=== PATIENT | male | born 1950 | race Two or more races ===

== ENCOUNTER 2017-12-19 17:31 | Observation (INO) | payer OTHER ==
--- NOTE | 2017-12-19 17:50 | EDPHY ---
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 s/p spinal decompression of the T9 metastasis previously. Onset of bilateral lower extremity weakness over the last week. The weakness is gradually increasing and he is having difficulty standing and walking, despite using a walker. He had a CT 1 week ago and a MRI yesterday which revealed a recurrent T9 metastasis. No bowel or bladder incontinence. Today he was advised by Dr. Abbasi, his neurosurgeon, and Dr. Roque, oncologist, to present to the ED. Yesterday, Mya prescribed the patient 4mg P6 Decadron. Dr. Abbasi is planning on transferring the patient to [facility] tomorrow. Denies chest pain, shortness of breath, urinary or bowel complaints, fever or other pertinent symptoms. REVIEW OF SYSTEMS: Aside from elements discussed in the HPI, a comprehensive 10-point review of systems was reviewed and is negative. Past Medical/Surgical History: Renal cell carcinoma with thoracic spinal mets Social History: at bedside, lives in [place], works for [employer] Smoking Status: Never smoked Physical Exam: General Appearance: Alert, pleasant Eyes: Pupils equal and round, no conjunctival pallor or injection ENT, Mouth: Mucous membranes moist Neck: Normal inspection Respiratory: Lungs are clear to auscultation Cardiovascular: Regular rate and rhythm Gastrointestinal: Abdomen is soft and non-tender Neurological: A&O, Patellar Reflex: 1+ on left and 2+ on right. Lower Extremity Strength: 4+/5 on the right and 5-/5 the left Skin: Warm and dry, no rash Extremities: Nontender, no pedal edema Psychiatric: Mood and affect normal Constitutional: Initial Vital Signs Temperature (C) 36.8 C 12/19/17 17:44 Heart Rate 101 H 12/19/17 17:44 Respiratory Rate 16 12/19/17 17:44 Blood Pressure 148/87 H 12/19/17 17:44 O2 Sat (%) 95 12/19/17 17:44 O2 Delivery Mode Room Air Allergies/Adverse Reactions: naproxen Allergy (Verified 12/19/17 17:46) Other-Enter Comments tree nut [Nuts] Allergy (Verified 12/19/17 17:46) Home Medications: Medication Instructions Recorded Melatonin [Melatonin 3 MG (*)] 12 mg PO HS PRN 07/27/16 Sennosides/Docusate Sodium 1 - 2 each PO HS PRN 07/27/16 [Senna-Docusate Sodium Tablet] Acetaminophen [Tylenol 325mg (*)] 650 mg PO Q4 PRN #0 tab 07/31/16 Baclofen [Baclofen 10 mg (*)] 10 mg PO TID #90 tab 07/31/16 Cephalexin [Keflex (*)] 500 mg PO QID 12/19/17 Ascorbic Acid [Vitamin C 500 mg 500 mg PO DAILY 12/20/17 (*)] Cholecalciferol Vit D3 [Vitamin D3 2,000 units PO DAILY 12/20/17 (*)] Dexamethasone [Decadron 4 MG (*)] 4 mg PO Q6 12/20/17 Medical Decision Making ED Course/Re-evaluation: The patient is a 67 y/o male with a history of 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 He was advised to come into the ED by his neurosurgeon, Dr. Lozada, and his oncologist, Dr. Roque. On exam he has decreased strength in his right leg and a decreased patellar reflex in his left leg. Labs ordered. 1732: Consulted with Dr. Lozada, neurosurgeon, regarding this patient. 1801: Consulted with Dr. Gutiérrez, oncologist, regarding this patient. Suggests IV Decadron now followed by Decadron 4 mg every 6 hr. 20mg IV Decadron administered. 1806: Consulted with hospitalist service, Dr. Bennett accepts admission of this patient. Differential Diagnosis: Differential diagnosis includes though is not limited to hypoglycemia, cauda equina syndrome, electrolyte abnormality, brain met, vascular compromise. - Data Points Medications Given: Acetaminophen (Tylenol) 650 mg PO Q4 PRN PRN Reason: Pain, Mild/Fever, Can Take PO Stop: 06/18/18 11:06 Last Admin: 12/20/17 14:05 Dose: 650 mg Ascorbic Acid (Vitamin C) 500 mg PO DAILY [facility] Stop: 06/19/18 08:59 Last Admin: 12/20/17 11:52 Dose: 500 mg Baclofen (Baclofen) 10 mg PO TID [facility] Stop: 06/17/18 21:59 Last Admin: 12/20/17 14:05 Dose: 10 mg Cephalexin HCl (Keflex) 500 mg PO QID [facility] PRN Reason: Protocol Stop: 01/19/18 11:59 Last Admin: 12/20/17 11:51 Dose: 500 mg Cholecalciferol (Vitamin D) 2,000 units PO DAILY [facility] Stop: 06/19/18 08:59 Last Admin: 12/20/17 11:52 Dose: 2,000 units Dexamethasone (Decadron Injection) 4 mg IVP Q6 [facility] Stop: 06/18/18 00:00 Last Admin: 12/20/17 11:54 Dose: Not Given Dexamethasone (Decadron) 4 mg PO Q6 [facility] Stop: 06/18/18 11:59 Last Admin: 12/20/17 11:51 Dose: 4 mg Enoxaparin Sodium (Lovenox) 40 mg SC DAILY [facility] Stop: 06/18/18 08:59 Last Admin: 12/20/17 09:05 Dose: Not Given Senna/Docusate Sodium (Senokot-S) 2 tab PO BID [facility] Stop: 06/17/18 20:59 Last Admin: 12/20/17 09:03 Dose: Not Given Discontinued Medications Acetaminophen (Tylenol) 650 mg PO Q4HRS PRN PRN Reason: Pain, Mild/Fever, Can Take PO Stop: 06/17/18 18:08 Last Admin: 12/20/17 09:10 Dose: 650 mg Cephalexin HCl (Keflex) 500 mg PO BID [facility] PRN Reason: Protocol Stop: 01/18/18 23:14 Last Admin: 12/20/17 09:02 Dose: 500 mg Dexamethasone (Decadron Injection) 20 mg IVP EDNOW ONE Stop: 12/19/17 18:03 Last Admin: 12/19/17 18:50 Dose: 20 mg Docusate Sodium (Colace) 200 mg PO BID [facility] Stop: 06/17/18 20:59 Last Admin: 12/20/17 09:03 Dose: Not Given Melatonin (Melatonin) 3 mg PO HS PRN PRN Reason: Sleep/Insomnia Stop: 06/17/18 18:09 Last Admin: 12/19/17 21:38 Dose: 3 mg Sodium Chloride (Salt Tablet) 1,000 mg PO BIDMEAL [facility] Stop: 06/18/18 07:59 Last Admin: 12/20/17 09:02 Dose: Not Given Tamsulosin HCl (Flomax) 0.4 mg PO DAILY [facility] Stop: 06/18/18 08:59 Last Admin: 12/20/17 09:04 Dose: Not Given Departure - Departure Disposition: [facility] Inpatient Acute Clinical Impression: Weakness of right lower extremity, Bone metastasis Renal cell carcinoma Qualifiers: Laterality: unspecified laterality Qualified Code(s): C64.9 - Malignant neoplasm of unspecified kidney, except renal pelvis Condition: Fair Report Scribed for: Mary Sandhu Report Scribed by: Evelia Carty Date of Report: 12/19/17 Time of Report: 17:48 Physician Review and Approval Statement: 12/19/17 17:48 Portions of this note were transcribed by a medical record consultant. I personally performed a history, physical exam, medical decision making, and confirmed accuracy of information the transcribed note.
[2017-12-19] MEDS ORDERED: DEXAMETHASONE 10 MG/ML VIAL IVP ONE (18:02)
[2017-12-19] MEDS ORDERED: ONDANSETRON 4 MG/2 ML VIAL IVP PRN (18:09)
[2017-12-19] MEDS ORDERED: ONDANSETRON DISINTEGRATING 4 MG TAB PO PRN (18:09)
[2017-12-19] MEDS ORDERED: MELATONIN 3 MG TAB PO PRN (18:10)
[2017-12-19] MEDS ORDERED: DIAZEPAM 5 MG TAB PO PRN (18:10)
[2017-12-19] MEDS ORDERED: traMADol 50 MG TAB PO PRN (18:10)
[2017-12-19] MEDS ORDERED: ZOLPIDEM TARTRATE 5 MG TAB PO PRN (18:10)
[2017-12-19] MEDS ORDERED: traZODone 50 MG TAB PO PRN (18:10)
[2017-12-19] MEDS ORDERED: POLYETHYLENE GLYCOL 3350 17 GM PKT PO PRN (18:10)
[2017-12-19] MEDS ORDERED: MAGNESIUM HYDROXIDE 30 ML UDCUP PO PRN (18:10)
[2017-12-19 18:58] LABS: PLATELET COUNT 206 10^3/uL (150-400)
--- NOTE | 2017-12-19 19:48 | GHP ---
[f rep st] HISTORY AND PHYSICAL DATE OF ADMISSION: 12/19/2017 CHIEF COMPLAINT: Leg weakness and numbness. HISTORY OF PRESENT ILLNESS: A 67-year-old male with a history of renal cell carcinoma with metastases to his spine status post previous thoracic decompression in 2016. The patient reports uncomplicated postsurgical recovery initially, with nearly no mobility in either lower extremity. Patient had rehab to being able to walk around his home without a walker. 1 week ago, patient started noting increasing lower extremity weakness and immobility. The patient was seen by Neurosurgery in the outpatient setting, had repeat MRI imaging performed which confirms recurrence of his renal cell metastases to his spine. The patient denies any chest pain, denies shortness of breath. Denies vision changes. Reports occasional headache he associates with dehydration. Denies dysphagia. Denies diarrhea or constipation. Reports mild urinary retention, which has been stable. The patient was seen by urologist and said he has enlarged but normal prostate. PAST MEDICAL HISTORY: 1. Renal cell carcinoma status post radical nephrectomy on the left in April 2016. 2. Thoracic decompression and fusion of T9 in December of 2015. FAMILY HISTORY: Negative for heart disease. SOCIAL HISTORY: Lives with his . Negative for tobacco, alcohol or illicit drugs. REVIEW OF SYSTEMS: A 10-point review of systems is negative with the exception of that reported in the HPI. ADVANCED DIRECTIVES: The patient wishes to be full cor, full tube. His would be his medical decision maker. PHYSICAL EXAMINATION: VITAL SIGNS: Blood pressure is 148/87, heart rate 101, respiratory rate 16, 95% on room air. 36 A. GENERAL: This is a healthy- appearing, middle-aged male lying flat in bed. HEENT: Notable for moist mucous membranes. Eye exam is negative for any icterus. CARDIAC: Patient is regular rate and rhythm. PULMONARY: Clear to auscultation bilaterally. GASTROINTESTINAL: Positive bowel sounds. ABDOMEN: Soft and nontender. MUSCULOSKELETAL: Negative for any lower extremity edema. SKIN: Negative for any rashes. NEUROLOGIC: Patient has diminished proprioception of bilateral lower extremities. Mildly diminished strength. Positive Babinski bilaterally. PSYCHIATRIC: Patient is pleasant and cooperative on interview and examination. DIAGNOSTIC DATA: EKG from prior hospitalization that I personally reviewed and interpreted shows sinus rhythm, normal axis, normal intervals. CT of the chest, abdomen, and pelvis from 12/13/2017 was reviewed. Shows osteolytic lesions involving the right scapula and more pronounced paraspinal soft tissue associated with T7 through T11. ASSESSMENT AND PLAN: This is a 67-year-old male with renal cell carcinoma, metastatic to the spine, with new spinal recurrence. 1. Thoracic spinal metastases. The patient had MRI imaging performed in the outpatient setting that confirms recurrence. The patient has been seen by Neurosurgery. We will treat with high-dose intravenous dexamethasone this evening, then start scheduled 4 mg q.6 hours. Neurosurgery is in communication with Neurosurgery at [facility] with the expectation of transfer in the next 24 hours for surgical intervention at the [facility]. 2. Tachycardia appears sinus. May be related to dehydration. However, the patient reports normal intake. Will follow this evening. The patient is hungry and thirsty. Suspect he can eat and drink normally overnight, not necessitating intravenous fluids. 3. BPH. Will continue patient's tamsulosin. 4. Prophylaxis with enoxaparin. DIET: Regular. DISPOSITION: Expect in less than 2 midnights if the anticipated transfer to [facility] occurs in the next 24 hours. Discussed the case with Dr. Lozada from Neurosurgery. They will arrange transport and transfer tomorrow. /[id number]/MODL MTDD
[2017-12-19 20:38] VITALS: RESP 16
[2017-12-19] MEDS: SENNOSIDES/DOCUSATE SODIUM TAB PO SCH (21:39)
[2017-12-19] MEDS: BACLOFEN 10 MG TAB PO SCH (21:39)
[2017-12-19] MEDS: DOCUSATE SODIUM 100 MG CAP PO SCH (21:39)
[2017-12-19] MEDS: ACETAMINOPHEN 325 MG TAB PO PRN (21:50)
--- NOTE | 2017-12-19 22:23 | GCON ---
[f rep st] CONSULTATION DATE OF CONSULTATION: 12/19/2017 CONSULTING SERVICE: Emergency Medicine REASON FOR CONSULT: Renal cell carcinoma to the thoracic spine with progression. HISTORY OF PRESENT ILLNESS: The patient is a 67-year-old male with a history of renal cell carcinoma with thoracic spinal METS to approximately T9, who has been operated on before by my partner, Dr. Isma Abbasi. His oncologist is Dr. Roque. He did have a decompressive surgery in the past for bi lateral leg weakness but that eventually improved. For the past week, he has had subjective weakness in his legs, making it difficult to walk. He can barely use a walker at this point. He had a CT a week ago and an MRI yesterday. Dr. Roque started him on 4 q.6 of Decadron yesterday and updated m y partner, Dr. Abbasi, on progression of the patient's tumor. Dr. Abbasi called me and discussed the case with me. Apparently, the recurrence is highly complex and will require an embolization and mul tiple surgical approaches for definitive treatment. He spoke to Dr. Khoury of the [facility]. Dr. Khoury is willing to accept the patient in transfer. In the meantime, th e patient presented to the ED for IV Decadron and coordination of care. The patient corroborates all of this to me on my bedside examination. I saw him in the emergency room. PAST MEDICAL/SURGICAL HISTORY: Per HPI. SOCIAL HISTORY: at bedside. Lives in [place]. Works for [employer]. Never smoked. Denies tobacco , alcohol or illicit drug abuse. CODE STATUS: Full. ALLERGIES: Naproxen and tree nuts. HOME MEDICATIONS: Tramadol, trazodone, Colace, melatonin, Ambien, baclofen, Valium, MiraLAX, Flomax. FAMILY HISTORY: Negative for cancers. REVIEW OF SYSTEMS: Ten points reviewed and negative other than stated in HPI. VITAL SIGNS: Afebrile at 36.8, blood pressure 148/87, heart rate 101, saturating 95% on room air wit h a respiratory rate of 16. LABORATORY: White blood cell count 7.29, platelet count 206, hemoglobin 12, left shift with 85.8% ne utrophils. Sodium 135, potassium 4.5, BUN 47, creatinine 2.0, glucose 184, calcium 9.5. NEUROLOGIC EXAMINATION: The patient is awake, alert and oriented x3. Appears stated age. No acute distress. Normal fluent speech. He has normal cranial nerves. His upper extremity exam in terms of motor and sensory is normal. He has no pronator drift. His lower extremity exam is 4+/5 throughout . He does have abnormal deep tendon reflexes. He does have bilateral upgoing toes, consistent with positive Babinski reflex. He does have very poor proprioception which is basically nonexistent. Gai t is deferred. IMAGING: The patient's outpatient CT and MRI have been reviewed by my partner, Dr. Abbasi, which karine ws significant renal cell carcinoma progression with cord compression. This is not available for my review today. I did discuss it with Dr. Abbasi. IMPRESSION AND PLAN: A 67-year-old male with a history of renal cell carcinoma with metastases to th e thoracic spine, status post decompressive surgery in the past with Dr. Abbasi with improved lower e xtremity weakness thereafter. The patient had a week of subjective and objective lower extremity fin dings. Imaging indicates extensive recurrence with cord compression that necessitates a transfer to a [facility] setting for an embolization and then multiple surgical approaches for definitive treatme nt. I have discussed the case my partner, Dr. Abbasi, who has discussed the case with our colleague, Dr. Roque of Oncology. The patient will be admitted for IV Decadron and coordination of care. W e will try to transfer him down to Dr. Khoury of [facility] tomorrow for definitive surgica l management. Dr. Khoury is a neurosurgeon and is aware of the case as well. Thank you for this consult. /[id number]/MODL
[2017-12-19] MEDS: CEPHALEXIN 500 MG CAP PO SCH (23:10)
[2017-12-20] MEDS ORDERED: *PHM DO NOT USE-DEXAMETHASONE 0.2 MG/ML IV PED/NEWBORN SYR IV SCH
[2017-12-20] MEDS: DEXAMETHASONE 4 MG/ML VIAL IVP SCH ×3 (00:10→11:54)
[2017-12-20 04:46] LABS: PLATELET COUNT 191 10^3/uL (150-400)
[2017-12-20] MEDS ORDERED: SODIUM CHLORIDE 1,000 MG TAB PO SCH (08:00)
[2017-12-20 08:17] VITALS: O2SAT 94
[2017-12-20] MEDS ORDERED: TAMSULOSIN HCL 0.4 MG CAP PO SCH (09:00)
[2017-12-20] MEDS ORDERED: ENOXAPARIN 40 MG/0.4 ML SYR SC SCH (09:00)
[2017-12-20] MEDS: BACLOFEN 10 MG TAB PO SCH ×2 (09:02→14:05)
[2017-12-20] MEDS: CEPHALEXIN 500 MG CAP PO SCH (09:02)
[2017-12-20] MEDS: DOCUSATE SODIUM 100 MG CAP PO SCH (09:03)
[2017-12-20] MEDS: SENNOSIDES/DOCUSATE SODIUM TAB PO SCH (09:03)
[2017-12-20] MEDS: ACETAMINOPHEN 325 MG TAB PO PRN (09:10)
--- NOTE | 2017-12-20 10:08 | NEUSURGPN ---
Assessment/Plan: Emerson is a 67y/o male with recurrent metastic renal cell carcinoma to approximately T9. Dr. Abbasi has spoke with Dr. Khoury about transfer to [facility] today. Transfer center and case management on board to assist in the transfer. Continue Decadron per oncology Please notify NS with any change in neuro/motor exam. Subjective: Decreased sensation Right>left from the waist down. Urinary urgency and retention, denies any incontinence. right>left anterior quad/hip weakness when up right. Objective: NAD A&Ox3. Decreased sensation to light touch in BLE. diffusely 5-/5 in RLE, 5/ 5 in LLE. - Physician Discussed Patient with .: [facility] Physical Exam - Vitals, I&O, Labs I and O 12/19/17 12/20/17 12/21/17 05:59 05:59 05:59 Intake Total 250 Output Total 800 Balance -550 Weight 71.214 kg Intake: Oral (ml) 250 Output: Urine (ml) 800 Urinal 500 Vital Signs Temp Pulse Resp BP Pulse Ox 36.6 C 72 16 134/74 H 94 12/20/17 08:00 12/20/17 08:00 12/20/17 08:00 12/20/17 08:00 12/20/17 08:00 Laboratory Results 12/20/17 04:29 12/20/17 04:29 ICD10 Worksheet Patient Problems: Problems Problem Status Onset Carcinoma of spine Acute Weakness of right lower extremity Acute Bone metastasis Acute Compression fracture Acute Dehydration Acute Renal cell carcinoma Acute Weakness Acute
[2017-12-20] MEDS ORDERED: ACETAMINOPHEN 325 MG TAB PO PRN (11:07)
[2017-12-20] MEDS ORDERED: MELATONIN 3 MG TAB PO PRN (11:25)
[2017-12-20 11:32] VITALS: BP 142/75; PULSE 99; TEMP 97.9
[2017-12-20] MEDS ORDERED: ASCORBIC ACID 500 MG TAB ONE (11:49)
[2017-12-20] MEDS ORDERED: CHOLECALCIFEROL VIT D3 2,000 UNITS TAB/CAP ONE (11:49)
[2017-12-20] MEDS: ASCORBIC ACID 500 MG TAB PO SCH (11:52)
[2017-12-20] MEDS ORDERED: DEXAMETHASONE 4 MG TAB PO SCH (12:00)
[2017-12-20] MEDS ORDERED: CEPHALEXIN 500 MG CAP PO SCH (12:00)
--- NOTE | 2017-12-20 14:09 | ASMTCMCOM ---
CM Note CM Note Notes: Chart reviewed. Patient is to transfer to [facility]. Emtala done. Call to [facility] this am to speak to there transfer specialist. No bed currently available. I recalled at 13:30. Still no bed confirmation. Patient is upset. Assured him I will let him know as soon as bed available. Date Signed: 12/20/2017 02:08 PM Electronically Signed By:Salena Delarosa RN
--- NOTE | 2017-12-20 14:17 | ASMTCMCOM ---
CM Note CM Note Notes: received call from [facility] with bed assignment about 1:49 pm. Call to [facility]. nurse aware, scrap picker in 30 minutes. Patient informed of pending pickup. RN to call with report. CM available should other needs arise. Date Signed: 12/20/2017 02:16 PM Electronically Signed By:Salena Delarosa RN
--- NOTE | 2017-12-20 15:46 | GDS ---
[f rep st] DISCHARGE SUMMARY DISCHARGE DIAGNOSIS: Metastatic renal cell carcinoma. CONSULTATIONS: Neurosurgery. PHYSICAL EXAM: GENERAL: The patient is alert. VITAL SIGNS: Afebrile at 36.6, pulse 99, respiratory rate 16. Blood pressure is 142/75. He is satur ating 94% on room air. I have seen and evaluated the patient on the day of discharge. HOSPITAL COURSE: The patient is a 67-year-old male who presented to the emergency room with complain ts of weakness. He was evaluated and received a consultation from Neurosurgery. It is felt that the patient requires transfer to [facility] under Dr. Khoury for further surgical intervention regarding his metastatic process to his spine. The disposition and transfer have been arranged. Th e patient will be transported to [facility] for further management and therapy regarding his chronic disease. FOLLOWUP: Followup will be with Dr. Khoury of Neurosurgery at the [facility], as well as the patient's primary oncologist, Dr. Roque. DISCHARGE MEDICATIONS: Please refer to EMR form. I have not adjusted the patient's previously presc ribed home medications to the best of my knowledge. /[id number]/MODL
[2017-12-21] MEDS ORDERED: CHOLECALCIFEROL VIT D3 2,000 UNITS TAB/CAP PO SCH (09:00)
== END 2017-12-20 14:54 | disposition short-term general hospital (02) ==
LOC: F3E 20:14
PROVIDERS: ADMIT Hospitalist; ATTEND Internal Medicine
DX: C79.51 Secondary malignant neoplasm of bone (principal); G95.29 Other cord compression; R53.1 Weakness; G99.2 Myelopathy in diseases classified elsewhere; R00.0 Tachycardia, unspecified; N40.0 Benign prostatic hyperplasia without lower urinary tract symptoms; Z85.528 Personal history of other malignant neoplasm of kidney; Z90.5 Acquired absence of kidney
CPT/HCPCS: G0378 ×2; J1100; J1650

== ENCOUNTER 2018-01-03 11:48 | Inpatient (IN) | payer OTHER ==
[2018-01-03] MEDS ORDERED: NYSTATIN SUSP 500000 UNIT/5 ML UDCUP PO PRN (13:26)
[2018-01-03] MEDS ORDERED: oxyCODONE IR 5 MG TAB PO PRN (13:26)
[2018-01-03] MEDS ORDERED: SENNOSIDES 1 TAB PO PRN (13:26)
[2018-01-03] MEDS ORDERED: MAGNESIUM HYDROXIDE 30 ML UDCUP PO PRN (13:58)
[2018-01-03] MEDS ORDERED: BISACODYL 10 MG SUPP PR PRN (13:58)
[2018-01-03] MEDS: ACETAMINOPHEN 500 MG TAB PO SCH ×2 (14:15→20:47)
--- NOTE | 2018-01-03 14:42 | PDOREHIP ---
Admission [facility] - Admission - 3 Day Assessment Period Admission Date/Day 1: 01/03/18 Day 2: 01/04/18 Day 3: 01/05/18 - Skin Conditions Unhealed Pressure Ulcer (1 or more/Stage 1 or >)-Admission: 0. No
[2018-01-03] MEDS: BACLOFEN 10 MG TAB PO SCH ×2 (15:32→20:47)
--- NOTE | 2018-01-03 16:36 | GHP ---
[f rep st] HISTORY AND PHYSICAL POSTADMISSION PHYSICIAN EVALUATION AND REHABILITATION TREATMENT PLAN DATE OF ADMISSION: 01/03/2018 DATE OF EVALUATION: 01/03/2018 TIME OF EVALUATION: 2:30 p.m. REFERRING FACILITY: [facility]. CONSULTING PHYSICIANS: Dr. Khoury. REHABILITATION DIAGNOSIS: Lower extremity weakness secondary to recent thoracic spine surgery. 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 DATE OF SURGERY: 12/25/2017. DATE OF ONSET: 12/20/2017. HISTORY OF PRESENT ILLNESS: A 67-year-old male with history of renal cell carcinoma, status post right nephrectomy and prior history of spinal metastasis resulting in previous spinal cord compression 2 years ago. He presented to [facility] after initial presentation to [facility] where he presented with worsening lower extremity weakness. Upon presentation to [facility], he presented with recurrence of spinal metastasis in the setting of worsening lower extremity weakness, more pronounced on the left, along with difficulty walking. He was seen in the Neurosciences Unit for evaluation. It was noted that 2 weeks prior to admission , he was having worsening lower extremity weakness and difficulty walking. He was diagnosed with new T8-T10 recurrent mets and found spinal mets on surveillance CT scan. Two years prior, he underwent T9 corpectomy at [facility]. Also had 2 surgeries at [facility] including spinal arteriography T7-L2 with coil embolization of the left T8-9-10 intercostals. Second surgery was in area of previous fusion from T7-T11 with revision of bilateral laminectomy at T8-11, removal of left T10 pedicle screw, left T9 costotransversectomy, revision transpedicle T9 corpectomy, thoracic tumor debulking/resection, bilateral T12 pedicle screw insertion, T11-12 fusion with allograft and revision anterior column fusion with allograft T10-8. He was able to participate in therapies including physical and occupational therapy , and was deemed ready to transfer to postacute rehabilitation. Currently he reports pain in the interscapular and parathoracic region rated as a 5/10 which he attributes to sitting in the uncomfortable chair. He reports right greater than left lower extremity weakness, particularly of the right and left ankle dorsiflexors, more pronounced on the right. He does notice that he drags his feet a little bit when walking. He denies bowel or bladder incontinence. He does report having been constipated for the past few days and reports good relief with prior use of Milk of Magnesia. Also complains of nocturia. He has been in to see a urologist at [facility] for BPH versus dysfunctional bladder contraction. He was placed on some type of medication but cannot recall which name. STUDIES AND LABS: MRI of pelvis 12/23/2017 showed ovoid lesion along the posterior right 2nd rib, likely represents metastatic RCC. MR thoracic spine, interval revision of lower thoracic fusion construct with decompressive laminectomies as above. T9 mass narrows the spinal canal which had been decompressed since the previous study. Enhancing lesions in the right 1st rib and T5 vertebral body. MR scapula, right, multilobulated enhancing destructive mass centered at the scapular spine/neck of the glenoid which probably invades the supraspinatus musculature, likely represents metastatic RCC. Ovoid lesion along the posterior right 2nd rib. MR pelvis, T1-2 hyperintense lesions along the left iliac wing, right iliac wing , right anterior acetabulum, and superior sacrum, likely represents metastatic RCC lesions. X-ray entire C-T-L-spine status post posterior fusion T7-T11. Labs: Sodium 138, potassium 42, glucose 109, BUN 33, creatinine 1.18. GFR greater than 60. Calcium 8.6. CBC: WBC 12.9, hemoglobin 9.4, hematocrit 27.9, RBC 2.97. PRECAUTIONS: Fall risk. Spinal precautions: No repetitive bending, stooping, pulling, pushing, or twisting. No lifting greater than 5 pounds. ACTIVE COMORBIDITIES: Question BPH. Status post right nephrectomy. TIER 1: None. TIER 2: None. TIER 3: None. PAST MEDICAL HISTORY: BPH. History of renal cell carcinoma. PAST SURGICAL HISTORY: As per HPI, multiple thoracic spine surgeries, status post right nephrectomy. PREHOSPITAL MEDICATIONS: Patient was taking something for nocturia and/or to improve urinary outflow, cannot recall name. ADMISSION MEDICATIONS: Acetaminophen 1000 mg q.8. Baclofen 10 mg t.i.d. Dulcolax 10 mg p.r. Magnesium hydroxide 30 mL p.o. daily. Nystatin 500,000 units p.o. q.i.d. p.r.n. thrush. Oxycodone IR 5-10 mg p.o. q.6 and adjusted to pain level. Polyethylene glycol 17 g p.o. daily p.r.n. constipation. Senna 2 tablets p.o. h.s. p.r.n. ALLERGIES: NKDA. PSYCHOSOCIAL HISTORY: Patient is . Lives with who only speaks Maldivian. Lives in multilevel home with stairs to enter home, 1 to 2 steps with a ramp, stairs to second floor, bathroom level on second floor. Patient is a college graduate and currently works for [employer]. He reports that he is getting ready to retire. Hobbies include hiking. FAMILY HISTORY: Noncontributory. REVIEW OF SYSTEMS: HEENT: Denies dizziness. Reports intermittent tinnitus left ear. NEUROLOGIC: Denies headaches, impaired vision or diplopia. Reports lower extremity weakness, as per HPI. GASTROINTESTINAL: Reports mild dysphagia secondary to recent surgery. Denies GERD like symptoms. Reports constipation. GENITOURINARY: Reports nocturia. Previously placed on medication to improve this, cannot recall name. Denies bladder incontinence. SKIN: Denies rash, lesions or other skin breakdown. PSYCHIATRIC: Denies anxiety or depression. CARDIOVASCULAR: Denies angina like symptoms. RESPIRATORY: Denies shortness of breath. MUSCULOSKELETAL: Reports right shoulder pain which he attributes to rotator cuff tendinitis. PHYSICAL EXAMINATION: GENERAL: Lean, pleasant male NAD, flat affect. VITAL SIGNS: Blood pressure 149/88, heart rate 94, respiratory rate 16 and unlabored. HEENT: Pupils equal, round and reactive to light and accommodation. EOMI. Oral mucosa slightly dry. LYMPH: No cervical or axillary lymphadenopathy. LUNGS: Clear to auscultation. ABDOMEN: Slightly tense. No rebound, guarding or tenderness. Slightly distended. GENITOURINARY: No catheter present. No suprapubic tenderness. No flank pain. SKIN: Warm all 4 extremities with multiple ecchymoses of both forearms. Large thoracic spine incision, juan in place, no erythema. Increased tone of the thoracic paraspinals at the surgical site most likely due to hematoma formation. SOFT TISSUE EXAM: No paracervical or paralumbar guarding. Mild parathoracic tenderness. Difficult to assess for parathoracic muscle spasms due to most likely hematoma formation in thoracic paraspinals. NEUROLOGIC: Grossly normal upper extremity motor exam deltoid, biceps, triceps, brachial radialis, wrist and finger extensors. Some pain inhibition testing is noted when testing right supraspinatus in isolation. No pain noted with resisted internal and external right shoulder rotation. Lower extremity motor exam reveals weakness 3-/5 right and left hip flexors, 4/5 hamstrings, 3-/5 quadriceps, 3+4-/5 right tibialis anterior, 4/5 left tibialis anterior. No upper or lower extremity sensory deficits. CURRENT LEVEL OF FUNCTION: Per the preadmission screen: He is tolerating a regular diet with thin liquids with setup. Grooming: He is standby assist- standing. Bathing: Minimal assistance. Dressing upper body: Minimal assist. Patient states that the TLSO has been discharged. Lower extremity dressing: SPA with sock aid with head piece assembler. Toileting: Standby assist, bladder continent, bowel continent. Bed mobility: Independent. Transfer to toilet: Contact guard assist. Equipment: FWW. Endurance: Endurance is noted to be improving. Gait : At time of transfer, patient was ambulating 40 feet with FWW, contact guard assist. Communication and cognitive: WNL. Safety precautions: Falls, constipation, low endurance, spine precautions, right greater than left lower extremity weakness. IMPRESSION: This is a 67-year-old male with history of renal cell carcinoma with prior history of spinal metastasis and previous spinal cord compression 2 years ago who underwent extensive thoracic spine surgery as described in the history of present illness who now presents with impaired mobility and gait secondary to lower extremity weakness along with trunk weakness. He is noted to have metastasis in the right scapula and right 1st and 2nd ribs, as well as metastasis to the pelvis. He will benefit from continued inpatient physical and occupational therapy to optimize mobility including transfers and gait, as well as activities of daily living so that he can be discharged home to his with a modified independent level. For safe discharge, it is expected that patient will be at least modified independent, if not fully independent, with ambulation and transfers. He will need to be discharged with assistive devices including sock aids and an FWW, although he may be able to be discharged with a quad cane and this is based on his current walking distance and lower extremity strength. He will have Physical Therapy and Occupational Therapy, as well as evaluation by Speech Therapy to assess cognitive status 60 minutes per day, 5-7 days per week. Expected duration of stay, 7-10 days. PLAN: 1. 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 He has right greater than left lower extremity weakness. Physical Therapy consult to optimize lower extremity mobility, gait evaluation , provide assistive devices as necessary. Patient will need strengthening of pelvic girdle muscles, quadriceps, hamstrings, ankle dorsiflexors and plantar flexors. Physical Therapy will work in conjunction with Occupational Therapy to address core/trunk strength. 2. Bilateral foot drop. Physical therapy to assess necessity for possible right and left ankle foot orthoses as deemed necessary. 3. Right scapular metastasis. Patient currently complains of pain in the right subacromial region which he states is due to rotator cuff tendinitis. Judicious and gentle right upper extremity strengthening and range of motion based on metastasis to scapula. Patient may benefit from low dose nonsteroidal antiinflammatories to help manage shoulder pain. 4. Postsurgical anemia. Will monitor hemoglobin and hematocrit. Patient denies shortness of breath. Pulse was noted to be not tachycardic and regular. 5. Constipation. Will implement a rehab bowel program. 6. Possible benign prostatic hypertrophy. I will ask Linen Sorter to contact [facility] to ascertain which medication he was on. Once we know this, we can restart this. 7. Prophylaxis. Patient is moderate risk for deep venous thrombosis based on his age and history of metastatic cancer. He was not transferred with any anticoagulant medications. Will begin SCDs. /[id number]/MODL MTDD
[2018-01-03] MEDS: DOCUSATE SODIUM 100 MG CAP PO SCH (20:47)
[2018-01-03] MEDS: MELATONIN 3 MG TAB PO SCH (21:26)
[2018-01-04] MEDS: ACETAMINOPHEN 500 MG TAB PO SCH ×3 (05:06→20:56)
[2018-01-04 08:20] LABS: PLATELET COUNT 236 10^3/uL (150-400)
[2018-01-04] MEDS: DOCUSATE SODIUM 100 MG CAP PO SCH ×2 (08:20→20:56)
[2018-01-04] MEDS: BACLOFEN 10 MG TAB PO SCH ×3 (08:20→20:56)
[2018-01-04] MEDS: POLYETHYLENE GLYCOL 3350 17 GM PKT PO PRN (08:24)
--- NOTE | 2018-01-04 10:15 | SOAPPROG ---
SOAP Progress Note Assessment/Plan: Assessment/Plan: Mr. Cruz is a 67 y/o male admitted to Acute rehab on 01/03/18 after undergoing thoracic spine surgery secondary to mets from RCC. This was completed by Dr. Khoury at the [facility]. 1. 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 R>L LE weakness. Pt will benefit from intervention with PT and OT given his change in baseline function. They will provide strategies and intervention to optimize recovery and increase safety and [place] 2. Bilateral Foot Drop - PT will assess for possible bilateral foot orthosis as well as least restrictive Gait equipment 3. Right scapular mets - Has some ongoing pain in the region. Will work with therapy to minimize any musculoskeletal component. Has Pain meds PRN 4. Acute blood loss anemia - Intermittently monitor. Pt mildly fatigued but otherwise stable. VS have also been stable. May need to consider Iron replacement qod to support anemia - 5. Constipation - likely a combination of decreased mobility and recent surgical intervention. Implement bowel program. If no BM x3 days will add medications 6. N. 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 Had trialled Toviaz 8mg prior which he thought worked too well. Start current dosing and monitor - Have asked RN's to collect PVR's x2 to determine if has retention vs hyper- reflexic bladder 7. Sore throat - Pt reports that his continues to improve but has been there since the surgery - doesn't feel any change in his voice. - Start Cepacol lozenge - no evidence of infection - If persists - may need to consider evaluation with ENT 8. Prophylaxis - At least moderate risk given active metastatic cancer, per review of the chart was receiving SQ Heparin on 01/02/18 prior to transfer although not on transfer list - Will restart and evaluate mobility with therapy. If able to mobilize well then will consider removal. 01/04/18 10:15 Subjective: Feeling pretty good today - frustrated as finally had worked up to being around his home without a walker after his last surgery/mets. Reported that still feeling some soreness through his throat but overall this has improved - was hoping to get some lozenge or other support for this. We discussed his management of his bladder- reporting increase awakening to use the restroom at night although this is something he had seen a urologist semi-recently about - Did have Cystoscopy which patient reported no abnormality- did say he had a hyper-reflexic bladder. Objective: Vital Signs Temp Pulse Resp BP Pulse Ox 37.0 C 93 16 128/86 H 94 01/03/18 20:00 01/03/18 20:00 01/03/18 20:00 01/03/18 20:00 01/03/18 20:00 Laboratory Results 01/04/18 07:05 01/04/18 07:05 01/03/18 01/04/18 01/05/18 05:59 05:59 05:59 Intake Total 500 Output Total 1850 Balance -1350 Physical Exam - Physical Exam General Appearance: alert, no apparent distress EENT: PERRL/EOMI Respiratory: lungs clear Cardiac/Chest: regular rate, rhythm Abdomen: normal bowel sounds, non-tender Skin: normal color Neuro/Psych: alert, normal mood/affect, oriented x 3 ICD10 Worksheet Patient Problems: Problems Problem Status Onset Bone metastasis Acute Compression fracture Acute Dehydration Acute Renal cell carcinoma Acute Weakness Acute Weakness of right lower extremity Acute
[2018-01-04] MEDS: MELATONIN 3 MG TAB PO SCH (20:55)
[2018-01-04] MEDS: FESOTERODINE FUMARATE 4 MG TAB.ER PO SCH (20:56)
[2018-01-04] MEDS: HEPARIN 5,000 UNIT/0.5 ML SYR SC SCH (20:57)
[2018-01-04] MEDS: CEPACOL LOZENGE PO PRN (21:11)
[2018-01-05] MEDS: ACETAMINOPHEN 500 MG TAB PO SCH ×3 (05:25→20:45)
[2018-01-05] MEDS: HEPARIN 5,000 UNIT/0.5 ML SYR SC SCH ×3 (05:26→20:46)
[2018-01-05] MEDS: CEPACOL LOZENGE PO PRN (05:34)
[2018-01-05] MEDS: POLYETHYLENE GLYCOL 3350 17 GM PKT PO PRN (08:02)
[2018-01-05] MEDS: DOCUSATE SODIUM 100 MG CAP PO SCH ×2 (08:03→20:46)
[2018-01-05] MEDS: BACLOFEN 10 MG TAB PO SCH ×3 (08:03→20:46)
--- NOTE | 2018-01-05 10:33 | SOAPPROG ---
SOAP Progress Note Assessment/Plan: Assessment/Plan: Mr. Cruz is a 67 y/o male admitted to Acute rehab on 01/03/18 after undergoing thoracic spine surgery secondary to mets from RCC. This was completed by Dr. Khoury at the [facility]. 1. 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 R>L LE weakness. Pt will benefit from intervention with PT and OT given his change in baseline function. They will provide strategies and intervention to optimize recovery and increase safety and [place] 2. Bilateral Foot Drop - PT will assess for possible bilateral foot orthosis as well as least restrictive Gait equipment 3. Right scapular mets - Has some ongoing pain in the region. Will work with therapy to minimize any musculoskeletal component. Has Pain meds PRN 4. Acute blood loss anemia - Intermittently monitor. Pt mildly fatigued but otherwise stable. VS have also been stable. May need to consider Iron replacement qod to support anemia - 5. Constipation - likely a combination of decreased mobility and recent surgical intervention. Implement bowel program and add meds as indicated 6. N. 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 Had trialled Toviaz 8mg prior which he thought worked too well. Start current dosing and monitor - Have asked RN's to collect PVR's x2 to determine if has retention vs hyper- reflexic bladder 7. Sore throat - Pt reports that his continues to improve but has been there since the surgery - doesn't feel any change in his voice. - Start Cepacol lozenge - no evidence of infection - If persists - may need to consider evaluation with ENT 8. Prophylaxis - At least moderate risk given active metastatic cancer, per review of the chart was receiving SQ Heparin on 01/02/18 prior to transfer although not on transfer list - Will restart and evaluate mobility with therapy. If able to mobilize well then will consider removal. Today's Plan: Pt reports great improvement with the cepacol -no new concerns/ swallow dysfunction. He was happy with current dosing of toviaz- still did have to get up last night but decreased. Will trial for a couple more nights and consider transition to 8mg for improved effect. Did have BM last night. Pt without symptoms of anemia - will repeat labs tomorrow to continue to trend. 01/05/18 10:35 Subjective: Feeling pretty good today - reports that did have some benefit from the toviaz dosing last night. He was asking about taking Vitamin D since he was taking this prior. He is feeling pretty upbeat since he is in a much better position this time as compared to last time he had this injury. Objective: Vital Signs Temp Pulse Resp BP Pulse Ox 36.9 C 74 16 112/74 93 01/05/18 07:20 01/05/18 07:20 01/05/18 07:20 01/05/18 07:20 01/05/18 07:20 Laboratory Results 01/04/18 07:05 01/04/18 07:05 01/04/18 01/05/18 01/06/18 05:59 05:59 05:59 Intake Total 500 1963 160 Output Total 1850 3150 300 Balance -1350 -1187 -140 Physical Exam - Physical Exam General Appearance: alert, no apparent distress Respiratory: lungs clear, normal breath sounds Cardiac/Chest: regular rate, rhythm Abdomen: non-tender, soft Skin: normal color Extremities: normal range of motion Neuro/Psych: alert, normal mood/affect, oriented x 3 ICD10 Worksheet Patient Problems: Problems Problem Status Onset Bone metastasis Acute Compression fracture Acute Dehydration Acute Renal cell carcinoma Acute Weakness Acute Weakness of right lower extremity Acute
[2018-01-05] MEDS: FESOTERODINE FUMARATE 4 MG TAB.ER PO SCH (19:46)
[2018-01-05] MEDS: MELATONIN 3 MG TAB PO SCH (20:46)
[2018-01-06] MEDS: ACETAMINOPHEN 500 MG TAB PO SCH ×3 (06:34→20:32)
[2018-01-06] MEDS: HEPARIN 5,000 UNIT/0.5 ML SYR SC SCH ×4 (06:34→20:34)
[2018-01-06] MEDS: BACLOFEN 10 MG TAB PO SCH ×3 (08:17→20:31)
[2018-01-06] MEDS: DOCUSATE SODIUM 100 MG CAP PO SCH ×2 (08:17→20:32)
[2018-01-06] MEDS: CHOLECALCIFEROL VIT D3 2,000 UNITS TAB/CAP PO SCH (08:17)
[2018-01-06 09:31] LABS: PLATELET COUNT 235 10^3/uL (150-400)
--- NOTE | 2018-01-06 11:24 | SOAPPROG ---
SOAP Progress Note Assessment/Plan: Assessment: Mr. Cruz is a 67 y/o male admitted to Acute rehab on 01/03/18 after undergoing thoracic spine surgery secondary to mets from RCC. This was completed by Dr. Khoury at the [facility]. 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 R>L LE weakness. * Initial FIM of 88 on 01/06/2018. Standby assist for bed mobility, moderate assist to get legs back into bed. Ambulated 100 ft with a front wheeled walker standby assist to contact guard assist. Doing activities of daily living with contact guard to standby assist. He has some ataxia and loss of balance. * Continue PT and OT towards discharge home at the independent to modified independent level. * Bilateral Foot Drop - PT will assess for possible bilateral foot orthosis as well as least restrictive Gait equipment * Right scapular mets - Has some ongoing pain in the region. Metastatic lesions involve the supraspinatus. Will work with therapy to minimize any musculoskeletal component. Has pain meds PRN * Acute blood loss anemia - Intermittently monitor. Pt mildly fatigued but otherwise stable. VS have also been stable. * Reticulocyte count appropriate. * Iron deficient on labs 01/06/2018. Will supplement X 4 weeks. * Constipation - responding to bowel program. * N. Bladder? 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 Has moderate BPH as well as bladder hypercontractility. * Improved 2 nights ago with fesoterodine but not better last night, per his report on 01/06/2018. Increase fesoterodine to 8 mg at bedtime per his request. * Monitor for signs or symptoms of urinary retention. Continue bladder scanning. * Baclofen may contribute. Will decrease dose to 5 mg. * Sore throat - Pt reports that his continues to improve but has been there since the surgery - doesn't feel any change in his voice. - Start Cepacol lozenge - no evidence of infection - If persists - may need to consider evaluation with ENT * Prophylaxis - At least moderate risk given active metastatic cancer, per review of the chart was receiving SQ Heparin on 01/02/18 prior to transfer although not on transfer list - Will restart and evaluate mobility with therapy. If able to mobilize well then will consider removal. Attended staffing, 15 min. Discussed with case management, dietitian, PT, OT. Plans to return home with . Has followup pending with [facility]. Tentative discharge date of 01/16/2018 set. 01/06/18 14:42 Subjective: Complains of frequent urination at night especially. He thinks he has more urine volume overnight than during the day. He says it was improved on fesoterodine 4 mg 2 nights ago but last night was about the same as previous. He reports that he limits his fluid intake with dinner and after. He has not noticed swelling of the leg. He has no cough or dyspnea. Overall pain is adequately controlled. He prefers to avoid opiates due to the constipation side effect. Objective: Vital Signs Temp Pulse Resp BP Pulse Ox 36.8 C 80 14 128/90 H 95 01/06/18 07:52 01/06/18 07:52 01/06/18 07:52 01/06/18 07:52 01/06/18 07:52 Laboratory Results 01/06/18 07:00 01/04/18 07:05 01/05/18 01/06/18 01/07/18 05:59 05:59 05:59 Intake Total 1963 1505 530 Output Total 3150 2800 200 Balance -1187 -1295 330 - Time Spent With Patient Time Spent With Patient: Greater than 35 min staff time today, including more than 50% of time in coordination of care during staffing meeting, and counseling patient. Physical Exam - Physical Exam General Appearance: WD/WN, alert, no apparent distress Respiratory: normal breath sounds, No crackles, No rhonchi, No wheezing Cardiac/Chest: regular rate, rhythm, No edema, No diastolic murmur, No systolic murmur Skin: normal color, warm/dry Neuro/Psych: alert, normal mood/affect, oriented x 3 ICD10 Worksheet Patient Problems: Problems Problem Status Onset Bone metastasis Acute Compression fracture Acute Dehydration Acute Renal cell carcinoma Acute Weakness Acute Weakness of right lower extremity Acute
[2018-01-06] MEDS: MELATONIN 3 MG TAB PO SCH (20:31)
[2018-01-06] MEDS: FESOTERODINE FUMARATE 4 MG TAB.ER PO SCH (20:32)
[2018-01-07] MEDS: ACETAMINOPHEN 500 MG TAB PO SCH ×3 (06:10→21:24)
[2018-01-07] MEDS: HEPARIN 5,000 UNIT/0.5 ML SYR SC SCH (06:21)
[2018-01-07] MEDS: CHOLECALCIFEROL VIT D3 2,000 UNITS TAB/CAP PO SCH (08:07)
[2018-01-07] MEDS: BACLOFEN 10 MG TAB PO SCH ×3 (08:07→21:24)
[2018-01-07] MEDS: DOCUSATE SODIUM 100 MG CAP PO SCH ×2 (08:07→21:25)
[2018-01-07] MEDS: FERROUS SULFATE 325 MG TAB PO SCH (08:07)
[2018-01-07] MEDS: POLYETHYLENE GLYCOL 3350 17 GM PKT PO PRN (08:11)
--- NOTE | 2018-01-07 12:10 | SOAPPROG ---
SOAP Progress Note Assessment/Plan: Assessment: Mr. Cruz is a 67 y/o male admitted to Acute rehab on 01/03/18 after undergoing thoracic spine surgery secondary to mets from RCC. This was completed by Dr. Khoury at the [facility]. 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 R>L LE weakness. * Initial FIM of 88 on 01/06/2018. Standby assist for bed mobility, moderate assist to get legs back into bed. Ambulated 100 ft with a front wheeled walker standby assist to contact guard assist. Doing activities of daily living with contact guard to standby assist. He has some ataxia and loss of balance. * Continue PT and OT towards discharge home at the independent to modified independent level. * Bilateral Foot Drop - PT will assess for possible bilateral foot orthosis as well as least restrictive Gait equipment * Right scapular mets - Has some ongoing pain in the region. Metastatic lesions involve the supraspinatus. Will work with therapy to minimize any musculoskeletal component. Pain control is adequate with scheduled acetaminophen. Not using PRN oxycodone. * Acute blood loss anemia - Intermittently monitor. Pt mildly fatigued but otherwise stable. VS have also been stable. * Reticulocyte count appropriate. * Iron deficient on labs 01/06/2018. Will supplement X 4 weeks. * Constipation - responding to bowel program. * N. Bladder? 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 Has moderate BPH as well as bladder hypercontractility. * Improved 2 nights ago with fesoterodine but not better last night, per his report on 01/06/2018. Increase fesoterodine to 8 mg at bedtime per his request. * Monitor for signs or symptoms of urinary retention. Continue bladder scanning.d * Baclofen may contribute. Decreased dose to 5 mg on 01/06/2018. * Sore throat - Pt reports that his continues to improve but has been there since the surgery - doesn't feel any change in his voice. - Start Cepacol lozenge - no evidence of infection - If persists - may need to consider evaluation with ENT * Prophylaxis -mobility is much improved. Discontinued subcutaneous heparin on 01/17/2018. Plans to return home with . Has followup pending with [facility]. Tentative discharge date of 01/16/2018 set. This patient needs a front wheeled walker. He has a mobility limitation that significantly impairs 1 or more mobility related ADLs in the home, he can use a walker safely, and he has a functional mobility deficit that cannot be resolved with a cane. 01/07/18 13:15 Subjective: Reports reduced frequency of urination last night with higher dose of fesoterodine. Has not noticed any increased tone in the lower extremities with reduced dose of baclofen. Otherwise no complaints. Objective: Vital Signs Temp Pulse Resp BP Pulse Ox 36.8 C 72 14 129/74 H 93 01/07/18 06:57 01/07/18 06:57 01/07/18 06:57 01/07/18 06:57 01/07/18 06:57 Laboratory Results 01/06/18 07:00 01/04/18 07:05 01/06/18 01/07/18 01/08/18 05:59 05:59 05:59 Intake Total 1505 1740 450 Output Total 2800 2120 450 Balance -1295 -380 0 Physical Exam - Physical Exam General Appearance: WD/WN, alert, no apparent distress Respiratory: No respiratory distress, No accessory muscle use Skin: normal color, warm/dry Neuro/Psych: alert, normal mood/affect, oriented x 3 ICD10 Worksheet Patient Problems: Problems Problem Status Onset Bone metastasis Acute Compression fracture Acute Dehydration Acute Renal cell carcinoma Acute Weakness Acute Weakness of right lower extremity Acute
[2018-01-07] MEDS: CEPACOL LOZENGE PO PRN (20:24)
[2018-01-07] MEDS: MELATONIN 3 MG TAB PO SCH (21:24)
[2018-01-07] MEDS: FESOTERODINE FUMARATE 4 MG TAB.ER PO SCH (21:25)
[2018-01-08] MEDS: ACETAMINOPHEN 500 MG TAB PO SCH ×3 (06:11→20:53)
[2018-01-08] MEDS: DOCUSATE SODIUM 100 MG CAP PO SCH ×2 (08:16→20:53)
[2018-01-08] MEDS: FERROUS SULFATE 325 MG TAB PO SCH (08:16)
[2018-01-08] MEDS: CHOLECALCIFEROL VIT D3 2,000 UNITS TAB/CAP PO SCH (08:16)
[2018-01-08] MEDS: BACLOFEN 10 MG TAB PO SCH ×3 (08:16→20:53)
--- NOTE | 2018-01-08 13:17 | SOAPPROG ---
SOAP Progress Note Assessment/Plan: Assessment: Mr. Cruz is a 67 y/o male admitted to Acute rehab on 01/03/18 after undergoing thoracic spine surgery secondary to mets from RCC. This was completed by Dr. Khoury at the [facility]. 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 R>L LE weakness. * Initial FIM of 88 on 01/06/2018. Standby assist for bed mobility, moderate assist to get legs back into bed. Ambulated 100 ft with a front wheeled walker standby assist to contact guard assist. Doing activities of daily living with contact guard to standby assist. He has some ataxia and loss of balance. * Continue PT and OT towards discharge home at the independent to modified independent level. * Bilateral Foot Drop - PT will assess for possible bilateral foot orthosis as well as least restrictive Gait equipment * Right scapular mets - Has some ongoing pain in the region. Metastatic lesions involve the supraspinatus. Will work with therapy to minimize any musculoskeletal component. Pain control is adequate with scheduled acetaminophen. Not using PRN oxycodone. * Acute blood loss anemia - Intermittently monitor. Pt mildly fatigued but otherwise stable. VS have also been stable. * Reticulocyte count appropriate. * Iron deficient on labs 01/06/2018. Will supplement X 4 weeks. * Constipation - responding to bowel program. * N. Bladder? 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 Has moderate BPH as well as bladder hypercontractility. * Fesoterodine titrated from 4 mg to 8 mg; may be developing urinary retention with postvoid residual today 01/08/2018 of 140 cc. * Reduced fesoterodine to 4 mg. Consider initiation of tamsulosin or other alpha anjel. * Baclofen may contribute. Decreased dose to 5 mg on 01/06/2018. * Sore throat - Pt reports that his continues to improve but has been there since the surgery - doesn't feel any change in his voice. - Start Cepacol lozenge - no evidence of infection - If persists - may need to consider evaluation with ENT * Prophylaxis -mobility is much improved. Discontinued subcutaneous heparin on 01/17/2018. Plans to return home with . Has followup pending with [facility]. Tentative discharge date of 01/16/2018 set. This patient needs a front wheeled walker. He has a mobility limitation that significantly impairs 1 or more mobility related ADLs in the home, he can use a walker safely, and he has a functional mobility deficit that cannot be resolved with a cane. 01/08/18 13:14 Subjective: Still with nocturia. He does not feel that it is improved with fesoterodine titrated from 4 mg to 8 mg. Otherwise without complaints. Objective: Vital Signs Temp Pulse Resp BP Pulse Ox 38.6 C H 87 12 114/73 94 01/08/18 06:17 01/08/18 06:17 01/08/18 06:17 01/08/18 06:17 01/08/18 06:17 Laboratory Results 01/06/18 07:00 01/04/18 07:05 01/07/18 01/08/18 01/09/18 05:59 05:59 05:59 Intake Total 1740 1250 555 Output Total 2120 2875 1050 Balance -782 -3219 -376 Physical Exam - Physical Exam General Appearance: WD/WN, alert, no apparent distress Respiratory: No respiratory distress, No accessory muscle use Cardiac/Chest: No edema Skin: normal color, warm/dry Neuro/Psych: alert, normal mood/affect, oriented x 3, abnormal gait (Slightly wide-based and slow, with front wheeled walker.) ICD10 Worksheet Patient Problems: Problems Problem Status Onset Bone metastasis Acute Compression fracture Acute Dehydration Acute Renal cell carcinoma Acute Weakness Acute Weakness of right lower extremity Acute
[2018-01-08] MEDS: FESOTERODINE FUMARATE 4 MG TAB.ER PO SCH (20:54)
[2018-01-08] MEDS: MELATONIN 3 MG TAB PO SCH (20:54)
[2018-01-09] MEDS: ACETAMINOPHEN 500 MG TAB PO SCH ×3 (05:30→21:06)
[2018-01-09] MEDS: DOCUSATE SODIUM 100 MG CAP PO SCH ×2 (08:08→21:06)
[2018-01-09] MEDS: FERROUS SULFATE 325 MG TAB PO SCH (08:08)
[2018-01-09] MEDS: CHOLECALCIFEROL VIT D3 2,000 UNITS TAB/CAP PO SCH (08:08)
[2018-01-09] MEDS: BACLOFEN 10 MG TAB PO SCH ×3 (08:08→21:06)
--- NOTE | 2018-01-09 14:03 | SOAPPROG ---
SOAP Progress Note Assessment/Plan: Assessment: Mr. Cruz is a 67 y/o male admitted to Acute rehab on 01/03/18 after undergoing thoracic spine surgery secondary to mets from RCC. This was completed by Dr. Khoury at the [facility]. 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 R>L LE weakness. * Initial FIM of 88 on 01/06/2018. Standby assist for bed mobility, moderate assist to get legs back into bed. Ambulated 100 ft with a front wheeled walker standby assist to contact guard assist. Doing activities of daily living with contact guard to standby assist. He has some ataxia and loss of balance. * Increased tone RLE. Discussed baclofen with patient. PT reports increased extensor tone in the right lower extremity. Will continue baclofen at 5 mg three times daily. Consider resuming 10 mg three times daily if extensor tone is really interfering with function. * Continue PT and OT towards discharge home at the independent to modified independent level. * Bilateral Foot Drop - PT will assess for possible bilateral foot orthosis as well as least restrictive Gait equipment * Right scapular mets - Has some ongoing pain in the region. Metastatic lesions involve the supraspinatus. Will work with therapy to minimize any musculoskeletal component. Pain control is adequate with scheduled acetaminophen. Not using PRN oxycodone. * Acute blood loss anemia - Intermittently monitor. Pt mildly fatigued but otherwise stable. VS have also been stable. * Reticulocyte count appropriate. * Iron deficient on labs 01/06/2018. Will supplement X 4 weeks. * Constipation - responding to bowel program. * N. Bladder? 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 Has moderate BPH as well as bladder hypercontractility. * Fesoterodine titrated from 4 mg to 8 mg; may be developing urinary retention with postvoid residual today 01/08/2018 of 140 cc. * Reduced fesoterodine to 4 mg. Trial of tamsulosin today 01/09/2018. * Baclofen may contribute. Decreased dose to 5 mg on 01/06/2018. * He may still have fluid overload from his hospitalization causing edema in the lower extremities during the day and increased urination at night. I see no other explanation for intermittent edema. * Sore throat - Pt reports that his continues to improve but has been there since the surgery - doesn't feel any change in his voice. - Start Cepacol lozenge - no evidence of infection - If persists - may need to consider evaluation with ENT * Prophylaxis -mobility is much improved. Discontinued subcutaneous heparin on 01/17/2018. Plans to return home with . Has followup pending with [facility]. Tentative discharge date of 01/16/2018 set. This patient needs a front wheeled walker. He has a mobility limitation that significantly impairs 1 or more mobility related ADLs in the home, he can use a walker safely, and he has a functional mobility deficit that cannot be resolved with a cane. 01/09/18 14:03 Subjective: Urination is about the same. He reports frequent urination for the 1st part of the night and then he slept well for the 2nd part of the night he notices a little bit of swelling of right lower extremity greater than the left when he is upright for a while. It goes away when he lays down raises his legs. He reports that therapy was concerned about increased tone in his legs. Objective: Vital Signs Temp Pulse Resp BP Pulse Ox 36.7 C 85 15 118/75 97 01/09/18 07:23 01/09/18 07:23 01/09/18 07:23 01/09/18 07:23 01/09/18 07:23 Laboratory Results 01/06/18 07:00 01/04/18 07:05 01/08/18 01/09/18 01/10/18 05:59 05:59 05:59 Intake Total 1250 1291 600 Output Total 4222 3625 900 Balance -5437 -0205 -739 Physical Exam - Physical Exam General Appearance: WD/WN, alert, no apparent distress Respiratory: No respiratory distress, No accessory muscle use Cardiac/Chest: No edema Skin: normal color, warm/dry Neuro/Psych: alert, normal mood/affect, oriented x 3, abnormal gait (Slow, wide- based, lifts right hip to advance right leg with reduced knee flexion.) ICD10 Worksheet Patient Problems: Problems Problem Status Onset Bone metastasis Acute Compression fracture Acute Dehydration Acute Renal cell carcinoma Acute Weakness Acute Weakness of right lower extremity Acute
[2018-01-09] MEDS: TAMSULOSIN HCL 0.4 MG CAP PO SCH (17:26)
[2018-01-09] MEDS: FESOTERODINE FUMARATE 4 MG TAB.ER PO SCH (21:06)
[2018-01-09] MEDS: MELATONIN 3 MG TAB PO SCH (21:06)
[2018-01-10] MEDS: ACETAMINOPHEN 500 MG TAB PO SCH ×3 (06:21→21:05)
[2018-01-10] MEDS: CHOLECALCIFEROL VIT D3 2,000 UNITS TAB/CAP PO SCH (08:52)
[2018-01-10] MEDS: FERROUS SULFATE 325 MG TAB PO SCH (08:52)
[2018-01-10] MEDS: BACLOFEN 10 MG TAB PO SCH ×3 (08:53→21:06)
--- NOTE | 2018-01-10 09:49 | SOAPPROG ---
SOAP Progress Note Assessment/Plan: Assessment: Mr. Cruz is a 67 y/o male admitted to Acute rehab on 01/03/18 after undergoing thoracic spine surgery secondary to mets from RCC. This was completed by Dr. Khoury at the [facility]. 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 R>L LE weakness. * Initial FIM of 88 on 01/06/2018. Standby assist for bed mobility, moderate assist to get legs back into bed. Ambulated 100 ft with a front wheeled walker standby assist to contact guard assist. Doing activities of daily living with contact guard to standby assist. He has some ataxia and loss of balance. * Advanced to independent in his room 7:00 a.m. to 7:00 p.m. starting 01/10/2018 * Increased tone RLE. Affects gait. Will resume baclofen at 10 mg three times daily on 01/10/2018. * Continue PT and OT towards discharge home at the independent to modified independent level. * Bilateral Foot Drop * Improved, no need for AFOs. * Right scapular mets - Has some ongoing pain in the region. Metastatic lesions involve the supraspinatus. * Pain control is adequate with scheduled acetaminophen. Not using PRN oxycodone. * Acute blood loss anemia - Intermittently monitor. Pt mildly fatigued but otherwise stable. VS have also been stable. * Reticulocyte count appropriate. * Iron deficient on labs 01/06/2018. Will supplement X 4 weeks. * Constipation - responding to bowel program. * N. Bladder? 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 Has moderate BPH as well as bladder hypercontractility. * Fesoterodine titrated from 4 mg to 8 mg; may be developing urinary retention with postvoid residual today 01/08/2018 of 140 cc. * Reduced fesoterodine to 4 mg. Trial of tamsulosin starting 01/09/2018. He is not sure it has helped. * He may still have fluid overload from his hospitalization causing edema in the lower extremities during the day and increased urination at night. I see no other explanation for intermittent edema. * Prophylaxis -mobility is much improved. Discontinued subcutaneous heparin on 01/04/2018. Plans to return home with . Oncology and radiation oncology follow-ups planned at [facility]; case pawel assisting in arrangements. Tentative discharge date of 01/16/2018 set. This patient needs a front wheeled walker. He has a mobility limitation that significantly impairs 1 or more mobility related ADLs in the home, he can use a walker safely, and he has a functional mobility deficit that cannot be resolved with a cane. 01/10/18 11:56 Subjective: Unsure whether Flomax had any effect last night he says he thinks he urinated more frequently with smaller volumes. He notes some stiffness to the right leg which changes his gait. He thinks overall he is getting enough sleep though interrupted for urination. Objective: Vital Signs Temp Pulse Resp BP Pulse Ox 36.7 C 115 H 20 113/79 95 01/10/18 08:00 01/10/18 08:00 01/10/18 08:00 01/10/18 08:00 01/10/18 08:00 Laboratory Results 01/06/18 07:00 01/04/18 07:05 01/09/18 01/10/18 01/11/18 05:59 05:59 05:59 Intake Total 1291 1000 Output Total 2975 1550 Balance -1684 -550 Physical Exam - Physical Exam General Appearance: WD/WN, alert, no apparent distress Respiratory: No respiratory distress, No accessory muscle use Skin: normal color, warm/dry Neuro/Psych: alert, normal mood/affect, oriented x 3, abnormal gait (Short steps , slightly wide base, circumduction with the right leg, with front wheeled walker, accompanied by occupational therapist.) ICD10 Worksheet Patient Problems: Problems Problem Status Onset Bone metastasis Acute Compression fracture Acute Dehydration Acute Renal cell carcinoma Acute Weakness Acute Weakness of right lower extremity Acute
[2018-01-10] MEDS: TAMSULOSIN HCL 0.4 MG CAP PO SCH (17:38)
[2018-01-10] MEDS: DOCUSATE SODIUM 100 MG CAP PO SCH ×2 (19:10→21:05)
[2018-01-10] MEDS: FESOTERODINE FUMARATE 4 MG TAB.ER PO SCH (21:05)
[2018-01-10] MEDS: MELATONIN 3 MG TAB PO SCH (21:05)
[2018-01-11] MEDS: ACETAMINOPHEN 500 MG TAB PO SCH ×3 (06:42→21:35)
[2018-01-11] MEDS: BACLOFEN 10 MG TAB PO SCH ×3 (08:08→21:35)
[2018-01-11] MEDS: CHOLECALCIFEROL VIT D3 2,000 UNITS TAB/CAP PO SCH (08:08)
[2018-01-11] MEDS: FERROUS SULFATE 325 MG TAB PO SCH (08:08)
[2018-01-11] MEDS: DOCUSATE SODIUM 100 MG CAP PO SCH ×2 (08:08→21:35)
--- NOTE | 2018-01-11 13:17 | SOAPPROG ---
SOAP Progress Note Assessment/Plan: Assessment: Mr. Cruz is a 67 y/o male admitted to Acute rehab on 01/03/18 after undergoing thoracic spine surgery secondary to mets from RCC. This was completed by Dr. Khoury at the [facility]. 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 R>L LE weakness. * Initial FIM of 88 on 01/06/2018. Standby assist for bed mobility, moderate assist to get legs back into bed. Ambulated 100 ft with a front wheeled walker standby assist to contact guard assist. Doing activities of daily living with contact guard to standby assist. He has some ataxia and loss of balance. * Advanced to independent in his room 7:00 a.m. to 7:00 p.m. starting 01/10/2018 * Increased tone RLE. Affects gait. Will resume baclofen at 10 mg three times daily on 01/10/2018. * Continue PT and OT towards discharge home at the independent to modified independent level. * Bilateral Foot Drop * Improved, no need for AFOs. * Right scapular mets - Has some ongoing pain in the region. Metastatic lesions involve the supraspinatus. * Pain control is adequate with scheduled acetaminophen. Not using PRN oxycodone. * Acute blood loss anemia - Intermittently monitor. Pt mildly fatigued but otherwise stable. VS have also been stable. * Reticulocyte count appropriate. * Iron deficient on labs 01/06/2018. Will supplement X 4 weeks. * Constipation - responding to bowel program. * N. Bladder? 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 Has moderate BPH as well as bladder hypercontractility. * Fesoterodine titrated from 4 mg to 8 mg; may be developing urinary retention with postvoid residual today 01/08/2018 of 140 cc. * Reduced fesoterodine to 4 mg. Trial of tamsulosin starting 01/09/2018. He is not sure it has helped. * He may still have fluid overload from his hospitalization causing edema in the lower extremities during the day and increased urination at night. I see no other explanation for intermittent edema. * Prophylaxis -mobility is much improved. Discontinued subcutaneous heparin on 01/04/2018. Plan: 01/11/18 13:17 Subjective: No new complaints Objective: Vital Signs Temp Pulse Resp BP Pulse Ox 36.8 C 107 H 15 122/85 H 94 01/11/18 08:00 01/11/18 08:00 01/11/18 08:00 01/11/18 08:00 01/11/18 08:00 Laboratory Results 01/06/18 07:00 01/04/18 07:05 01/10/18 01/11/18 01/12/18 05:59 05:59 05:59 Intake Total 1000 748 Output Total 1550 1500 Balance -550 -1500 748 Physical Exam - Physical Exam General Appearance: WD/WN, alert, no apparent distress Respiratory: No respiratory distress Cardiac/Chest: regular rate, rhythm, No edema Skin: normal color, warm/dry Neuro/Psych: alert, normal mood/affect, oriented x 3 ICD10 Worksheet Patient Problems: Problems Problem Status Onset Bone metastasis Acute Compression fracture Acute Dehydration Acute Renal cell carcinoma Acute Weakness Acute Weakness of right lower extremity Acute
[2018-01-11] MEDS: TAMSULOSIN HCL 0.4 MG CAP PO SCH (17:35)
[2018-01-11] MEDS: FESOTERODINE FUMARATE 4 MG TAB.ER PO SCH (21:35)
[2018-01-11] MEDS: MELATONIN 3 MG TAB PO SCH (21:35)
[2018-01-12] MEDS: ACETAMINOPHEN 500 MG TAB PO SCH ×3 (06:40→21:31)
[2018-01-12] MEDS: DOCUSATE SODIUM 100 MG CAP PO SCH ×2 (08:52→21:31)
[2018-01-12] MEDS: FERROUS SULFATE 325 MG TAB PO SCH (08:52)
[2018-01-12] MEDS: CHOLECALCIFEROL VIT D3 2,000 UNITS TAB/CAP PO SCH (08:52)
[2018-01-12] MEDS: BACLOFEN 10 MG TAB PO SCH ×3 (08:52→21:31)
[2018-01-12] MEDS: TAMSULOSIN HCL 0.4 MG CAP PO SCH (16:45)
[2018-01-12] MEDS: FESOTERODINE FUMARATE 4 MG TAB.ER PO SCH (19:34)
[2018-01-12 20:34] VITALS: RESP 16
--- NOTE | 2018-01-12 21:21 | SOAPPROG ---
SOAP Progress Note Assessment/Plan: Assessment: Mr. Cruz is a 67 y/o male admitted to Acute rehab on 01/03/18 after undergoing thoracic spine surgery secondary to mets from RCC. This was completed by Dr. Khoury at the [facility]. 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 R>L LE weakness. * Initial FIM of 88 on 01/06/2018. Standby assist for bed mobility, moderate assist to get legs back into bed. Ambulated 100 ft with a front wheeled walker standby assist to contact guard assist. Doing activities of daily living with contact guard to standby assist. He has some ataxia and loss of balance. * Advanced to independent in his room 7:00 a.m. to 7:00 p.m. starting 01/10/2018 * Increased tone RLE. Affects gait. Will resume baclofen at 10 mg three times daily on 01/10/2018. * Continue PT and OT towards discharge home at the independent to modified independent level. * Bilateral Foot Drop * Improved, no need for AFOs. * Right scapular mets - Has some ongoing pain in the region. Metastatic lesions involve the supraspinatus. * Pain control is adequate with scheduled acetaminophen. Not using PRN oxycodone. * Acute blood loss anemia - Intermittently monitor. Pt mildly fatigued but otherwise stable. VS have also been stable. * Reticulocyte count appropriate. * Iron deficient on labs 01/06/2018. Will supplement X 4 weeks. * Constipation - responding to bowel program. * N. Bladder? 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 Has moderate BPH as well as bladder hypercontractility. * Fesoterodine titrated from 4 mg to 8 mg; may be developing urinary retention with postvoid residual today 01/08/2018 of 140 cc. * Reduced fesoterodine to 4 mg. Trial of tamsulosin starting 01/09/2018. He is not sure it has helped. * He may still have fluid overload from his hospitalization causing edema in the lower extremities during the day and increased urination at night. I see no other explanation for intermittent edema. * Edema is better, has refused Flomax since it is not working. Will DC * Prophylaxis -mobility is much improved. Discontinued subcutaneous heparin on 01/04/2018. Plan: 01/11/18 13:17 01/12/18 21:20 Subjective: No new complaints. Says edema right leg is getting better. is refusing Flomax as he does not think it is helping him Objective: Vital Signs Temp Pulse Resp BP Pulse Ox 37.0 C 98 16 123/77 H 95 01/12/18 20:00 01/12/18 20:00 01/12/18 20:00 01/12/18 20:00 01/12/18 20:00 Laboratory Results 01/06/18 07:00 01/04/18 07:05 01/11/18 01/12/18 01/13/18 05:59 05:59 05:59 Intake Total 1995 1374 Output Total 1500 1300 Balance -8187 157 4413 Physical Exam - Physical Exam General Appearance: WD/WN, alert, no apparent distress Respiratory: No respiratory distress Neuro/Psych: alert, normal mood/affect, oriented x 3 ICD10 Worksheet Patient Problems: Problems Problem Status Onset Bone metastasis Acute Compression fracture Acute Dehydration Acute Renal cell carcinoma Acute Weakness Acute Weakness of right lower extremity Acute
[2018-01-12] MEDS: MELATONIN 3 MG TAB PO SCH (21:30)
[2018-01-13] MEDS: ACETAMINOPHEN 500 MG TAB PO SCH ×3 (05:28→21:31)
[2018-01-13] MEDS: CHOLECALCIFEROL VIT D3 2,000 UNITS TAB/CAP PO SCH (08:34)
[2018-01-13] MEDS: DOCUSATE SODIUM 100 MG CAP PO SCH ×2 (08:34→21:30)
[2018-01-13] MEDS: BACLOFEN 10 MG TAB PO SCH ×2 (08:34→14:51)
[2018-01-13] MEDS: FERROUS SULFATE 325 MG TAB PO SCH (08:34)
--- NOTE | 2018-01-13 11:43 | SOAPPROG ---
SOAP Progress Note Assessment/Plan: Assessment: Mr. Cruz is a 67 y/o male admitted to Acute rehab on 01/03/18 after undergoing thoracic spine surgery secondary to mets from RCC. This was completed by Dr. Khoury at the [facility]. 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 R>L LE weakness. * Initial FIM of 88 on 01/06/2018, improved to 110 as of 01/13/2018. Progressed to independent in his room on 01/13/2018. Independent or modified independent for activities of daily living, independent with mobility, transfers and ambulates with a front wheeled walker. * Increased tone RLE. Affects gait. Improved with baclofen resumed at 10 mg three times daily on 01/10/2018. * Continue PT and OT towards discharge home at the independent to modified independent level. * Bilateral Foot Drop * Improved, no need for AFOs. * Right scapular mets - Has some ongoing pain in the region. Metastatic lesions involve the supraspinatus. * Pain control is adequate with scheduled acetaminophen. Not using PRN oxycodone. * Acute blood loss anemia - Intermittently monitor. Pt mildly fatigued but otherwise stable. VS have also been stable. * Reticulocyte count appropriate. * Iron deficient on labs 01/06/2018. Will supplement X 4 weeks. * Constipation - responding to bowel program. * N. Bladder? 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 Has moderate BPH as well as bladder hypercontractility. * Fesoterodine titrated from 4 mg to 8 mg; may be developing urinary retention with postvoid residual today 01/08/2018 of 140 cc. * Reduced fesoterodine to 4 mg. Trial of tamsulosin starting 01/09/2018 did not help; will DC. * Prophylaxis -mobility is much improved. Discontinued subcutaneous heparin on 01/04/2018. Attended staffing, 15 min. Discussed with case management, nursing, dietitian, PT, OT. Plans to return home with . Oncology and radiation oncology follow -ups planned at [facility]; case management assistant assisting in arrangements. Discharge 01/14/2018. This patient needs a front wheeled walker. He has a mobility limitation that significantly impairs 1 or more mobility related ADLs in the home, he can use a walker safely, and he has a functional mobility deficit that cannot be resolved with a cane. 01/13/18 11:43 Subjective: Complains of a slight cough and some throat discomfort. No dyspnea, fevers, chills. No sore throat or pain with swallowing. Objective: Vital Signs Temp Pulse Resp BP Pulse Ox 36.7 C 89 16 127/88 H 94 01/13/18 06:21 01/13/18 06:21 01/13/18 06:21 01/13/18 06:21 01/13/18 06:21 Laboratory Results 01/06/18 07:00 01/04/18 07:05 01/12/18 01/13/18 01/14/18 05:59 05:59 05:59 Intake Total 1995 4614 Output Total 1300 1175 Balance 696 699 - Time Spent With Patient Time Spent With Patient: Greater than 35 min floor time today, including more than 50% of time in coordination of care during staffing meeting, and counseling patient. Physical Exam - Physical Exam General Appearance: WD/WN, alert, no apparent distress EENT: pharynx normal Respiratory: normal breath sounds, No crackles, No rhonchi, No wheezing Cardiac/Chest: regular rate, rhythm, No edema, No diastolic murmur, No systolic murmur Skin: normal color, warm/dry Neuro/Psych: alert, normal mood/affect, oriented x 3, abnormal gait (Slightly wide-based. Bilateral footdrop adequately compensated for mostly normal step through pattern. Slow gait with front wheel walker.) ICD10 Worksheet Patient Problems: Problems Problem Status Onset Bone metastasis Acute Compression fracture Acute Dehydration Acute Renal cell carcinoma Acute Weakness Acute Weakness of right lower extremity Acute
--- NOTE | 2018-01-13 11:50 | PDOREHIP ---
Admission IRF-[facility] - Admission - 3 Day Assessment Period Admission Date/Day 1: 01/03/18 Day 2: 01/04/18 Day 3: 01/05/18 Discharge IRF-[facility] - Discharge - 3 Day Assessment Period 2 Days Prior to Anticipated Discharge Date: 01/12/18 1 Day Prior to Anticipated Discharge Date: 01/13/18 Anticipated Discharge Date: 01/14/18 - Discharge Skin Conditions Unhealed Pressure Ulcer (1 or more/Stage 1 or >)-Discharge: 0. No
[2018-01-13] MEDS: FESOTERODINE FUMARATE 4 MG TAB.ER PO SCH (21:30)
[2018-01-13] MEDS: MELATONIN 3 MG TAB PO SCH (21:30)
[2018-01-14] MEDS: ACETAMINOPHEN 500 MG TAB PO SCH ×2 (06:09→13:25)
[2018-01-14 06:35] VITALS: BP 131/81; PULSE 95; TEMP 98.8; O2SAT 94
[2018-01-14] MEDS: BACLOFEN 10 MG TAB PO SCH ×2 (07:30→11:54)
[2018-01-14] MEDS: CHOLECALCIFEROL VIT D3 2,000 UNITS TAB/CAP PO SCH (08:16)
[2018-01-14] MEDS: DOCUSATE SODIUM 100 MG CAP PO SCH (08:16)
[2018-01-14] MEDS: FERROUS SULFATE 325 MG TAB PO SCH (08:16)
--- NOTE | 2018-01-14 20:30 | GDS ---
[f rep st] DISCHARGE SUMMARY ADMITTING DIAGNOSIS: Debility, status post spinal surgery for metastatic renal cell carcinoma. DISCHARGE DIAGNOSIS: Debility, status post spinal surgery for metastatic renal cell carcinoma. CONSULTATIONS: None. PROCEDURES: None. COMPLICATIONS: None. HISTORY AND HOSPITAL COURSE: This patient came to [facility] inpatient rehabilitation from [facility] in [place], [place], where he had surgery to revise prior spinal fusions due to recurrent T8-T10 metastases of renal cell carcinoma. He was also found to have metastatic lesions in the right scapula with invasion into the muscle, and along the left iliac wing, right iliac wing, right anterior acetabulum and superior sacrum. He needed the surgery because of lower extremity weakness, more so on the left than the right , and difficulty walking. He did well in therapies. His initial functional independence measure was 88 on 01/06/2018, which is consistent with assisted living level of function. He required standby assist for bed mobility overall, but needed moderate assist to get his legs back into bed. He had ambulated 100 feet with a front-wheeled walker, with standby assist to contact guard assist, and he had contact guard assist to standby assist for activities of daily living. He was noted to have some ataxia and loss of balance. He had steady improvement and advanced to independent in his room from 7:00 a.m. to 7:00 p.m., starting 01/10/2018. He had been on baclofen for increased tone in the right lower extremity, which affected his gait. Baclofen was decreased due to possible effects on urinary retention, and his tone increased, so the baclofen was subsequently resumed at 10 mg three times daily. Functional independence measure improved to 110 as of 01/13/2018, which is consistent with independent living. He progressed to independent in his room 24 hours a day and on the unit. He had urinary issues with frequent urination, at night especially. There was a question of neurogenic bladder, but ultimately he was not consistent with neurogenic bladder. He had been under the care of [facility], and his records from there were reviewed. He has a history of moderate BPH, as well as bladder hypercontractility. He was resumed on fesoterodine, which had been prescribed previously by Urology at 4 mg. He continued to have urinary frequency at night. This was increased to 8 mg, but it was noted that he was beginning to have urinary retention, with a postvoid residual of 140 mL, so the dose was reduced back to 4 mg. He was not sure if he was having any benefit. He was tried on tamsulosin as well, at 0.4 mg for several days. This did not help either, and it was discontinued. Regarding pain control, the pain in his right shoulder improved and pain was controlled with scheduled acetaminophen. Oxycodone was prescribed as a p.r.n. medication, but it was not used. PHYSICAL EXAM: VITAL SIGNS: Upon discharge, blood pressure is 131/81, heart rate is 95, respiratory rate is 16, oxygen saturation is 94% on room air, temperature is 37.1 degrees centigrade. GENERAL: This is a chronically ill- appearing individual; however, overall well nourished, well developed, cooperative and in no acute distress. HEART: There is regular rate and rhythm , with no murmurs, rubs, or gallops. LUNGS: Clear to auscultation bilaterally. EXTREMITIES: There is no cyanosis, clubbing, or edema. NEUROLOGIC: He is alert and oriented x3. There is no focal weakness. Gait with the walker is mildly wide-based and somewhat slow paced. He has a step through pattern. LABORATORIES AND STUDIES: During his stay, he had anemia with a slight worsening. On 01/04/2018, hemoglobin was 9 and hematocrit was 26. Two days later, on 01/06/2018, hemoglobin was 8.8 and hematocrit was 26.1. He had appropriate reticulocytosis, with percent reticulocytes of 3.13. His chemistries revealed iron deficiency, with a TIBC of 254, and an iron saturation of 17%. He had a slightly high BUN at 29. Creatinine was 1.34, GFR of 55. Otherwise, renal function and electrolytes were within normal limits. CONDITION ON DISCHARGE: Good. ACTIVITY: Ad lalita, but no bending or twisting, and no lifting greater than 10 pounds until cleared by Surgery. DIET: Regular. DATE OF NEXT APPOINTMENT: He will see his primary care provider, Dr. Grey Zelaya , on 01/20/2018 at 1:00 p.m. He will follow up with Oncology and Radiation Oncology at the [facility] in [place]. DISCHARGE MEDICATIONS: 1. Docusate sodium 100 mg p.o. twice daily. 2. Acetaminophen 1000 mg p.o. q.8 hours. 3. Melatonin 9 mg p.o. at bedtime. 4. Fesoterodine 4 mg p.o. daily at 8:00 p.m. 5. Ferrous sulfate 325 mg p.o. daily through 02/03/2018. 6. Cholecalciferol 2000 units p.o. daily. 7. Cepacol lozenges 1 each p.r.n. 8. Baclofen 10 mg p.o. three times daily. ISSUES TO BE ADDRESSED AT FOLLOWUP: 1. Functional status. He will continue physical therapy at home. He was encouraged to be as active as he can be in order to maintain a high functional status, and this is a patient of further oncological treatment. He can follow up with his primary care provider. 2. Anemia. Continue iron supplement for 1 month total, and follow up again with primary care. 3. Urinary frequency with BPH, as well as bladder hypercontractility. He will continue the fesoterodine to determine whether it is really doing anything for him. He can follow up with primary care as well as [facility]. /[id number]/MODL MTDD
== END 2018-01-14 14:24 | disposition home health service (06) | DRG 543 ==
LOC: BREH 11:48
PROVIDERS: ADMIT Physical Medicine & Rehabilitation; ATTEND Internal Medicine
PROC: F08Z4ZZ Home Management Treatment (ICD-10-PCS; principal; 2018-01-03)
PROC: F07M3ZZ Motor Function Treatment of Musculoskeletal System - Whole Body (ICD-10-PCS; principal; 2018-01-03)
DX: C79.51 Secondary malignant neoplasm of bone (principal); G99.2 Myelopathy in diseases classified elsewhere; M21.372 Foot drop, left foot; M21.371 Foot drop, right foot; K59.00 Constipation, unspecified; Z85.528 Personal history of other malignant neoplasm of kidney; Z98.1 Arthrodesis status; Z90.5 Acquired absence of kidney; N40.1 Benign prostatic hyperplasia with lower urinary tract symptoms; R35.0 Frequency of micturition
CPT/HCPCS: 97110-GO; 97110-GP; 97112-GO; 97112-GP; 97116-GP; 97140-GO; 97162-GP; 97166-GO; 97530-GO; 97530-GP; 97535-GO; J1644

== ENCOUNTER → 2018-05-16 | Outpatient (CLI) | payer OTHER | LOC: FIMAGING 10:30 | PROVIDERS: ATTEND Internal Medicine Hematology & Oncology | DX: C79.51 Secondary malignant neoplasm of bone (principal); C64.2 Malignant neoplasm of left kidney, except renal pelvis | CPT/HCPCS: 78306; A9503 ==

== ENCOUNTER 2018-08-01 12:33 | Emergency (ER) | payer OTHER ==
--- NOTE | 2018-08-01 13:13 | EDPHY ---
General Time Seen by Provider: 08/01/18 12:51 Narrative: CHIEF COMPLAINT: back pain HISTORY OF PRESENT ILLNESS: Patient presents by private vehicle with spouse with complaints of back pain. Back pain is located lumbar spine and thoracic spine. He states that he has had an extensive history of back pain spending several years. Originally started with metastases to the thoracic spine which resulted in pathologic fractures, surgical fixation in 2016 with revision in 2018. He has had ongoing thoracic back pain since recent bone scan and May. He is here today because he had a sudden increase in lower, lumbar back pain when moving in bed this morning. Significant pain, 09/10. Does not radiate. No numbness, tingling or weakness. Denies Urinary incontinence. Worse with palpation and movement, so severe that he cannot ambulate. No other associated complaints or modifying factors for REVIEW OF SYSTEMS: 10 systems were reviewed and negative with the exception of the elements mentioned in the history of present illness. PCP: Dr. Zelaya SPECIALISTS: Dr. Ferrari PAST MEDICAL HISTORY: pathologic fracture, renal carcinoma, BPH PAST SURGICAL HISTORY: Thoracic spine surgery x2. Left nephrectomy 3 years ago SOCIAL HISTORY: Never smoker. Lives independently with his spouse FAMILY HISTORY: Noncontributory EXAMINATION General Appearance: Frail, Alert, no distress Head: normocephalic, atraumatic Eyes: Pupils equal and round, no conjunctival pallor or injection ENT, Mouth: Mucous membranes moist Neck: Normal inspection, supple, non-tender Respiratory: Lungs are clear to auscultation Cardiovascular: Regular rate and rhythm Gastrointestinal: Abdomen is soft and nontender Back: There is a thoracic wound with exposure of the underlying hardware with no surrounding erythema, purulence, warmth or signs of infection. There is tenderness of the lower thoracic and lumbar spine without any crepitus or deformity. Neurological: A&O, nonfocal, normal gait Skin: Warm and dry, no rash. Wound as above. Extremities: Nontender, no pedal edema. Symmetric range of motion lower extremities. Psychiatric: Mood and affect normal DIFFERENTIAL DIAGNOSES: Including but not limited to pathologic fracture, sprain, strain, diskitis, epidural abscess, infected hardware MDM: 12:50 p.m. Back pain in a very complicated patient with previous pathologic fractures and hardware in place. I have ordered CT scans without contrast of the thoracic or lumbar spine given his history. He is neuro intact with no anesthesia, weakness , foot drop or incontinence of bowel or bladder. He has normal vital signs with no SIRS criteria. He does have an open wound on his back that I will discuss with wound care and surgeon. Obtain blood cultures given that he is on active IV chemotherapy. He is well-appearing and nontoxic. We will administer pain medication. 1:10 p.m. Case discussed with neurosurgeon Dr. Che. He informs me that he performed the original surgery 2015, but the current hardware is not his. This hardware was revised in December of [address] [facility] [address] Khoury. He reports that he believes that Dr. Khoury is aware of the exposed hardware. 2:13 p.m. Laboratory studies do reveal mild leukocytosis. Chemistries unremarkable. Urinalysis is unremarkable. CT scans of the back or pending. He has required a 2nd dose of IV medication for pain control, and he is unable to ambulate due to pain. He will likely need admission to hospital for at least pain control. 3:13 p.m. Notified by radiologist. CT scans of the thoracic and lumbar spine discussed. There are extensive changes as documented. All discussed with hospitalist and the patient surgeon to determine if he needs to be transferred to [facility]. 3:40 p.m. Case discussed with Dr. Toney. He recommends consultation with the patient's surgeon. 3:50 p.m. Case discussed with Dr. Khoury at [facility]. We discussed the patient' s presentation, laboratory studies, imaging. He said that he would be happy to accept the patient to his service at [facility] at this time. I did discuss this on the transfer line and they will return our call shortly with the bed assignment. He requests a wound culture and vancomycin I V. These have been ordered. 4:45 p.m. Still awaiting phone call from [facility] for room assignment. 5:05 p.m. RN is now providing reports to the accepting nurse at [facility]. I re -evaluated the patient he remains awake alert no acute distress with vital signs are stable. His lactic acid is negative. His pain is improving with IV medication. Proceed with transfer for definitive care. SUPERVISION: Patient was independently examined, but I discussed the case with my secondary supervising physician Dr. Valverde - Diagnostics Imaging Results: Imaging Impressions Lumbar Spine CT 08/01/18 13:12 Impression: 1. Interval instability of a T7-T11 posterior spinal fusion with angulation of the T9 corpectomy device and significant air around T8 and T9. Finding may represent interval osseous liquefactive necrosis or infection. 2. New superior compression deformity of T11. 3. Interval lucency of the right T11 transpedicular screw which may also represent early hardware failure. 4. Redemonstration of a paraspinal mass between T8 and T10. Other blastic lesions are visualized in the right T2 rib, right scapula, sacrum, left iliac bone, and T5 vertebral body. Difficult to assess if there is any spinal canal stenosis but the neural foramen at T8 and T9 are probably involved. 5. Small right pleural effusion. Trace free fluid in the pelvis. Findings and recommendations discussed with [facility] at 1520 hour, 08/01. Thoracic Spine CT 08/01/18 13:12 Impression: 1. Interval instability of a T7-T11 posterior spinal fusion with angulation of the T9 corpectomy device and significant air around T8 and T9. Finding may represent interval osseous liquefactive necrosis or infection. 2. New superior compression deformity of T11. 3. Interval lucency of the right T11 transpedicular screw which may also represent early hardware failure. 4. Redemonstration of a paraspinal mass between T8 and T10. Other blastic lesions are visualized in the right T2 rib, right scapula, sacrum, left iliac bone, and T5 vertebral body. Difficult to assess if there is any spinal canal stenosis but the neural foramen at T8 and T9 are probably involved. 5. Small right pleural effusion. Trace free fluid in the pelvis. Findings and recommendations discussed with [facility] at 1520 hour, 08/01. - History Smoking Status: Never smoked - Objective Vital Signs: Initial Vital Signs Temperature (C) 98.1 F 08/01/18 12:42 Heart Rate 92 08/01/18 12:42 Respiratory Rate 17 08/01/18 12:42 Blood Pressure 158/96 H 08/01/18 12:42 O2 Sat (%) 95 08/01/18 12:42 O2 Delivery Mode Nasal Cannula O2 (L/minute) 1 Allergies/Adverse Reactions: naproxen Allergy (Unknown, Verified 08/01/18 14:33) Other-Enter Comments tree nut Allergy (Unknown, Unverified 01/13/18 13:52) Home Medications: Medication Instructions Recorded Acetaminophen [Tylenol ES 500 mg 1,000 mg PO Q8 01/03/18 (*)] Docusate Sodium [Colace 100 MG (*)] 100 mg PO BID 01/03/18 Baclofen [Baclofen 10 mg (*)] 10 mg PO TID #90 tab 01/13/18 Benzocaine/Menthol 15/4 [Cepacol 1 ea PO PRN PRN lozenge 01/13/18 Lozenge] Cholecalciferol Vit D3 [Vitamin D3 2,000 units PO DAILY each 01/13/18 2000 units tab (OTC)] Ferrous Sulfate [Ferrous Sulf 325 325 mg PO DAILY tab 01/13/18 MG (*)] Fesoterodine Fumarate [Toviaz (*)] 4 mg PO DAILY AT 8PM #30 tab.er 01/13/18 Melatonin [Melatonin 3 MG (*)] 9 mg PO HS tab 01/13/18 Laboratory Results: Laboratory Results 08/01/18 14:30 08/01/18 13:30 08/01/18 08/01/18 08/01/18 15:55 14:30 14:30 WBC RBC Hgb POC Hgb Hct 31.8 % L % (40.0-51.0) POC Hct MCV MCH MCHC RDW Plt Count MPV Neut % (Auto) Lymph % (Auto) Apache % (Auto) Eos % (Auto) Baso % (Auto) Nucleat RBC Rel Count Absolute Neuts (auto) Absolute Lymphs (auto) Absolute Monos (auto) Absolute Eos (auto) Absolute Basos (auto) Absolute Nucleated RBC Immature Gran % Immature Gran # ESR 77 MM/HR H MM/HR (0-20) PT INR APTT VBG Lactic Acid 1.0 mmol/L mmol/L (0.7-2.1) POC Sodium Sodium POC Potassium Potassium POC Chloride Chloride Carbon Dioxide Anion Gap POC BUN BUN Creatinine POC Creatinine Estimated GFR Glucose POC Glucose Calcium Total Bilirubin C-Reactive Protein 48.3 mg/L H mg/L (<10.0) Urine Color Urine Appearance Urine pH Ur Specific Yoder Urine Protein Urine Ketones Urine Blood Urine Nitrate Urine Bilirubin Urine Urobilinogen Ur Leukocyte Esterase Urine RBC Urine WBC Ur Epithelial Cells Urine Mucus Urine Glucose 08/01/18 08/01/18 08/01/18 14:13 14:06 13:30 WBC RBC Hgb POC Hgb 10.5 gm/dL L gm/dL (13.7-17.5) Hct POC Hct 31 % L % (40-51) MCV MCH MCHC RDW Plt Count MPV Neut % (Auto) Lymph % (Auto) Apache % (Auto) Eos % (Auto) Baso % (Auto) Nucleat RBC Rel Count Absolute Neuts (auto) Absolute Lymphs (auto) Absolute Monos (auto) Absolute Eos (auto) Absolute Basos (auto) Absolute Nucleated RBC Immature Gran % Immature Gran # ESR PT 13.8 SEC SEC (12.0-15.0) INR 1.04 (0.83-1.16) APTT 33.7 SEC SEC (23.0-38.0) VBG Lactic Acid POC Sodium 136 mEq/L mEq/L (135-145) Sodium POC Potassium 3.5 mEq/L mEq/L (3.3-5.0) Potassium POC Chloride 102 mEq/L mEq/L (97-110) Chloride Carbon Dioxide Anion Gap POC BUN 26 mg/dL H mg/dL (7-23) BUN Creatinine POC Creatinine 1.1 mg/dL mg/dL (0.7-1.3) Estimated GFR Glucose POC Glucose 100 mg/dL mg/dL (70-100) Calcium Total Bilirubin C-Reactive Protein Urine Color YELLOW Urine Appearance CLEAR Urine pH 6.0 (5.0-7.5) Ur Specific Yoder 1.014 (1.002-1.030) Urine Protein NEGATIVE (NEGATIVE) Urine Ketones NEGATIVE (NEGATIVE) Urine Blood NEGATIVE (NEGATIVE) Urine Nitrate NEGATIVE (NEGATIVE) Urine Bilirubin NEGATIVE (NEGATIVE) Urine Urobilinogen NEGATIVE EU EU (0.2-1.0) Ur Leukocyte Esterase NEGATIVE (NEGATIVE) Urine RBC NONE SEEN /hpf /hpf (0-3) Urine WBC 0-1 /hpf /hpf (0-3) Ur Epithelial Cells NONE SEEN /lpf /lpf (NONE-1+) Urine Mucus TRACE /lpf /lpf (NONE-1+) Urine Glucose NEGATIVE (NEGATIVE) 08/01/18 08/01/18 13:30 13:30 WBC 11.57 10^3/uL H 10^3/uL (3.80-9.50) RBC 3.16 10^6/uL L 10^6/uL (4.40-6.38) Hgb 10.3 g/dL L g/dL (13.7-17.5) POC Hgb Hct 31.2 % L % (40.0-51.0) POC Hct MCV 98.7 fL fL (81.5-99.8) MCH 32.6 pg pg (27.9-34.1) MCHC 33.0 g/dL g/dL (32.4-36.7) RDW 15.2 % % (11.5-15.2) Plt Count 401 10^3/uL H 10^3/uL (150-400) MPV 8.6 fL L fL (8.7-11.7) Neut % (Auto) 84.0 % H % (39.3-74.2) Lymph % (Auto) 9.2 % L % (15.0-45.0) Apache % (Auto) 6.0 % % (4.5-13.0) Eos % (Auto) 0.1 % L % (0.6-7.6) Baso % (Auto) 0.3 % % (0.3-1.7) Nucleat RBC Rel Count 0.0 % % (0.0-0.2) Absolute Neuts (auto) 9.73 10^3/uL H 10^3/uL (1.70-6.50) Absolute Lymphs (auto) 1.06 10^3/uL 10^3/uL (1.00-3.00) Absolute Monos (auto) 0.69 10^3/uL 10^3/uL (0.30-0.80) Absolute Eos (auto) 0.01 10^3/uL L 10^3/uL (0.03-0.40) Absolute Basos (auto) 0.03 10^3/uL 10^3/uL (0.02-0.10) Absolute Nucleated RBC 0.00 10^3/uL 10^3/uL (0-0.01) Immature Gran % 0.4 % % (0.0-1.1) Immature Gran # 0.05 10^3/uL 10^3/uL (0.00-0.10) ESR PT INR APTT VBG Lactic Acid POC Sodium Sodium 134 mEq/L L mEq/L (135-145) POC Potassium Potassium 4.3 mEq/L mEq/L (3.3-5.0) POC Chloride Chloride 101 mEq/L mEq/L (97-110) Carbon Dioxide 20 mEq/l L mEq/l (22-31) Anion Gap 13 mEq/L mEq/L (8-16) POC BUN BUN 28 mg/dL H mg/dL (7-23) Creatinine 1.0 mg/dL mg/dL (0.7-1.3) POC Creatinine Estimated GFR > 60 Glucose 101 mg/dL H mg/dL (70-100) POC Glucose Calcium 8.7 mg/dL mg/dL (8.5-10.4) Total Bilirubin 0.5 mg/dL mg/dL (0.1-1.4) C-Reactive Protein Urine Color Urine Appearance Urine pH Ur Specific Yoder Urine Protein Urine Ketones Urine Blood Urine Nitrate Urine Bilirubin Urine Urobilinogen Ur Leukocyte Esterase Urine RBC Urine WBC Ur Epithelial Cells Urine Mucus Urine Glucose Medications Given: Discontinued Medications Hydromorphone HCl (Dilaudid) 0.5 mg IVP EDNOW ONE Stop: 08/01/18 14:19 Last Admin: 08/01/18 14:46 Dose: 0.5 mg Hydromorphone HCl (Dilaudid) 1 mg IVP EDNOW ONE Stop: 08/01/18 15:21 Last Admin: 08/01/18 15:47 Dose: 1 mg Sodium Chloride (Ns) 1,000 mls @ 0 mls/hr IV EDNOW ONE; Wide Open PRN Reason: Protocol Stop: 08/01/18 15:38 Last Admin: 08/01/18 15:47 Dose: 1,000 mls Vancomycin/Sodium Chloride (Vancomycin 1 Gm (Premix)) 250 mls @ 250 mls/hr IV EDNOW ONE PRN Reason: Protocol Stop: 08/01/18 16:53 Last Admin: 08/01/18 16:02 Dose: 250 mls Morphine Sulfate (Morphine) 4 mg IVP EDNOW ONE Stop: 08/01/18 13:40 Last Admin: 08/01/18 13:42 Dose: 4 mg Point of Care Test Results: Chemistry 08/01/18 14:13 POC Sodium 136 mEq/L mEq/L (135-145) POC Potassium 3.5 mEq/L mEq/L (3.3-5.0) POC Chloride 102 mEq/L mEq/L (97-110) POC BUN 26 mg/dL H mg/dL (7-23) POC Creatinine 1.1 mg/dL mg/dL (0.7-1.3) POC Glucose 100 mg/dL mg/dL (70-100) ISTAT H&H 08/01/18 14:13 POC Hgb 10.5 gm/dL L gm/dL (13.7-17.5) POC Hct 31 % L % (40-51) Departure - Departure Disposition: [facility] Clinical Impression: Intractable back pain Surgical complication Qualifiers: Surgical complication system/body Area: musculoskeletal system Surgical complication type: unspecified Timing of complication: postoperative complication Procedure type: musculoskeletal Qualified Code(s): M96.89 - Other intraoperative and postprocedural complications and disorders of the musculoskeletal system Pathologic compression fracture of thoracic vertebra Qualifiers: Encounter type: initial encounter Qualified Code(s): M48.54XA - Collapsed vertebra, not elsewhere classified, thoracic region, initial encounter for fracture Condition: Good Referrals: Grey Zelaya MD [Primary Care Provider] - As per Instructions
[2018-08-01 13:40] LABS: PLATELET COUNT 401 10^3/uL (150-400)
[2018-08-01] MEDS ORDERED: HYDROmorphONE/DILAUDID 2 MG/ML INJ IVP ONE ×2 (14:18→18:25)
[2018-08-01 14:32] LABS: INR 1.04 (0.83-1.16); PROTIME(PATIENT) 13.8 SEC (12.0-15.0)
[2018-08-01] MEDS ORDERED: HYDROmorphONE/DILAUDID 1 MG/ML INJ IVP ONE (15:20)
[2018-08-01] MEDS ORDERED: NS 1,000 ML IV ONE (15:37)
[2018-08-01] MEDS ORDERED: VANCOMYCIN HCL/NORMAL SALINE 250 ML IV ONE (15:54)
[2018-08-01 18:40] VITALS: BP 158/82
== END 2018-08-01 18:51 | disposition short-term general hospital (02) ==
LOC: EDUNIT#
DX: M96.89 Other intraoperative and postprocedural complications and disorders of the musculoskeletal system (principal); M48.54XA Collapsed vertebra, not elsewhere classified, thoracic region, initial encounter for fracture
CPT/HCPCS: 72128; 72131; 96365; 96375; 96376; 99285; J1170; J2270; J3370; 82435-PO; 82565-PO; 82947-PO; 84132-PO; 84295-PO; 84520-PO; 85014-PO

== ENCOUNTER 2018-08-22 13:48 | Inpatient (IN) | payer OTHER ==
[2018-08-22] MEDS ORDERED: ALTEPLASE 2 MG VIAL IVP PRN (14:34)
[2018-08-22] MEDS ORDERED: BISACODYL 10 MG SUPP PR PRN (15:26)
[2018-08-22] MEDS ORDERED: ONDANSETRON DISINTEGRATING 4 MG TAB PO PRN (15:26)
[2018-08-22] MEDS ORDERED: POLYETHYLENE GLYCOL 3350 17 GM PKT PO PRN (15:26)
[2018-08-22] MEDS ORDERED: ALTEPLASE 2 MG VIAL IV PRN (15:26)
[2018-08-22] MEDS ORDERED: LIDOCAINE 2% VISCOUS 15 ML UDCUP PO PRN (15:26)
[2018-08-22] MEDS ORDERED: NYSTATIN SUSP 500000 UNIT/5 ML UDCUP PO PRN (15:26)
[2018-08-22] MEDS ORDERED: hydrALAZINE 25 MG TAB PO PRN (15:26)
[2018-08-22] MEDS ORDERED: LACTULOSE 20 GM/30 ML UDCUP PO PRN (15:26)
[2018-08-22] MEDS ORDERED: SENNOSIDES/DOCUSATE SODIUM TAB PO PRN (15:26)
[2018-08-22] MEDS ORDERED: MAGNESIUM HYDROXIDE 30 ML UDCUP PO PRN (15:26)
[2018-08-22] MEDS ORDERED: traMADol 50 MG TAB PO PRN (15:26)
[2018-08-22] MEDS ORDERED: oxyCODONE IR 5 MG TAB PO PRN (15:26)
[2018-08-22] MEDS: ACETAMINOPHEN 500 MG TAB PO SCH ×2 (16:16→22:51)
[2018-08-22] MEDS: BACLOFEN 10 MG TAB PO SCH ×2 (16:16→21:00)
[2018-08-22] MEDS ORDERED: VANCOMYCIN HCL/NORMAL SALINE 250 ML IV SCH (17:00)
--- NOTE | 2018-08-22 17:19 | GHP ---
POST ADMISSION PHYSICIAN EVALUATION AND REHABILITATION TREATMENT PLAN DATE OF ADMISSION: 08/22/2018 DATE OF EVALUATION: 08/22/2018 TIME OF EVALUATION: 1510 REFERRING FACILITY: [facility] REFERRING PHYSICIAN: Dr. Khoury IMPAIRMENT GROUP: [id number] DATE OF ONSET: 08/01/2018 CONSULTING PHYSICIANS: He was seen by the internal medicine hospitalist service and by Plastic Surgery. REHABILITATION DIAGNOSIS: Debility, status post thoracic spine surgery. 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 DATE OF SURGERY: 08/07/2018 HISTORY OF PRESENT ILLNESS: This patient has renal cell carcinoma with spinal metastases. He had a previous T7-T11 spinal fusion for cord compression due to malignant neoplasm. He came back to the hospital on 07/21/2018, with decline in function and nonhealing wound with infection of spinal hardware. Wound healing issues were due to irradiation. He underwent a T9 corpectomy and a T7- T12 fusion. There was tumor debulking done. The major surgery was on 2017. He subsequently had left latissimus pedicle flap coverage to the wound on 08/14/2018. Cultures of surgical samples grew corynebacterium and he is being treated with IV vancomycin for a total of 6 weeks. He is to continue IV antibiotics for 6-8 weeks from August 07 when he had his major surgery. Hospital complications included urinary retention. This was partly due to inability to retract his foreskin. He was seen by Urology, who accomplished foreskin retraction. He was still unable to urinate. A Juarez catheter was placed and he was begun on tamsulosin with a plan to have a voiding trial after 1 week. Tamsulosin was started on 08/20/2018, so a voiding trial would be on . He had insomnia and has had titration of melatonin. He had pain, which has been managed with oxycodone, tramadol and acetaminophen. He is chronically on baclofen for spasticity, likely related to his spinal cord issues. STUDIES AND LABORATORIES IN THE HOSPITAL: There were multiple imaging studies pre and post surgery. Hardware placement and anatomic position were verified radiologically. There was a urinalysis done on 08/20/2018, which was completely normal. Urine culture showed no growth. Erythrocyte sedimentation rate on 08/20 was 124. C-reactive protein was 45.7. Vancomycin trough on was slightly high at 21.3. Basic metabolic profile was consistent with mild dehydration with a BUN of 30 and a creatinine of 0.98. It was, otherwise within normal limits. CBC showed anemia with a hemoglobin of 9.4 and a hematocrit of 29.3. Platelet count was normal. There was no leukocytosis. PRECAUTIONS: He is a fall risk. He has orthopedic spinal precautions. ACTIVE COMORBIDITIES: He has no active tier 1, tier 2 or tier 3 comorbidities. PAST MEDICAL HISTORY: 1. Renal cell carcinoma. 2. Benign prostatic hypertrophy. PAST SURGICAL HISTORY: 1. Right nephrectomy. 2. Multiple thoracic spine surgeries. PRE-HOSPITAL MEDICATIONS: I do not have a list. ADMISSION MEDICATIONS: 1. Acetaminophen 1000 mg p.o. q.8 hours scheduled. 2. Alteplase 2 mg IV push p.r.n. PICC line occlusion. 3. Ascorbic acid 500 mg p.o. daily. 4. Bacitracin 1 application twice daily to suture lines around pedicle flap. 5. Baclofen 15 mg p.o. t.i.d. 6. Bisacodyl [address] daily p.r.n. 7. Cholecalciferol 2000 units p.o. daily. 8. Escitalopram 10 mg p.o. daily. 9. Heparin 5000 units subcutaneous q.8 hours. 10. Hydralazine 25 mg p.o. t.i.d. p.r.n. systolic blood pressure over 160. 11. Labetalol 200 mg p.o. p.r.n. 12. Lactulose 20 g p.o. b.i.d. p.r.n. constipation. 13. Lidocaine 15 mL q.4 hours p.r.n. mucosal pain. 14. Magnesium hydroxide 30 mL p.o. daily p.r.n. 15. Melatonin 10.5 mg p.o. at bedtime. 16. Tolterodine 2 mg p.o. b.i.d. 17. Vancomycin 1 g IV q.12 hours. 18. Nystatin oral swish and spit p.r.n. 19. Ondansetron 8 mg p.o. t.i.d. p.r.n. nausea. 20. Oxycodone 5-10 mg p.o. q.6 hours p.r.n. 21. Polyethylene glycol 17 g p.o. daily p.r.n. 22. Senna/docusate 2 tabs p.o. at bedtime p.r.n. 23. Tamsulosin 0.5 mg p.o. daily. 24. Tramadol 50 mg p.o. q.4 hours p.r.n. I have changed the frequency of the oxycodone dosing to q.4 hours. I have discontinued the p.r.n. labetalol. ALLERGIES: Listed to naproxen and to tree nuts. PSYCHOSOCIAL HISTORY: He is . He lives with his . She only speaks [place]. They have a multilevel home with stairs to enter and stairs to the 2nd floor. The bathroom level is on the 2nd floor. He has worked for [employer]. FAMILY HISTORY: Noncontributory. REVIEW OF SYSTEMS: He reports back pain. He says he has had an uncomfortable ride from [facility] to [employer]. He has had leg weakness, but reports that he has been doing some walking for the past 3 days. He has loss of sensation in the left lower extremity and he has pins and needles paresthesias bilaterally in the lower extremities. He has been sleeping well. He denies fevers or chills. He denies cough or dyspnea. He denies nausea, vomiting, constipation, or diarrhea. He says when he needs to move his bowels, which is less than every day, it can come on suddenly. Otherwise, a 10-point review of systems is negative. PHYSICAL EXAMINATION: VITAL SIGNS: Blood pressure is 137/85, heart rate is 104 , respiratory rate is 18, oxygen saturation is 90% on room air, temperature is 37.9 degrees centigrade. His weight is 67.6 kg for a body mass index of 22. GENERAL: This is a well-nourished, well-developed man lying on his left side in bed, cooperative and in no acute distress, wearing a hospital gown. HEENT: Extraocular movements are intact. Pupils are equal, round and reactive to light. Mucous membranes are moist. Dentition is in good condition. NECK: Supple. HEART: There is a regular rate and rhythm. No murmurs, rubs, or gallops. LUNGS: Clear to auscultation bilaterally. ABDOMEN: Soft, nontender , nondistended with normoactive bowel sounds and no hepatosplenomegaly. EXTREMITIES: There is no cyanosis, clubbing, or edema. Radial pulses are 2+ bilaterally. Dorsalis pedis pulses are 1+ bilaterally. NEUROLOGIC: He is alert and oriented x3. Cranial nerves 2-12 are grossly intact. Upper extremity strength is normal. Lower extremity strength is reduced, perhaps 4/ 5. Sensation is absent to light touch on the dorsum of the right foot and reduced to light touch on the left foot, otherwise, is within normal limits. SKIN: Incision over his spine and around the pedicle flap is closed with sutures. Incisions are clean, dry and intact with no erythema and no purulence. CURRENT LEVEL OF FUNCTION PER THE PREADMISSION SCREEN: He was on a regular diet. He needed maximal assist to don his TLSO brace. Otherwise, he needed assistance for dressing and other adaptive equipment. For toileting, he was using a bed cordon. Bed mobility required minimal assist with the head of the bed elevated and using the rail. Transfers required moderate assist of 2 people using a front-wheeled walker. Balance was impaired in standing. Activity tolerance was reduced. He was able to walk 20 feet with a front-wheeled walker and maximal assist of 1 person plus another person following with a wheelchair. Communication was considered normal. Cognition was considered normal. Outside of therapy, he was using a Mattie Stedy for transfers. Balance was limited by decreased sensation and proprioception and functional mobility was limited by decreased coordination. There are no significant changes on today's exam from the pre-admission screen. IMPRESSION: This is a 67-year-old man with a history of renal cell carcinoma, status post nephrectomy with spinal metastatic disease. He has had prior surgery with a corpectomy and spinal fusion. He had radiation to the spine. He subsequently had poor wound healing and developed infected spinal hardware. He returned for surgery, and on 08/07/2018, he had a T9 corpectomy and T7-T12 fusion. The wound was ultimately closed with a left latissimus pedicle flap on 08/14/2018. He had a relatively uncomplicated hospital course, though he needed to remain off his left side for a prolonged period of time to allow the pedicle flap to begin to heal. He was diagnosed with a corynebacterium infection of spinal hardware, which was removed and replaced, and his on 6-8 weeks of IV vancomycin. He had urinary retention, possibly complicated by inability to retract his foreskin; however, he was subsequently unable to void after help from Urology. He is on tamsulosin for 7 days, after which Juarez catheter removal and voiding trial can be done. He has bilateral lower extremity weakness and sensory impairments, decreased proprioception, decreased mobilization, general deconditioning, decreased activity tolerance, balance impairments and strength deficits, and is below his functional baseline. He will benefit from physical and occupational therapy to optimize his mobility and activities of daily living. For a safe discharge, it is expected that he will progress to modified independent level of function at the wheelchair level for a safe discharge home with his . He will be able to transfer with modified independence and he will progress to functional walking trials. He may use a front-wheeled walker. He may need AFOs. He will have modified independence with self-care using a wheelchair and front wheeled walker. He will need to be able to maintain continence and regularity with bowel and bladder function. He will have therapy with Physical Therapy and Occupational Therapy for 90 minutes per day for each discipline on 5-7 days of the week. His expected duration of stay is 14 days. It is expected that after discharge he will continue to benefit from home health services, including nursing, occupational therapy, and physical therapy. PLAN: 1. Deficits to mobility and activities of daily living, status post revision surgery 08/07/2018 for renal cell carcinoma, spinal metastases, and spinal hardware infection following wound dehiscence as a consequence of radiation therapy. PT and OT to optimize mobility and activities of daily living toward the modified independence level. He may function primarily from the wheelchair with limited in-home ambulation. 2. Spinal hardware infection, status post hardware removal and replacement. He is on vancomycin for a 6-8 week period with the time course beginning on 05/2018. He will have CBC, CMP, ESR, CRP, and a vancomycin trough every Saturday. Will check BMP and vancomycin trough today on the day of admission, as his most recent trough in the hospital discharge information was slightly elevated at 21.5 with a goal vancomycin trough being 15-20. Hospital discharge paperwork indicates that vancomycin management will initially be done by the infectious disease service at the [facility] and subsequently picked up by the [facility]. I will see if the [facility] would be available to pick pack worker management sooner than that. 3. Urinary retention. He has been started on tamsulosin. He has a history of BPH. He will have a voiding trial on 08/26/2018. 4. Pain management. Continue acetaminophen, which is scheduled; baclofen, which may help his pain condition; and oxycodone p.r.n., as well as tramadol p.r.n. I have changed the frequency of dosing of oxycodone from q.6 hours to q.4 hours. 5. Wound care for back incision, as well as pedicle flap done on 08/14/2018. He is to have bacitracin b.i.d. He has scheduled followup with the plastic service surgery service at [facility] for September 01, 2018. He will may still be at inpatient rehabilitation. We will discuss further with the plastic surgery service regarding suture removal while he is at inpatient rehabilitation rather than needing to travel to [place]. The physician school health assistant there is Mattie Hammer and the phone number is [phone]. 6. Constipation. Continue medications ordered on hospital discharge with lactulose, magnesium hydroxide, polyethylene glycol and senna/docusate. Bowel status will be monitored and medications can be adjusted as needed. 7. Elevated blood pressures. He is not on any scheduled antihypertensives. He was on both hydralazine and labetalol as p.r.n. I have discontinued the labetalol. Blood pressure will be monitored, and if he has consistently elevated blood pressures, an antihypertensive medication can be started. 8. Depression versus adjustment disorder with depressed mood versus anxiety. Continue escitalopram. 9. Insomnia. May be related to depression. Melatonin at 10.5 mg at bedtime is a high dose. It is likely that melatonin has been losing its efficacy due to receptor down regulation with prolonged use. Consider initiation of an alternative hypnotic with trazodone likely being the first choice at low dose. 10. Prophylaxis. He has been discharged on heparin 5000 units subcutaneous t.i.d. This will be continued until his mobility considerably improves. If he does not want the t.i.d. injections, consider changing to daily enoxaparin. 11. Followup. Will consult Infectious Disease to initiate management of vancomycin now that he is at [facility] inpatient rehabilitation rather than waiting until August 28. He has followup with the [facility] scheduled for September 18 with Ever Bonds, physician school health assistant, and he is to see orthopedic spine surgeon, Dr. Clemente Khoury, on November 03, 2018. /[id number]/MODL MTDD
[2018-08-22] MEDS: VANCOMYCIN 1 GM in NS 250 ML IV SCH (18:26)
[2018-08-22] MEDS: BACITRACIN ZINC 14.2 GM OINTTUBE TP SCH (20:57)
[2018-08-22] MEDS: MELATONIN 3 MG TAB PO SCH ×2 (20:58→21:15)
[2018-08-22] MEDS ORDERED: NORMAL SALINE IV SCH (21:00)
[2018-08-22] MEDS ORDERED: TOLTERODINE TARTRATE 1 MG TAB PO SCH (21:00)
[2018-08-22] MEDS ORDERED: VANCOMYCIN HCL IV SCH (21:00)
[2018-08-22] MEDS: HEPARIN 5,000 UNIT/0.5 ML INJ SC SCH (21:02)
[2018-08-23] MEDS: VANCOMYCIN 1 GM in NS 250 ML IV SCH ×2 (06:00→18:18)
[2018-08-23] MEDS: HEPARIN 5,000 UNIT/0.5 ML INJ SC SCH ×3 (06:07→21:04)
[2018-08-23] MEDS: ACETAMINOPHEN 500 MG TAB PO SCH ×3 (08:45→22:54)
[2018-08-23] MEDS: ASCORBIC ACID 500 MG TAB PO SCH (08:46)
[2018-08-23] MEDS: BACLOFEN 10 MG TAB PO SCH ×3 (08:47→21:04)
[2018-08-23] MEDS: CHOLECALCIFEROL VIT D3 2,000 UNITS TAB/CAP PO SCH (08:48)
[2018-08-23] MEDS: TAMSULOSIN HCL 0.4 MG CAP PO SCH (08:49)
[2018-08-23] MEDS ORDERED: ESCITALOPRAM OXALATE 10 MG TAB PO SCH (09:00)
[2018-08-23] MEDS: BACITRACIN ZINC 14.2 GM OINTTUBE TP SCH ×2 (10:14→21:14)
--- NOTE | 2018-08-23 13:26 | HOSPPROG ---
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 S/p hardware removal 08/07, plan for 6-8 weeks of IV Vanco from that date -assessed surg site w/ RN, there is mild blanching erythema around inferior/mid portion of incision site but this is also the fulcrum of pressure for his spine , and it may be more indicative of pressure than infxn -get air mattress to offload, gauge effect -vanco trough 14.6, cont current Vanco dosing -appreciate ID consultation -plan for CBC/ESR/CRP/BMP on 08/25, will get 08/24 if area evolving # Urinary retention. S/p foreskin retraction by Urology, cont agosto catheter # Constipation. Resolved, cont bowel regimen # Depression and insomnia. Chronic, cont home Rx, patient reports he has been off lexapro for some time, stopped # Elevated BPs. No hx HTN, may be 2/2 pain, monitor # Metastatic RCC. Thoracic mets, likely contributing to his lower body sx, will require outpt onc and nsgy f/u Diet. Regular PPx. Adjusted to lovenox 40 Code. Full Dispo. ADD uncertain, remains very dependent in ADLs. Subjective: minimal pain in back, wants to shower, has had BM Objective: Vital Signs Temp Pulse Resp BP Pulse Ox 36.8 C 91 15 152/87 H 92 08/23/18 06:30 08/23/18 06:30 08/23/18 06:30 08/23/18 06:30 08/23/18 06:30 08/22/18 08/23/18 08/24/18 05:59 05:59 05:59 Intake Total 650 320 Output Total 2390 Balance -1740 320 - Physical Exam Constitutional: no apparent distress, appears nourished, not in pain, uncomfortable Cardiovascular: regular rate and rhythym, no murmur, rub, or gallop, No edema Respiratory: reduced air movement (bilat bases), No expiratory wheeze, No inspiratory crackles, No bronchial breath sounds, No respiratory distress Gastrointestinal: normoactive bowel sounds, soft, non-tender abdomen, no palpable masses, No distension Skin: other (mild blanchable erythema at mid/lower portion of incision site, flap area appears well healing, sutures in place, no induration, no tenderness/ drainage) Neurologic: AAOx3, sensation intact bilaterally, weakness (motor 3/5 bilat LE, 5 /5 bilat UE) Psychiatric: not anxious, not encephalopathic, flat affect, No agitated ICD10 Worksheet Patient Problems: Problems Problem Status Onset Compression fracture Acute Renal cell carcinoma Acute Bone metastasis Acute Weakness Acute Dehydration Acute Weakness of right lower extremity Acute
[2018-08-23] MEDS: MELATONIN 3 MG TAB PO SCH ×2 (21:06)
[2018-08-24] MEDS: VANCOMYCIN 1 GM in NS 250 ML IV SCH ×2 (05:58→18:19)
[2018-08-24] MEDS: ACETAMINOPHEN 500 MG TAB PO SCH ×3 (08:12→22:44)
[2018-08-24] MEDS: ENOXAPARIN 40 MG/0.4 ML SYR SC SCH (08:13)
[2018-08-24] MEDS: BACLOFEN 10 MG TAB PO SCH ×3 (08:13→21:21)
[2018-08-24] MEDS: TAMSULOSIN HCL 0.4 MG CAP PO SCH (08:13)
[2018-08-24] MEDS: ASCORBIC ACID 500 MG TAB PO SCH (08:13)
[2018-08-24] MEDS: CHOLECALCIFEROL VIT D3 2,000 UNITS TAB/CAP PO SCH (08:13)
[2018-08-24] MEDS: BACITRACIN ZINC 14.2 GM OINTTUBE TP SCH ×2 (08:14→21:23)
--- NOTE | 2018-08-24 14:09 | HOSPPROG ---
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 S/p hardware removal 08/07, plan for 6-8 weeks of IV Vanco from that date -assessed surg site w/ RN, ongoing mild blanching erythema around inferior/mid portion of incision site but this is also the fulcrum of pressure for his spine , and it may be more indicative of pressure than infxn -patient declined air mattress last night, has been introduced today, gauge effect -RN applying bacitracin topically, currently open to air, rec confirming w/ wound care on 08/25 whether additional interventions required -SHEYLA remains in place, once clear fluid in bulb likely warrants removal, will need to be confirmed w/ NSGY -vanco trough 14.6, cont current Vanco dosing -appreciate ID consultation -plan for CBC/ESR/CRP/BMP on 08/25 # Urinary retention. S/p foreskin retraction by Urology, cont agosto catheter # Constipation. Resolved, cont bowel regimen # Depression and insomnia. Chronic, cont home Rx, patient reports he has been off lexapro for some time, stopped # Elevated BPs. No hx HTN, may be 2/2 pain, monitor # Metastatic RCC. Thoracic mets, likely contributing to his lower body sx, will require outpt onc and nsgy f/u Diet. Regular PPx. Adjusted to lovenox 40 Code. Full Dispo. ADD uncertain, remains very dependent in ADLs. Subjective: patient declines significant pain in back, had BM Objective: Vital Signs Temp Pulse Resp BP Pulse Ox 36.7 C 92 14 139/89 H 92 08/24/18 07:16 08/24/18 07:16 08/24/18 07:16 08/24/18 07:16 08/24/18 07:16 08/23/18 08/24/18 08/25/18 05:59 05:59 05:59 Intake Total 650 1745 Output Total 2672 4055 25 Balance -1770 -1500 -25 - Physical Exam Constitutional: no apparent distress, appears nourished, not in pain, No uncomfortable Cardiovascular: regular rate and rhythym, no murmur, rub, or gallop, No edema Respiratory: no respiratory distress, no rales or rhonchi, clear to auscultation Gastrointestinal: normoactive bowel sounds, soft, non-tender abdomen, No guarding, No distension Skin: other (mild blanchability inferior portion of incision site w/o induration , not particularly erythematous, appears more of a pressure area, sutures intact , no drainage) Neurologic: AAOx3, weakness (motor 4/5 bilat LE) Psychiatric: not anxious, not encephalopathic, thought process linear, flat affect, agitated ICD10 Worksheet Patient Problems: Problems Problem Status Onset Bone metastasis Acute Compression fracture Acute Dehydration Acute Renal cell carcinoma Acute Weakness Acute Weakness of right lower extremity Acute
[2018-08-24] MEDS: MELATONIN 3 MG TAB PO SCH ×2 (21:21→21:22)
[2018-08-25] MEDS: VANCOMYCIN 1 GM in NS 250 ML IV SCH ×2 (06:05→17:58)
[2018-08-25] MEDS: CHOLECALCIFEROL VIT D3 2,000 UNITS TAB/CAP PO SCH (07:52)
[2018-08-25] MEDS: ACETAMINOPHEN 500 MG TAB PO SCH ×3 (07:52→23:44)
[2018-08-25] MEDS: ENOXAPARIN 40 MG/0.4 ML SYR SC SCH (07:52)
[2018-08-25] MEDS: BACLOFEN 10 MG TAB PO SCH ×3 (07:53→22:09)
[2018-08-25] MEDS: ASCORBIC ACID 500 MG TAB PO SCH (07:53)
[2018-08-25] MEDS: TAMSULOSIN HCL 0.4 MG CAP PO SCH (07:54)
[2018-08-25] MEDS: BACITRACIN ZINC 14.2 GM OINTTUBE TP SCH ×2 (07:54→21:52)
[2018-08-25 09:07] LABS: PLATELET COUNT 350 10^3/uL (150-400)
--- NOTE | 2018-08-25 09:29 | PDOREHIP ---
Admission [facility] - Admission - 3 Day Assessment Period Admission Date/Day 1: 08/22/18 Day 2: 08/23/18 Day 3: 08/24/18 - Active Diagnoses Comorbidities and Co-existing Conditions at Admission: 89025. None of the Above - Skin Conditions Unhealed Pressure Ulcer (1 or more/Stage 1 or >)-Admission: 0. No
--- NOTE | 2018-08-25 09:29 | SOAPPROG ---
SOAP Progress Note Assessment/Plan: Assessment: Deficits to mobility and activities of daily living, status post revision surgery 08/07/2018 for renal cell carcinoma, spinal metastases, and spinal hardware infection following wound dehiscence as a consequence of radiation therapy. * Initial functional independence measure 68. Ambulates better when he has more tone, which is managed with baclofen. Ambulated 70 ft contact guard assist with front wheeled walker. Requires minimal assistance for bed mobility. Transfers with minimal assistance using a stand pivot technique. 120 ft of wheelchair mobility. Upper body dressing is done with setup except for the TLSO which requires minimal to moderate assist. Lower body dressing needs setup to standby assist with complication of threading the catheter through his pants. Grooming and hygiene is done seated with supervision. * Continue PT and OT to optimize mobility and activities of daily living toward the modified independence level. He may function primarily from the wheelchair with limited in-home ambulation. Spinal hardware infection, status post hardware removal and replacement. He is on vancomycin for a 6-8 week period with the time course beginning on 2017. * CBC, CMP, ESR, CRP, and a vancomycin trough every Saturday. Goal vancomycin trough is 15-20. * Creatinine and vancomycin tough Q . * Management per [facility]. Appreciate assistance of Dr. Kirby. Urinary retention. He has been started on tamsulosin. He has a history of BPH. He will have a voiding trial on 08/26/2018. Pain management. Adequate with acetaminophen. * Not using oxycodone p.r.n. or tramadol p.r.n. Pedicle flap done on 08/14/2018. He is to have bacitracin b.i.d. * D/W medical examiner for Dr. Oreilly, 08/25/2018. Follow-up with Plastics at [facility] shortly after discharge. The physician orthotics prosthetics assistant there is Mattie Hammer and the phone number is [phone]. * May remove drain with lesser output when less than 30cc in 48 hours. Leave other drain in place. * Sutures will be removed at Plastics follow-up. Anemia, improving. Hemoglobin and hematocrit at the end of his hospitalization were 9.4 and 29.3; and they were 9.6 and 29.1 on labs 08/25/2018. Constipation. Responding to bowel protocol. Elevated blood pressures. Mostly at target for primary prevention. Continue p.r.n. Hydralazine, but he is not seem to eat antihypertensives. Depression versus adjustment disorder with depressed mood versus anxiety. * He reports poor response to escitalopram on the past and it has been discontinued. * Monitor for symptoms. Insomnia. May be related to depression. Melatonin at 10.5 mg at bedtime is a high dose. It is likely that melatonin has been losing its efficacy due to receptor down regulation with prolonged use. * Trial of trazodone at , 08/25/2018. Prophylaxis. He has been discharged on heparin 5000 units subcutaneous t.i.d. This will be continued until his mobility considerably improves. If he does not want the t.i.d. injections, consider changing to daily enoxaparin. DISPOSITION: Attended staffing, 15 min. Discussed with case management, dietitian, nursing, PT, OT. Plans to return home with his . He has ramps and a stair lift installed at home. Tentative discharge date set for 09/02/2018. FOLLOW-UP. [facility] managing of vancomycin now that he is at [facility]. He has followup with the [facility] scheduled for September 18 with Ever Bonds, physician orthotics prosthetics assistant, and he is to see orthopedic spine surgeon, Dr. Clemente Khoury , on November 03, 2018. 08/25/18 13:49 Subjective: No complaints. Reports that Lexapro was not helpful to him; was ordered hospital discharge but has since been discontinued. Not in pain; using acetaminophen. Bowels moving. Attains sleep but often awakens during the night and has difficulty returning to sleep. Objective: Vital Signs Temp Pulse Resp BP Pulse Ox 36.8 C 97 16 130/83 H 94 08/24/18 20:00 08/24/18 20:00 08/24/18 20:00 08/24/18 20:00 08/24/18 20:00 Laboratory Results 08/25/18 06:13 08/24/18 08/25/18 08/26/18 05:59 05:59 05:59 Intake Total 0135 400 Output Total 0206 1615 35 Balance -1500 -1215 -35 - Time Spent With Patient Time Spent With Patient: Greater than 35 min floor time today, including more than 50% of time in coordination of care during staffing meeting and in discussion with the Plastic surgery Clinic, and counseling patient. Physical Exam - Physical Exam General Appearance: WD/WN, alert, no apparent distress Respiratory: No respiratory distress, No accessory muscle use Skin: normal color, warm/dry Neuro/Psych: alert, normal mood/affect, oriented x 3 ICD10 Worksheet Patient Problems: Problems Problem Status Onset Bone metastasis Acute Compression fracture Acute Dehydration Acute Renal cell carcinoma Acute Weakness Acute Weakness of right lower extremity Acute
--- NOTE | 2018-08-25 10:01 | PCMIDPN ---
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 Plan 8 weeks of vancomycin followed by oral suppressive therapy. Corynebacterium striatum resistant to most typical drugs used for suppressive therapy in the setting of retained hardware other than linezolid. Tedizolid consideration and has been approved prior to his transfer to inpatient rehab. Plan monitoring of CBC and CMP weekly with vancomycin trough and creatinine twice weekly. Side effects of vancomycin including potential for allergic reactions, nephrotoxicity, and ototoxicity discussed with patient. Will plan to see patient weekly at inpatient rehab and then follow-up in my office post discharge. Time spent, greater than 35 min, which greater than half was spent in education/ counseling/coordination care related to postoperative back infection including review of recent course and culture data from [facility]. 08/25/18 09:57 Subjective: Patient known to me from prior outpatient visit. See Mónica note dated 2017 for full details. 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 Recently admitted to [facility] for debridement and subsequent flap closure. Cultures have grown Corynebacterium striatum. Patient is receiving 6-8 week course of vancomycin with plans for oral suppression with Tedizolid thereafter given other typical oral suppressive options do not show drug susceptibility; long-term toxicity associated with oxazolidinones often problematic. Objective: Vital Signs Temp Pulse Resp BP Pulse Ox 36.8 C 97 16 130/83 H 94 08/24/18 20:00 08/24/18 20:00 08/24/18 20:00 08/24/18 20:00 08/24/18 20:00 Laboratory Results 08/25/18 06:13 08/25/18 06:13 08/24/18 08/25/18 08/26/18 05:59 05:59 05:59 Intake Total 1745 400 Output Total 3245 1615 35 Balance -1500 -1215 -35 ESR 60 MM/HR (0-20) H 08/25/18 06:13 C-Reactive Protein 54.1 mg/L (<10.0) H 08/25/18 06:13 Vancomycin 1 g IV q.12 hours Laboratory Tests 08/22/18 16:40 Vancomycin Trough 14.6 - Physical Exam General Appearance: alert, no apparent distress EENT: No scleral icterus, No thrush, No conjunctival petechiae Respiratory: lungs clear, No respiratory distress Cardiac/Chest: regular rate, rhythm, No systolic murmur Extremities: No inflammation Abdomen: non-tender, No distended Back: other (Surgical incision intact without erythema or drainage, nontender) Skin: No rash - Line/s LUE PICC Lines: No drainage, No erythema ICD10 Worksheet Patient Problems: Problems Problem Status Onset Compression fracture Acute Renal cell carcinoma Acute Bone metastasis Acute Weakness Acute Dehydration Acute Weakness of right lower extremity Acute
[2018-08-25] MEDS: traZODone 50 MG TAB PO SCH (21:52)
[2018-08-25] MEDS: MELATONIN 3 MG TAB PO SCH ×2 (22:18→22:19)
[2018-08-26] MEDS: VANCOMYCIN 1 GM in NS 250 ML IV SCH (05:55)
[2018-08-26] MEDS: ACETAMINOPHEN 500 MG TAB PO SCH ×3 (08:31→22:45)
[2018-08-26] MEDS: BACLOFEN 10 MG TAB PO SCH ×3 (08:32→21:01)
[2018-08-26] MEDS: ASCORBIC ACID 500 MG TAB PO SCH (08:33)
[2018-08-26] MEDS: BACITRACIN ZINC 14.2 GM OINTTUBE TP SCH ×2 (08:33→21:06)
[2018-08-26] MEDS: CHOLECALCIFEROL VIT D3 2,000 UNITS TAB/CAP PO SCH (08:33)
[2018-08-26] MEDS: TAMSULOSIN HCL 0.4 MG CAP PO SCH (08:33)
[2018-08-26] MEDS: ENOXAPARIN 40 MG/0.4 ML SYR SC SCH (08:34)
--- NOTE | 2018-08-26 10:34 | SOAPPROG ---
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 Deficits in mobility, self-care. Today's update: Patient states that therapy is so far going well, he has concerns about discharge in a week. He understands that inpatient rehabilitation is a step in his overall rehab plan and that as a group we all make decisions based on the medical necessity. Continue Juarez for BPH/ neurogenic bladder, states that he is having regular bowel movements just fine. Appreciate help from Infectious Disease, ordered creatinine for . Vancomycin trough today is 19.5. Neurologically improving A total of 35 min was spent on the floor in the care of the patient, the majority of which was spent in the counseling and coordination of care regarding rationale behind rehabilitation length of stay, goals for rehabilitation, and discharge planning. Additional issues reviewed without change today include pain management, anemia , blood pressure management, depression, insomnia, prophylaxis. 08/26/18 10:31 Subjective: Chief complaint: Rehabilitation progress No acute events overnight. Patient denies any new shortness of breath or chest pain, no new numbness, tingling, or weakness. He states that he is frustrated with his overall function, concerned about the discharge plan in 1 week. I counseled him at length on the overall rehab plan, goals of rehabilitation, and how this fits into his overall functional recovery. He states that he was in rehabilitation much longer during previous admissions. Additionally, he says that he has not spoken with Dr. Kirby today, but saw him yesterday. Juarez is working fine for him and he states he has had regular bowel movements. Objective: Vital Signs Temp Pulse Resp BP Pulse Ox 37.2 C 102 H 16 129/82 H 92 08/26/18 05:57 08/26/18 05:57 08/26/18 05:57 08/26/18 05:57 08/26/18 05:57 Laboratory Results 08/25/18 06:13 08/25/18 06:13 08/25/18 08/26/18 08/27/18 05:59 05:59 05:59 Intake Total 400 1975 480 Output Total 1612 4185 Balance -1215 -6340 480 Physical Exam - Physical Exam General Appearance: WD/WN, alert, no apparent distress EENT: No scleral icterus (R), No scleral icterus (L) Respiratory: No respiratory distress, No accessory muscle use Cardiac/Chest: normal peripheral pulses, regular rate, rhythm, No edema Skin: normal color, warm/dry, No cyanosis, No diaphoresis Extremities: No pedal edema, No swelling Neuro/Psych: alert, normal mood/affect, other (Decreased light touch bilaterally comma better on the left than the right, but both are abnormal. Strength improving. Weaker on the right than the left.) ICD10 Worksheet Patient Problems: Problems Problem Status Onset Bone metastasis Acute Compression fracture Acute Dehydration Acute Renal cell carcinoma Acute Weakness Acute Weakness of right lower extremity Acute
[2018-08-26] MEDS: VANCOMYCIN 750 MG in D5W 150 ML IV SCH (17:46)
[2018-08-26] MEDS: traZODone 50 MG TAB PO SCH (21:01)
[2018-08-26] MEDS: MELATONIN 3 MG TAB PO SCH ×2 (21:06)
[2018-08-27] MEDS: VANCOMYCIN 750 MG in D5W 150 ML IV SCH ×2 (05:47→17:52)
[2018-08-27] MEDS: ACETAMINOPHEN 500 MG TAB PO SCH ×3 (08:21→22:46)
[2018-08-27] MEDS: TAMSULOSIN HCL 0.4 MG CAP PO SCH (08:22)
[2018-08-27] MEDS: CHOLECALCIFEROL VIT D3 2,000 UNITS TAB/CAP PO SCH (08:22)
[2018-08-27] MEDS: ASCORBIC ACID 500 MG TAB PO SCH (08:22)
[2018-08-27] MEDS: BACLOFEN 10 MG TAB PO SCH ×3 (08:22→20:57)
[2018-08-27] MEDS: ENOXAPARIN 40 MG/0.4 ML SYR SC SCH (10:39)
[2018-08-27] MEDS: BACITRACIN ZINC 14.2 GM OINTTUBE TP SCH ×2 (10:39→20:56)
--- NOTE | 2018-08-27 12:34 | SOAPPROG ---
SOAP Progress Note Assessment/Plan: Assessment: Deficits to mobility and activities of daily living, status post revision surgery 08/07/2018 for renal cell carcinoma, spinal metastases, and spinal hardware infection following wound dehiscence as a consequence of radiation therapy. * Initial functional independence measure 68 on 08/28/2018. Ambulates better when he has more tone, which is managed with baclofen. Ambulated 70 ft contact guard assist with front wheeled walker. Requires minimal assistance for bed mobility. Transfers with minimal assistance using a stand pivot technique. 120 ft of wheelchair mobility. Upper body dressing is done with setup except for the TLSO which requires minimal to moderate assist. Lower body dressing needs setup to standby assist with complication of threading the catheter through his pants. Grooming and hygiene is done seated with supervision. * Per patient's request, increasing baclofen on 08/27/2018 from 15 mg three times daily to 20 mg three times daily with 1st dose given before arising from bed in the morning. Monitor for decline in ambulation. * Continue PT and OT to optimize mobility and activities of daily living toward the modified independence level. He may function primarily from the wheelchair with limited in-home ambulation. Spinal hardware infection, status post hardware removal and replacement. He is on vancomycin for a 6-8 week period with the time course beginning on 2017. * CBC, CMP, ESR, CRP, and a vancomycin trough every Saturday. Goal vancomycin trough is 15-20. * Creatinine and vancomycin tough Q . * Management per [facility]. Appreciate assistance of Dr. Kirby. Urinary retention. He has been started on tamsulosin. He has a history of BPH. * Failed 08/26/2018. Reinsert Juarez. * Increase tamsulosin to 0.8 mg QD starting 08/28/2018. * Voiding trial after 5 days. Pain management. Adequate with acetaminophen. * Not using oxycodone p.r.n. or tramadol p.r.n. Pedicle flap done on 08/14/2018. He is to have bacitracin b.i.d. * D/W medical device assembler for Dr. Oreilly, 08/25/2018. Follow-up with Plastics at [facility] shortly after discharge. The physician assistant guest services manager there is Mattie Hammer and the phone number is [phone]. * May remove drain with lesser output when less than 30cc in 48 hours. Leave other drain in place. * Sutures will be removed at Plastics follow-up. Anemia, improving. Hemoglobin and hematocrit at the end of his hospitalization were 9.4 and 29.3; and they were 9.6 and 29.1 on labs 08/25/2018. Constipation. Responding to bowel protocol. Elevated blood pressures. Mostly at target for primary prevention. Continue p.r.n. Hydralazine, but he is not seem to eat antihypertensives. Depression versus adjustment disorder with depressed mood versus anxiety. * He reports poor response to escitalopram in the past and it has been discontinued. * Monitor for symptoms. Insomnia. May be related to depression. Melatonin at 10.5 mg at bedtime is a high dose. It is likely that melatonin has been losing its efficacy due to receptor down regulation with prolonged use. * Trial of trazodone at , 08/25/2018. Prophylaxis. He has been discharged on heparin 5000 units subcutaneous t.i.d. This will be continued until his mobility considerably improves. If he does not want the t.i.d. injections, consider changing to daily enoxaparin. DISPOSITION: Plans to return home with his . He has ramps and a stair lift installed at home. Tentative discharge date set for 09/02/2018. FOLLOW-UP. [facility] Infect[facility] Disease managing of vancomycin now that he is at [facility]. He has followup with the [facility] scheduled for September 18 with Ever Bonds, physician assistant guest services manager, and he is to see orthopedic spine surgeon, Dr. Clemente Khoury , on November 03, 2018. 08/27/18 12:25 Subjective: Has had urinary retention and needed straight catheterization several times. This interfered with sleep; otherwise he is sleeping well. He has occasional pain depending on position but he is not using any pain medications. Reports leg stiffness in the morning when he is 1st arising would like his baclofen dose increased. He says he was taking 20 mg 3 times a day prior to his surgery and he is currently on 15 mg 3 times a day. He wonders if it can be given before he gets out of bed. Objective: Vital Signs Temp Pulse Resp BP Pulse Ox 36.9 C 100 16 129/79 H 91 L 08/27/18 05:44 08/27/18 05:44 08/27/18 05:44 08/27/18 05:44 08/27/18 05:44 Laboratory Results 08/25/18 06:13 08/25/18 06:13 08/26/18 08/27/18 08/28/18 05:59 05:59 05:59 Intake Total 6125 1620 420 Output Total 5252 2745 900 [facility] [place] -2012 -1125 -707 Physical Exam - Physical Exam General Appearance: WD/WN, alert, no apparent distress Respiratory: No respiratory distress, No accessory muscle use Skin: normal color, warm/dry Neuro/Psych: alert, normal mood/affect, oriented x 3 ICD10 Worksheet Patient Problems: Problems Problem Status Onset Bone metastasis Acute Compression fracture Acute Dehydration Acute Renal cell carcinoma Acute Weakness Acute Weakness of right lower extremity Acute
[2018-08-27] MEDS: MELATONIN 3 MG TAB PO SCH ×4 (20:56→22:56)
[2018-08-27] MEDS: traZODone 50 MG TAB PO SCH (20:57)
[2018-08-28] MEDS: VANCOMYCIN 750 MG in D5W 150 ML IV SCH ×2 (06:13→18:38)
[2018-08-28] MEDS: ASCORBIC ACID 500 MG TAB PO SCH (08:18)
[2018-08-28] MEDS: ACETAMINOPHEN 500 MG TAB PO SCH ×3 (08:18→21:25)
[2018-08-28] MEDS: TAMSULOSIN HCL 0.4 MG CAP PO SCH (08:18)
[2018-08-28] MEDS: BACLOFEN 10 MG TAB PO SCH ×3 (08:18→20:33)
[2018-08-28] MEDS: ENOXAPARIN 40 MG/0.4 ML SYR SC SCH (08:19)
[2018-08-28] MEDS: CHOLECALCIFEROL VIT D3 2,000 UNITS TAB/CAP PO SCH (08:25)
[2018-08-28] MEDS: BACITRACIN ZINC 14.2 GM OINTTUBE TP SCH ×2 (08:26→20:33)
--- NOTE | 2018-08-28 08:35 | SOAPPROG ---
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 Deficits in mobility, self-care. Some cognitive issues noted by therapy team. Today's update: Patient slept well, endorsed some dry mouth on new dose of trazodone 50 mg p.o. At bedtime but he does not want make any changes. Counseled on importance of therapy participation. He is also down about having the Juarez replaced, goal for another voiding trial in about 5 days on increased dose of tamsulosin, no change to this plan. Vancomycin trough and creatinine are still pending for the day. A total of 15 min was spent on the floor in the care of the patient, the majority of which was spent in the counseling and coordination of care regarding discharge planning with the team. Additional issues reviewed without change today include pain management, anemia , blood pressure management, depression, prophylaxis. 08/26/18 10:31 08/28/18 08:31 Subjective: Chief complaint: Dry mouth No acute events overnight. Patient denies any new shortness of breath or chest pain, no new numbness, tingling, or weakness. He endorses some dry mouth but better sleep, just started trazodone 50 mg p.o. At bedtime. Otherwise, he is also little bit down about having the Ujarez catheter reinserted but is aware and concurs with the plan for another trial in another 5 days or so. He does not desire to make any changes to his sleep medications, continuing melatonin and trazodone. Creatinine and vancomycin trough for still pending. Objective: Vital Signs Temp Pulse Resp BP Pulse Ox 36.6 C 101 H 16 121/75 H 95 08/27/18 19:42 08/27/18 19:42 08/27/18 19:42 08/27/18 19:42 08/27/18 19:42 Laboratory Results 08/25/18 06:13 08/27/18 08/28/18 08/29/18 05:59 05:59 05:59 Intake Total 1620 1820 Output Total 2745 2200 25 Balance -1125 -380 -25 Physical Exam - Physical Exam General Appearance: WD/WN, alert, no apparent distress EENT: No scleral icterus (R), No scleral icterus (L) Respiratory: other (In brace) Cardiac/Chest: normal peripheral pulses, regular rate, rhythm, No edema Skin: normal color, warm/dry, No cyanosis, No diaphoresis Extremities: No pedal edema, No swelling Neuro/Psych: alert, other (Decreased right leg strength compared to left), No normal mood/affect (Flat affect) ICD10 Worksheet Patient Problems: Problems Problem Status Onset Bone metastasis Acute Compression fracture Acute Dehydration Acute Renal cell carcinoma Acute Weakness Acute Weakness of right lower extremity Acute
[2018-08-28] MEDS: traZODone 50 MG TAB PO SCH (20:33)
[2018-08-28] MEDS: MELATONIN 3 MG TAB PO SCH ×2 (21:25)
[2018-08-29] MEDS: VANCOMYCIN 750 MG in D5W 150 ML IV SCH ×2 (06:12→18:16)
[2018-08-29] MEDS: CHOLECALCIFEROL VIT D3 2,000 UNITS TAB/CAP PO SCH (08:16)
[2018-08-29] MEDS: ACETAMINOPHEN 500 MG TAB PO SCH ×3 (08:16→21:37)
[2018-08-29] MEDS: ENOXAPARIN 40 MG/0.4 ML SYR SC SCH (08:16)
[2018-08-29] MEDS: TAMSULOSIN HCL 0.4 MG CAP PO SCH (08:16)
[2018-08-29] MEDS: BACLOFEN 10 MG TAB PO SCH ×3 (08:16→20:36)
[2018-08-29] MEDS: ASCORBIC ACID 500 MG TAB PO SCH (08:16)
[2018-08-29] MEDS: BACITRACIN ZINC 14.2 GM OINTTUBE TP SCH ×2 (10:40→20:14)
--- NOTE | 2018-08-29 11:54 | SOAPPROG ---
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 * Initial functional independence measure 68 on 08/28/2018. Ambulates better when he has more tone, which is managed with baclofen. Ambulated 70 ft contact guard assist with front wheeled walker. Requires minimal assistance for bed mobility. Transfers with minimal assistance using a stand pivot technique. 120 ft of wheelchair mobility. Upper body dressing is done with setup except for the TLSO which requires minimal to moderate assist. Lower body dressing needs setup to standby assist with complication of threading the catheter through his pants. Grooming and hygiene is done seated with supervision. * Per patient's request, increasing baclofen on 08/27/2018 from 15 mg three times daily to 20 mg three times daily with 1st dose given before arising from bed in the morning. Monitor for decline in ambulation. * Continue PT and OT to optimize mobility and activities of daily living toward the modified independence level. He may function primarily from the wheelchair with limited in-home ambulation. Spinal hardware infection, status post hardware removal and replacement. He is on vancomycin for a 6-8 week period with the time course beginning on 2017. * CBC, CMP, ESR, CRP, and a vancomycin trough every Saturday. Goal vancomycin trough is 15-20. * Creatinine and vancomycin tough Q . * Management per [facility]. Appreciate assistance of Dr. Kirby. Urinary retention. He has been started on tamsulosin. He has a history of BPH. * Failed 08/26/2018. Reinsert Juarez. * Increase tamsulosin to 0.8 mg QD starting 08/28/2018. * Voiding trial after 5 days, 09/02/2018. Pain management. Adequate with acetaminophen. * Not using oxycodone p.r.n. or tramadol p.r.n. Pedicle flap done on 08/14/2018. He is to have bacitracin b.i.d. * D/W medical legal investigator for Dr. Oreilly, 08/25/2018. Follow-up with Plastics at [facility] shortly after discharge. The physician veterinary assistant there is Mattie Hammer and the phone number is [phone]. * May remove drain with lesser output when less than 30cc in 48 hours. Removed today, 08/29/2018. Leave other drain in place. * Sutures will be removed at Plastics follow-up. Anemia, improving. Hemoglobin and hematocrit at the end of his hospitalization were 9.4 and 29.3; and they were 9.6 and 29.1 on labs 08/25/2018. Constipation. Resolved, not using laxatives. * Episode of diarrhea and incontinence 08/28/2018. Continue to monitor. Elevated blood pressures, resolved. Depression versus adjustment disorder with depressed mood versus anxiety. * He reports poor response to escitalopram in the past and it has been discontinued. * Monitor for symptoms. Insomnia. May be related to depression. Melatonin at 10.5 mg at bedtime is a high dose. It is likely that melatonin has been losing its efficacy due to receptor down regulation with prolonged use. * Responding to trazodone at [facility], started 08/25/2018. Prophylaxis. He has been discharged on heparin 5000 units subcutaneous t.i.d. This will be continued until his mobility considerably improves. As of 2017, has ambulated 150 ft with therapies, but not get ambulating to meals. DISPOSITION: Plans to return home with his . He has ramps and a stair lift installed at home. Tentative discharge date set for 09/02/2018. FOLLOW-UP. [facility] Infect[facility] Disease managing of vancomycin now that he is at [facility]. He will see plastic surgery at [facility] on 09/01/2018. He has followup with the [facility] scheduled for September 18 with Ever Bonds, physician veterinary assistant, and he is to see orthopedic spine surgeon, Dr. Clemente Khoury , on November 03, 2018. 08/29/18 11:54 Subjective: Reports that last night a dose of Tylenol got stuck while swallowing. He was eventually able to swallow it but he has had throat irritation since then and requests a throat lozenge. Overall he is not in pain. His mobility is improving. He said he walked 150 ft with physical therapy today, but he is not yet ambulating to meals. Poor sleep the night before last but slept well last night. Objective: Vital Signs Temp Pulse Resp BP Pulse Ox 36.7 C 97 16 132/80 H 93 08/29/18 08:00 08/29/18 08:00 08/29/18 08:00 08/29/18 08:00 08/28/18 20:00 Laboratory Results 08/25/18 06:13 08/28/18 05:30 08/28/18 08/29/18 08/30/18 05:59 05:59 05:59 Intake Total 1820 1000 Output Total 2200 2850 25 Balance -380 -2850 975 Physical Exam - Physical Exam General Appearance: WD/WN, alert, no apparent distress Respiratory: normal breath sounds, No crackles, No rhonchi, No wheezing Cardiac/Chest: regular rate, rhythm, No edema, No diastolic murmur, No systolic murmur Skin: normal color, warm/dry Neuro/Psych: alert, normal mood/affect, oriented x 3 ICD10 Worksheet Patient Problems: Problems Problem Status Onset Bone metastasis Acute Compression fracture Acute Dehydration Acute Renal cell carcinoma Acute Weakness Acute Weakness of right lower extremity Acute
[2018-08-29] MEDS: CEPACOL LOZENGE PO PRN ×3 (15:30→20:38)
[2018-08-29] MEDS: MELATONIN 3 MG TAB PO SCH ×2 (20:14→20:15)
[2018-08-29] MEDS: traZODone 50 MG TAB PO SCH (20:36)
[2018-08-30] MEDS: VANCOMYCIN 750 MG in D5W 150 ML IV SCH ×2 (06:10→18:05)
[2018-08-30] MEDS: ACETAMINOPHEN 500 MG TAB PO SCH ×3 (07:36→20:36)
[2018-08-30] MEDS: CEPACOL LOZENGE PO PRN ×3 (07:36→20:41)
[2018-08-30] MEDS: ENOXAPARIN 40 MG/0.4 ML SYR SC SCH (08:18)
[2018-08-30] MEDS: ASCORBIC ACID 500 MG TAB PO SCH (08:19)
[2018-08-30] MEDS: BACLOFEN 10 MG TAB PO SCH ×3 (08:19→20:36)
[2018-08-30] MEDS: CHOLECALCIFEROL VIT D3 2,000 UNITS TAB/CAP PO SCH (08:19)
[2018-08-30] MEDS: TAMSULOSIN HCL 0.4 MG CAP PO SCH (08:19)
[2018-08-30] MEDS: BACITRACIN ZINC 14.2 GM OINTTUBE TP SCH ×2 (08:19→19:47)
--- NOTE | 2018-08-30 09:12 | SOAPPROG ---
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 * Initial functional independence measure 68 on 08/28/2018. Ambulates better when he has more tone, which is managed with baclofen. Patient reports he ambulated greater than 150 ft yesterday. Will confirm with physical therapy and if this continues today then will DC enoxaparin in the morning. Requires minimal assistance for bed mobility. Transfers with minimal assistance using a stand pivot technique. 120 ft of wheelchair mobility. Upper body dressing is done with setup except for the TLSO which requires minimal to moderate assist. Lower body dressing needs setup to standby assist with complication of threading the catheter through his pants. Grooming and hygiene is done seated with supervision. * Per patient's request, increasing baclofen on 08/27/2018 from 15 mg three times daily to 20 mg three times daily with 1st dose given before arising from bed in the morning. Monitor for decline in ambulation. * Continue PT and OT to optimize mobility and activities of daily living toward the modified independence level. He may function primarily from the wheelchair with limited in-home ambulation. Spinal hardware infection, status post hardware removal and replacement. He is on vancomycin for a 6-8 week period with the time course beginning on 2017. * CBC, CMP, ESR, CRP, and a vancomycin trough every Saturday. Goal vancomycin trough is 15-20. * Creatinine and vancomycin tough Q . * Management per [facility]. Appreciate assistance of Dr. Kirby. Urinary retention. He has been started on tamsulosin. He has a history of BPH. * Failed 08/26/2018. Reinsert Juarez. * Increase tamsulosin to 0.8 mg QD starting 08/28/2018. * Voiding trial after 5 days, 09/02/2018. Pain management. Adequate with acetaminophen. * Not using oxycodone p.r.n. or tramadol p.r.n. HE IS TAKING TYLENOL FOR PAIN Pedicle flap done on 08/14/2018. He is to have bacitracin b.i.d. * D/W medical historian for Dr. Oreilly, 08/25/2018. Follow-up with Plastics at [facility] shortly after discharge. The physician assistant professor nurse education there is Mattie Hammer and the phone number is [phone]. * May remove drain with lesser output when less than 30cc in 48 hours. Removed today, 08/29/2018. Leave other drain in place. * Sutures will be removed at Plastics follow-up. HAS FOLLOW-UP WITH PLASTIC SURGERY AT [facility] ON SATURDAY. Anemia, improving. Hemoglobin and hematocrit at the end of his hospitalization were 9.4 and 29.3; and they were 9.6 and 29.1 on labs 08/25/2018. Constipation. Resolved, not using laxatives. * Episode of diarrhea and incontinence 08/28/2018. Continue to monitor. Elevated blood pressures, resolved. BLOOD PRESSURE THIS MORNING 136/83 Depression versus adjustment disorder with depressed mood versus anxiety. * He reports poor response to escitalopram in the past and it has been discontinued. * Monitor for symptoms. Insomnia. May be related to depression. Melatonin at 10.5 mg at bedtime is a high dose. It is likely that melatonin has been losing its efficacy due to receptor down regulation with prolonged use. * Responding to trazodone at , started 08/25/2018. Prophylaxis. He has been discharged on heparin 5000 units subcutaneous t.i.d. This will be continued until his mobility considerably improves. As of 2017, has ambulated 150 ft with therapies, but not get ambulating to meals. PATIENT REPORTS HE IS AMBULATING GREATER THAN 150 FT, WILL CONFIRM WITH HIS PHYSICAL THERAPIST, WILL ASK PHYSICAL THERAPY IF THEY CAN WALK WITH HIM TO MEALS THIS IS A PRE REQUISITE FOR HIM DISCONTINUING THE ENOXAPARIN. DISPOSITION: Plans to return home with his . He has ramps and a stair lift installed at home. Tentative discharge date set for 09/02/2018. FOLLOW-UP. [facility] Infectious Disease managing of vancomycin now that he is at [facility]. He will see plastic surgery at [facility] on 09/01/2018. He has followup with the [facility] scheduled for September 18 with Ever Bonds, physician assistant professor nurse education, and he is to see orthopedic spine surgeon, Dr. Clemente Khoury , on November 03, 2018. 08/29/18 11:54 Subjective: Reports that last night a dose of Tylenol got stuck while swallowing. He was eventually able to swallow it but he has had throat irritation since then and requests a throat lozenge. Overall he is not in pain. His mobility is improving. He said he walked 150 ft with physical therapy today, but he is not yet ambulating to meals. Poor sleep the night before last but slept well last night. Objective: Plan: 08/30/18 09:08 Subjective: He denies low back pain. He reports good pain control. He reports that he ambulated greater than 150 ft yesterday and therapy and 1 stenosis he can come off of the enoxaparin. Objective: Vital Signs Temp Pulse Resp BP Pulse Ox 37.1 C 89 16 136/83 H 93 08/30/18 07:33 08/30/18 07:33 08/30/18 07:33 08/30/18 07:33 08/30/18 07:33 Laboratory Results 08/25/18 06:13 08/28/18 05:30 08/29/18 08/30/18 08/31/18 05:59 05:59 05:59 Intake Total 1000 Output Total 2850 1764 Balance -2850 -2299 Physical Exam - Physical Exam General Appearance: WD/WN, alert, no apparent distress Respiratory: lungs clear Cardiac/Chest: No edema Abdomen: non-tender, soft Back: Other (TLSO in place appears to be fitting well.) Extremities: No swelling, No Reema's sign ICD10 Worksheet Patient Problems: Problems Problem Status Onset Bone metastasis Acute Compression fracture Acute Dehydration Acute Renal cell carcinoma Acute Weakness Acute Weakness of right lower extremity Acute
[2018-08-30] MEDS: MELATONIN 3 MG TAB PO SCH ×2 (19:47)
[2018-08-30] MEDS: traZODone 50 MG TAB PO SCH (20:36)
[2018-08-31] MEDS: VANCOMYCIN 750 MG in D5W 150 ML IV SCH ×2 (06:00→17:54)
[2018-08-31] MEDS: BACLOFEN 10 MG TAB PO SCH ×3 (08:36→20:35)
[2018-08-31] MEDS: ASCORBIC ACID 500 MG TAB PO SCH (08:36)
[2018-08-31] MEDS: CEPACOL LOZENGE PO PRN ×2 (08:36→20:37)
[2018-08-31] MEDS: CHOLECALCIFEROL VIT D3 2,000 UNITS TAB/CAP PO SCH (08:36)
[2018-08-31] MEDS: TAMSULOSIN HCL 0.4 MG CAP PO SCH (08:37)
[2018-08-31] MEDS: ACETAMINOPHEN 500 MG TAB PO SCH ×3 (08:37→20:35)
[2018-08-31] MEDS: BACITRACIN ZINC 14.2 GM OINTTUBE TP SCH ×2 (08:37→20:30)
--- NOTE | 2018-08-31 09:25 | SOAPPROG ---
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 * Initial functional independence measure 68 on 08/28/2018. Ambulates better when he has more tone, which is managed with baclofen. PATIENT NOW REPORTING THAT HE IS AMBULATING 300 FT PER DAY BUT IS STILL NOT WALKING DOWN TO MEALS. Requires minimal assistance for bed mobility. Transfers with minimal assistance using a stand pivot technique. 120 ft of wheelchair mobility. Upper body dressing is done with setup except for the TLSO which requires minimal to moderate assist. Lower body dressing needs setup to standby assist with complication of threading the catheter through his pants. Grooming and hygiene is done seated with supervision. * Per patient's request, increasing baclofen on 08/27/2018 from 15 mg three times daily to 20 mg three times daily with 1st dose given before arising from bed in the morning. Monitor for decline in ambulation. * Continue PT and OT to optimize mobility and activities of daily living toward the modified independence level. He may function primarily from the wheelchair with limited in-home ambulation. Spinal hardware infection, status post hardware removal and replacement. He is on vancomycin for a 6-8 week period with the time course beginning on 2017. * CBC, CMP, ESR, CRP, and a vancomycin trough every Saturday. Goal vancomycin trough is 15-20. VANC TROUGH TOMORROW * Creatinine and vancomycin tough Q . * Management per [facility]. Appreciate assistance of Dr. Kirby. Urinary retention. He has been started on tamsulosin. He has a history of BPH. * Failed 08/26/2018. Reinsert Juarez. * Increase tamsulosin to 0.8 mg QD starting 08/28/2018. * Voiding trial after 5 days, 09/02/2018. Pain management. Adequate with acetaminophen. * Not using oxycodone p.r.n. or tramadol p.r.n. HE IS TAKING TYLENOL FOR PAIN Pedicle flap done on 08/14/2018. He is to have bacitracin b.i.d. * D/W manager medical writing for Dr. Oreilly, 08/25/2018. Follow-up with Plastics at [facility] shortly after discharge. The physician assistant media planner there is Mattie Hammer and the phone number is [phone]. * May remove drain with lesser output when less than 30cc in 48 hours. Removed today, 08/29/2018. Leave other drain in place. * Sutures will be removed at Plastics follow-up. HAS FOLLOW-UP WITH PLASTIC SURGERY AT [facility] ON SATURDAY. Anemia, improving. Hemoglobin and hematocrit at the end of his hospitalization were 9.4 and 29.3; and they were 9.6 and 29.1 on labs 08/25/2018. Constipation. Resolved, not using laxatives. * Episode of diarrhea and incontinence 08/28/2018. Continue to monitor. Elevated blood pressures, resolved. BLOOD PRESSURE THIS MORNING 136/83 Depression versus adjustment disorder with depressed mood versus anxiety. * He reports poor response to escitalopram in the past and it has been discontinued. * Monitor for symptoms. Insomnia. May be related to depression. Melatonin at 10.5 mg at bedtime is a high dose. It is likely that melatonin has been losing its efficacy due to receptor down regulation with prolonged use. * Responding to trazodone at , started 08/25/2018. Prophylaxis. He has been discharged on heparin 5000 units subcutaneous t.i.d. This will be continued until his mobility considerably improves. PATIENT REPORTS HE IS AMBULATING 300 FT DURING THE DAY BUT IS STILL NOT WALKING TO MEALS. HE STATES HE DOES NOT LIKE TO GO TO THE DAY ROOM TO EAT MEALS BECAUSE OF A.M. COMFORTABLE TO CHAIRS. HAVE DISCUSSED WITH NURSING TO SEE IF THEY OR SOMEONE FROM THERAPY STAFF CAN WALK BEHIND HIM WITH HIS WHEELCHAIR DOWN TO MEALS AND THAT HE CAN SIT IN HIS OWN WHEELCHAIR WHEN EATING MEALS IN THE DAY ROOM. IF HE IS COMPLIANT WITH THIS THEN WILL DISCONTINUE THE ENOXAPARIN. DISPOSITION: Plans to return home with his . He has ramps and a stair lift installed at home. Tentative discharge date set for 09/02/2018. FOLLOW-UP. [facility] Infect[facility] Disease managing of vancomycin now that [facility] is [facility]. He will see plastic surgery at [facility] on 09/01/2018. He has followup with the [facility] scheduled for September 18 with Ever Bonds, physician assistant media planner, and he is to see orthopedic spine surgeon, Dr. Clemente Khoury , on November 03, 2018. 08/29/18 11:54 Subjective: Reports that last night a dose of Tylenol got stuck while swallowing. He was eventually able to swallow it but he has had throat irritation since then and requests a throat lozenge. Overall he is not in pain. His mobility is improving. He said he walked 150 ft with physical therapy today, but he is not yet ambulating to meals. Poor sleep the night before last but slept well last night. Objective: Plan: 08/30/18 09:08 08/31/18 09:21 Subjective: The patient has no complaints other than he wants the Lovenox injections discontinued because he states his walking 300 ft per day. He reports his pain is well controlled. Objective: Vital Signs Temp Pulse Resp BP Pulse Ox 36.5 C 95 16 132/87 H 93 08/31/18 06:43 08/31/18 06:43 08/31/18 06:43 08/31/18 06:43 08/31/18 06:43 Laboratory Results 08/25/18 06:13 08/28/18 05:30 08/30/18 08/31/18 09/01/18 05:59 05:59 05:59 Intake Total 1000 2990 Output Total 3295 3090 20 Balance -2295 -100 -20 Physical Exam - Physical Exam General Appearance: WD/WN, alert, no apparent distress Respiratory: lungs clear, normal breath sounds Abdomen: normal bowel sounds, non-tender, soft Extremities: No swelling, No Reema's sign ICD10 Worksheet Patient Problems: Problems Problem Status Onset Bone metastasis Acute Compression fracture Acute Dehydration Acute Renal cell carcinoma Acute Weakness Acute Weakness of right lower extremity Acute
[2018-08-31] MEDS: ENOXAPARIN 40 MG/0.4 ML SYR SC SCH (10:41)
[2018-08-31] MEDS: MELATONIN 3 MG TAB PO SCH ×2 (20:30→20:31)
[2018-08-31] MEDS: traZODone 50 MG TAB PO SCH (20:35)
[2018-09-01 07:59] LABS: PLATELET COUNT 385 10^3/uL (150-400)
[2018-09-01] MEDS: VANCOMYCIN 750 MG in D5W 150 ML IV SCH ×2 (08:40→17:39)
[2018-09-01] MEDS: CHOLECALCIFEROL VIT D3 2,000 UNITS TAB/CAP PO SCH (08:48)
[2018-09-01] MEDS: ENOXAPARIN 40 MG/0.4 ML SYR SC SCH (08:48)
[2018-09-01] MEDS: ASCORBIC ACID 500 MG TAB PO SCH (08:48)
[2018-09-01] MEDS: TAMSULOSIN HCL 0.4 MG CAP PO SCH (08:48)
[2018-09-01] MEDS: BACLOFEN 10 MG TAB PO SCH ×3 (08:48→20:30)
[2018-09-01] MEDS: ACETAMINOPHEN 500 MG TAB PO SCH ×3 (08:48→20:30)
[2018-09-01] MEDS: CEPACOL LOZENGE PO PRN ×2 (09:05→19:43)
[2018-09-01] MEDS: BACITRACIN ZINC 14.2 GM OINTTUBE TP SCH ×2 (09:06→21:18)
--- NOTE | 2018-09-01 11:23 | SOAPPROG ---
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 * Initial functional independence measure 68 on 08/28/2018. Ambulates better when he has more tone, which is managed with baclofen Requires minimal assistance for bed mobility. Transfers with minimal assistance using a stand pivot technique. 120 ft of wheelchair mobility. Upper body dressing is done with setup except for the TLSO which requires minimal to moderate assist. Lower body dressing needs setup to standby assist with complication of threading the catheter through his pants. Grooming and hygiene is done seated with supervision. * Per patient's request, increasing baclofen on 08/27/2018 from 15 mg three times daily to 20 mg three times daily with 1st dose given before arising from bed in the morning. Monitor for decline in ambulation. * Continue PT and OT to optimize mobility and activities of daily living toward the modified independence level. He may function primarily from the wheelchair with limited in-home ambulation. Pelvic girdle strength remains decreased, patient ambulates with step to gait with walker and standby assist x1. Still has difficulty performing sit to stand transfers. Spinal hardware infection, status post hardware removal and replacement. He is on vancomycin for a 6-8 week period with the time course beginning on 2017. * CBC, CMP, ESR, CRP, and a vancomycin trough every Saturday. Goal vancomycin trough is 15-20. VANC TROUGH LEVEL THIS MORNING WAS 15 AND PHARMACY RECOMMENDS NO CHANGES IN DOSAGE. * Creatinine and vancomycin tough Q . * Management per [facility]. Appreciate assistance of Dr. Kirby. Urinary retention. He has been started on tamsulosin. He has a history of BPH. * Failed 08/26/2018. Reinsert Juarez. * Increase tamsulosin to 0.8 mg QD starting 08/28/2018. * REPEAT VOIDING TRIAL ON 09/02 Pain management. NURSING IS REQUESTING TO CHANGE TYLENOL DOSAGE TO 6:00 A.M.- [id number] * Not using oxycodone p.r.n. or tramadol p.r.n. HE IS TAKING TYLENOL FOR PAIN Pedicle flap done on 08/14/2018. He is to have bacitracin b.i.d. * D/W medical claims specialist for Dr. Oreilly, 08/25/2018. Follow-up with Plastics at [facility] shortly after discharge. The physician clinical medical assistant there is Mattie Hammer and the phone number is [phone]. * May remove drain with lesser output when less than 30cc in 48 hours. Removed today, 08/29/2018. Leave other drain in place. * Sutures will be removed at Plastics follow-up. HAS FOLLOW-UP WITH PLASTIC SURGERY AT [facility] ON SATURDAY. Anemia, improving. Hemoglobin and hematocrit at the end of his hospitalization were 9.4 and 29.3; and they were 9.6 and 29.1 on labs 08/25/2018. Constipation. Resolved, not using laxatives. * Episode of diarrhea and incontinence 08/28/2018. Continue to monitor. Elevated blood pressures, resolved. BLOOD PRESSURE THIS MORNING 136/83 Depression versus adjustment disorder with depressed mood versus anxiety. * He reports poor response to escitalopram in the past and it has been discontinued. * Monitor for symptoms. Insomnia. May be related to depression. Melatonin at 10.5 mg at bedtime is a high dose. It is likely that melatonin has been losing its efficacy due to receptor down regulation with prolonged use. * Responding to trazodone at HS, started 08/25/2018. Prophylaxis. He has been discharged on heparin 5000 units subcutaneous t.i.d. This will be continued until his mobility considerably improves. DURING TEAM MEETING TODAY, IT IS THE CONSENSUS THAT HE IS NOT AMBULATING ENOUGH THROUGHOUT THE DAY TO WARRANT SAFE DISCONTINUATION OF THE LOVENOX. AGAIN, THIS WAS EXPLAINED TO HIM IN DETAIL. AGAIN IT WAS RECOMMENDED THAT HE EITHER WALK TO THE THE DAY ROOM TO HAVE MEALS WITH SOMEBODY FOLLOWING BEHIND HIM IN THE WHEELCHAIR AND THEN HE CAN SIT IN THE WHEELCHAIR HE INDICATES THAT THE CHAIRS IN THAT ROOM ARE UNCOMFORTABLE, OR HE COULD HAVE NURSING AND/OR FOR THERAPY STAFF WALK WITH HIM BETWEEN MEALS. EXPLAINED THE PATIENT IN DETAIL THAT IF HE DOES NOT COMPLY WITH THIS THEN HE IS AT RISK FOR DEVELOPING DVT AND PULMONARY EMBOLUS IF HE REFUSES THE ENOXAPARIN WOUND CARE-HE HAS A FOLLOW-UP APPOINTMENT WITH PLASTICS REGARDING SURGICAL WOUND. APPARENTLY THE REMAINING DRAIN WILL COME OUT TODAY. LAB WORK: CBC 6.74, HEMOGLOBIN 9.3, HEMATOCRIT 28.8 SODIUM 140, POTASSIUM 142, BUN 29, CREATININE 1.0 DISPOSITION: Plans to return home with his . He has ramps and a stair lift installed at home. Tentative discharge date set for 09/02/2018. FOLLOW-UP. [facility] Infect[facility] Disease managing of vancomycin now that he is at [facility]. He will see plastic surgery at [facility] on 09/01/2018. He has followup with the [facility] scheduled for September 18 with Ever Bonds, physician clinical medical assistant, and he is to see orthopedic spine surgeon, Dr. Clemente Khoury , on November 03, 2018. 08/29/18 11:54 Subjective: Reports that last night a dose of Tylenol got stuck while swallowing. He was eventually able to swallow it but he has had throat irritation since then and requests a throat lozenge. Overall he is not in pain. His mobility is improving. He said he walked 150 ft with physical therapy today, but he is not yet ambulating to meals. Poor sleep the night before last but slept well last night. Objective: Plan: 08/30/18 09:08 08/31/18 09:21 09/01/18 11:17 09/01/18 11:25 Subjective: Patient has been refusing the last 2 doses of Lovenox. He verbalizes no other complaints today Objective: Vital Signs Temp Pulse Resp BP Pulse Ox 36.6 C 92 16 147/85 H 91 L 09/01/18 06:22 09/01/18 06:22 09/01/18 06:22 09/01/18 06:22 09/01/18 06:22 Laboratory Results 09/01/18 06:05 09/01/18 06:05 08/31/18 09/01/18 09/02/18 05:59 05:59 05:59 Intake Total 2990 1000 Output Total 3090 3060 Balance -100 -2060 Physical Exam - Physical Exam General Appearance: WD/WN, alert, no apparent distress Respiratory: lungs clear, normal breath sounds Abdomen: non-tender Back: Other (TLSO in place) Skin: warm/dry Neuro/Psych: motor weakness (Bilateral lower extremities hip girdle muscles, quadriceps, hamstrings) ICD10 Worksheet Patient Problems: Problems Problem Status Onset Bone metastasis Acute Compression fracture Acute Dehydration Acute Renal cell carcinoma Acute Weakness Acute Weakness of right lower extremity Acute
[2018-09-01] MEDS ORDERED: oxyCODONE IR 5 MG TAB PO PRN (16:38)
[2018-09-01] MEDS: MELATONIN 3 MG TAB PO SCH ×2 (20:09→20:10)
[2018-09-01] MEDS: traZODone 50 MG TAB PO SCH (20:30)
[2018-09-02] MEDS: VANCOMYCIN 750 MG in D5W 150 ML IV SCH (06:04)
[2018-09-02] MEDS: ACETAMINOPHEN 500 MG TAB PO SCH ×2 (06:11→14:24)
[2018-09-02] MEDS: BACLOFEN 10 MG TAB PO SCH ×2 (06:16→14:38)
[2018-09-02] MEDS: BACITRACIN ZINC 14.2 GM OINTTUBE TP SCH ×2 (07:38→07:59)
[2018-09-02] MEDS: TAMSULOSIN HCL 0.4 MG CAP PO SCH (07:58)
[2018-09-02] MEDS: ENOXAPARIN 40 MG/0.4 ML SYR SC SCH (07:58)
[2018-09-02] MEDS: CHOLECALCIFEROL VIT D3 2,000 UNITS TAB/CAP PO SCH (07:58)
[2018-09-02] MEDS: ASCORBIC ACID 500 MG TAB PO SCH (07:58)
--- NOTE | 2018-09-02 12:22 | PDOREHIP ---
Admission [facility] - Admission - 3 Day Assessment Period Admission Date/Day 1: 08/22/18 Day 2: 08/23/18 Day 3: 08/24/18 - Active Diagnoses Comorbidities and Co-existing Conditions at Admission: 47604. None of the Above - Skin Conditions # Stage 1 Pressure Ulcers-Admission: 0 # Stage 2 Pressure Ulcers-Admission: 0 # Stage 3 Pressure Ulcers-Admission: 0 # Stage 4 Pressure Ulcers-Admission: 0 # Unstageable Pressure Ulcers (Non-remove Dress)-Admission: 0 # Unstageable Pressure Ulcers (Slough/Eschar)-Admission: 0 # Unstageable Pressure Ulcers (Deep Tissue Injury)-Admission: 0 Discharge [facility] - Discharge - 3 Day Assessment Period 2 Days Prior to Anticipated Discharge Date: 08/31/18 1 Day Prior to Anticipated Discharge Date: 09/01/18 Anticipated Discharge Date: 09/02/18
[2018-09-02 16:33] VITALS: BP 111/76
--- NOTE | 2018-09-03 18:13 | GDS ---
ADMISSION DIAGNOSIS: Debility, status post spinal surgery. DISCHARGE DIAGNOSIS: Debility, status post spinal surgery. OTHER DISCHARGE DIAGNOSES: 1. Spinal hardware infection, status post hardware removal and replacement, treated with vancomycin. 2. Urinary retention. 3. Status post pedicle flap to spinal wound. COMPLICATIONS: There were none. PROCEDURES: There were none. CONSULTATIONS: There was a consultation with Infectious Disease, Dr. Kirby. HISTORY/HOSPITAL COURSE: This patient came from [facility]. He has a history of renal cell carcinoma with spinal metastases. There was a previous T4 -T11 spinal fusion for cord compression due to malignant neoplasm. He subsequently had radiation therapy and skin degeneration and wound dehiscence. He went back to the hospital where he had a T9 corpectomy and T7-T12 fusion done , and removal of infected hardware. Surgical specimens grew Corynebacterium. He had a left latissimus pedicle flap coverage of the wound on 08/14/2018, and he is to be treated with IV vancomycin for a total of 6 to 8 weeks from the date of surgery on August 07, 2018. He made progress in rehabilitation. His initial functional independence measure was 68 on 08/28/2018, which is consistent with penitentiary level of care. Functional independence measure improved to 86, which is consistent with assisted living level of care; however, he was not independent in most activities of daily living or mobility. He had continued weakness in hip and legs. He had difficulty managing his Juarez catheter and had a need for ongoing assistance regarding IV vancomycin. Given these considerations, he opted to not continue in inpatient rehabilitation with goal of return to home in the short term, but rather chose discharge to detention facility. A room was found for him at [facility] in [place] and he transferred there on 09/02/2018. Regarding urinary retention, he came from the hospital with a Juarez in place, on tamsulosin at 0.4 mg daily. A voiding trial was done on 08/26/2018, but he was unable to void, so the Juarez was reinserted and tamsulosin was increased to 0.8 mg daily with intention of repeating a voiding trial after 5 days. Regarding the pedicle flap, he had discontinuation of the lower of the 2 drains as output was less than 30 cc in 48 hours. He had followup with the Plastic Surgery service on 09/01/2018. CONDITION UPON DISCHARGE: Good. ACTIVITY: Ad lalita, but he needs assistance with most mobility related activities of daily living. DIET: Regular. DISCHARGE MEDICATIONS: 1. Acetaminophen 1000 mg p.o. q.8 hours. 2. Ascorbic acid 500 mg p.o. daily. 3. Bacitracin to pedicle flap sutures b.i.d. 4. Baclofen 20 mg p.o. t.i.d. 5. Cholecalciferol 2000 units p.o. daily. 6. Enoxaparin 40 mg subcutaneous daily. 7. Melatonin 10.5 mg p.o. q.h.s. p.r.n. 8. Tamsulosin 0.8 mg p.o. daily. 9. Trazodone 50 mg p.o. q.h.s. 10. Vancomycin 750 mg IV q.12 hours. ISSUES TO BE ADDRESSED AT FOLLOWUP: 1. Functional status. He is to continue PT and OT at [facility] with the eventual goal of discharge to home. He will follow up with his new attending physician at [facility]. 2. Spinal hardware infection, status post hardware removal and replacement. Continue IV vancomycin for 6-8 weeks from August 07 and follow up with infectious disease physician, Dr. Stanley Kirby, on 09/08/2018. 3. Urinary retention. Advise repeat voiding trial on tamsulosin 0.8 mg at the [facility]. If he fails this, then he should have evaluation by a urologist. 4. Need for prophylactic anticoagulation. Should continue until he is ambulating 150 feet or more 3 times a day. 5. Surgical followup for both pedicle skin flap and post spinal surgery. He will follow up with the physicians at [facility]. Copy requested to: [facility] Orthopedic spine and plastic surgery [place] /[id number]/MODL MTDD
== END 2018-09-02 16:28 | DRG 949 ==
LOC: BREH 13:48
PROVIDERS: ADMIT Internal Medicine; ATTEND Internal Medicine
PROC: F08Z2FZ Grooming/Personal Hygiene Treatment using Assistive, Adaptive, Supportive or Protective Equipment (ICD-10-PCS; principal; 2018-08-22)
PROC: F07Z8FZ Transfer Training Treatment using Assistive, Adaptive, Supportive or Protective Equipment (ICD-10-PCS; principal; 2018-08-22)
PROC: F07Z5FZ Bed Mobility Treatment using Assistive, Adaptive, Supportive or Protective Equipment (ICD-10-PCS; principal; 2018-08-22)
PROC: F08Z1FZ Dressing Techniques Treatment using Assistive, Adaptive, Supportive or Protective Equipment (ICD-10-PCS; principal; 2018-08-22)
DX: Z48.3 Aftercare following surgery for neoplasm (principal); C79.51 Secondary malignant neoplasm of bone; G99.2 Myelopathy in diseases classified elsewhere; T81.40XD Infection following a procedure, unspecified, subsequent encounter; T84.63XD Infection and inflammatory reaction due to internal fixation device of spine, subsequent encounter; R33.9 Retention of urine, unspecified; R03.0 Elevated blood-pressure reading, without diagnosis of hypertension; F32.9 Major depressive disorder, single episode, unspecified; F51.02 Adjustment insomnia; Z85.528 Personal history of other malignant neoplasm of kidney; Z90.5 Acquired absence of kidney; Z79.2 Long term (current) use of antibiotics; K59.00 Constipation, unspecified; Z98.1 Arthrodesis status; Z92.3 Personal history of irradiation
CPT/HCPCS: 97110-GO; 97110-GP; 97112-GO; 97112-GP; 97116-GP; 97140-GO; 97161-GP; 97166-GO; 97530-GO; 97530-GP; 97535-GO; 97542-GP; J1644; J1650; J3370

== ENCOUNTER 2018-10-12 09:21 | Emergency (ER) | payer OTHER ==
--- NOTE | 2018-10-12 09:26 | EDPHY ---
H & P Time Seen by Provider: 10/12/18 09:23 - Personal History Tetanus Vaccine Date: 2014 - Medical/Surgical History Hx Asthma: No Hx Chronic Respiratory Disease: No Hx Diabetes: No Hx Cardiac Disease: No Hx Renal Disease: No Hx Cirrhosis: No Hx Alcoholism: No Hx HIV/AIDS: No Hx Splenectomy or Spleen Trauma: No Other PMH: PATHOLOGICAL FRACTURE THORACIC SPINE, RENAL CA, Past spinal surgery , spinal surgery 12/2017, BPH, tooth infection 12/2017 was on ABx - Social History Smoking Status: Never smoked Constitutional: Initial Vital Signs Temperature (C) 37.7 C 10/12/18 09:26 Heart Rate 105 H 10/12/18 09:26 Respiratory Rate 18 10/12/18 09:26 Blood Pressure 168/87 H 10/12/18 09:26 O2 Sat (%) 88 L 10/12/18 09:26 O2 Delivery Mode Nasal Cannula O2 (L/minute) 2 Allergies/Adverse Reactions: naproxen Allergy (Unknown, Verified 08/01/18 14:33) Other-Enter Comments tree nut Allergy (Unknown, Verified 10/12/18 11:19) Home Medications: Medication Instructions Recorded Acetaminophen [Tylenol ES 500 mg 1,000 mg PO Q8H 01/03/18 (*)] Cholecalciferol Vit D3 [Vitamin D3 2,000 units PO DAILY each 01/13/18 2000 units tab (OTC)] Alteplase [Cathflo Activase 2 mg 2 mg IV DAILY PRN 08/22/18 (*)] Bacitracin Zinc [Bacitracin 1 marlon TP BID 08/22/18 Ointment Tube] Bisacodyl [Dulcolax] 10 mg RC DAILY PRN 08/22/18 Escitalopram Oxalate [Lexapro 10 10 mg PO DAILY 08/22/18 MG] Heparin [Heparin SC 5000 unit/0.5 5,000 unit SC Q8 08/22/18 ml (*)] Melatonin [Melatonin 3 MG (*)] 1.5 mg PO HS 08/22/18 Melatonin [Melatonin 3 MG (*)] 9 mg PO HS 08/22/18 Polyethylene Glycol 3350 [Miralax 17 gm PO DAILY PRN 08/22/18 17 gm (*)] Sennosides/Docusate Sodium 2 tab PO HS PRN 08/22/18 [Senna-S Tablet] Tolterodine Tartrate [Detrol] 2 mg PO BID 08/22/18 Vancomycin HCl/Normal Saline 1 gm IV Q12 08/22/18 [Vancomycin 1 gm (Premix)] Acetaminophen [Tylenol ES 500 mg 1,000 mg PO Q8HRS #30 tab 09/02/18 (*)] Alteplase [Cathflo Activase 2 mg 2 mg IVP PRN PRN #10 vial 09/02/18 (*)] Ascorbic Acid [Vitamin C 500 mg 500 mg PO DAILY #30 tab 09/02/18 (*)] Baclofen [Baclofen 10 mg (*)] 20 mg PO TID #180 tab 09/02/18 Cholecalciferol Vit D3 [Vitamin D3 2,000 units PO DAILY #30 each 09/02/18 2000 units tab (OTC)] Melatonin [Melatonin 3 MG (*)] 9 mg PO HS #90 tab 09/02/18 Polyethylene Glycol 3350 [Miralax 17 gm PO DAILY PRN #10 pkt 09/02/18 17 gm (*)] Sennosides/Docusate Sodium 2 tab PO HS PRN #30 tab 09/02/18 [Senokot-S] Vancomycin [Vancomycin (*)] 750 mg IV Q12H #46 vial 09/02/18 traZODone [traZODONE 50MG (*)] 50 mg PO HS #30 tab 09/02/18 Tamsulosin HCl [Flomax 0.4 MG (*)] 0.8 mg PO DAILY #0 09/03/18 Cephalexin [Keflex (RX)] 500 mg PO TID #20 cap 10/12/18 Medical Decision Making - Diagnostics Imaging Results: Imaging Impressions Chest X-Ray 10/12/18 09:23 Impression: 1. Bibasilar opacities are probably atelectasis rather than pneumonia. 2. Bilateral pleural effusions, larger on the right. 3. Postoperative changes of spinal surgery are noted. 4. See above report for additional findings. Imaging: I viewed and interpreted images myself ED Course/Re-evaluation: CHIEF COMPLAINT: Sepsis alert HISTORY OF PRESENT ILLNESS: The patient is a 69 y/o male with a history metastatic renal cell carcinoma and at T4-11 spinal fusion arriving via EMS as a sepsis alert. 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 He had a T4-11 debridement and spinal fusion; a wound vac was placed. His surgeries have been performed at . 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 He was then sent to [facility] after completing inpatient rehab. Yesterday [facility] stopped the Vancomycin and started him on another antibiotic. However , he subsequently developed a fever. Today he does feel febrile and "sick". No headache, chest pain, shortness of breath, abdominal pain, urinary or bowel complaints. REVIEW OF SYSTEMS: A comprehensive 10 system review of systems is otherwise negative aside from the elements mentioned in the history of present illness and medical decision making. PHYSICAL EXAM: HR, BP, O2 Sat, RR. Temp noted General Appearance: Alert, appropriate, appears sick, diaphoretic. Head: Atraumatic without scalp tenderness or obvious injury Eyes: Pupils equal, round, reactive to light and accommodation, EOMI, no trauma , no injection. Ears: Clear bilaterally, no perforation, normal landmarks Nose: Atraumatic, no rhinorrhea, clear. Throat: There is no erythema or exudates, no lesions, normal tonsils, mucus membranes moist. Neck: Supple, 2+ carotid upstroke, nontender, no lymphadenopathy. Respiratory: No retractions, no distress, no wheezes, and no accessory muscle use. Lungs are clear to auscultation bilaterally. Cardiovascular: Regular rate and rhythm, no murmurs, rubs, or gallops. Bilateral carotid, radial, dorsalis pedis, and posterior tibial pulses intact. Good capillary refill all extremities. Gastrointestinal: Abdomen is soft, nontender, non-distended, no masses, no rebound, no guarding, no peritoneal signs. Musculoskeletal: Normal active ROM of all extremities, atraumatic. Back: Well healed muscle flap in T-spine with lateral holes and pus gong down to the infected hardware. Neurological: Alert, appropriate, and interactive. The patient has normal DTRs and non-focal cranial nerves, motor, sensory, and cerebellar exam. Skin: No rashes, good turgor, no nodules on palpation. Past medical history: Renal cell carcinoma with metastases to the spine, BPH Past surgical history: Multiple spinal surgeries including T4-11 fusion Family history: Denies Social history: Resides at [facility], retired, , followed by Dr. Roque (onc) and Dr. Kirby (ID) DIAGNOSTICS/PROCEDURES/CRITICAL CARE TIME: Chest x-ray: No acute findings DIFFERENTIAL DIAGNOSIS: The differential diagnosis for the patient's fever included but was not limited to chronic osteomyelitis, pneumonia, urinary tract infection, viral syndrome, meningitis, and sepsis. MEDICAL DECISION MAKING: The patient is a 69 y/o male with a history metastatic renal cell carcinoma requiring a T4-11 debridement and spinal fusion arriving via EMS as a sepsis alert. 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 This was stopped yesterday and he started a new antibiotic. On exam he appears sick. He does have a well-healed muscle flap in T -spine with lateral holes and pus gong down to the infected hardware. Labs per sepsis protocol and chest x-ray ordered. 1015: I reviewed patient's chest x-ray; there are no acute findings. 1022: Patient's labs are so far unremarkable and he is not septic. 1035: Patient's labs reveal a UTI but are otherwise unremarkable; he has a low- grade fever. 1043: Reassessed patient and discussed unremarkable labs. 1 gm PO Tylenol administered prior to discharge. I have discussed plan for discharge and return instructions; patient is comfortable with this plan. 1108: I spoke with the nurse at [facility]. There are some difficulty with providing comfort care with the patient. Riri, the nurse, called [facility] and was told to transfer the patient to this facility. We will wait to discharge this patient until he is given antibiotics. 1gm Vancomycin and 1gm IV Rocephin administered for patient's chronic osteomyelitis and UTI. 1130: I spoke with Radha from Case Management regarding this patient. I will prescribe this patient a 1 week course of Keflex. 1211: I consulted with Dr. Duval, infectious disease, regarding this patient. This patient will be sent back to [facility] on Keflex and Sivextro. We will stop the Vancomycin early; the 1gm IV Rocephin will be administered prior to discharge. - Data Points Laboratory Results: Laboratory Results 10/12/18 10:00 10/12/18 10:00 10/12/18 10/12/18 10/12/18 10:42 10:00 10:00 WBC RBC Hgb Hct MCV MCH MCHC RDW Plt Count MPV Neut % (Auto) Lymph % (Auto) [place] % (Auto) Eos % (Auto) Baso % (Auto) Nucleat RBC Rel Count Absolute Neuts (auto) Absolute Lymphs (auto) Absolute Monos (auto) Absolute Eos (auto) Absolute Basos (auto) Absolute Nucleated RBC Immature Gran % Immature Gran # PT INR APTT VBG Lactic Acid Sodium 136 mEq/L mEq/L (135-145) Potassium 4.3 mEq/L mEq/L (3.3-5.0) Chloride 102 mEq/L mEq/L (97-110) Carbon Dioxide 24 mEq/l mEq/l (22-31) Anion Gap 10 mEq/L mEq/L (6-14) BUN 29 mg/dL H mg/dL (7-23) Creatinine 1.0 mg/dL mg/dL (0.7-1.3) Estimated GFR > 60 Glucose 101 mg/dL H mg/dL (70-100) Calcium 8.5 mg/dL mg/dL (8.5-10.4) Total Bilirubin 0.4 mg/dL mg/dL (0.1-1.4) Urine Color YELLOW Urine Appearance HAZY Urine pH 6.0 (5.0-7.5) Ur Specific Schriever 1.017 (1.002-1.030) Urine Protein 1+ H (NEGATIVE) Urine Ketones NEGATIVE (NEGATIVE) Urine Blood NEGATIVE (NEGATIVE) Urine Nitrate NEGATIVE (NEGATIVE) Urine Bilirubin NEGATIVE (NEGATIVE) Urine Urobilinogen 2.0 EU H EU (0.2-1.0) Ur Leukocyte Esterase TRACE H (NEGATIVE) Urine RBC 1-3 /hpf /hpf (0-3) Urine WBC 10-15 /hpf H /hpf (0-3) Ur Epithelial Cells NONE SEEN /lpf /lpf (NONE-1+) Urine Mucus TRACE /lpf /lpf (NONE-1+) Urine Glucose NEGATIVE (NEGATIVE) Nasal Influenza A PCR Cancelled Nasal Influenza B PCR Cancelled 10/12/18 10/12/18 10/12/18 10:00 10:00 10:00 WBC 9.51 10^3/uL H 10^3/uL (3.80-9.50) RBC 3.11 10^6/uL L 10^6/uL (4.40-6.38) Hgb 9.3 g/dL L g/dL (13.7-17.5) Hct 28.3 % L % (40.0-51.0) MCV 91.0 fL fL (81.5-99.8) MCH 29.9 pg pg (27.9-34.1) MCHC 32.9 g/dL g/dL (32.4-36.7) RDW 15.1 % % (11.5-15.2) Plt Count 409 10^3/uL H 10^3/uL (150-400) MPV 8.3 fL L fL (8.7-11.7) Neut % (Auto) 82.2 % H % (39.3-74.2) Lymph % (Auto) 8.2 % L % (15.0-45.0) [place] % (Auto) 8.9 % % (4.5-13.0) Eos % (Auto) 0.2 % L % (0.6-7.6) Baso % (Auto) 0.3 % % (0.3-1.7) Nucleat RBC Rel Count 0.0 % % (0.0-0.2) Absolute Neuts (auto) 7.81 10^3/uL H 10^3/uL (1.70-6.50) Absolute Lymphs (auto) 0.78 10^3/uL L 10^3/uL (1.00-3.00) Absolute Monos (auto) 0.85 10^3/uL H 10^3/uL (0.30-0.80) Absolute Eos (auto) 0.02 10^3/uL L 10^3/uL (0.03-0.40) Absolute Basos (auto) 0.03 10^3/uL 10^3/uL (0.02-0.10) Absolute Nucleated RBC 0.00 10^3/uL 10^3/uL (0-0.01) Immature Gran % 0.2 % % (0.0-1.1) Immature Gran # 0.02 10^3/uL 10^3/uL (0.00-0.10) PT 14.4 SEC SEC (12.0-15.0) INR 1.10 (0.83-1.16) APTT 32.5 SEC SEC (23.0-38.0) VBG Lactic Acid 1.6 mmol/L mmol/L (0.7-2.1) Sodium Potassium Chloride Carbon Dioxide Anion Gap BUN Creatinine Estimated GFR Glucose Calcium Total Bilirubin Urine Color Urine Appearance Urine pH Ur Specific Schriever Urine Protein Urine Ketones Urine Blood Urine Nitrate Urine Bilirubin Urine Urobilinogen Ur Leukocyte Esterase Urine RBC Urine WBC Ur Epithelial Cells Urine Mucus Urine Glucose Nasal Influenza A PCR Nasal Influenza B PCR Microbiology Results: MICROBIOLOGY 10/12/18 10:00 Nasal, Sinus - Swab Respiratory Panel (PCR) - Final Medications Given: Discontinued Medications Acetaminophen (Tylenol) 1,000 mg PO EDNOW ONE Stop: 10/12/18 10:58 Last Admin: 10/12/18 11:04 Dose: 1,000 mg Vancomycin/Sodium Chloride (Vancomycin 1 Gm (Premix)) 250 mls @ 250 mls/hr IV EDNOW ONE PRN Reason: Protocol Stop: 10/12/18 12:11 Last Admin: 10/12/18 11:17 Dose: 250 mls Departure - Departure Disposition: Home, Routine, Self-Care Clinical Impression: Chronic osteomyelitis Fever Qualifiers: Fever type: due to other condition Qualified Code(s): R50.81 - Fever presenting with conditions classified elsewhere UTI (urinary tract infection) Qualifiers: Urinary tract infection type: site unspecified Hematuria presence: without hematuria Qualified Code(s): N39.0 - Urinary tract infection, site not specified Condition: Good Instructions: Urinary Tract Infection in Men (ED), Osteomyelitis (ED) Additional Instructions: 1. Follow up with your primary care physician within 72 hours for reevaluation. 2. Return to the emergency department immediately for high fever, severe headache or neck pain, difficulty breathing, abdominal pain, rash or other worsening of condition. 3. Take Keflex 500mg 3 times a day for 7 days. 4. Continue taking Sivextro. 5. Follow up at [facility] this week. Referrals: Chan Roque MD [Medical Doctor] - As per Instructions [facility] (ED,. [Edm Groups for Call Sched] - As per Instructions Stanley Kirby MD [Medical Doctor] - As per Instructions Prescriptions: Cephalexin [Keflex (RX)] 500 mg PO TID #20 cap Report Scribed for: Darian Valverde Report Scribed by: Evelia Carty Date of Report: 10/12/18 Time of Report: 09:25
[2018-10-12 10:12] LABS: PLATELET COUNT 409 10^3/uL (150-400)
[2018-10-12 10:21] LABS: INR 1.1 (0.83-1.16); PROTIME(PATIENT) 14.4 SEC (12.0-15.0)
[2018-10-12] MEDS ORDERED: ACETAMINOPHEN 500 MG TAB ONE (10:56)
[2018-10-12] MEDS ORDERED: ACETAMINOPHEN 500 MG TAB PO ONE (10:57)
[2018-10-12] MEDS ORDERED: VANCOMYCIN HCL/NORMAL SALINE 250 ML IV ONE (11:12)
[2018-10-12] MEDS ORDERED: VANCOMYCIN 1 GM/NS 250 ML BAG IV ONE (11:12)
[2018-10-12 13:05] VITALS: BP 147/80
--- NOTE | 2018-10-12 13:52 | ASMTCMCOM ---
CM Note CM Note Notes: Pt presented to the ED via EMS from [facility] ([phone]) for possible sepsis due to fever, tachycardia and having a known infection. Pt has a history of metastatic renal cell carcinoma which has spread to his spinal column; pt is followed by Dr Roque at [facility]. Pt had a T4-11 spinal fusion with his neurosurgeon Dr Clemente Khoury at [facility] (pt also might be followed by Dr Chan Oreilly at [facility]) and subsequently developed an infection due to the hardware. Pt has required a muscle flap surgery and his spinal fusion wound has been requiring a wound vac. Pt has been followed by Dr Stanley angelo/Infectious Disease at [facility] and was on an 8-week course of IV Vancomycin. Pt's Vanco was d/c'd this past or Sat and he was started on a new PO antibiotic: Sivextro 200mg once a day. [facility] states that they were concerned about pt spiking a 103F fever within 24 hours of being switched from IV Vanco to the new PO antibiotic. Pt was also found to have a UTI so pt has been started on Keflex. This CM spoke w/Riri, weekend supervisor riveting at [facility], several times regarding their concerns about pt's care. Riri stated that they would accept patient back but would not be surprised if the overnight caregiver RN sends pt back to the ED tonight. Riri spoke w/Gissell, chainsaw mechanic at , and reports that Gissell and their community service manager have been involved with coordinating pt's care w/[facility] and they requested we transfer the patient to [facility] instead of d/c'ing pt back to [facility]. ED MD spoke w/on-call ID MD, Dr Duval and confirmed that patient is on the appropriate treatment for his spinal wound infection and agrees w/plan to start pt on Keflex for UTI; but otherwise pt does not seem to need hospital admission here or at [facility]. Therefore pt doesn't meet criteria for an acute hospital transfer. This was communicated to Riri and she understands and accepts pt back to their facility. Pt agreeable with the discharge plan and wants to return to . This CM arranged NEMT stretcher transport via [facility]; PCS completed, copy provided to EMS, original to be scanned into chart. CM available for further assistance if needed. Date Signed: 10/12/2018 01:51 PM Electronically Signed By:Radha Chao RN
--- NOTE | 2018-10-12 13:55 | ASDISCHSUM ---
Discharge Information Plan Status:SNF Medically Cleared to Leave: Discharge Date:10/12/2018 01:06 PM CM D/C Disposition:Longterm Facility ADT D/C Disposition:Home, Routine, Self-Care Projected Discharge Date:10/12/2018 01:06 PM Transportation at D/C:ALS/BLS Discharge Delay Reason: Follow-Up Date:10/12/2018 01:06 PM Discharge Slot: Final Diagnosis: Placement Information Patient Contact Information Contact Name:DIANE Relationship: Address:[address] City:[place] Alternate Phone: [facility]/Zip Code:[place] [address] Email: Financial Information Financial Class:Medicare Primary Plan Desc:MEDICARE OUTPATIENT Primary Plan Number:[id number] Secondary Plan Desc:[employer] Secondary Plan Number:[id number] Assessment Information [facility] CM Progress Note CM Note CM Note Notes: Pt presented to the ED via EMS from [facility] ([phone]) for possible sepsis due to fever, tachycardia and having a known infection. Pt has a history of metastatic renal cell carcinoma which has spread to his spinal column; pt is followed by Dr Roque at [facility]. Pt had a T4-11 spinal fusion with his neurosurgeon Dr Clemente Khoury at [facility] (pt also might be followed by Dr Chan Oreilly at [facility]) and subsequently developed an infection due to the hardware. Pt has required a muscle flap surgery and his spinal fusion wound has been requiring a wound vac. Pt has been followed by Dr Stanley angelo/Infectious Disease at [facility] and was on an 8-week course of IV Vancomycin. Pt's Vanco was d/c'd this past or Sat and he was started on a new PO antibiotic: Sivextro 200mg once a day. [facility] states that they were concerned about pt spiking a 103F fever within 24 hours of being switched from IV Vanco to the new PO antibiotic. Pt was also found to have a UTI so pt has been started on Keflex. This CM spoke w/Riri, weekend power plant operators supervisor at [facility], several times regarding their concerns about pt's care. Riri stated that they would accept patient back but would not be surprised if the hourly shift manager RN sends pt back to the ED tonight. Riri spoke w/Gissell, scada operator at , and reports that Gissell and their sr community manager have been involved with coordinating pt's care w/[facility] and they requested we transfer the patient to [facility] instead of d/c'ing pt back to [facility]. ED MD spoke w/on-call ID MD, Dr Duval and confirmed that patient is on the appropriate treatment for his spinal wound infection and agrees w/plan to start pt on Keflex for UTI; but otherwise pt does not seem to need hospital admission here or at [facility]. Therefore pt doesn't meet criteria for an acute hospital transfer. This was communicated to Riri and she understands and accepts pt back to their facility. Pt agreeable with the discharge plan and wants to return to . This CM arranged NEMT stretcher transport via [facility]; PCS completed, copy provided to EMS, original to be scanned into chart. CM available for further assistance if needed. Date Signed: 10/12/2018 01:51 PM Electronically Signed By:Radha Chao RN Intervention Information Intervention Type:Transportation Date of Service:10/12/2018 01:51 PM Patient Type:Emergency Room Staff Member:KIM Chao [place] Hours:0.5 Discipline:Occupational Therapy Instructor Severity: Comment:Set up w/[facility] twice; first call was pos tponed. PCS completed, copy provided to EMS, original to be scanned into chart . Intervention Type:Post Acute Communication Date of Service:10/12/2018 01:51 PM Patient Type:Emergency Room Staff Member:KIM Chao [place] Hours:0.75 Discipline:Occupational Therapy Instructor Severity: Comment:various communication w/[facility]
== END 2018-10-12 13:06 | disposition home or self-care (01) ==
LOC: EDUNIT#
DX: M86.68 Other chronic osteomyelitis, other site (principal); R50.81 Fever presenting with conditions classified elsewhere; N39.0 Urinary tract infection, site not specified
CPT/HCPCS: 71046; 96374; 96375; 99284; J0696; J3370

== ENCOUNTER 2018-10-29 15:04 | Inpatient (IN) | payer OTHER ==
--- NOTE | 2018-10-29 15:18 | EDPHY ---
H & P Time Seen by Provider: 10/29/18 15:16 HPI/ROS: CHIEF COMPLAINT: Fever and lethargy HISTORY OF PRESENT ILLNESS: Patient arrives from [facility] with a history of fever and lethargy worse over the past 2 days. 102 degrees at the facility, lethargic and that he is less responsive and cannot walk anymore. Patient has a history of renal cell cancer with spinal metastases, discharge summary dated 09/03/2018 personally reviewed. Recent spinal hardware infection treated with vancomycin. Patient says he just feels tired and weak. He denies any pain or vomiting or diarrhea or urinary symptoms. He does say he has had a little bit of a cough for an unknown duration of time. REVIEW OF SYSTEMS: Eye: no change in vision ENT: no sore throat Cardiac: no chest pain or syncope Pulmonary: Not short of breath Abdomen: no vomiting, diarrhea, abdominal pain Musculoskeletal: no back pain Skin: no rash Neuro: no headache Constitutional: HPI : no urinary symptoms A comprehensive 10 point review of systems is otherwise negative aside from elements mentioned in the history of present illness. PAST MEDICAL HISTORY: Includes renal cell cancer with spinal metastases, recent spinal hardware infection, hypertension, chronic pressure ulcer Social history: [facility] resident General Appearance: Patient alert, responds appropriately to questions accepts slowly. Eyes: No scleral icterus. ENT, Mouth: Normal mucous membranes. Respiratory: Decreased breath sounds bilaterally but no rhonchi or rales. Cardiovascular: Regular rate and rhythm. No murmur. Gastrointestinal: Abdomen is soft and non tender. Neurological: Alert, follows commands, can move all 4 extremities, is generally weak but nonfocal. Speech is slow but fluent. Skin: There is a wound VAC in the midthoracic area on the back. There is a single area of skin breakdown superior to that 1 x 2 cm. There is no surrounding redness or swelling. Musculoskeletal: No stiff neck, no meningeal signs. Psychiatric: Not agitated. Emergency Department course/MDM: Patient presents with fever and decreased mental status. He does not have focal neuro exam. He does not have confusion or a stiff neck to suggest meningitis. Chest x-ray, lactate, urinalysis, blood cultures. 1700: discussed with Mukund for ID. 1711: discussed with Dr. Kirby; recommends to hold Tidezolid, admit, restart Vancomycin 750mg IV q 12 hours. Smoking Status: Never smoked Constitutional: Initial Vital Signs O2 Sat (%) 98 10/29/18 15:13 O2 Delivery Mode Nasal Cannula O2 (L/minute) 2 Allergies/Adverse Reactions: naproxen Allergy (Unknown, Verified 10/29/18 15:14) Other-Enter Comments tree nut Allergy (Unknown, Verified 10/29/18 15:14) Home Medications: Medication Instructions Recorded Acetaminophen [Tylenol ES 500 mg 1,000 mg PO Q8H 01/03/18 (*)] Cholecalciferol Vit D3 [Vitamin D3 2,000 units PO DAILY each 01/13/18 2000 units tab (OTC)] Alteplase [Cathflo Activase 2 mg 2 mg IV DAILY PRN 08/22/18 (*)] Bacitracin Zinc [Bacitracin 1 marlon TP BID 08/22/18 Ointment Tube] Bisacodyl [Dulcolax] 10 mg RC DAILY PRN 08/22/18 Escitalopram Oxalate [Lexapro 10 10 mg PO DAILY 08/22/18 MG] Heparin [Heparin SC 5000 unit/0.5 5,000 unit SC Q8 08/22/18 ml (*)] Melatonin [Melatonin 3 MG (*)] 1.5 mg PO HS 08/22/18 Melatonin [Melatonin 3 MG (*)] 9 mg PO HS 08/22/18 Polyethylene Glycol 3350 [Miralax 17 gm PO DAILY PRN 08/22/18 17 gm (*)] Sennosides/Docusate Sodium 2 tab PO HS PRN 08/22/18 [Senna-S Tablet] Tolterodine Tartrate [Detrol] 2 mg PO BID 08/22/18 Vancomycin HCl/Normal Saline 1 gm IV Q12 08/22/18 [Vancomycin 1 gm (Premix)] Acetaminophen [Tylenol ES 500 mg 1,000 mg PO Q8HRS #30 tab 09/02/18 (*)] Alteplase [Cathflo Activase 2 mg 2 mg IVP PRN PRN #10 vial 09/02/18 (*)] Ascorbic Acid [Vitamin C 500 mg 500 mg PO DAILY #30 tab 09/02/18 (*)] Baclofen [Baclofen 10 mg (*)] 20 mg PO TID #180 tab 09/02/18 Cholecalciferol Vit D3 [Vitamin D3 2,000 units PO DAILY #30 each 09/02/18 2000 units tab (OTC)] Melatonin [Melatonin 3 MG (*)] 9 mg PO HS #90 tab 09/02/18 Polyethylene Glycol 3350 [Miralax 17 gm PO DAILY PRN #10 pkt 09/02/18 17 gm (*)] Sennosides/Docusate Sodium 2 tab PO HS PRN #30 tab 09/02/18 [Senokot-S] Vancomycin [Vancomycin (*)] 750 mg IV Q12H #46 vial 09/02/18 traZODone [traZODONE 50MG (*)] 50 mg PO HS #30 tab 09/02/18 Tamsulosin HCl [Flomax 0.4 MG (*)] 0.8 mg PO DAILY #0 09/03/18 Cephalexin [Keflex (RX)] 500 mg PO TID #20 cap 10/12/18 Medical Decision Making - Diagnostics Imaging Results: Imaging Impressions Chest X-Ray 10/29/18 15:14 Impression: 1. Stable chest, with no acute findings. 2. Grossly stable osseous metastases. Imaging: Discussed imaging studies w/ call center analyst Radiologist Differential Diagnosis: Differential considered including but not limited to UTI, pneumonia, endocarditis, surgical hardware infection, meningitis, encephalitis Consult/Admit Bed Type: [place] [id number] - Data Points Laboratory Results: Laboratory Results 10/29/18 15:45 10/29/18 15:45 10/29/18 10/29/18 10/29/18 15:45 15:45 15:45 WBC 9.43 10^3/uL 10^3/uL (3.80-9.50) RBC 3.53 10^6/uL L 10^6/uL (4.40-6.38) Hgb 10.5 g/dL L g/dL (13.7-17.5) Hct 32.4 % L % (40.0-51.0) MCV 91.8 fL fL (81.5-99.8) MCH 29.7 pg pg (27.9-34.1) MCHC 32.4 g/dL g/dL (32.4-36.7) RDW 17.3 % H % (11.5-15.2) Plt Count 241 10^3/uL 10^3/uL (150-400) MPV 8.9 fL fL (8.7-11.7) Neut % (Auto) 80.5 % H % (39.3-74.2) Lymph % (Auto) 8.9 % L % (15.0-45.0) [place] % (Auto) 9.9 % % (4.5-13.0) Eos % (Auto) 0.1 % L % (0.6-7.6) Baso % (Auto) 0.2 % L % (0.3-1.7) Nucleat RBC Rel Count 0.0 % % (0.0-0.2) Absolute Neuts (auto) 7.59 10^3/uL H 10^3/uL (1.70-6.50) Absolute Lymphs (auto) 0.84 10^3/uL L 10^3/uL (1.00-3.00) Absolute Monos (auto) 0.93 10^3/uL H 10^3/uL (0.30-0.80) Absolute Eos (auto) 0.01 10^3/uL L 10^3/uL (0.03-0.40) Absolute Basos (auto) 0.02 10^3/uL 10^3/uL (0.02-0.10) Absolute Nucleated RBC 0.00 10^3/uL 10^3/uL (0-0.01) Immature Gran % 0.4 % % (0.0-1.1) Immature Gran # 0.04 10^3/uL 10^3/uL (0.00-0.10) PT 13.9 SEC SEC (12.0-15.0) INR 1.05 (0.83-1.16) APTT 31.1 SEC SEC (23.0-38.0) VBG Lactic Acid Sodium 136 mEq/L mEq/L (135-145) Potassium 3.4 mEq/L mEq/L (3.3-5.0) Chloride 100 mEq/L mEq/L (97-110) Carbon Dioxide 23 mEq/l mEq/l (22-31) Anion Gap 13 mEq/L mEq/L (6-14) BUN 31 mg/dL H mg/dL (7-23) Creatinine 1.0 mg/dL mg/dL (0.7-1.3) Estimated GFR > 60 Glucose 111 mg/dL H mg/dL (70-100) Calcium 8.5 mg/dL mg/dL (8.5-10.4) Total Bilirubin 0.7 mg/dL mg/dL (0.1-1.4) Urine Color Urine Appearance Urine pH Ur Specific [place] Urine Protein Urine Ketones Urine Blood Urine Nitrate Urine Bilirubin Urine Urobilinogen Ur Leukocyte Esterase Urine RBC Urine WBC Ur Epithelial Cells Urine Mucus Urine Glucose 10/29/18 10/29/18 15:45 15:37 WBC RBC Hgb Hct MCV MCH MCHC RDW Plt Count MPV Neut % (Auto) Lymph % (Auto) [place] % (Auto) Eos % (Auto) Baso % (Auto) Nucleat RBC Rel Count Absolute Neuts (auto) Absolute Lymphs (auto) Absolute Monos (auto) Absolute Eos (auto) Absolute Basos (auto) Absolute Nucleated RBC Immature Gran % Immature Gran # PT INR APTT VBG Lactic Acid 1.5 mmol/L mmol/L (0.7-2.1) Sodium Potassium Chloride Carbon Dioxide Anion Gap BUN Creatinine Estimated GFR Glucose Calcium Total Bilirubin Urine Color YELLOW Urine Appearance CLEAR Urine pH 6.0 (5.0-7.5) Ur Specific [place] 1.024 (1.002-1.030) Urine Protein 1+ H (NEGATIVE) Urine Ketones TRACE H (NEGATIVE) Urine Blood NEGATIVE (NEGATIVE) Urine Nitrate NEGATIVE (NEGATIVE) Urine Bilirubin NEGATIVE (NEGATIVE) Urine Urobilinogen 2.0 EU H EU (0.2-1.0) Ur Leukocyte Esterase NEGATIVE (NEGATIVE) Urine RBC 1-3 /hpf /hpf (0-3) Urine WBC 1-3 /hpf /hpf (0-3) Ur Epithelial Cells NONE SEEN /lpf /lpf (NONE-1+) Urine Mucus TRACE /lpf /lpf (NONE-1+) Urine Glucose NEGATIVE (NEGATIVE) Medications Given: Vancomycin HCl 750 mg/ (Dextrose) 150 mls @ 150 mls/hr IV EDNOW ONE Stop: 10/29/18 18:59 Last Admin: 10/29/18 17:51 Dose: 150 mls Discontinued Medications Sodium Chloride (Ns) 2,400 mls @ 4,800 mls/hr 30 ml/kg infuse over 30 min ( 2400 ml) IV EDNOW ONE PRN Reason: Protocol Stop: 10/29/18 16:06 Last Admin: 10/29/18 15:49 Dose: 2,400 mls Departure - Departure Disposition: [facility] Acute Clinical Impression: Fever Qualifiers: Fever type: unspecified Qualified Code(s): R50.9 - Fever, unspecified Condition: Good
[2018-10-29] MEDS ORDERED: NS 2,400 ML IV ONE (15:37)
[2018-10-29 16:04] LABS: PLATELET COUNT 241 10^3/uL (150-400)
[2018-10-29 16:10] LABS: INR 1.05 (0.83-1.16); PROTIME(PATIENT) 13.9 SEC (12.0-15.0)
[2018-10-29] MEDS ORDERED: VANCOMYCIN 750 MG in NS 250 ML IV ONE (17:18)
[2018-10-29] MEDS ORDERED: VANCOMYCIN 750 MG in D5W 150 ML IV ONE (18:00)
[2018-10-29] MEDS ORDERED: ONDANSETRON 4 MG/2 ML VIAL IVP PRN (18:52)
[2018-10-29] MEDS ORDERED: ONDANSETRON DISINTEGRATING 4 MG TAB PO PRN (18:52)
[2018-10-29] MEDS ORDERED: PROMETHAZINE HCL 25 MG/ML INJ IVP PRN (18:52)
[2018-10-29] MEDS ORDERED: LORazepam 2 MG/ML INJ IVP PRN (18:52)
--- NOTE | 2018-10-29 19:57 | PDGENHP ---
History and Physical - Chief Complaint fever, confusion, inability to walk - History of Present Illness 68 yo M with hx of metastatic renal cell carcinoma with spinal metastasis and hx of associated cord compression requiring thoracic spine fusion complicated by impaired wound healing and hardware infection necessitating removal and replacement of the hardware which was followed by latissimus pedicle flap. He was discharged from IP rehap to [facility] and was sent over to ER today from [facility] with concerns of new fever, lethargy and inability to walk. At the time of my evaluation of the patient he is awake and alert but minimally able to answer questions and follow commands. It was noted on exam that he has two large wounds on his back that have exposed hardware in each, there was what appeared to be a wound vac dressing in place but no attached wound vac. History Information - Allergies/Home Medication List Allergies/Adverse Reactions: naproxen Allergy (Unknown, Verified 10/29/18 15:14) Other-Enter Comments tree nut Allergy (Unknown, Verified 10/29/18 15:14) Home Medications: Bisacodyl [Dulcolax] 10 mg RC DAILY PRN 08/22/18 [Last Taken Unknown] Melatonin [Melatonin 3 MG (*)] 9 mg PO HS 08/22/18 [Last Taken 10/28/18] Sennosides/Docusate Sodium [Senna-S Tablet] 2 tab PO HS PRN 08/22/18 [Last Taken Unknown] Tolterodine Tartrate [Detrol] 2 mg PO BID 08/22/18 [Last Taken 10/29/18] Ferrous Sulfate [Ferrous Sulf 325 MG (*)] 325 mg PO DAILY 10/29/18 [Last Taken 10/29/18] Lidocaine 2% Viscous 15 ml PO Q4 PRN 10/29/18 [Last Taken Unknown] Ondansetron Odt [Zofran Odt 4 mg (*)] 8 mg PO Q8 PRN 10/29/18 [Last Taken Unknown] Polyethylene Glycol 3350 [Miralax 17 gm (*)] 17 gm PO DAILY PRN 10/29/18 [Last Taken Unknown] Scopolamine Hydrobromide [Scopolamine Patch] 1 patch TD Q72H 10/29/18 [Last Taken 10/27/18] Tedizolid Phosphate [Sivextro] 200 mg PO DAILY 10/29/18 [Last Taken 10/29/18] guaiFENesin/DEXTROMETHORPHAN [Robitussin Dm Oral Liquid (*)] 10 ml PO Q4 PRN [Last Taken Unknown] hydrALAZINE [Apresoline 25 mg (RX)] 25 mg PO Q8 PRN 10/29/18 [Last Taken Unknown ] oxyCODONE HCL [Oxycodone HCl] 5 mg PO Q4 PRN 10/29/18 [Last Taken Unknown] oxyCODONE HCL [Oxycodone HCl] 10 mg PO Q4 PRN 10/29/18 [Last Taken Unknown] I have personally reviewed and updated: family history, medical history, social history, surgical history - Past Medical History cancer (metastatic renal cell carcinoma--mets to spine) Additional medical history: cord compression from mets. chronically infected spinal hardware. chronic pain with continuous opiate use and dependency. BPH - Surgical History Additional surgical history: spinal fusion x 2 t7-t12. tumor debulking. spinal hardware removal and replacement. right nephrectomy - Family History Positive for: non-pertinent - Social History Smoking Status: Never smoked Alcohol Use: None Drug Use: None Additional social history: , currently residing at [facility] Review of Systems Review of Systems: unobtainable 2/2 patients mental status Physical Exam Physical Exam: Temp Pulse Resp BP Pulse Ox 39.1 C H 93 18 163/82 H 98 10/29/18 18:32 10/29/18 18:32 10/29/18 18:32 10/29/18 18:32 10/29/18 18:32 O2 (L/minute) 1.5 Constitutional: chronically ill appearing, uncomfortable Eyes: PERRL, anicteric sclera Ears, Nose, Mouth, Throat: ears appear normal, dry mucous membranes Cardiovascular: regular rate and rhythym, no murmur, rub, or gallop Respiratory: no respiratory distress, no rales or rhonchi Gastrointestinal: normoactive bowel sounds, soft, non-tender abdomen Genitourinary: no bladder tenderness Skin: warm, other (2 open wounds on back, screws showing through the wounds) Musculoskeletal: generalized weakness Neurologic: weakness, CN II-XII Intact Psychiatric: encephalopathic Lab Data & Imaging Review 10/29/18 15:45 10/29/18 15:45 WBC 9.43 10^3/uL (3.80-9.50) 10/29/18 15:45 RBC 3.53 10^6/uL (4.40-6.38) L 10/29/18 15:45 Hgb 10.5 g/dL (13.7-17.5) L 10/29/18 15:45 Hct 32.4 % (40.0-51.0) L 10/29/18 15:45 MCV 91.8 fL (81.5-99.8) 10/29/18 15:45 MCH 29.7 pg (27.9-34.1) 10/29/18 15:45 MCHC 32.4 g/dL (32.4-36.7) 10/29/18 15:45 RDW 17.3 % (11.5-15.2) H 10/29/18 15:45 Plt Count 241 10^3/uL (150-400) 10/29/18 15:45 MPV 8.9 fL (8.7-11.7) 10/29/18 15:45 Neut % (Auto) 80.5 % (39.3-74.2) H 10/29/18 15:45 Lymph % (Auto) 8.9 % (15.0-45.0) L 10/29/18 15:45 [place] % (Auto) 9.9 % (4.5-13.0) 10/29/18 15:45 Eos % (Auto) 0.1 % (0.6-7.6) L 10/29/18 15:45 Baso % (Auto) 0.2 % (0.3-1.7) L 10/29/18 15:45 Nucleat RBC Rel Count 0.0 % (0.0-0.2) 10/29/18 15:45 Absolute Neuts (auto) 7.59 10^3/uL (1.70-6.50) H 10/29/18 15:45 Absolute Lymphs (auto) 0.84 10^3/uL (1.00-3.00) L 10/29/18 15:45 Absolute Monos (auto) 0.93 10^3/uL (0.30-0.80) H 10/29/18 15:45 Absolute Eos (auto) 0.01 10^3/uL (0.03-0.40) L 10/29/18 15:45 Absolute Basos (auto) 0.02 10^3/uL (0.02-0.10) 10/29/18 15:45 Absolute Nucleated RBC 0.00 10^3/uL (0-0.01) 10/29/18 15:45 Immature Gran % 0.4 % (0.0-1.1) 10/29/18 15:45 Immature Gran # 0.04 10^3/uL (0.00-0.10) 10/29/18 15:45 PT 13.9 SEC (12.0-15.0) 10/29/18 15:45 INR 1.05 (0.83-1.16) 10/29/18 15:45 APTT 31.1 SEC (23.0-38.0) 10/29/18 15:45 VBG Lactic Acid 1.5 mmol/L (0.7-2.1) 10/29/18 15:45 Sodium 136 mEq/L (135-145) 10/29/18 15:45 Potassium 3.4 mEq/L (3.3-5.0) 10/29/18 15:45 Chloride 100 mEq/L (97-110) 10/29/18 15:45 Carbon Dioxide 23 mEq/l (22-31) 10/29/18 15:45 Anion Gap 13 mEq/L (6-14) 10/29/18 15:45 BUN 31 mg/dL (7-23) H 10/29/18 15:45 Creatinine 1.0 mg/dL (0.7-1.3) 10/29/18 15:45 Estimated GFR > 60 10/29/18 15:45 Glucose 111 mg/dL (70-100) H 10/29/18 15:45 Calcium 8.5 mg/dL (8.5-10.4) 10/29/18 15:45 Total Bilirubin 0.7 mg/dL (0.1-1.4) 10/29/18 15:45 Urine Color YELLOW 10/29/18 15:37 Urine Appearance CLEAR 10/29/18 15:37 Urine pH 6.0 (5.0-7.5) 10/29/18 15:37 Ur Specific [place] 1.024 (1.002-1.030) 10/29/18 15:37 Urine Protein 1+ (NEGATIVE) H 10/29/18 15:37 Urine Ketones TRACE (NEGATIVE) H 10/29/18 15:37 Urine Blood NEGATIVE (NEGATIVE) 10/29/18 15:37 Urine Nitrate NEGATIVE (NEGATIVE) 10/29/18 15:37 Urine Bilirubin NEGATIVE (NEGATIVE) 10/29/18 15:37 Urine Urobilinogen 2.0 EU (0.2-1.0) H 10/29/18 15:37 Ur Leukocyte Esterase NEGATIVE (NEGATIVE) 10/29/18 15:37 Urine RBC 1-3 /hpf (0-3) 10/29/18 15:37 Urine WBC 1-3 /hpf (0-3) 10/29/18 15:37 Ur Epithelial Cells NONE SEEN /lpf (NONE-1+) 10/29/18 15:37 Urine Mucus TRACE /lpf (NONE-1+) 10/29/18 15:37 Urine Glucose NEGATIVE (NEGATIVE) 10/29/18 15:37 Visualized and Interpreted Chest x-ray results: Yes Chest X-Ray results: no infiltrate Assessment & Plan Assessment: Fever (Acute) 68 yo M with hx of metastatic RCC with chronically infected spinal hardware presenting with AMS, fever, inability to walk, exposed spinal hardware # fever: in the setting of exposed hardware and worsening mental status so concerning for worsening infection but in discussion with ID also possibly related to chemotherapy patient is on that is associated with fever. No other sepsis criteria currently. # metabolic encephalopathy: apparently at baseline patient able to communicate and walk but currently only able to answer questions with yes or no and having issues following commands, presumably related to infectious process, monitoring # chronically infected spinal hardware: with exposed spinal hardware currently, Neurosurgery consulted as well as ID. In discussion with ID the hardware has been exposed for some time, previously growing corynebacterium. Did appear that there had recently been a wound vac in place and patient did previously have a flap. ID working to discuss with plastics, NSG to evaluate, for now will keep covered and continue vancomycin as recommended by ID # weakness/inability to walk: sounds as if weakness has been present for quite some time but per NH reports has increased significantly and patient no longer able to walk which he apparently had been doing, patient is able to move his legs on exam but bilaterally weak and difficulty following commands, nsg to see , pt/ot to evaluate # metastatic RCC: has had surgery, radiation in the past. Unclear what if any treatment he is on currently but per ID may be currently on chemo, will ask oncology to evaluate # IP status, will need > 48 hours stay for eval/mgmt of above Patient new to my care. Old records reviewed and summarized as above. Care plan reviewed with ED doctor, TERRY, ID.
[2018-10-29] MEDS: NS 1,000 ML IV SCH (21:08)
[2018-10-29] MEDS: ACETAMINOPHEN 325 MG TAB PO PRN (21:08)
[2018-10-30] MEDS: VANCOMYCIN 750 MG in D5W 150 ML IV SCH ×2 (05:39→18:50)
[2018-10-30] MEDS: HYDROmorphONE/DILAUDID 1 MG/ML INJ IVP PRN ×2 (05:50→11:45)
[2018-10-30 06:20] LABS: PLATELET COUNT 185 10^3/uL (150-400)
[2018-10-30] MEDS: ACETAMINOPHEN 325 MG TAB PO PRN ×3 (07:37→20:34)
[2018-10-30] MEDS: oxyCODONE IR 5 MG TAB PO PRN ×2 (07:38→16:35)
[2018-10-30] MEDS: NS 1,000 ML IV SCH (07:38)
--- NOTE | 2018-10-30 08:37 | ASMTLACE ---
JINA Acuity / Level of Answers: Yes Care: Did the patient have an inpatient admission? Comorbidities - select Answers: Any tumor (including all that apply lymphoma or leukemia) Opioid dependence / Chronic pain Other Notes: HTN # of Emergency department Answers: 3-4 visits in the last 6 months Social determinants Answers: Mental health diagnosis (anxiety, depression, pers onality disorders, etc.) Score: 16 Date Signed: 10/30/2018 08:36 AM Electronically Signed By:Elif Pérez
--- NOTE | 2018-10-30 09:42 | PCMIDPN ---
Assessment/Plan: Assessment/Plan: * Postoperative back infection: Previous cultures at the to [facility] showed growth of Corynebacterium striatum which was resistant to typical oral suppressive agents. He has been on Tedizolid daily for suppressive therapy after completing 8 weeks of vancomycin on 10/09/2018. Now with increased weakness and temperature to 39.1 overnight. Exam reveals 2 areas of exposed hardware and 30 area where erythema is present suggesting pressure from underlying hardware. No purulence is expressed. Will proceed with thoracic spine CT with IV contrast to assess for deeper seated process such as abscess. Complex circumstance given failure of prior flap and recurrent exposed hardware in the setting of metastatic renal cell carcinoma. Will treat empirically with vancomycin and meropenem pending further culture data. Neurosurgical consultation has been obtained. * Fever: See above discussion as this is primary concern. Other considerations would include entity such as influenza. Will obtain flu PCR to further evaluate. Bacteremia associated with postoperative back infection also of consideration. He has not had PICC line in place since he completed his vancomycin therapy. Continue empiric vancomycin and meropenem as outlined above. Drug fever or tumor fever also of consideration although seem less likely. Time spent, greater than 35 min, which greater than half was spent in education/ counseling/coordination of care related to postoperative back infection and fever as well as plan of care including ongoing antibiotic therapy and further evaluation with CT scan. 10/30/18 09:38 Subjective: Patient well known to me from outpatient care for postoperative back infection with exposed hardware in the setting of metastatic renal cell carcinoma. Patient had undergone debridement and flap at the [facility] with subsequent breakdown and repeated exposure of hardware. Cultures obtained at time of his operative debridement showed growth of Corynebacterium striatum. Isolate was fairly resistant to typical oral suppressive antibiotics. He completed 8 weeks of IV vancomycin and now has been on Tedizolid suppressive therapy subsequently. Patient has been having intermittent fevers over the last 2-3 weeks with blood cultures obtained on 10/12/2018 being negative. He also is receiving chemotherapy with Nivolumab which can also be associated with fever. He thinks last chemotherapy was provided 2 weeks ago. He does describe having cough. Occasional diarrhea present. Admitted yesterday with persistent fever, lethargy and inability to walk. During recent office visits patient has been able to stand with assistance by holding on to the exam table. Overnight, patient had temperature peaking at 39.1. Emergency department evaluation has included blood cultures and chest x-ray. He is now seen for ongoing infectious disease follow-up. Objective: Vital Signs Temp Pulse Resp BP Pulse Ox 37.6 C 87 22 H 161/76 H 96 10/30/18 07:48 10/30/18 08:04 10/30/18 08:04 10/30/18 07:12 10/30/18 08:04 Laboratory Results 10/30/18 05:52 10/30/18 05:52 10/29/18 10/30/18 10/31/18 05:59 05:59 05:59 Intake Total 2400 900 Output Total 350 Balance 2050 900 T-max 39.1 degrees Blood cultures x2 pending Chest x-ray without focal infiltrate - Physical Exam General Appearance: non-toxic, other (Slowed cognition, ill-appearing) EENT: No scleral icterus, No conjunctival petechiae Respiratory: lungs clear, No respiratory distress Cardiac/Chest: regular rate, rhythm, No systolic murmur Extremities: No inflammation Abdomen: non-tender, No distended Back: other (Thoracic spine shows 2 areas of exposed hardware; no expressible purulence; 3rd area where erythema present but no exposed underlying hardware; fibrinous slough present at margins of wounds were hardware is present) Neuro/Psych: other (Slow cognition but able to interact appropriately; globally weak but able to move lower extremities) ICD10 Worksheet Patient Problems: Problems Problem Status Onset Fever Acute Bone metastasis Acute Compression fracture Acute Dehydration Acute Renal cell carcinoma Acute Weakness Acute Weakness of right lower extremity Acute
[2018-10-30] MEDS ORDERED: IOPAMIDOL (ISOVUE-300) 100 ML BTL ONE (09:44)
--- NOTE | 2018-10-30 10:22 | GCON ---
DATE OF CONSULTATION: 10/30/2018 REASON FOR CONSULTATION: Hardware exposure with prior lumbar fusion for stabilization and debulking for metastatic renal cell carcinoma. HOSPITAL COURSE, HISTORY AND MAJOR MEDICAL FINDINGS: The patient is a 68-year- old gentleman who originally underwent surgery with Dr. 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 He had spinal cord compression at that time, requiring thoracic fusion. He had some impaired wound healing and a hardware infection, and then further underwent removal and replacement of his hardware. He has undergone his most recent surgeries and has been followed at the [facility] by Dr. Yosvany Khoury. He recently had a latissimus pedicle flap placed over that area and has been over in rehab at [facility]. He was having some fevers and lethargy, and his overall function in regard to walking had declined. He was brought to [facility] Emergency Room for further evaluation. The wound instructions were taken down. He has exposed hardware on his back, with the pedicle screws visible. The patient states he has some mild pain and notes that he is feeling weaker than he typically does. REVIEW OF SYSTEMS: Review of systems is negative. Other than what is stated in the HPI, he has continued right lower extremity weakness, fever, as well as a Juarez catheter in place. PAST MEDICAL HISTORY: Significant for metastatic renal cell carcinoma; spinal fusions x2, most recently with Yosvany Khoury at the [facility], from T7 to T12. He has undergone tumor debulking, with hardware replacement and removal, and he has also undergone a right nephrectomy. PAST FAMILY MEDICAL HISTORY: Significant for renal cell metastatic carcinoma. He has been followed by Infectious Disease. FAMILY HISTORY: Noncontributory. SOCIAL HISTORY: The patient has never smoked. He has never used alcohol or illicit drugs. He is currently residing at [facility]. ALLERGIES: Naproxen and tree nuts. MEDICATIONS: Pre-hospital medications include Dulcolax, melatonin, senna S, Detrol, ferrous sulfate, viscous lidocaine, Zofran, scopolamine, Sivextro for antibiotics. Robitussin, hydralazine, and oxycodone. PHYSICAL EXAM: VITALS: BP is 161/76. Heart rate is 87. Respiratory rate is 22. He is 96% on room air. GENERAL: Patient is in no acute distress. He is aware of where he is, but does not fully follow throughout the conversation and has some questionable confusion. NEUROLOGIC: His upper extremities, he is a 5/ 5 in his deltoids, triceps, biceps, wrist flexors, extensors, interossei, intrinsic stemhole borer. In his lower extremities, in his left lower extremity, he is diffusely a 5- in the left iliopsoas, hamstrings, quadriceps, plantar flexion, dorsiflexion, and EHL. In the patient's right lower extremity, his hip flexors , knee flexion are a 5-/5. His right EHL and right dorsiflexion are a 2/5. Plantar flexion is also a 2/5. DIAGNOSTIC REVIEW: Patient underwent laboratory testing, which demonstrates a white blood cell count of 8.3. His current temperature is 37.6. DISCUSSION AND DECISION-MAKING: The patient is a 68-year-old gentleman who has undergone multiple thoracic spine surgeries for fusion, removal of hardware with reinstrumentation. He has had a latissimus dorsi flap, and he has had debulking of his metastatic renal cell carcinoma, who now has an open wound with exposed hardware. He has been under the care of Infectious Disease as an outpatient, and Dr. Kirby has been consulted to see him while here. Given his continued fevers, will further image the spine to see if there is any distant abscess. This was discussed in detail with Dr. Dilip Abbasi, who will also be seeing the patient today. We will continue to follow. If there are any questions, please notify Neurosurgery. NEUROSURGERY ATTENDING NOTE I saw the patient the day of the consultation and discussed his plan for care with his son vis telephone, as well as his who was at the bedside. I also spoke with Dr Stanley Kirby from ID and Dr Coreen Allan from Wound Care about the plan. /[id number]/MODL MTDD
--- NOTE | 2018-10-30 10:52 | PDMN ---
Medical Necessity Medical necessity: Pt meets IP criteria as of 10/29/2018 per MD and LIO ISSA- ( Musculoskeletal Disease); est los > 2 mn for ongoing tx and management of infected spinal hardware with fever and metabolic encephalopathy in a pt with metastatic rectal cancer; requiring IV ABX, wound care, infectious disease consult, and therapies.
[2018-10-30] MEDS: MEROPENEM 1 GM in NS 100 ML IV SCH ×2 (14:48→22:12)
--- NOTE | 2018-10-30 15:10 | GCON ---
DATE OF CONSULTATION: 10/29/2018 CHIEF COMPLAINT/REASON FOR CONSULTATION: Hardware exposed on back. HISTORY OF PRESENT ILLNESS: This is a 68-year-old man who is previously known to me. I had referred him back down to the [facility] to get a flap due to hardware being exposed. This was accomplished by Dr. Khoury and then he was discharged to [facility]. [facility] brought him to [facility] to lethargy and overall decline. PAST MEDICAL HISTORY: Metastatic renal cell cancer, spinal fusions, flap. He has undergone tumor de bulking with hardware replacement and right nephrectomy. FAMILY HISTORY: Noncontributory. SOCIAL HISTORY: He has never smoked. ALLERGIES: Naproxen. MEDICATIONS: Reviewed. PHYSICAL EXAM: GENERAL: Lying on bed. Well-groomed, at bedside. HEENT: Normocephalic. No gr oss hearing deficits. Mucous membranes moist. Pupils equal and round. No scleral icterus. LUNGS: No increased work of breathing. BACK: He has pedicle screws visible and there are 2 other areas where the wound is starting to break down. The distal wound measures 3.2 x 2.3 x 0.7 cm and the proximal wound measures 1.2 x 1.2 x 0.3 cm. No surrounding erythema. PSYCH: He was able to engage in linear thought when discussing his wound. His mood is somewhat subdued. IMPRESSION/PLAN: This is a 68-year-old with metastatic renal cell cancer, who has had spinal surgeri es for tumor debulking and most recently had a flap. The flap is breaking down. I think part of the issue is certainly offloading this area as he preferentially wants to be on his back where the locat ion is of the screws. He would need to be nearly on his trochanter in order to completely offload. I recommend that a P500 mattress be available for him. He should try not to be on the wound as much as possible. I recommend an absorptive dressing such as Aquacel Ag and Care MAX to help control the discharge. I discussed the plan with his son. We also reviewed that I do not advise suturing the wo und as this would not provide any benefit nor would be technically feasible. I also discussed the ca se with the hospitalist, Dr. Awad. I will be on standby as I do not think there is specific wound care to actually heal this wound. I also recommend reaching out to Dr. Clemente Khoury to see if there are any other options or thoughts from his point of view. /[id number]/MODL
--- NOTE | 2018-10-30 15:49 | HOSPPROG ---
Hospitalist Progress Note Assessment/Plan: 68 yo M with hx of metastatic RCC with chronically infected spinal hardware presenting with AMS, fever, inability to walk, exposed spinal hardware # Fever: - Tmax 39.1 on admission - In the setting of exposed hardware (previously growing corynebacterium) and worsening mental status - WBC WNL, Slightly tachycardi, BP WNL - ID consulted this AM, who recommended adding Meropenum, CT Thoracic spine to evaluate for infection/abscess - Neurosurgery and General Surgery also following patient due to complicated surgical hx, wound care - F/u Blood cultures # Metabolic encephalopathy - Apparently at baseline patient able to communicate and walk - Mental status improved this afternoon, AAOx3, although slow to answer question - Will hold off on Brain imaging for now (son is concerned about Metastatic disease, CSF Infection) - Due to waxing and waning course of AMS, likely delirium in setting of infection, if continues despite treatment of infxn will pursue further w/u # Chronically infected spinal hardware: with exposed spinal hardware currently - Neurosurgery, General surgery consults as above - Wound care - Abx as above per ID # Weakness/inability to walk: sounds as if weakness has been present for quite some time but per NH reports has increased significantly and patient no longer able to walk which he apparently had been doing, patient is able to move his legs on exam but bilaterally weak and difficulty following commands, nsg following, pt/ot to evaluate # metastatic RCC: has had surgery, radiation in the past. Oncology consulted, f/ u their recommendations Dispo: Pending clinical course Subjective: Patient reports no pain this afternoon , feeling fatigued Objective: Vital Signs Temp Pulse Resp BP Pulse Ox 37.2 C 104 H 14 157/79 H 87 L 10/30/18 14:35 10/30/18 14:35 10/30/18 14:35 10/30/18 14:35 10/30/18 14:35 Laboratory Results 10/30/18 05:52 10/30/18 05:52 10/29/18 10/30/18 10/31/18 05:59 05:59 05:59 Intake Total 2400 900 Output Total 350 Balance 2050 900 PT 13.9 SEC (12.0-15.0) 10/29/18 15:45 INR 1.05 (0.83-1.16) 10/29/18 15:45 - Physical Exam Constitutional: chronically ill appearing Eyes: PERRL Ears, Nose, Mouth, Throat: dry mucous membranes Cardiovascular: regular rate and rhythym Respiratory: no respiratory distress Gastrointestinal: soft, non-tender abdomen Skin: warm Musculoskeletal: pain with ROM Neurologic: AAOx3 Psychiatric: not encephalopathic ICD10 Worksheet Patient Problems: Problems Problem Status Onset Fever Acute Bone metastasis Acute Compression fracture Acute Dehydration Acute Renal cell carcinoma Acute Weakness Acute Weakness of right lower extremity Acute
--- NOTE | 2018-10-30 16:33 | ASMTCMCOM ---
CM Note CM Note Notes: Pt lives with in [place] and was admitted from [facility] where he was residing in short term rehab after discharge from inpatient rehab. Pt has metastatic renal cell carcinoma with spinal mets and on admission had chronically infected and exposed spinal hardware after receiving surgical spinal fusion. Referral sent to [facility]. Therapy evals pending. Pt discharge needs TBD, but likely return to SNF. D/C Plan: TBD likely return to [facility] Date Signed: 10/30/2018 04:32 PM Electronically Signed By:Zohra Sanchez
--- NOTE | 2018-10-30 16:37 | WOCRNPDOC ---
KRISTY Advanced Assessment Note - Skin Integrity Problem, Advanced Assess Right Upper Distal Back Surgical Wound/Incision Dressing Type: Allevyn Life Dressing Description: Clean/Dry, Intact Closure Description: Not Approximated Exudate Amount: Moderate Exudate Color: Reddish/Yellow Exudate Characteristic(s): Serosanguinous Integumentary Issue Intervention: Dressing Changed Miranda Wound Tissue: Erythema, Non-blanching, Swollen, Painful/Tender Miranda Wound Swelling: Moderate Wound Bed Color: [place], Red Wound Bed Constitution: Red/[place] - Non Granular Tissue, Subcutaneous Fat Wound Edges: Irregular Site Measurement - Head-to-Toe Length X Width X Depth (cm): 3.2x2.3x0.7 Skin Integrity Problem Comment: Patient has difficulty moving side to side. Dr. Coreen Allan's two students as well as KUSUM Stevenson assisted in moving patient for assessment. Patient had flap that failed, and now metal hardware in back is exposed. Discussed patient plan of care with Tess ALVAREZ. Discussed patient plan of care Jeison ALVAREZ, who took over patient care with unit transfer. Wound bed cleaned with normal saline and patted dry with gauze. Patient states wound is painful. KIM Mchugh and KIM Bowens assisted with patient turn in order to place new dressing. Wound care will follow. Medial Proximal Upper Back Surgical Wound/Incision Dressing Type: Allevyn Life Dressing Description: Clean/Dry, Intact Exudate Amount: Moderate Exudate Color: Reddish/Yellow Exudate Characteristic(s): Serosanguinous Integumentary Issue Intervention: Dressing Changed Miranda Wound Tissue: Erythema, Non-blanching, Swollen, Painful/Tender Miranda Wound Swelling: Mild Wound Bed Color: [place], Red Wound Bed Constitution: Red/[place] - Non Granular Tissue Wound Edges: Irregular Site Measurement - Head-to-Toe Length X Width X Depth (cm): 1.2x1.2x0.3 Skin Integrity Problem Comment: Wound is from surgical flap site over metal spinal hardware, which has opened. Patient also has 2 pinpoint partial thickness openings over other metal hardware prominences. Wound care discussed with Rosmery MORROW. Wound care will follow.
--- NOTE | 2018-10-30 18:42 | GCON ---
NEW PATIENT CONSULT. REFERRING PHYSICIAN: Yohannes Awad DO PATIENT'S PRIMARY ONCOLOGIST: Dr. Chan Roque. REASON FOR CONSULTATION: Patient with known metastatic renal cell carcinoma, admitted with fever and open wound from previous neurosurgical repair. HISTORY OF PRESENT ILLNESS: Emerson is a very pleasant 68-year-old gentleman with metastatic renal cell carcinoma. He had been in his usual state of health until September 2015, when he suddenly developed severe pain in the middle of his back. He was initially treated with pain medications and physical therapy without much resolution. He was sent to [facility] for an MRI that revealed a fracture of T9. He underwent a biopsy. 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 Dr. Roque first saw him in December 2015 and he had developed difficulty walking over a few days. He was admitted to the hospital and underwent embolization of the tumor followed by resection. He developed worsened right- sided weakness after the embolization. There was some concern that he had a spinal cord infarct. His CT scan showed a 3.6 cm tumor in the lower pole of the left kidney and no other metastasis. Bone scan was normal except for surgical defect at T9. He had RT to this region in January 2016. He underwent a left-sided radical nephrectomy in April 2016. This revealed a 2.7 cm grade 2 tumor with LVI. His PET-CT in June of that year did not show any evidence of disease recurrence. In late December 2017, he presented with back pain and some worsening leg weakness. MRI showed recurrent tumor at T9 with cord compression. He was admitted and then transferred to [facility] for surgery. He had tumor debulking in December 2017. Pathology showed renal cell carcinoma. Additional imaging revealed other tumors in the right scapula, right ribs, and pelvis. He received SRS to T8-11 and right scapula at [facility]. He was on Votrient for 3 months. He was seen at [facility] for a surgical wound which was not healing. His bone scan was stable, but CT showed mild increase in the size of T5 and S1 lesions as well as a subtle new lesion in the right iliac wing. He was started on nivolumab early June 2018. In late July he was admitted to the [facility] for treatment of the wound at surgical site. This became somewhat complicated and he still had non-healing there. He had a wound VAC in place and was then sent to rehab. He has continued nivolumab, last received several weeks ago. It was resumed in September 2018. The patient was admitted to [facility] overnight from [facility] with fever, lethargy, and inability to walk. He was noted to have 2 large wounds on his back that have exposed hardware. There was a wound dressing back in place, but no attached wound VAC. He has been seen by Dr. Stanley Kirby. 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 He had been on tedizolid daily for suppressive therapy after completing 8 weeks of vancomycin. He is back on vancomycin and meropenem. Thoracic spine CT during this admission shows gas now seen around the metallic cage associated with corpectomy metastatic lesion at T9 with drainage catheter, left posterior paravertebral soft tissue with associated gas as well, and thickened anterior to the previous surgery extending from T8-11 with possible marginal enhancement that could represent an abscess versus postoperative collection. No associated gas in this collection to confirm abscess. Stable metastatic lesions as detailed above in the known affected skeleton, stable, to [id number] right pleural effusion. Blood cultures are pending. CBC today shows a white blood count of 8.3, hemoglobin 9.3, platelet count 185,000. Lactic acid 1.5. Urinalysis essentially normal. He is negative for flu. PAST MEDICAL HISTORY: Metastatic renal cell mets to the spine as above, cord compression from mets, chronically infected spinal hardware, chronic pain with continuous opioid use and dependence, and BPH. PAST SURGICAL HISTORY: Spinal fusion x2, T7 through T12 tumor debulking, spinal hardware removal and replacement as well as a latissimus dorsi flap, right nephrectomy. FAMILY HISTORY: Nonpertinent. SOCIAL HISTORY: Never smoked. No alcohol use. . Currently residing at [facility]. PHYSICAL EXAMINATION: VITAL SIGNS: Blood pressure 157/79, pulse is 104. His temperature is currently 101. He is saturating 87% on 2 L. GENERAL: Acutely ill gentleman with rigors, not alert and oriented, but answering questions. CARDIOVASCULAR: Tachycardic. LUNGS: Clear anteriorly. BACK: His back exam shows 2 open wounds along the thoracic spine with exposed hardware. LOWER EXTREMITIES: No edema. SKIN: No rash. NEUROLOGIC: He is cooperating with exam, but talking about things on the ceiling and is delirious. LABORATORIES AND IMAGING: Per above. ASSESSMENT AND PLAN: Emerson is a 68-year-old gentleman with metastatic renal cell carcinoma. Initially, a left-sided tumor with solitary T9 metastasis complicated by metastatic lesion at T9 and cord compression. The patient had tumor debulking and has had thoracic spinal fusion as well as postoperative XRT and complicated nonhealing wound, now admitted with fever and exposed thoracic hardware. 1. Fever and nonhealing back wound. Neurosurgery and General Surgery consults appreciated. Patient getting wound care. Antibiotics per Infectious Disease. It is a very difficult situation. Will likely need additional wound VAC. Need to make sure he is not turning septic or has positive blood cultures. I do not necessarily think nivolumab is contributing. If this were a fever related to immunotherapy, we would start prednisone or methylprednisolone, which would not be advised given the high concern of recurrent infection. The patient has no other immunotherapy side effects at this time. 2. Exposed hardware. Infectious disease workup; on vancomycin and Merrem. CT thoracic spine is concerning for wound infection, abscess. Will follow blood cultures. 3. Metabolic encephalopathy. The patient seems very delirious at this time, likely in the setting of infection. Will have to monitor. 4. Stage 4 renal cell carcinoma, has been on and off nivolumab due to complicated thoracic wound. Will need cordon imaging including MRI brain. Once he is stable. I do not think this is an urgent need at this time. Unclear if he has stable disease or is progressing. We will continue to follow along and make recommendations as indicated. More than 45 minutes was spent with patient, more than 50% of the time in counseling , coordinating care, reviewing images, labs, and discussing with the multidisciplinary team. /[id number]/MODL MTDD
[2018-10-31] MEDS: HYDROCODONE/APAP 5/325 TAB PO PRN (00:31)
[2018-10-31] MEDS: traZODone 50 MG TAB PO PRN (00:58)
[2018-10-31] MEDS: MELATONIN 3 MG TAB PO PRN (00:58)
[2018-10-31] MEDS ORDERED: hydrALAZINE 25 MG TAB PO PRN (04:08)
[2018-10-31] MEDS: VANCOMYCIN 750 MG in D5W 150 ML IV SCH (04:55)
[2018-10-31 05:10] LABS: PLATELET COUNT 208 10^3/uL (150-400)
--- NOTE | 2018-10-31 09:42 | NEUSURGPN ---
Assessment/Plan: 68 y/o male with metastatic renal cells carcinoma with poor wound healing, history of spinal fusion with revisions including lattismus flap now with an open wound and exposed hardware. Patient was seen by Dr. Abbasi and myself. CT reviewed and at this point would not recommended neurosurgical revision. Recommended continued local open care. Dr. Abbasi to discuss further with infectious disease and internal medicine. Will s/o at this time please. Please notify us with any worsening neurological symptoms, questions or concerns. Subjective: Denies any new pain, states his strenght feels stable as compared to yesterday Objective: Oriented to person and time. Slow to respond to questions +lt touch BLE 5-/5 throughout except right EHL/DF 2/3 low back wound dressed per wound care. Dressing c/d/i Neurosurgery Physical Exam - Vitals, I&O, Labs I and O 10/30/18 10/31/18 11/01/18 05:59 05:59 05:59 Intake Total 2400 1750 Output Total 350 1150 Balance 2050 600 Weight 80 kg 80 kg Intake: Oral (ml) 0 200 IV Infused (ml) 2400 1550 Meropenem 1 gm In Ns 100 100 ml @ 120 mls/hr IV Q8HRS ROE Rx#:[id number] Ns 1,000 ml @ 100 mls/hr 1300 IV CONT ROE Rx#: [id number] Vancomycin 750 mg In D5w 150 150 ml @ 150 mls/hr IV Q12H ROE Rx#:[id number] Output: Urine (ml) 350 1150 Catheter 350 1150 Other: Intake Quantity Yes Sufficient Output Comment Catheter condom cath Number of Voids 1 Catheter 1 Incontinence 3 Vital Signs Temp Pulse Resp BP Pulse Ox 38.0 C 123 H 20 175/100 H 91 L 10/31/18 07:21 10/31/18 07:21 10/31/18 07:21 10/31/18 07:21 10/31/18 07:21 Laboratory Results 10/31/18 04:34 10/31/18 04:34 ICD10 Worksheet Patient Problems: Problems Problem Status Onset Fever Acute Bone metastasis Acute Compression fracture Acute Dehydration Acute Renal cell carcinoma Acute Weakness Acute Weakness of right lower extremity Acute
[2018-10-31] MEDS: MEROPENEM 1 GM in NS 100 ML IV SCH ×3 (10:04→22:41)
[2018-10-31] MEDS ORDERED: IPRATROPIUM/ALBUTEROL 3 ML DEYVIAL ONE (11:20)
--- NOTE | 2018-10-31 11:36 | PCMIDPN ---
Assessment/Plan: Assessment: Exposed hardware thoracic spine. Currently on both meropenem and vancomycin for broad coverage. 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 This morning the patient had acute respiratory distress and tachypnea which upon evaluation is likely secondary to bronchospasm. This leads to concern for new allergy from either the vancomycin or Merrem. Suspect vancomycin given timing of this morning's dose prior to onset of tachypnea and tachycardia. Will discontinue empiric vancomycin and start daptomycin at 6 milligrams/kilogram IV Q 24 hr. Plan: 1. Discontinue IV vancomycin. 2. Start daptomycin 6 milligrams/kilogram IV Q 24 hr. 3. Follow his clinical course in regards to the ongoing bronchospasm and tachypnea. 4. Given the surgical opinions of no clear operative options to correct the exposed hardware situation we remain in a difficult situation trying to treat to prevent future infection issues in this patient. Subjective: Patient is laying on his hospital bed. He is quite tachypneic. Patient had a stat team called just minutes before I arrived. With nebulizer treatments he is slowly improving. O2 sats now in the upper 90s. Objective: Vancomycin # 2 Meropenem # 2 Vital Signs Temp Pulse Resp BP Pulse Ox 38.0 C 123 H 20 175/100 H 91 L 10/31/18 07:21 10/31/18 07:21 10/31/18 07:21 10/31/18 07:21 10/31/18 07:21 Laboratory Results 10/31/18 04:34 10/31/18 04:34 10/30/18 10/31/18 11/01/18 05:59 05:59 05:59 Intake Total 2400 1750 Output Total 350 1150 Balance 2050 600 - Physical Exam General Appearance: WD/WN, alert, apparent distress, other (Chronically ill- appearing) Respiratory: respiratory distress, wheezing, No normal breath sounds, No crackles Cardiac/Chest: regular rate, rhythm, tachycardia Extremities: non-tender, normal inspection Skin: normal color, warm/dry, No rash Neuro/Psych: alert, normal mood/affect, oriented x 3 ICD10 Worksheet Patient Problems: Problems Problem Status Onset Fever Acute Bone metastasis Acute Compression fracture Acute Dehydration Acute Renal cell carcinoma Acute Weakness Acute Weakness of right lower extremity Acute
[2018-10-31] MEDS ORDERED: IPRATROPIUM/ALBUTEROL 3 ML DEYVIAL IH ONE (12:30)
--- NOTE | 2018-10-31 12:36 | CPEKG ---
Test Reason : OPEN Blood Pressure : / mmHG Vent. Rate : 149 BPM Atrial Rate : 148 BPM P-R Int : 131 ms QRS Dur : 090 ms QT Int : 297 ms P-R-T Axes : 083 042 060 degrees QTc Int : 468 ms Sinus tachycardia Anterior infarct, old Minimal ST elevation, lateral leads -- New since March 15, 2016. Consider injury current. Significant artifact Confirmed by Stanley Muñoz ([id number]) on 10/31/2018 12:36:02 PM Referred By: Confirmed By:Stanley Muñoz
--- NOTE | 2018-10-31 12:37 | CPEKG ---
Test Reason : tachypnea/tachycardia Blood Pressure : / mmHG Vent. Rate : 133 BPM Atrial Rate : 133 BPM P-R Int : 134 ms QRS Dur : 093 ms QT Int : 317 ms P-R-T Axes : 083 014 068 degrees QTc Int : [address] elevation, consider anterior injury Old anterior myocardial infarction No significant change from October 31, 2018, 09:19 Confirmed by Stanley Muñoz ([id number]) on 10/31/2018 12:37:20 PM Referred By: Confirmed By:Stanley Muñoz
--- NOTE | 2018-10-31 14:08 | GCON ---
WAREHOUSE MANAGER CONSULTATION REASON FOR ADMISSION: Metastatic renal cell carcinoma, acute respiratory failure. HISTORY OF PRESENT ILLNESS: The patient is a 68-year-old male who was admitted on 10/29/2018, with c omplaints of severe back pain. He has had spinal metastasis, as well as a history of cord compressio n. This apparently required thoracic spine fusion. He has had poor wound healing. He was in acute rehab, was discharged to [facility]. He was subsequently referred to our emergency room for fever, l ethargy, and inability to walk. He has been seen by Infectious Disease, Neurosurgery, as well as Gen eral Surgery. He was receiving antibiotics, including, in particular, vancomycin. He began having t achycardia and worsening breathlessness, was transferred to the intensive care unit. In discussion w ith the patient, he states that with the exception of his back pain, he feels reasonably well. He do es have some mild breathlessness. He denies any cough or production of sputum. There is no chest pa in, pleuritic-type chest pain or angina equivalent. REVIEW OF SYSTEMS: Ten-point review of systems is performed, negative, except for what is listed in the HPI. PAST MEDICAL HISTORY: Again significant for metastatic renal cell carcinoma with mets to the spine, chronically infected spinal hardware, chronic pain, benign prostatic hypertrophy. FAMILY HISTORY: Noncontributory. SOCIAL HISTORY: No history of tobacco use. No history of alcohol use. He is . Again, he wa s residing at [facility]. MEDICATIONS: At home include Sivextro, scopolamine patch, MiraLAX, Zofran, viscous xylocaine, ferrou s sulfate, Detrol, senna, melatonin, Dulcolax, Robitussin DM, Apresoline, and oxycodone. PHYSICAL EXAM: VITAL SIGNS: Blood pressure is 175/100. This is down to 126/96. Pulse is 125. Res pirations are 30. This is down to 26, oxygen saturation 95% on 4 L. Temperature is 38. GENERAL: Song yip is a thin 68-year-old male who is in moderate pain. HEENT: Eyes are PERRL. EOMI. Throat shows no erythema or tonsillar hypertrophy. NECK: Supple. No cervical adenopathy. HEART: Regular rate an d rhythm, with a 2/6 systolic murmur at the left sternal border, without radiation. LUNGS: Diminish ed breath sounds, a few bibasilar crackles, but no wheeze. ABDOMEN: Soft, nontender. Bowel sounds are present. EXTREMITIES: No clubbing, cyanosis, or edema. BACK: Exam was deferred. LABORATORIES: White count is 9.8, hemoglobin 10, hematocrit 30. Platelet count is 208. Sodium 136, potassium 3.2, chloride 105. CO2 is 19. BUN 21, creatinine 0.8. Glucose is 154. Arterial blood ga s: pH 7.43, pCO2 24, PO2 of 90, bicarb 16, oxygen saturation 97%; this is on 4 L. IMPRESSION: 1. Metastatic renal cell carcinoma. 2. Severe back pain. 3. Exposed infected spinal hardware. 4. Chronic pain. 5. Acute respiratory failure secondary to above. However, patient is currently stable on 4 L. 6. Stable moderate right and small left pleural effusions. RECOMMENDATIONS: 1. Continue aggressive pain control. 2. Continue antibiotics as you are doing. 3. DVT and PE prophylaxis. 4. Stress ulcer prophylaxis. 5. Follow respiratory status closely. 6. Will have a discussion with the patient's family. /[id number]/MODL
--- NOTE | 2018-10-31 14:53 | HOSPPROG ---
Hospitalist Progress Note Assessment/Plan: 68 yo M with hx of metastatic RCC with chronically infected spinal hardware presenting with AMS, fever, inability to walk, exposed spinal hardware # Fever: - Tmax 39.1 on admission, continues to be febrile overnight, T Max 38.4 - In the setting of exposed hardware (previously growing corynebacterium) and worsening mental status - WBC WNL, tachycardic, BP WNL - ID consulted, added Meropenum yesterday, CT Thoracic spine to evaluate for infection/abscess which showed gas around metallic cage at T9 as well as thickening which could represent abscess vs. postop fluid collection - Neurosurgery and General Surgery also following patient due to complicated surgical hx, wound care - Discussed with Neurosurgery, Dr. Abbasi this morning, who recommends no surgical intervention at this time - F/u Blood cultures- NGTD # Metabolic encephalopathy - Apparently at baseline patient able to communicate and walk - Mental status continues to wax and wane - Will order Brain MRI when patient is more stable to further evaluate, hopefully tomorrow # Chronically infected spinal hardware: with exposed spinal hardware currently - Neurosurgery, General surgery consults as above - Wound care - Abx as above per ID # Weakness/inability to walk: sounds as if weakness has been present for quite some time but per [place] reports has increased significantly and patient no longer able to walk which he apparently had been doing, patient is able to move his legs on exam but bilaterally weak and difficulty following commands, nsg following, pt/ot to evaluate # metastatic RCC: has had surgery, radiation in the past. Oncology consulted, f/ u their recommendations #Goals of Care - Patient had episode of tachycardia with tachypnea this morning - Discussed with patient at time of transfer to ICU, who decided to change code status to DNR/DNI - Will consult palliative care to evaluate patient - Will continue discussion of goals of care given patient's complex medical history and current critical medical condition Dispo: Pending clinical course Subjective: Patient slow to answer questions this morning, appears more diaphoretic and tachypnic. STAT team called, patient given breathing treatment , oxymask with improvement in resp status. Objective: Vital Signs Temp Pulse Resp BP Pulse Ox 38.7 C H 124 H 26 H 129/86 H 100 10/31/18 12:00 10/31/18 14:00 10/31/18 14:00 10/31/18 14:00 10/31/18 14:00 Laboratory Results 10/31/18 04:34 10/31/18 04:34 10/30/18 10/31/18 11/01/18 05:59 05:59 05:59 Intake Total 2400 1750 Output Total 350 1150 200 Balance 2050 600 -200 PT 13.9 SEC (12.0-15.0) 10/29/18 15:45 INR 1.05 (0.83-1.16) 10/29/18 15:45 - Physical Exam Constitutional: chronically ill appearing, uncomfortable Eyes: PERRL Ears, Nose, Mouth, Throat: moist mucous membranes Cardiovascular: tachycardia Respiratory: reduced air movement Gastrointestinal: soft, non-tender abdomen Skin: warm, other (Exposed hardware ) Musculoskeletal: generalized weakness Neurologic: No AAOx3 ICD10 Worksheet Patient Problems: Problems Problem Status Onset Fever Acute Bone metastasis Acute Compression fracture Acute Dehydration Acute Renal cell carcinoma Acute Weakness Acute Weakness of right lower extremity Acute
--- NOTE | 2018-10-31 15:22 | SOAPPROG ---
SOAP Progress Note Assessment/Plan: Assessment/Plan: 68 yo gentleman w stage IV RCC and hx of T9 cord compression s/p debulking/ thoracic fusion/XRT admitted w fever/AMS and exposed hardware in thoracic spine 1. Fevers/AMS - concern for recurrent hardware infection CT concerning for gas/possible abscess appreciate ID and neurosurgery on broad spectrum antibiotics very small chance IO therapy related - son want to attempt steroids as last ditch effort son understands risk of steroids and infection will dose methylpred at 1mg/kg today 2. Encephalopathy - due to acute illness/fevers needs MRI brain when more stable ?will discuss possibility of meningitis w ID 3. Resp distress ID feels bronchospam related to Vanc In ICU on oxygen Pt is DNR switched to dapto/meropenem 4. Stage IV RCC - extensive sheela mets most recently on Nivolumab but multiple treatment interruptions due to non healing thoracic wound will need re-staging scans if/when stable 10/31/18 15:19 10/31/18 15:22 10/31/18 15:29 10/31/18 15:32 Subjective: Transferred ti ICU in resp distress Objective: Vital Signs Temp Pulse Resp BP Pulse Ox 38.7 C H 124 H 26 H 129/86 H 100 10/31/18 12:00 10/31/18 14:00 10/31/18 14:00 10/31/18 14:00 10/31/18 14:00 Laboratory Results 10/31/18 04:34 10/31/18 04:34 10/30/18 10/31/18 11/01/18 05:59 05:59 05:59 Intake Total 2400 1750 Output Total 350 1150 200 Balance 2050 600 -200 PT 13.9 SEC (12.0-15.0) 10/29/18 15:45 INR 1.05 (0.83-1.16) 10/29/18 15:45 Gen - mild rigors CV - tachy Resp - bilateral wheezing/mild stridor abd - soft, NT Ext - no sig edema Neuro - only answering some questions appropriately ICD10 Worksheet Patient Problems: Problems Problem Status Onset Fever Acute Bone metastasis Acute Compression fracture Acute Dehydration Acute Renal cell carcinoma Acute Weakness Acute Weakness of right lower extremity Acute
[2018-10-31] MEDS: methylPREDNISolone SOD SUCC 40 MG/ML VIAL IVP SCH (17:11)
[2018-10-31] MEDS: LORazepam 2 MG/ML INJ IVP PRN (17:11)
[2018-10-31] MEDS: NS 1,000 ML IV SCH (17:15)
[2018-11-01 05:15] LABS: PLATELET COUNT 233 10^3/uL (150-400)
[2018-11-01] MEDS: MEROPENEM 1 GM in NS 100 ML IV SCH ×2 (07:04→14:48)
[2018-11-01] MEDS: methylPREDNISolone SOD SUCC 40 MG/ML VIAL IVP SCH (08:58)
[2018-11-01] MEDS: DAPTOmycin 450 MG in NS 100 ML IV SCH (08:58)
--- NOTE | 2018-11-01 09:16 | SOAPPROG ---
SOAP Progress Note Assessment/Plan: Assessment: SOAP Progress Note Assessment/Plan: Assessment/Plan: 68 yo gentleman w stage IV RCC and hx of T9 cord compression s/p debulking/ thoracic fusion/XRT admitted w fever/AMS and exposed hardware in thoracic spine 1. Fevers/AMS - concern for recurrent hardware infection with exposed hardware. Not felt to be surgical candidate. Impaired wound healing not an expected side effect from immunotherapy, steroids started empirically yesterday after discussion with son on dapto/meropenem 2. Encephalopathy - due to acute illness/fevers ? MRI brain when more stable 3. Resp distress-worse today with increased tachypnea, increased O2 requirement. chest xray yesterday ok. Will discuss with critical care-? repeat CXR, ?PE. Likely not an anticoag candidate with exposed hardware in the event this is PE. 4. Stage IV RCC - extensive sheela mets most recently on Nivolumab but multiple treatment interruptions due to non healing thoracic wound will need re-staging scans if/when stable Patient is appropriately DNR. 11/01/18 09:19 11/01/18 09:22 Subjective: feels short of breath, per nursing, patient with minimal requests Objective: Vital Signs Temp Pulse Resp BP Pulse Ox 36.4 C 120 H 24 H 138/71 H 98 11/01/18 07:33 11/01/18 07:33 11/01/18 07:33 11/01/18 07:33 11/01/18 07:33 Laboratory Results 11/01/18 04:50 11/01/18 04:50 10/31/18 11/01/18 11/02/18 05:59 05:59 05:59 Intake Total 1750 1968 Output Total 1150 550 Balance 600 1418 PT 13.9 SEC (12.0-15.0) 10/29/18 15:45 INR 1.05 (0.83-1.16) 10/29/18 15:45 Physical Exam - Physical Exam General Appearance: other (lying quietly in bed with obvious tachypnea) Respiratory: lungs clear, other (anteriorly) Cardiac/Chest: other (tachy) Abdomen: non-tender, soft ICD10 Worksheet Patient Problems: Problems Problem Status Onset Fever Acute Bone metastasis Acute Compression fracture Acute Dehydration Acute Renal cell carcinoma Acute Weakness Acute Weakness of right lower extremity Acute
--- NOTE | 2018-11-01 09:37 | PDINTPN ---
Jewel Bearing Polisher Progress Note Assessment/Plan: Assessment/plan: * Metastatic renal cell carcinoma with spinal Mets * Exposed infected hardware -continue antibiotics per Infectious Disease * Acute respiratory failure with tachypnea-etiology which is unclear. Query if this is pain versus something else -follow-up for now * Severe back Pain-intermittently controlled * Mental status-awake and alert. * Pleural effusions stable moderate right and small left pleural effusion Subjective: Patient states pain is reasonably well controlled. Tachypneic this morning. Not very hungry this morning. Objective: Vital Signs Temp Pulse Resp BP Pulse Ox 36.4 C 120 H 24 H 138/71 H 98 11/01/18 07:33 11/01/18 07:33 11/01/18 07:33 11/01/18 07:33 11/01/18 07:33 Laboratory Results 11/01/18 04:50 11/01/18 04:50 10/31/18 11/01/18 11/02/18 05:59 05:59 05:59 Intake Total 1750 1968 Output Total 1150 550 Balance 600 1418 PT 13.9 SEC (12.0-15.0) 10/29/18 15:45 INR 1.05 (0.83-1.16) 10/29/18 15:45 - Time Spent With Patient Time Spent With Patient: 35 min of time spent with patient, over 1/2 involved with coordination of care or counseling Case discussed with Oncology and nursing. Physical Exam - Physical Exam General Appearance: alert, mild distress EENT: PERRL/EOMI Neck: non-tender Respiratory: crackles (Few basilar), other (Tachypnea), No wheezing Cardiac/Chest: normal peripheral pulses, regular rate, rhythm Peripheral Pulses: 2+: carotid (R), carotid (L), femoral (R), femoral (L), dorsalis-pedis (R), dorsalis-pedis (L) Abdomen: normal bowel sounds, non-tender, soft Male Genitalia: deferred Rectal: deferred Skin: normal color, warm/dry Extremities: non-tender, normal inspection, normal capillary refill Neuro/Psych: alert ICD10 Worksheet Patient Problems: Problems Problem Status Onset Fever Acute Bone metastasis Acute Compression fracture Acute Dehydration Acute Renal cell carcinoma Acute Weakness Acute Weakness of right lower extremity Acute
--- NOTE | 2018-11-01 13:25 | HOSPPROG ---
Hospitalist Progress Note Assessment/Plan: 68 yo M with hx of metastatic RCC with chronically infected spinal hardware presenting with AMS, fever, inability to walk, exposed spinal hardware # Fever: - Tmax 39.1 on admission, continues to be febrile overnight, T Max 38.2 - In the setting of exposed hardware (previously growing corynebacterium) and worsening mental status - WBC WNL, tachycardic, BP WNL - ID consulted, added Meropenum on 10/30, CT Thoracic spine to evaluate for infection/abscess which showed gas around metallic cage at T9 as well as thickening which could represent abscess vs. postop fluid collection - After episode of possible bronchospasm, ID changed Vancomycin to Daptomycin on 10/31 - Neurosurgery and General Surgery also following patient due to complicated surgical hx, wound care - Discussed with Neurosurgery, Dr. Abbasi, who reports patient is not surgical candidate and recommends no surgical intervention at this time - F/u Blood cultures- NGTD - Steroids started empirically on 10/31 by oncology due to hx of immunotherapy, they discussed risks of worsening infection with son who agrees #Respiratory Distress - Had episode of tachypnea with wheezing yesterday, believed to be bronchospasm , possible rxn to Vancomycin, was switched to Daptomycin, IV Benadryl ordered PRN - CXR shows stable b/l pleural effusion - Continue breathing tx PRN - Continue to wean 02 as tolerated # Metabolic encephalopathy - Apparently at baseline patient able to communicate and walk - Mental status continues to wax and wane - Will order Brain MRI when patient is more stable to further evaluate, hopefully tomorrow # Chronically infected spinal hardware: with exposed spinal hardware currently - Neurosurgery, General surgery consults as above - Wound care - Abx as above per ID # Weakness/inability to walk: sounds as if weakness has been present for quite some time but per [facility] reports has increased significantly and patient no longer able to walk which he apparently had been doing, patient is able to move his legs on exam but bilaterally weak and difficulty following commands, nsg following, pt/ot to evaluate # metastatic RCC: has had surgery, radiation in the past, most recently on Nivolumab but multiple treatment interruptions due to non healing thoracic wound. Oncology consulted, they recommend re-staging scans if/when stable #Goals of Care - Patient had episode of tachycardia with tachypnea this morning - Discussed with patient at time of transfer to ICU, who decided to change code status to DNR/DNI - Will consult palliative care to evaluate patient - Will continue discussion of goals of care given patient's complex medical history and current critical medical condition Dispo: Pending clinical course Subjective: Patient awake but disoriented this morning Objective: Vital Signs Temp Pulse Resp BP Pulse Ox 36.5 C 112 H 31 H 134/88 H 100 11/01/18 11:37 11/01/18 11:37 11/01/18 11:37 11/01/18 11:37 11/01/18 11:37 Laboratory Results 11/01/18 04:50 11/01/18 04:50 10/31/18 11/01/18 11/02/18 05:59 05:59 05:59 Intake Total 1750 1968 Output Total 1150 550 Balance 600 1418 PT 13.9 SEC (12.0-15.0) 10/29/18 15:45 INR 1.05 (0.83-1.16) 10/29/18 15:45 - Physical Exam Constitutional: chronically ill appearing Eyes: PERRL Ears, Nose, Mouth, Throat: moist mucous membranes Cardiovascular: tachycardia, No edema Respiratory: expiratory wheeze Gastrointestinal: soft, non-tender abdomen Skin: warm Neurologic: No AAOx3 Psychiatric: encephalopathic ICD10 Worksheet Patient Problems: Problems Problem Status Onset Fever Acute Bone metastasis Acute Compression fracture Acute Dehydration Acute Renal cell carcinoma Acute Weakness Acute Weakness of right lower extremity Acute
[2018-11-01] MEDS: NS 1,000 ML IV SCH (14:48)
[2018-11-01] MEDS: ACETAMINOPHEN 325 MG TAB PO PRN (21:14)
[2018-11-02] MEDS: MEROPENEM 1 GM in NS 100 ML IV SCH ×3 (00:46→14:50)
[2018-11-02 05:54] LABS: PLATELET COUNT 235 10^3/uL (150-400)
[2018-11-02] MEDS: NS 1,000 ML IV SCH (08:28)
[2018-11-02] MEDS: methylPREDNISolone SOD SUCC 40 MG/ML VIAL IVP SCH (08:29)
--- NOTE | 2018-11-02 09:22 | PDINTPN ---
Combat Control Manager Progress Note Assessment/Plan: Assessment/plan: * Metastatic renal cell carcinoma with spinal Mets * Exposed infected hardware -continue antibiotics per Infectious Disease * Acute respiratory failure with tachypnea-etiology which is unclear. Query if this is pain versus something else -follow-up for now * Severe back Pain-intermittently controlled * VTE prophylaxis * Stress ulcer prophylaxis * Mental status-awake and alert. * Pleural effusions stable moderate right and small left pleural effusion * Disposition-would recommend hospice Subjective: Sitting up in chair. Pain reasonably well tolerated. Objective: Vital Signs Temp Pulse Resp BP Pulse Ox 36.4 C 116 H 38 H 135/88 H 96 11/02/18 08:00 11/02/18 08:00 11/02/18 08:00 11/02/18 08:00 11/02/18 08:00 Laboratory Results 11/02/18 03:37 11/02/18 03:37 11/01/18 11/02/18 11/03/18 05:59 05:59 05:59 Intake Total 1968 1640 Output Total 550 Balance 1418 1640 PT 13.9 SEC (12.0-15.0) 10/29/18 15:45 INR 1.05 (0.83-1.16) 10/29/18 15:45 - Time Spent With Patient Time Spent With Patient: 35 min of time spent with patient, over 1/2 involved with coordination of care or counseling. Case discussed with hospitalist Physical Exam - Physical Exam General Appearance: alert, mild distress EENT: PERRL/EOMI Neck: non-tender Respiratory: chest non-tender, rhonchi (Scattered), No wheezing Cardiac/Chest: normal peripheral pulses, regular rate, rhythm Peripheral Pulses: 2+: carotid (R), carotid (L), femoral (R), femoral (L), dorsalis-pedis (R), dorsalis-pedis (L) Abdomen: normal bowel sounds, non-tender, soft Male Genitalia: deferred Rectal: deferred Skin: normal color, warm/dry Extremities: normal range of motion, non-tender, normal inspection, normal capillary refill Neuro/Psych: alert ICD10 Worksheet Patient Problems: Problems Problem Status Onset Fever Acute Bone metastasis Acute Compression fracture Acute Dehydration Acute Renal cell carcinoma Acute Weakness Acute Weakness of right lower extremity Acute
[2018-11-02] MEDS: DAPTOmycin 450 MG in NS 100 ML IV SCH (10:00)
--- NOTE | 2018-11-02 11:56 | SOAPPROG ---
SOAP Progress Note Assessment/Plan: Assessment: SOAP Progress Note Assessment/Plan: Assessment/Plan: 68 yo gentleman w stage IV RCC and hx of T9 cord compression s/p debulking/ thoracic fusion/XRT admitted w fever/AMS and exposed hardware in thoracic spine 1. Fevers/AMS - Recurrent hardware infection with exposed hardware. Not felt to be surgical candidate. Impaired wound healing not an expected side effect from immunotherapy, steroids started empirically after discussion with son on dapto/meropenem 2. Encephalopathy - due to acute illness/fevers ? MRI brain when more stable 3. Resp distress-denies feeling 'dyspneic', but increased RR and high O2 requirements. chest xray yesterday ok. 4. Stage IV RCC - extensive sheela mets most recently on Nivolumab but multiple treatment interruptions due to non healing thoracic wound Patient is appropriately DNR. Endpoint unclear, as the non healing surgical site precludes any additional therapy. Attempted to discuss with patient, but he did not want to discuss. Will need to continue to address palliative issues, may be easier to address with family. Subjective: no complaints, did not really want to talk Objective: Vital Signs Temp Pulse Resp BP Pulse Ox 36.4 C 116 H 38 H 135/88 H 96 11/02/18 08:00 11/02/18 08:00 11/02/18 08:00 11/02/18 08:00 11/02/18 08:00 Laboratory Results 11/02/18 03:37 11/02/18 03:37 11/01/18 11/02/18 11/03/18 05:59 05:59 05:59 Intake Total 1968 1640 120 Output Total 550 Balance 1418 1640 120 PT 13.9 SEC (12.0-15.0) 10/29/18 15:45 INR 1.05 (0.83-1.16) 10/29/18 15:45 Physical Exam - Physical Exam General Appearance: mild distress, other (appears dyspneic, but denies feeling SOB) Respiratory: lungs clear (anteriorly) Cardiac/Chest: other (tachy) Abdomen: soft ICD10 Worksheet Patient Problems: Problems Problem Status Onset Fever Acute Bone metastasis Acute Compression fracture Acute Dehydration Acute Renal cell carcinoma Acute Weakness Acute Weakness of right lower extremity Acute
--- NOTE | 2018-11-02 13:42 | HOSPPROG ---
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 postop fluid collection - After episode of possible bronchospasm, ID changed Vancomycin to Daptomycin on 10/31 - Neurosurgery and General Surgery also following patient due to complicated surgical hx, wound care - Discussed with Neurosurgery, Dr. Abbasi, who reports patient is not surgical candidate and recommends no surgical intervention at this time - F/u Blood cultures- NGTD - Steroids started empirically on 10/31 by oncology due to hx of immunotherapy, they discussed risks of worsening infection with son who agrees #Respiratory Distress - Had episode of tachypnea with wheezing yesterday, believed to be bronchospasm , possible rxn to Vancomycin, was switched to Daptomycin, IV Benadryl ordered PRN - CXR shows stable b/l pleural effusion - Continue breathing tx PRN - Continue to wean 02 as tolerated # Metabolic encephalopathy - Apparently at baseline patient able to communicate and walk - Mental status continues to wax and wane - Will order Brain MRI when patient is more stable to further evaluate, hopefully tomorrow # Chronically infected spinal hardware: with exposed spinal hardware currently - Neurosurgery, General surgery consults as above - Wound care - Abx as above per ID # Weakness/inability to walk: sounds as if weakness has been present for quite some time but per [place] reports has increased significantly and patient no longer able to walk which he apparently had been doing, patient is able to move his legs on exam but bilaterally weak and difficulty following commands, nsg following, pt/ot to evaluate # metastatic RCC: has had surgery, radiation in the past, most recently on Nivolumab but multiple treatment interruptions due to non healing thoracic wound. Oncology consulted, they recommend re-staging scans if/when stable #Goals of Care - Patient had episode of tachycardia with tachypnea this morning - Discussed with patient at time of transfer to ICU, who decided to change code status to DNR/DNI - Will consult palliative care to evaluate patient - Will continue discussion of goals of care given patient's complex medical history and current critical medical condition Dispo: Pending clinical course Subjective: Patient reports some drowsiness this morning Objective: Vital Signs Temp Pulse Resp BP Pulse Ox 36.6 C 123 H 36 H 144/101 H 93 11/02/18 12:00 11/02/18 12:00 11/02/18 12:00 11/02/18 12:00 11/02/18 12:00 Laboratory Results 11/02/18 03:37 11/02/18 03:37 11/01/18 11/02/18 11/03/18 05:59 05:59 05:59 Intake Total 1968 1640 370 Output Total 550 Balance 1418 1640 370 PT 13.9 SEC (12.0-15.0) 10/29/18 15:45 INR 1.05 (0.83-1.16) 10/29/18 15:45 - Physical Exam Constitutional: chronically ill appearing Eyes: PERRL Ears, Nose, Mouth, Throat: moist mucous membranes Cardiovascular: tachycardia Respiratory: expiratory wheeze Gastrointestinal: soft, non-tender abdomen Skin: warm Musculoskeletal: generalized weakness Neurologic: No AAOx3 ICD10 Worksheet Patient Problems: Problems Problem Status Onset Fever Acute Bone metastasis Acute Compression fracture Acute Dehydration Acute Renal cell carcinoma Acute Weakness Acute Weakness of right lower extremity Acute
[2018-11-02] MEDS: ACETAMINOPHEN 325 MG TAB PO PRN ×2 (14:50→21:43)
[2018-11-03] MEDS: MEROPENEM 1 GM in NS 100 ML IV SCH ×4 (00:45→23:28)
[2018-11-03 05:47] LABS: PLATELET COUNT 204 10^3/uL (150-400)
[2018-11-03] MEDS: methylPREDNISolone SOD SUCC 40 MG/ML VIAL IVP SCH (08:53)
[2018-11-03] MEDS: DAPTOmycin 450 MG in NS 100 ML IV SCH (10:11)
[2018-11-03] MEDS: ENOXAPARIN 40 MG/0.4 ML SYR SC SCH (10:29)
--- NOTE | 2018-11-03 12:02 | PCMIDPN ---
Assessment/Plan: Assessment/Plan: * Postoperative back infection: Continues with exposed hardware with surgical options not felt to be feasible at this point in time. Unclear if deeper seated process as gas could be present on CT scan associated with chronic open wound. Will continue daptomycin and meropenem in interim. Check CPK on daptomycin therapy. Agree that palliative assessment appropriate in the setting of ongoing hardware exposure and metastatic cancer. * Fever: Blood cultures remain negative. See above discussion. Other consideration is related to prior immunotherapy for metastatic renal cell cancer or from tumor fever as well. Temperature has normalized which appears to be concordant with initiation of corticosteroids. * Altered mental status: Patient more interactive with me today. Broad differential diagnosis including infectious and non infectious etiologies. Agree with plans for MRI if stabilizes. Doubt meropenem contributing as this was present at time of presentation. 11/03/18 11:59 11/03/18 12:04 11/03/18 12:05 Subjective: Patient with persistent confusion which is waxing and waning. Vancomycin change to daptomycin over the weekend for concerns about bronchospasm associated with vancomycin use. Objective: Vital Signs Temp Pulse Resp BP Pulse Ox 36.5 C 125 H 27 H 142/95 H 99 11/03/18 11:48 11/03/18 11:48 11/03/18 11:48 11/03/18 11:48 11/03/18 11:48 Laboratory Results 11/03/18 05:30 11/03/18 05:30 11/02/18 11/03/18 11/04/18 05:59 05:59 05:59 Intake Total 1640 3060 Output Total 1 Balance 1640 3060 -1 Daptomycin # 3 Meropenem # 5 Blood cultures 10/29/2018 no growth - Physical Exam General Appearance: other (Intermittently confused but able to answer some questions and follow commands) EENT: dry mucous membranes, No scleral icterus, No conjunctival petechiae Respiratory: respiratory distress (Increased respiratory effort present) Cardiac/Chest: tachycardia Abdomen: non-tender, No distended Back: other (No change in areas of exposed hardware without surrounding erythema ; 3rd area with palpable hardware but skin remains intact) Skin: No rash - Time Spent With Patient Time Spent with Patient: greater than 35 minutes Time Spent with Patient: Greater than 35 minutes spent on this patients care, greater than 50% of time spent counseling, educating, and coordinating care regarding the above mentioned plan. ICD10 Worksheet Patient Problems: Problems Problem Status Onset Fever Acute Bone metastasis Acute Compression fracture Acute Dehydration Acute Renal cell carcinoma Acute Weakness Acute Weakness of right lower extremity Acute
[2018-11-03] MEDS ORDERED: IPRATROPIUM/ALBUTEROL 3 ML DEYVIAL IH PRN (12:41)
--- NOTE | 2018-11-03 12:41 | HOSPPROG ---
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 postop fluid collection - After episode of possible bronchospasm, ID changed Vancomycin to Daptomycin on 10/31 - Neurosurgery and General Surgery also following patient due to complicated surgical hx, wound care - Discussed with Neurosurgery, Dr. Abbasi, who reports patient is not surgical candidate and recommends no surgical intervention at this time - F/u Blood cultures- NGTD - Steroids started empirically on 10/31 by oncology due to hx of immunotherapy, they discussed risks of worsening infection with son who agrees #Respiratory Distress - Had episode of tachypnea with wheezing yesterday, believed to be bronchospasm , possible rxn to Vancomycin, was switched to Daptomycin, IV Benadryl ordered PRN - CXR shows stable b/l pleural effusion - Continue breathing tx PRN - Continue to wean 02 as tolerated # Metabolic encephalopathy - Apparently at baseline patient able to communicate and walk - Mental status continues to wax and wane - Will order Brain MRI when patient is more stable to further evaluate, hopefully tomorrow # Chronically infected spinal hardware: with exposed spinal hardware currently - Neurosurgery, General surgery consults as above - Wound care - Abx as above per ID # Weakness/inability to walk: sounds as if weakness has been present for quite some time but per [place] reports has increased significantly and patient no longer able to walk which he apparently had been doing, patient is able to move his legs on exam but bilaterally weak and difficulty following commands, nsg following, pt/ot to evaluate # metastatic RCC: has had surgery, radiation in the past, most recently on Nivolumab but multiple treatment interruptions due to non healing thoracic wound. Oncology consulted, they recommend re-staging scans if/when stable #Goals of Care - Patient had episode of tachycardia with tachypnea this morning - Discussed with patient at time of transfer to ICU, who decided to change code status to DNR/DNI - Will consult palliative care to evaluate patient - Will continue discussion of goals of care given patient's complex medical history and current critical medical condition Dispo: Pending clinical course Subjective: Patient complaining of dizziness this morning Objective: Vital Signs Temp Pulse Resp BP Pulse Ox 36.5 C 125 H 27 H 142/95 H 99 11/03/18 11:48 11/03/18 11:48 11/03/18 11:48 11/03/18 11:48 11/03/18 11:48 Laboratory Results 11/03/18 05:30 11/03/18 05:30 11/02/18 11/03/18 11/04/18 05:59 05:59 05:59 Intake Total 1640 3060 Output Total 1 Balance 1640 3060 -1 PT 13.9 SEC (12.0-15.0) 10/29/18 15:45 INR 1.05 (0.83-1.16) 10/29/18 15:45 - Physical Exam Constitutional: chronically ill appearing, uncomfortable Eyes: PERRL Ears, Nose, Mouth, Throat: moist mucous membranes Cardiovascular: tachycardia Respiratory: reduced air movement Gastrointestinal: soft, non-tender abdomen Skin: warm Musculoskeletal: pain with ROM Neurologic: No AAOx3 ICD10 Worksheet Patient Problems: Problems Problem Status Onset Fever Acute Bone metastasis Acute Compression fracture Acute Dehydration Acute Renal cell carcinoma Acute Weakness Acute Weakness of right lower extremity Acute
[2018-11-03 14:26] LABS: CREATINE KINASE 297 IU/L (0-224)
--- NOTE | 2018-11-03 16:56 | ASMTCMCOM ---
CM Note CM Note Notes: visiting patient. She is unsure when the son might be coming to [place]. Palliative mtg w/patient, , Fausto and EVA. Patient and wanted to learn more about dx and px. Dr. Awad asked to meet with couple. Date Signed: 11/03/2018 04:55 PM Electronically Signed By:Nadia Kumari LCSW
[2018-11-03] MEDS: NS 1,000 ML IV SCH (21:12)
[2018-11-04 05:55] LABS: PLATELET COUNT 186 10^3/uL (150-400)
[2018-11-04] MEDS: NS 1,000 ML IV SCH (05:58)
[2018-11-04] MEDS: MEROPENEM 1 GM in NS 100 ML IV SCH ×2 (05:58→15:08)
[2018-11-04] MEDS: methylPREDNISolone SOD SUCC 40 MG/ML VIAL IVP SCH (08:19)
[2018-11-04] MEDS: DAPTOmycin 450 MG in NS 100 ML IV SCH (08:19)
[2018-11-04] MEDS: ENOXAPARIN 40 MG/0.4 ML SYR SC SCH (08:19)
--- NOTE | 2018-11-04 13:23 | PDINTPN ---
Transfer Professor Progress Note Assessment/Plan: ASSESSMENT 68-year-old male with recurrent metastatic renal cell carcinoma a chronically infected spinal hardware eroding through back admitted with encephalopathy in fevers. # infected spinal hardware # respiratory distress # metabolic encephalopathy next # anorexia # insomnia # protein calorie malnutrition # recurrent metastatic renal cell carcinoma-history of surgery, XRT and immunotherapy. PLAN # initiate mirtazapine 15 mg p.o. At bedtime for insomnia, anorexia and protein calorie malnutrition # dietary supplements # continue antibiotics # continue PT OT next # appreciate palliative care input regarding goals of care, hospice, # DNR/I Subjective: Difficulty sleeping overnight. Still with poor appetite. Denies new chest pain headaches, leg swelling, nausea vomiting. Objective: Vital Signs Temp Pulse Resp BP Pulse Ox 36.9 C 111 H 43 H 152/90 H 100 11/04/18 12:00 11/04/18 12:00 11/04/18 12:00 11/04/18 12:00 11/04/18 12:00 Laboratory Results 11/04/18 05:32 11/04/18 05:32 11/03/18 11/04/18 11/05/18 05:59 05:59 05:59 Intake Total 3060 1983 Output Total 351 Balance 3060 1632 PT 13.9 SEC (12.0-15.0) 10/29/18 15:45 INR 1.05 (0.83-1.16) 10/29/18 15:45 Physical Exam - Physical Exam General Appearance: no apparent distress, thin EENT: PERRL/EOMI Neck: non-tender Extremities: other (Exposed spinal hardware, no purulent material. ) Neuro/Psych: other (Depressed affect,) ICD10 Worksheet Patient Problems: Problems Problem Status Onset Fever Acute Bone metastasis Acute Compression fracture Acute Dehydration Acute Renal cell carcinoma Acute Weakness Acute Weakness of right lower extremity Acute
--- NOTE | 2018-11-04 16:16 | HOSPPROG ---
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 postop fluid collection After episode of possible bronchospasm, ID changed Vancomycin to Daptomycin on 10/31 Neurosurgery and General Surgery also following patient due to complicated surgical hx, wound care Discussed with Neurosurgery, Dr. Abbasi, who reports patient is not surgical candidate and recommends no surgical intervention at this time F/u Blood cultures- NGTD Steroids started empirically on 10/31 by oncology due to hx of immunotherapy , they discussed risks of worsening infection with son who agrees Respiratory Distress Had episode of tachypnea with wheezing yesterday, believed to be bronchospasm , possible rxn to Vancomycin, was switched to Daptomycin, IV Benadryl ordered PRN CXR shows stable b/l pleural effusion Continue breathing tx PRN Continue to wean 02 as tolerated Metabolic encephalopathy Apparently at baseline patient able to communicate and walk Mental status continues to wax and wane head CT w contrast Chronically infected spinal hardware: with exposed spinal hardware currently Neurosurgery, General surgery consults as above Wound care Abx as above per ID code: dnr Subjective: case d/w king ferro. case d/w son Objective: Vital Signs Temp Pulse Resp BP Pulse Ox 36.9 C 111 H 43 H 152/90 H 100 11/04/18 12:00 11/04/18 12:00 11/04/18 12:00 11/04/18 12:00 11/04/18 12:00 Laboratory Results 11/04/18 05:32 11/04/18 05:32 11/03/18 11/04/18 11/05/18 05:59 05:59 05:59 Intake Total 3060 1983 Output Total 351 Balance 3060 1632 PT 13.9 SEC (12.0-15.0) 10/29/18 15:45 INR 1.05 (0.83-1.16) 10/29/18 15:45 - Physical Exam Constitutional: no apparent distress, chronically ill appearing Eyes: PERRL, anicteric sclera Ears, Nose, Mouth, Throat: moist mucous membranes, hearing normal Cardiovascular: regular rate and rhythym, no murmur, rub, or gallop Respiratory: no respiratory distress, no rales or rhonchi Gastrointestinal: normoactive bowel sounds, soft, non-tender abdomen Genitourinary: agosto in urethra Skin: warm, normal color Musculoskeletal: no muscle tenderness, No full muscle strength Neurologic: AAOx3, sensation intact bilaterally Psychiatric: interacting appropriately, not anxious ICD10 Worksheet Patient Problems: Problems Problem Status Onset Fever Acute Bone metastasis Acute Compression fracture Acute Dehydration Acute Renal cell carcinoma Acute Weakness Acute Weakness of right lower extremity Acute
--- NOTE | 2018-11-04 16:33 | PCMIDPN ---
Assessment/Plan: Assessment/Plan: * Postoperative back infection: Continues with exposed hardware with surgical options not felt to be feasible at this point in time. Unclear if deeper seated process as gas could be present on CT scan associated with chronic open wound. Will get continue daptomycin based on previous isolation of Corynebacterium striatum. Check CPK on daptomycin therapy. Will discontinue meropenem since no gram-negative rods have been isolated and could potentially contribute to encephalopathy. * Fever: Blood cultures are no growth. Non infectious etiologies also of consideration. * Altered mental status: Unclear if this is toxic metabolic related to underlying infection or medication; also potentially associated with metastatic renal cell cancer. Agree with plans for CT scan with IV contrast given tachypnea may make lying flat for MRI difficult. * Elevated LFTs: New onset elevated LFTs including alkaline phosphatase. Will repeat in a.m.. May need ultrasound to further define if continued increase. 11/04/18 16:26 11/04/18 16:34 11/04/18 16:35 Subjective: Patient somnolent but arousable. Objective: Vital Signs Temp Pulse Resp BP Pulse Ox 36.6 C 108 H 21 H 135/86 H 100 11/04/18 16:12 11/04/18 16:12 11/04/18 16:12 11/04/18 16:12 11/04/18 16:12 Laboratory Results 11/04/18 05:32 11/04/18 05:32 11/03/18 11/04/18 11/05/18 05:59 05:59 05:59 Intake Total 3060 1983 Output Total 351 Balance 3060 1632 Daptomycin #4 Meropenem #6 Blood cultures x2 no growth Laboratory Tests 11/04/18 05:32 Total Bilirubin 0.8 AST 162 H ALT 239 H Alkaline Phosphatase 479 H - Physical Exam General Appearance: other (Somnolent but arousable) EENT: No scleral icterus, No conjunctival petechiae Respiratory: lungs clear, No respiratory distress Neck: non-tender Cardiac/Chest: tachycardia Extremities: No inflammation Abdomen: non-tender, No distended ICD10 Worksheet Patient Problems: Problems Problem Status Onset Fever Acute Bone metastasis Acute Compression fracture Acute Dehydration Acute Renal cell carcinoma Acute Weakness Acute Weakness of right lower extremity Acute
[2018-11-04] MEDS ORDERED: IOPAMIDOL (ISOVUE-300) 100 ML BTL ONE (16:34)
[2018-11-04 17:12] LABS: CREATINE KINASE 190 IU/L (0-224)
[2018-11-04] MEDS: MIRTAZAPINE 15 MG TAB PO SCH (19:32)
[2018-11-05] MEDS: NS 1,000 ML IV SCH ×2 (00:10→08:00)
[2018-11-05] MEDS: ENOXAPARIN 40 MG/0.4 ML SYR SC SCH (08:00)
[2018-11-05] MEDS: methylPREDNISolone SOD SUCC 40 MG/ML VIAL IVP SCH (08:00)
[2018-11-05] MEDS: DAPTOmycin 450 MG in NS 100 ML IV SCH (08:55)
[2018-11-05] MEDS ORDERED: FUROSEMIDE 40 MG/4 ML VIAL IVP ONE (10:35)
--- NOTE | 2018-11-05 10:35 | PCMIDPN ---
Assessment/Plan: Assessment/Plan: * Postoperative back infection: Unclear how much current process is driven by postoperative back infection versus other metabolic etiology. Will continue daptomycin which will provide activity against Corynebacterium striatum which was previously isolated as well as other gram-positive lizzie. Doubt vancomycin was etiology for respiratory symptomatology given that this has persisted in the absence of ongoing vancomycin exposure. CPK stable on daptomycin. * Fever: Blood cultures are no growth. No further fever but has been on corticosteroids which potentially could suppress additional fever. Suspect steroids can be tapered at this point in time as they have not appear to have meaningful impact on confusion. * Altered mental status: Unclear if this is toxic metabolic related to underlying infection or medication; CT with IV contrast does not show any evidence of metastatic disease or leptomeningeal enhancement. Meropenem discontinued yesterday as this can contribute to encephalopathy. * Elevated LFTs: Persistently elevated LFTs including alkaline phosphatase. Will obtain right upper quadrant ultrasound to assess for any evidence of obstruction. Time spent, greater than 35 min, which greater than half was spent in coordination of care related to postoperative back infection, altered mental status, and increased LFTs. Plan of care reviewed with nursing staff. 11/05/18 10:28 11/05/18 11:07 Subjective: Patient remains confused. Thinks he is at home this morning. Able to state it is 2018. Complains of"his infection". Objective: Vital Signs Temp Pulse Resp BP Pulse Ox 36.3 C 107 H 23 H 130/103 H 100 11/05/18 07:33 11/05/18 07:33 11/05/18 07:33 11/05/18 07:33 11/05/18 07:33 Laboratory Results 11/04/18 05:32 11/05/18 06:00 11/04/18 11/05/18 11/06/18 05:59 05:59 05:59 Intake Total 1983 2539 Output Total 351 1050 Balance 1632 1489 Daptomycin #4 Antibiotics # 6 Blood cultures 10/29/2018 no growth Chest x-ray with bilateral pleural effusions Head CT with and without IV contrast without evidence of metastatic disease or leptomeningeal enhancement - Physical Exam General Appearance: apparent distress (Increased respiratory effort present), non-toxic EENT: dry mucous membranes, No scleral icterus Respiratory: respiratory distress (Increased respiratory effort noted) Cardiac/Chest: tachycardia, systolic murmur (2/6 left and right upper sternal border) Extremities: No inflammation Abdomen: non-tender Skin: No embolic lesions Neuro/Psych: confused, other (Oriented x 2018) - Line/s RUE PICC Lines: No drainage, No erythema ICD10 Worksheet Patient Problems: Problems Problem Status Onset Fever Acute Bone metastasis Acute Compression fracture Acute Dehydration Acute Renal cell carcinoma Acute Weakness Acute Weakness of right lower extremity Acute
[2018-11-05] MEDS ORDERED: methylPREDNISolone SOD SUCC 40 MG/ML VIAL IVP SCH (10:41)
--- NOTE | 2018-11-05 10:53 | HOSPPROG ---
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 Concentrated Urine noted -Hold IVF Volume Overload -Diuresis per above -TTE if continues to be an issue Metabolic Encephalopathy -worse today -CT Head with no acute findings -Etiology is unclear -At baseline he is able to communicate and walk. He is alert and oriented to 1 this morning -Decrease Steroids which may be contributing to the Encephalopathy Fever: Tmax 39.1 on admission, afebrile since In the setting of exposed hardware (previously growing corynebacterium) and worsening mental status ID consulted, added Meropenum on 10/30, CT Thoracic spine to evaluate for infection/abscess which showed gas around metallic cage at T9 as well as thickening which could represent abscess vs. postop fluid collection After episode of possible bronchospasm, ID changed Vancomycin to Daptomycin on 10/31 Neurosurgery and General Surgery also following patient due to complicated surgical hx, wound care Discussed with Neurosurgery, Dr. Abbasi, who reports patient is not surgical candidate and recommends no surgical intervention at this time F/u Blood cultures- NGTD Steroids started empirically on 10/31 by oncology due to hx of immunotherapy , they discussed risks of worsening infection with son who agrees Chronically infected spinal hardware: with exposed spinal hardware currently Neurosurgery, General surgery consults as above Wound care Abx as above per ID Abdominal Distention: -?Fluid -KUB ordered/pending Transaminitis: -Actually improved this morning -Abd US ordered/pending -Will check Ammonia, although doubt elevation Goals of Care: will discuss further with Palliative care as well as with the Family today code: DNR DVT Proph: Lovenox Total Critical Care time is 35 minutes in this patient with Acute Respiratory Failure with active increased work of breathing Subjective: Alert to name only. Unable to hold a conversation. Increased work of breathing noted. Objective: Vital Signs Temp Pulse Resp BP Pulse Ox 36.3 C 107 H 23 H 130/103 H 100 11/05/18 07:33 11/05/18 07:33 11/05/18 07:33 11/05/18 07:33 11/05/18 07:33 Laboratory Results 11/04/18 05:32 11/05/18 06:00 11/04/18 11/05/18 11/06/18 05:59 05:59 05:59 Intake Total 1983 2539 Output Total 351 1050 Balance 1632 1489 PT 13.9 SEC (12.0-15.0) 10/29/18 15:45 INR 1.05 (0.83-1.16) 10/29/18 15:45 - Physical Exam Constitutional: chronically ill appearing Eyes: PERRL Ears, Nose, Mouth, Throat: moist mucous membranes Cardiovascular: regular rate and rhythym Respiratory: reduced air movement, respiratory distress Gastrointestinal: normoactive bowel sounds, distension Skin: warm Neurologic: No AAOx3 Psychiatric: encephalopathic, No interacting appropriately Lymph, Heme, Immunologic: No petechiae ICD10 Worksheet Patient Problems: Problems Problem Status Onset Fever Acute Bone metastasis Acute Compression fracture Acute Dehydration Acute Renal cell carcinoma Acute Weakness Acute Weakness of right lower extremity Acute
[2018-11-05] MEDS ORDERED: METOPROLOL TARTRATE 5 MG/5 ML INJ IVP ONE (11:45)
[2018-11-05] MEDS ORDERED: FUROSEMIDE 20 MG/2 ML VIAL IVP ONE (14:45)
--- NOTE | 2018-11-05 16:15 | PDINTPN ---
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 # pulmonary edema # infected spinal hardware # respiratory distress # metabolic encephalopathy next # anorexia # insomnia # protein calorie malnutrition # recurrent metastatic renal cell carcinoma-history of surgery, XRT and immunotherapy. PLAN # initiate Lasix to help with pulmonary edema and dyspnea # stop steroids # stop continuous IV fluids # initiate mirtazapine 15 mg p.o. At bedtime for insomnia, anorexia and protein calorie malnutrition # dietary supplements # continue antibiotics # continue PT OT next # appreciate palliative care input regarding goals of care, hospice, # DNR/I Imaging 11/05/2018 chest x-ray with interval worsening of pulmonary edema and small pleural effusion 11/05/18 16:13 Subjective: Patient with increasing dyspnea and pedal edema overnight. Ongoing discussions with family and palliative care. Patient complains of increasing shortness of breath, leg swelling. Denies chest pain nausea vomiting fevers or chills or worsening back pain Objective: Vital Signs Temp Pulse Resp BP Pulse Ox 36.8 C 103 H 22 H 135/92 H 100 11/05/18 15:41 11/05/18 15:41 11/05/18 15:41 11/05/18 15:41 11/05/18 15:41 Laboratory Results 11/04/18 05:32 11/05/18 06:00 11/04/18 11/05/18 11/06/18 05:59 05:59 05:59 Intake Total 1983 2539 300 Output Total 351 1050 2975 Balance 1632 1489 -2675 PT 13.9 SEC (12.0-15.0) 10/29/18 15:45 INR 1.05 (0.83-1.16) 10/29/18 15:45 ICD10 Worksheet Patient Problems: Problems Problem Status Onset Fever Acute Bone metastasis Acute Compression fracture Acute Dehydration Acute Renal cell carcinoma Acute Weakness Acute Weakness of right lower extremity Acute
--- NOTE | 2018-11-05 16:38 | CPEKG ---
Test Reason : OPEN Blood Pressure : / mmHG Vent. Rate : 102 BPM Atrial Rate : 103 BPM P-R Int : 140 ms QRS Dur : 090 ms QT Int : 370 ms P-R-T Axes : 075 -05 116 degrees QTc Int : 483 ms Sinus tachycardia Nonspecific T abnormalities, lateral leads Borderline prolonged QT interval Confirmed by Byron White ([id number]) on 11/05/2018 4:38:30 PM Referred By: Confirmed By:Byron White
[2018-11-05] MEDS: MIRTAZAPINE 15 MG TAB PO SCH (20:58)
[2018-11-06 03:45] LABS: PLATELET COUNT 176 10^3/uL (150-400)
[2018-11-06] MEDS ORDERED: POTASSIUM CL 20 MEQ TAB PO ONE (10:13)
--- NOTE | 2018-11-06 10:17 | PCMIDPN ---
Assessment/Plan: Assessment/Plan: * Postoperative back infection: Will continue daptomycin with plans to transition back to oral suppressive antibiotic therapy over next 24-48 hours. Favor transition to doxycycline orally twice daily recognizing original Corynebacterium isolate was not susceptible in event any of his current presentation related to toxicity from tedizolid. Discussed with patient's son today that infection is not curable given presence of exposed back hardware without viable surgical options for coverage. * Fever: Resolved. Blood cultures are no growth. Unclear if related to infectious etiology versus possibility of drug related effect from either tedizolid or cancer therapy. * Altered mental status: Significantly improved today. Likely this was toxic metabolic etiology. * Elevated LFTs: Ultrasound findings noted. May be primarily related to low protein state rather than acalculous cholecystitis although this is a consideration. Will continue to follow LFTs over time as abdominal exam remains unremarkable. * Loose stool: Present previously as outpatient. Would continue to monitor with assessment for C difficile if becomes alina diarrhea. Time spent, greater than 35 min, which greater than half was spent in coordination of care related to postoperative back infection, altered mental status, and increased LFTs. Plan of care reviewed with nursing staff. 11/06/18 10:13 11/06/18 10:18 Subjective: Patient notes breathing more comfortable. Less confused today. Objective: Vital Signs Temp Pulse Resp BP Pulse Ox 36.7 C 88 17 120/67 3 L 11/06/18 07:38 11/06/18 07:38 11/06/18 07:38 11/06/18 07:38 11/06/18 07:38 Laboratory Results 11/06/18 03:30 11/06/18 03:30 11/05/18 11/06/18 11/07/18 05:59 05:59 05:59 Intake Total 2539 950 500 Output Total 1050 5025 Balance 1489 -4075 500 Daptomycin # 5 Blood cultures x2 no growth - Physical Exam General Appearance: alert, no apparent distress (Mild increase in respiratory effort), non-toxic EENT: dry mucous membranes, No scleral icterus, No thrush Respiratory: lungs clear (Anteriorly), respiratory distress (Increased respiratory effort present) Cardiac/Chest: regular rate, rhythm Abdomen: non-tender, No distended Neuro/Psych: other (Cognitive function markedly improved) - Line/s RUE PICC Lines: No drainage, No erythema ICD10 Worksheet Patient Problems: Problems Problem Status Onset Fever Acute Bone metastasis Acute Compression fracture Acute Dehydration Acute Renal cell carcinoma Acute Weakness Acute Weakness of right lower extremity Acute
[2018-11-06] MEDS: ENOXAPARIN 40 MG/0.4 ML SYR SC SCH (10:52)
[2018-11-06] MEDS: FUROSEMIDE 40 MG/4 ML VIAL IVP SCH ×2 (10:52→17:26)
[2018-11-06] MEDS: POTASSIUM Cl (KCl) 100 ML IV SCH (10:52)
[2018-11-06] MEDS: DAPTOmycin 450 MG in NS 100 ML IV SCH (11:32)
--- NOTE | 2018-11-06 12:37 | HOSPPROG ---
Hospitalist Progress Note Assessment/Plan: 68 yo M with hx of metastatic RCC with chronically infected spinal hardware presenting with AMS, fever, inability to walk, exposed spinal hardware Acute Respiratory Failure: -resolving with diuresis -Will scheduled Lasix -CXR still c/w pleural Effusions. He has required Thoracentesis in the past Volume Overload -Diuresis per above Metabolic Encephalopathy -Etiology unclear -Improving -CT Head with no acute findings -At baseline he is able to communicate and walk. He is alert and oriented to 1 this morning -Stop Steroids Fever: Tmax 39.1 on admission, afebrile since In the setting of exposed hardware (previously growing corynebacterium) and worsening mental status ID consulted, added Meropenum on 10/30, CT Thoracic spine to evaluate for infection/abscess which showed gas around metallic cage at T9 as well as thickening which could represent abscess vs. postop fluid collection After episode of possible bronchospasm, ID changed Vancomycin to Daptomycin on 10/31 Neurosurgery and General Surgery also following patient due to complicated surgical hx, wound care Discussed with Neurosurgery, Dr. Abbasi, who reports patient is not surgical candidate and recommends no surgical intervention at this time F/u Blood cultures- NGTD Chronically infected spinal hardware: with exposed spinal hardware currently, Back Wound Neurosurgery: the pt is not a candidate for surgery Wound care Abx as above per ID Abdominal Distention: -Likely secondary to volume overload -better today -No ileus Non C-Diff Diarrhea -Loperamide PRN Transaminitis: -resolved PCMN Goals of Care: will discuss further with Palliative care as well as with the Family today code: DNR DVT Proph: Lovenox Plan: Acute issues appears to be improving. Cont diuretics. cont abx, ID will likely change to Doxy soon Met with the pt and his family again today. Palliative care had an extensive meeting and a hospice consult has been agreed upon Subjective: no cp. work of breathing is better. no abd pain Objective: Vital Signs Temp Pulse Resp BP Pulse Ox 36.7 C 90 18 110/72 100 11/06/18 07:38 11/06/18 11:49 11/06/18 11:49 11/06/18 11:49 11/06/18 11:49 Laboratory Results 11/06/18 03:30 11/06/18 03:30 11/05/18 11/06/18 11/07/18 05:59 05:59 05:59 Intake Total 8859 950 500 Output Total 1050 5025 Balance 1489 -4077 500 PT 13.9 SEC (12.0-15.0) 10/29/18 15:45 INR 1.05 (0.83-1.16) 10/29/18 15:45 - Time Spent With Patient Time Spent with Patient: greater than 35 minutes Time Spent with Patient: Greater than 35 minutes spent on this patients care, greater than 50% of time spent counseling, educating, and coordinating care regarding the above mentioned plan. - Physical Exam Constitutional: chronically ill appearing Eyes: PERRL Ears, Nose, Mouth, Throat: moist mucous membranes, hearing normal Cardiovascular: regular rate and rhythym, edema (trace) Respiratory: reduced air movement Gastrointestinal: normoactive bowel sounds, soft, non-tender abdomen Skin: warm Musculoskeletal: generalized weakness Neurologic: No AAOx3 Psychiatric: interacting appropriately, not anxious, not encephalopathic Lymph, Heme, Immunologic: No petechiae ICD10 Worksheet Patient Problems: Problems Problem Status Onset Fever Acute Bone metastasis Acute Compression fracture Acute Dehydration Acute Renal cell carcinoma Acute Weakness Acute Weakness of right lower extremity Acute
--- NOTE | 2018-11-06 13:43 | PDINTPN ---
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 # pulmonary edema # infected spinal hardware # respiratory distress # metabolic encephalopathy next # anorexia # insomnia # protein calorie malnutrition, moderate # anorexia -improved with mirtazapine started 11/05/18 # recurrent metastatic renal cell carcinoma-history of surgery, XRT and immunotherapy. # hypokalemia # diarrhea antibiotic related, C diff negative on 11/06/2018 PLAN # continue scheduled Lasix # aggressively replete electrolytes in the setting of diuresis # steroids stopped 11/05/18 # stop continuous IV fluids # initiate mirtazapine 15 mg p.o. At bedtime for insomnia, anorexia and protein calorie malnutrition # dietary supplements # continue antibiotics as per ID # continue PT OT # appreciate palliative care input regarding goals of care, hospice, # DNR/I Imaging I personally reviewed interpreted patient's radiographic images was formal radiologist reads 11/06/2018 chest x-ray with mild improvement in bilateral pulmonary edema and effusions 11/05/2018 chest x-ray with interval worsening of pulmonary edema and small pleural effusion 11/05/18 16:13 11/06/18 13:40 Subjective: Patient's increasing dyspnea respiratory distress yesterday. Chest x-ray with interval worsening of small bilateral effusions now moderate and bilateral interstitial edema with vascular congestion. Patient's breathing significant improved with Lasix and associated net negative fluid balance (4 L). Patient feels better this morning still dyspneic but less so, increased appetite with mirtazapine, still with poor sleep but improved, no chest pain, no worsening leg swelling Objective: Vital Signs Temp Pulse Resp BP Pulse Ox 36.7 C 90 18 110/72 100 11/06/18 07:38 11/06/18 11:49 11/06/18 11:49 11/06/18 11:49 11/06/18 11:49 Laboratory Results 11/06/18 03:30 11/06/18 03:30 11/05/18 11/06/18 11/07/18 05:59 05:59 05:59 Intake Total 2539 950 500 Output Total 1050 5025 Balance 1489 -4075 500 PT 13.9 SEC (12.0-15.0) 10/29/18 15:45 INR 1.05 (0.83-1.16) 10/29/18 15:45 Physical Exam - Physical Exam General Appearance: no apparent distress, cachetic, thin EENT: PERRL/EOMI, normal ENT inspection Neck: non-tender, normal inspection Respiratory: other (Decreased breath sounds bilateral bases, intermittent rales in bases, mild distress) Abdomen: normal bowel sounds, non-tender, soft Back: Other (Exposed spinal hardware, bandage clean dry and intact) Skin: normal color, warm/dry Extremities: non-tender, pedal edema Neuro/Psych: no motor/sensory deficits, alert, oriented x 3, depressed affect ICD10 Worksheet Patient Problems: Problems Problem Status Onset Fever Acute Bone metastasis Acute Compression fracture Acute Dehydration Acute Renal cell carcinoma Acute Weakness Acute Weakness of right lower extremity Acute
[2018-11-06] MEDS: METOPROLOL TARTRATE 25 MG TAB PO SCH ×2 (14:38→20:31)
[2018-11-06] MEDS: LOPERAMIDE HCL 2 MG CAP PO PRN ×2 (14:41→17:34)
--- NOTE | 2018-11-06 15:20 | ASMTCMCOM ---
EVA Note CM Note Notes: Palliative consult this morning with patient, his son, Kahlil, his , Fausto, palliative care and EVA Martinez, psychosocial rehabilitation counselor.The family has decided to pursue Palliative care vs. comfort measures, hospice. Spoke with Cynthia with [facility] and she states patient is on co pay days currently and has 43 more days left. The co pay will increase in December. 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 Referral was sent to [facility] and a meeting will be set up for the morning. [facility] will contact Kahlil directly to set up the time. Spoke with Kahlil to go over all the financial questions he had and also to let him know he would receive a call from [facility] today. Referral was made to [facility] [employer]. CM will follow. Date Signed: 11/06/2018 03:19 PM Electronically Signed By:Michelle Alston LCSW
[2018-11-06] MEDS: MELATONIN 3 MG TAB PO PRN (20:30)
[2018-11-06] MEDS: ACETAMINOPHEN 325 MG TAB PO PRN (20:31)
[2018-11-06] MEDS: MIRTAZAPINE 15 MG TAB PO SCH (20:31)
[2018-11-07] MEDS ORDERED: POTASSIUM CL 20 MEQ TAB PO ONE (08:21)
--- NOTE | 2018-11-07 08:55 | PCMIDPN ---
Assessment/Plan: # Postoperative back infection with past cultures showing Corynebacterium, ongoing exposed hardware . Repeat surgery for coverage not feasible. --Will continue daptomycin with plans to transition to doxycycline in the next day or 2 # Fever: Resolved. Blood cultures are neg. Drug fever (tedizolid or cancer therapy) vs infectious etiology # Altered mental status: Resolved by report. # Elevated LFTs: Repeat LFTs today pending # Loose stool: 11/06 Cdiff neg Meds daptomycin 450g IV daily, # 6 Microbiology 10/29 blood cultures (2): Negative Subjective: Pain controlled. No abdominal pain. Diarrhea improved Objective: Vital Signs Temp Pulse Resp BP Pulse Ox 36.5 C 81 14 120/82 H 100 11/07/18 08:00 11/07/18 08:00 11/07/18 08:00 11/07/18 08:00 11/07/18 08:00 Laboratory Results 11/06/18 03:30 11/07/18 04:45 11/06/18 11/07/18 11/08/18 05:59 05:59 05:59 Intake Total 950 1800 Output Total 5025 4225 Balance -4070 -3379 - Physical Exam General Appearance: alert, thin, other (Chronic ill appearance) Respiratory: lungs clear, No accessory muscle use Neck: supple Cardiac/Chest: regular rate, rhythm Extremities: other (Muscular wasting), No pedal edema Abdomen: non-tender, soft Back: other (Open wound in back with obvious metal protruding in Wound, no purulence or erythema noted) Skin: other (Scattered ecchymosis), No rash Neuro/Psych: alert, oriented x 3, depressed affect - Line/s RUE PICC Lines: No drainage, No erythema - Time Spent With Patient Time Spent with Patient: greater than 25 minutes (Reviewed plan of care with patient and his son at bedside) Time Spent with Patient: Greater than 25 minutes spent on this patients care, greater than 50% of time spent counseling, educating, and coordinating care regarding the above mentioned plan. ICD10 Worksheet Patient Problems: Problems Problem Status Onset Fever Acute Bone metastasis Acute Compression fracture Acute Dehydration Acute Renal cell carcinoma Acute Weakness Acute Weakness of right lower extremity Acute
[2018-11-07] MEDS: FUROSEMIDE 40 MG/4 ML VIAL IVP SCH (09:40)
[2018-11-07] MEDS: DAPTOmycin 450 MG in NS 100 ML IV SCH (09:42)
[2018-11-07] MEDS: METOPROLOL TARTRATE 25 MG TAB PO SCH ×2 (09:50→21:04)
[2018-11-07] MEDS: ENOXAPARIN 40 MG/0.4 ML SYR SC SCH (09:51)
[2018-11-07] MEDS: POTASSIUM Cl (KCl) 100 ML IV SCH ×2 (10:46→11:54)
--- NOTE | 2018-11-07 11:13 | PDINTPN ---
Wood Ski Maker Progress Note Assessment/Plan: ASSESSMENT 68-year-old male with recurrent metastatic renal cell carcinoma a chronically infected spinal hardware eroding through skin, admitted with encephalopathy, fevers. # pulmonary edema, improving with diuresis # infected spinal hardware # respiratory distress, resolved # metabolic encephalopathy # anorexia, improved with mirtazipine # insomnia # protein calorie malnutrition, moderate # anorexia -improved with mirtazapine started 11/05/18 # recurrent metastatic renal cell carcinoma-history of surgery, XRT and immunotherapy. # hypokalemia # diarrhea antibiotic related, C diff negative on 11/06/2018 PLAN # continue scheduled Lasix goal negative fluid balance # aggressively replete electrolytes in the setting of diuresis # steroids stopped 11/05/18 # stop continuous IV fluids # continue mirtazapine 15 mg p.o. At bedtime for insomnia, anorexia and protein calorie malnutrition # dietary supplements # continue antibiotics as per ID # continue PT OT # appreciate palliative care input regarding goals of care, hospice, # DNR/I # downgrade Imaging I personally reviewed interpreted patient's radiographic images was formal radiologist reads 11/07/2018 chest x-ray with interval improvement and pulmonary edema and effusions. No pneumothorax or new infiltrate 11/06/2018 chest x-ray with mild improvement in bilateral pulmonary edema and effusions 11/05/2018 chest x-ray with interval worsening of pulmonary edema and small pleural effusion Subjective: Patient continues to diurese with Lasix. Potassium improved but still low. Tolerating oral and IV repletion. Magnesium and phos checked which were acceptable levels. A discussed at bedside patient's plan of care with son who is agreeable. At this point they are unsure if they are interested in palliative care hospice. They wish to see if he continues to improve. No new fevers, no chills, no headaches, no chest pain, improved leg swelling Objective: Vital Signs Temp Pulse Resp BP Pulse Ox 36.5 C 98 14 122/85 H 100 11/07/18 08:00 11/07/18 09:50 11/07/18 08:00 11/07/18 09:50 11/07/18 08:00 Laboratory Results 11/06/18 03:30 11/07/18 04:45 11/06/18 11/07/18 11/08/18 05:59 05:59 05:59 Intake Total 950 1800 Output Total 5025 4225 Balance -7345 -3791 PT 13.9 SEC (12.0-15.0) 10/29/18 15:45 INR 1.05 (0.83-1.16) 10/29/18 15:45 Physical Exam - Physical Exam General Appearance: alert EENT: PERRL/EOMI, normal ENT inspection, other (Nasal cannula to be in place) Neck: non-tender Respiratory: chest non-tender, other (Decreased breath sounds bilateral bases), No respiratory distress, No accessory muscle use Cardiac/Chest: normal peripheral pulses, regular rate, rhythm, edema Abdomen: normal bowel sounds, non-tender Back: Other (Exposed spinal hardware at level of thoracic spine) Skin: normal color, warm/dry Neuro/Psych: no motor/sensory deficits, alert, other (Flat affect) ICD10 Worksheet Patient Problems: Problems Problem Status Onset Fever Acute Bone metastasis Acute Compression fracture Acute Dehydration Acute Renal cell carcinoma Acute Weakness Acute Weakness of right lower extremity Acute
--- NOTE | 2018-11-07 11:26 | HOSPPROG ---
Hospitalist Progress Note Assessment/Plan: 68 yo M with hx of metastatic RCC with chronically infected spinal hardware presenting with AMS, fever, inability to walk, exposed spinal hardware. Acute Respiratory Failure: Volume Overload Metabolic Encephalopathy -Etiology unclear -Resolving. He is able to communicate clearly at this point -CT Head with no acute findings Fever: Tmax 39.1 on admission, afebrile since Chronically infected spinal hardware: with exposed spinal hardware currently, Back Wound and possible abscess abx per ID Neurosurgery: the pt is not a candidate for surgery Wound care Discussed with Neurosurgery, Dr. Abbasi, who reports patient is not surgical candidate and recommends no surgical intervention at this time Abdominal Distention: -Likely secondary to volume overload -resolved Non C-Diff Diarrhea -Loperamide PRN, improving Transaminitis: -resolved PCMN code: DNR DVT Proph: Lovenox Plan: The patient is not a surgical candidate. He meets criteria for hospice care, which neither the family or the patient are ready for. They have agreed to Palliative Care and this will need to be set up Volume cueva he is much better and he will be transitioned to Oral Lasix tomorrow morning Cont abx per ID, will need lifelong Subjective: no cp or sob. volume status is improving. Objective: Vital Signs Temp Pulse Resp BP Pulse Ox 36.9 C 80 17 117/88 H 100 11/07/18 11:17 11/07/18 11:17 11/07/18 11:17 11/07/18 11:17 11/07/18 11:17 Laboratory Results 11/06/18 03:30 11/07/18 04:45 11/06/18 11/07/18 11/08/18 05:59 05:59 05:59 Intake Total 950 1800 Output Total 5025 4225 Balance -4075 -2425 PT 13.9 SEC (12.0-15.0) 10/29/18 15:45 INR 1.05 (0.83-1.16) 10/29/18 15:45 - Time Spent With Patient Time Spent with Patient: greater than 35 minutes Time Spent with Patient: Greater than 35 minutes spent on this patients care, greater than 50% of time spent counseling, educating, and coordinating care regarding the above mentioned plan. - Physical Exam Constitutional: no apparent distress Eyes: PERRL, EOMI Ears, Nose, Mouth, Throat: moist mucous membranes, hearing normal Cardiovascular: regular rate and rhythym, No edema Respiratory: no respiratory distress, no rales or rhonchi, reduced air movement Gastrointestinal: normoactive bowel sounds, soft, non-tender abdomen Skin: warm Neurologic: AAOx3 Psychiatric: interacting appropriately, not anxious, not encephalopathic Lymph, Heme, Immunologic: No petechiae ICD10 Worksheet Patient Problems: Problems Problem Status Onset Fever Acute Bone metastasis Acute Compression fracture Acute Dehydration Acute Renal cell carcinoma Acute Weakness Acute Weakness of right lower extremity Acute
--- NOTE | 2018-11-07 13:56 | ASMTCMCOM ---
CM Note CM Note Notes: [facility] met with Kahlil, patient's son this morning who then talked it over with the patient and the family does want Palliative care. Updates were sent to [facility] yesterday but they would like updates every 2 days. Updates should be sent on Saturday if patient is still in the hospital.Kahlil wanted to see if [facility] had any openings as his dad, the patient was wanting to go there if they did. A referral was sent though I did let the family know they do not have openings very often. CM will follow. Date Signed: 11/07/2018 01:55 PM Electronically Signed By:Michelle Alston LCSW
[2018-11-07] MEDS: ACETAMINOPHEN 325 MG TAB PO PRN ×2 (18:24→23:28)
[2018-11-07] MEDS: MIRTAZAPINE 15 MG TAB PO SCH (21:04)
[2018-11-08] MEDS: HYDROCODONE/APAP 5/325 TAB PO PRN (04:48)
[2018-11-08 05:50] LABS: PLATELET COUNT 200 10^3/uL (150-400)
[2018-11-08] MEDS: ENOXAPARIN 40 MG/0.4 ML SYR SC SCH (08:03)
[2018-11-08] MEDS: METOPROLOL TARTRATE 25 MG TAB PO SCH ×2 (08:03→22:35)
[2018-11-08] MEDS: ACETAMINOPHEN 325 MG TAB PO PRN ×3 (08:03→17:15)
[2018-11-08] MEDS ORDERED: FUROSEMIDE 20 MG TAB PO SCH (09:00)
[2018-11-08] MEDS: DAPTOmycin 450 MG in NS 100 ML IV SCH (09:52)
--- NOTE | 2018-11-08 13:58 | PCMIDPN ---
Assessment/Plan: # Fever, tachycardia this afternoon, minimal change in exam, slightly less interactive: reviewed CT from admit (6x2 cm fluid collection), CXR 11/06 B pleural effusions. Known underlying chronic T spine OM, ?abscess with exposed HWR . past cultures showing Corynebacterium currently on Daptomycin. Patient w/ o focal c/o --repeat blood cx --Agosto placed 11/03 and unlikely cause of fever, no urine eval. Also PICC line recently placed and unlikely cause of recurrent fever --patient expressed uncertainty about continuing with aggressive management and wanted evaluation. Son returned to [place]. --will resume broad spec abx with meropenem until more information. Looks like fluid collection seen on T spine CT would be hard to reach for IR drainage # Altered mental status, a bit more delirious today than my exam yesterday # Elevated LFTs: continued to improve yesterday # Loose stool: 11/06 Cdiff neg Meds daptomycin 450g IV daily, # 7 Microbiology 10/29 blood cultures (2): Negative 11/08 blood cx (2) :pending Subjective: patient denies pain discussed with patient that he has incurable infection and does he want us to keep pursing aggressive management and he is unsure and wants to continue at this point Objective: Vital Signs Temp Pulse Resp BP Pulse Ox 38.3 C H 100 18 155/97 H 95 11/08/18 12:00 11/08/18 12:00 11/08/18 12:00 11/08/18 12:00 11/08/18 12:00 Laboratory Results 11/08/18 04:30 11/08/18 04:30 11/07/18 11/08/18 11/09/18 05:59 05:59 05:59 Intake Total 1800 525 Output Total 4222 5957 1450 Balance -4420 -5590 -1450 - Physical Exam General Appearance: cachetic, toxic EENT: dry mucous membranes Respiratory: No accessory muscle use, No crackles Neck: supple Cardiac/Chest: tachycardia Extremities: pedal edema Abdomen: non-tender, soft Male Genitalia: agosto, other (no genital lesions), No scrotal edema Skin: diaphoresis, pallor, No rash Neuro/Psych: alert, oriented x 3, depressed affect, other (generalized weakness but moving all 4 ext equally) - Line/s RUE PICC Lines: No drainage, No erythema - Time Spent With Patient Time Spent with Patient: greater than 35 minutes Time Spent with Patient: Greater than 35 minutes spent on this patients care, greater than 50% of time spent counseling, educating, and coordinating care regarding the above mentioned plan. ICD10 Worksheet Patient Problems: Problems Problem Status Onset Fever Acute Bone metastasis Acute Compression fracture Acute Dehydration Acute Renal cell carcinoma Acute Weakness Acute Weakness of right lower extremity Acute
[2018-11-08] MEDS ORDERED: NS 1,000 ML IV ONE (14:30)
--- NOTE | 2018-11-08 14:40 | HOSPPROG ---
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 Transferred out of the ICU on 11/07. Hospitalization complicated by post surgical back wound, acute encephalopathy, tachycardia, and volume overload Acute Respiratory Failure: Appears resolving Volume Overload: Much improved. Has transitioned to Lasix 20mg daily Metabolic Encephalopathy: -He is still intermittently confused -Etiology remains unclear -Today I am able to talk to him w/o difficulty -CT Head with no acute findings Fever: Tmax 39.1 on admission, afebrile since. However he has a documented fever this morning. Leukocytosis was also worsening. 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 He meets criteria for hospice care, which neither the family or the patient are ready for. They have agreed to Palliative Care and this will need to be set up Subjective: Fever this morning. The pt is awake and alert and able to communicate with me. He denies any SOB or pain Objective: Vital Signs Temp Pulse Resp BP Pulse Ox 38.3 C H 100 18 155/97 H 95 11/08/18 12:00 11/08/18 12:00 11/08/18 12:00 11/08/18 12:00 11/08/18 12:00 Laboratory Results 11/08/18 04:30 11/08/18 04:30 11/07/18 11/08/18 11/09/18 05:59 05:59 05:59 Intake Total 1800 525 Output Total 4225 2615 1450 Balance -2425 -2090 -1450 PT 13.9 SEC (12.0-15.0) 10/29/18 15:45 INR 1.05 (0.83-1.16) 10/29/18 15:45 - Physical Exam Constitutional: chronically ill appearing Eyes: PERRL Ears, Nose, Mouth, Throat: moist mucous membranes, hearing normal, ears appear normal Cardiovascular: regular rate and rhythym, no murmur, rub, or gallop, No edema Respiratory: no respiratory distress, no rales or rhonchi, clear to auscultation Gastrointestinal: normoactive bowel sounds, soft, non-tender abdomen Skin: warm Musculoskeletal: generalized weakness Neurologic: AAOx3 Psychiatric: interacting appropriately, not anxious, not encephalopathic ICD10 Worksheet Patient Problems: Problems Problem Status Onset Fever Acute Bone metastasis Acute Compression fracture Acute Dehydration Acute Renal cell carcinoma Acute Weakness Acute Weakness of right lower extremity Acute
[2018-11-08] MEDS ORDERED: methylPREDNISolone SOD SUCC 40 MG/ML VIAL IVP ONE (17:35)
[2018-11-08] MEDS: MEROPENEM 1 GM in NS 100 ML IV SCH (22:35)
[2018-11-08] MEDS: traZODone 50 MG TAB PO PRN (22:35)
[2018-11-08] MEDS: MIRTAZAPINE 15 MG TAB PO SCH (22:35)
[2018-11-09] MEDS: LORazepam 2 MG/ML INJ IVP PRN ×4 (01:37→13:42)
[2018-11-09] MEDS: MEROPENEM 1 GM in NS 100 ML IV SCH ×3 (06:10→22:46)
[2018-11-09 06:31] LABS: PLATELET COUNT 169 10^3/uL (150-400)
--- NOTE | 2018-11-09 07:04 | HOSPPROG ---
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 Transferred out of the ICU on 11/07. 1. Acute Respiratory Failure secondary to volume overload -had improved with diuretics -O2 OK, but tachypneic again with fever 2. Metabolic Encephalopathy: -He was still intermittently confused, but today has been pretty non responsive per nursing and -CT Head with no acute findings prev -presumably from ongoing infection -steroids restarted yesterday by ID 3. 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 Abdominal Distention: Resolved -Likely secondary to volume overload 5. Non C-Diff Diarrhea -Loperamide PRN 6. Transaminitis:, improved, ALT remains elevated 7. Protein Calorie Malnutrition -no oral intake today -will need to address with family re IVF and feeding with reassessment tomorrow 8. Anemia-stable PCP- [facility] DNR DVT Prophy: Lovenox Dispo- currently gravely ill, and son made aware of seriousness of condition and concerns of care team Subjective: in room, she is very concerned as she can see the change and admits that he is dying. Would like him to be able to see son coming back to [place] in 2 days. Nursing concerned re his discomfort. Objective: Vital Signs Temp Pulse Resp BP Pulse Ox 99 F 100 18 127/83 H 91 L 11/09/18 04:00 11/09/18 04:00 11/09/18 04:00 11/09/18 04:00 11/09/18 04:00 Laboratory Results 11/09/18 06:20 11/09/18 06:20 11/07/18 11/08/18 11/09/18 11:59 11:59 11:59 Intake Total 1300 525 918 Output Total 5740 1100 2049 [facility] -4440 -575 -1132 PT 13.9 SEC (12.0-15.0) 10/29/18 15:45 INR 1.05 (0.83-1.16) 10/29/18 15:45 - Time Spent With Patient Time Spent with Patient: greater than 35 minutes Time Spent with Patient: Greater than 35 minutes spent on this patients care, greater than 50% of time spent counseling, educating, and coordinating care regarding the above mentioned plan. - Physical Exam Constitutional: uncomfortable Ears, Nose, Mouth, Throat: other (straining/spasm noted in neck) Cardiovascular: tachycardia Respiratory: other (coarse throughout) Gastrointestinal: other (soft), No rebound Psychiatric: encephalopathic, agitated, other (doesn't respond to name. Does squeeze back with hand when hand is squeezed, but not to command to squeeze) ICD10 Worksheet Patient Problems: Problems Problem Status Onset Fever Acute Bone metastasis Acute Compression fracture Acute Dehydration Acute Renal cell carcinoma Acute Weakness Acute Weakness of right lower extremity Acute
--- NOTE | 2018-11-09 09:03 | ASMTCMCOM ---
CM Note CM Note Notes: Patient chart reviewed for plan of care. The patient is accepted to [facility] and will be followed by [facility] palliative. No change is plan. Plan: To discharge to [facility] with [facility] Pall support when medically cleared for discharge to home. Date Signed: 11/09/2018 09:01 AM Electronically Signed By:Salena Delarosa RN
[2018-11-09] MEDS: methylPREDNISolone SOD SUCC 40 MG/ML VIAL IVP SCH (09:49)
[2018-11-09] MEDS: DAPTOmycin 450 MG in NS 100 ML IV SCH (09:49)
[2018-11-09] MEDS: ENOXAPARIN 40 MG/0.4 ML SYR SC SCH (09:49)
--- NOTE | 2018-11-09 10:15 | PCMIDPN ---
Assessment/Plan: Assessment/Plan: * Postoperative back infection: Recurrent fever and confusion. Continue daptomycin and empiric meropenem which was resumed yesterday. Overall prognosis is grave given lack of viable treatment options for postoperative back infection with 2 areas of exposed hardware present. * Fever: See above discussion. Repeat blood cultures are pending. Will continue meropenem pending additional data. * Altered mental status: Worsened mental status with limited interaction. Corticosteroids resumed at son's request yesterday as he felt like these helped previously. * Elevated LFTs: Improved. 11/09/18 10:12 Subjective: Patient confused this a.m. with recurrent fever over last 24 hr. Steroids resumed yesterday at son's request as he felt these have been helpful. Please see Dr. Duval's note for full details. Objective: Vital Signs Temp Pulse Resp BP Pulse Ox 38.8 C H 103 H 23 H 132/82 H 95 11/09/18 07:29 11/09/18 07:29 11/09/18 07:29 11/09/18 07:29 11/09/18 07:29 Laboratory Results 11/09/18 06:20 11/09/18 06:20 11/08/18 11/09/18 11/10/18 05:59 05:59 05:59 Intake Total 525 918 Output Total 4035 2049 Balance -2089 Daptomycin # 8 Meropenem # 1 Blood cultures 11/08/2018 pending T-max 38.8 - Physical Exam General Appearance: other (Somnolent but arousable) EENT: No scleral icterus Respiratory: respiratory distress (Increased respiratory effort present) Cardiac/Chest: tachycardia Extremities: No inflammation Abdomen: non-tender, No distended Male Genitalia: agosto Back: other (2 persistent localized areas of hardware exposure; increased drainage from upper exposed area) Neuro/Psych: confused - Line/s RUE PICC Lines: No drainage, No erythema ICD10 Worksheet Patient Problems: Problems Problem Status Onset Fever Acute Bone metastasis Acute Compression fracture Acute Dehydration Acute Renal cell carcinoma Acute Weakness Acute Weakness of right lower extremity Acute
[2018-11-09] MEDS: METOPROLOL TARTRATE 25 MG TAB PO SCH ×2 (10:28→23:04)
--- NOTE | 2018-11-09 11:11 | PCMIDPN ---
Assessment/Plan: Assessment/Plan: * Postoperative back infection: Recurrent fever and confusion. Continue daptomycin and empiric meropenem which was resumed yesterday. Overall prognosis is grave given lack of viable treatment options for postoperative back infection with 2 areas of exposed hardware present. * Fever: See above discussion. Repeat blood cultures are pending. Will continue meropenem pending additional data. Continue empiric Solu-Medrol as this helped in past. Will add Tylenol suppository as he is not taking p.o.. * Altered mental status: Worsened mental status with limited interaction. Corticosteroids resumed at son's request yesterday as he felt like these helped previously. * Elevated LFTs: Improved. Time spent, greater than 35 min, which greater than half was spent in coordination of care related to postoperative back infection, fever, altered mental status and prognosis. Care coordinated with nursing staff and Dr. Argueta. Son was updated by telephone today including concerned about his ongoing fever and confusion. Discussed with son that I am concerned he is nearing end of life. 11/09/18 10:12 11/09/18 11:10 Objective: Vital Signs Temp Pulse Resp BP Pulse Ox 38.8 C H 103 H 23 H 132/85 H 95 11/09/18 07:29 11/09/18 10:28 11/09/18 07:29 11/09/18 10:28 11/09/18 07:29 Laboratory Results 11/09/18 06:20 11/09/18 06:20 11/08/18 11/09/18 11/10/18 05:59 05:59 05:59 Intake Total 525 918 Output Total 1245 6045 Balance -0966 -3843 ICD10 Worksheet Patient Problems: Problems Problem Status Onset Fever Acute Bone metastasis Acute Compression fracture Acute Dehydration Acute Renal cell carcinoma Acute Weakness Acute Weakness of right lower extremity Acute
[2018-11-09] MEDS: ACETAMINOPHEN 650 MG SUPP PR PRN (11:56)
[2018-11-09] MEDS: ACETAMINOPHEN 325 MG TAB PO SCH ×2 (13:01→18:28)
[2018-11-09] MEDS ORDERED: PROTOCOL CALCIUM 1 DOSE IV PRN (14:10)
[2018-11-09] MEDS ORDERED: PROTOCOL K PHOSPHATE 1 DOSE IV PRN (14:10)
[2018-11-09] MEDS: D5W 1/2 NS 1,000 ML IV SCH (17:42)
[2018-11-09] MEDS: MIRTAZAPINE 15 MG TAB PO SCH (23:03)
[2018-11-10] MEDS: ACETAMINOPHEN 325 MG TAB PO SCH ×5 (00:46→23:47)
[2018-11-10] MEDS: MEROPENEM 1 GM in NS 100 ML IV SCH ×3 (06:18→21:25)
[2018-11-10] MEDS: D5W 1/2 NS 1,000 ML IV SCH ×2 (07:43→23:45)
--- NOTE | 2018-11-10 09:20 | PCMIDPN ---
Assessment/Plan: Assessment/Plan: * Postoperative back infection: Fever improved but remains persistently confused. Will continue daptomycin and empiric meropenem. No viable surgical options for recurrent exposed spinal hardware. Agree with ongoing palliative discussions as patient unlikely to survive current illness and think moving to comfort measures most appropriate course of action. * Fever: See above discussion. Repeat blood cultures no growth to date. Overall temperature improved after addition of Solu-Medrol. * Altered mental status: Remains minimally interactive. Toxic metabolic etiology most likely. Not optimistic that this will improve further. 11/10/18 09:17 11/10/18 09:22 Subjective: Patient mumbles responses. Able to state that he is at [facility]. Objective: Vital Signs Temp Pulse Resp BP Pulse Ox 37.5 C 104 H 20 137/87 H 92 11/10/18 04:59 11/10/18 04:59 11/10/18 04:59 11/10/18 04:59 11/10/18 04:59 Laboratory Results 11/09/18 06:20 11/09/18 06:20 11/09/18 11/10/18 11/11/18 05:59 05:59 05:59 Intake Total 918 1194 Output Total 2050 1200 Balance -1132 -6 Daptomycin # 9 Meropenem # 2 Blood cultures x2 11/08/2018 no growth - Physical Exam General Appearance: other (Mumbles responses) EENT: dry mucous membranes, No scleral icterus Respiratory: lungs clear, respiratory distress (Increased respiratory effort present) Cardiac/Chest: tachycardia Abdomen: non-tender, No distended Back: other (Exam on 11/09/18 showed increased thin serous drainage from exposed hardware on superior aspect) Skin: No rash - Line/s RUE PICC Lines: No drainage, No erythema ICD10 Worksheet Patient Problems: Problems Problem Status Onset Fever Acute Bone metastasis Acute Compression fracture Acute Dehydration Acute Renal cell carcinoma Acute Weakness Acute Weakness of right lower extremity Acute
[2018-11-10] MEDS: methylPREDNISolone SOD SUCC 40 MG/ML VIAL IVP SCH (10:27)
[2018-11-10] MEDS: DAPTOmycin 450 MG in NS 100 ML IV SCH (10:27)
[2018-11-10] MEDS: ENOXAPARIN 40 MG/0.4 ML SYR SC SCH (10:28)
--- NOTE | 2018-11-10 12:42 | HOSPPROG ---
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 Transferred out of the ICU on 11/07. 1. Acute Respiratory Failure secondary to volume overload -had improved with diuretics, denies sob now 2. Metabolic Encephalopathy: -likely related to infectious illness -a bit more alert today, but still very limited conversation and no mobility 3. 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 Non C-Diff Diarrhea -Loperamide PRN 5. Metatstatic renal cell ca, recurrent without good treatment options 6. Transaminitis:, improved, ALT remains elevated 7. Protein Calorie Malnutrition -no oral intake past couple days, minimal today 8. Anemia-stable His family is award of his poor prognosis and his untreatable cancer, infection with no really good treatment options Reviewed by me today in detail with dr Stanley Kirby PLANS: * continue antibiotics at present, repeat cx's pending * palliative care discussion [facility] tomorrow * recheck cbc SUBJECTIVE: pt is able with yes no answers to let me know he has no pain or dyspnea, no nausea, no appetite; unable to converse beyond that OBJECTIVE Vitals reviewed: T 38.8 overnight, otherwise stable remains on some NC O2. Exam: awake but extremely weak minimally communicative, unable to determine if he is truly oriented having rigors during my exam skin warm dry color ok resps not labored lungs clear BSs heart regular abd soft nondistended nontender, bowel sounds present limbs toes and fingers warm iv site ok Labs: Ph still a bit low wbc has been rising, cbc not done today Micro: current cultures this admimssion all neg to date Objective: Vital Signs Temp Pulse Resp BP Pulse Ox 36.7 C 99 20 128/82 H 96 11/10/18 10:14 11/10/18 10:14 11/10/18 10:14 11/10/18 10:14 11/10/18 10:14 Laboratory Results 11/09/18 06:20 11/09/18 06:20 11/09/18 11/10/18 11/11/18 06:59 06:59 06:59 Intake Total 918 1194 Output Total 9537 1200 Balance -1132 -6 PT 13.9 SEC (12.0-15.0) 10/29/18 15:45 INR 1.05 (0.83-1.16) 10/29/18 15:45 - Time Spent With Patient Time Spent with Patient: greater than 35 minutes Time Spent with Patient: Greater than 35 minutes spent on this patients care, greater than 50% of time spent counseling, educating, and coordinating care regarding the above mentioned plan. ICD10 Worksheet Patient Problems: Problems Problem Status Onset Fever Acute Bone metastasis Acute Compression fracture Acute Dehydration Acute Renal cell carcinoma Acute Weakness Acute Weakness of right lower extremity Acute
[2018-11-10] MEDS: METOPROLOL TARTRATE 25 MG TAB PO SCH ×2 (13:08→21:25)
--- NOTE | 2018-11-10 13:44 | SOAPPROG ---
SOAP Progress Note Assessment/Plan: Assessment: 1. Metastatic renal cell carcinoma 2. s/p thoracic tumor resection and radiation in 2015; surgery for recurrent metastasis in 2018 3. infection at operative site - not clearing with antibiotics 4. Delirium due to #3 Difficult situation. Pt has incurable renal cell carcinoma. unclear if he is responding to nivolumab immunotherapy. Now he has a severe hardware infection at the operative site, for which there are apparently no good solutions. Given this constellation of findings, hospice seems like the most appropriate option, though one could consider continuing to try to treat the infection for additional time in the hope that it would resolve. His delirium is likely the result of the infection and not due to his immunotherapy. Plan: - agree w/ palliative care consult tomorrow - appreciate ID input - hold nivolumab for now. - could consider additional imaging (CT c/a/p) to try to determine if his renal cell carcinoma is progressive, in which case the prognosis would be even worse and would lean even more strongly towards hospice. 35 min spent w/ pt and in coordination of care. discussed at length w/ Dr. St (palliative care) 11/10/18 13:40 Subjective: disoriented. Objective: exam: chronically ill, tremulous Lungs CTAB CV RRR no mGR ABd: +BS NTND Ext: no edema skin: no lesions Neuro: disoriented. he does appear to recognize me and asks "what's the plan?" Vital Signs Temp Pulse Resp BP Pulse Ox 36.7 C 99 20 128/82 H 96 11/10/18 10:14 11/10/18 10:14 11/10/18 10:14 11/10/18 10:14 11/10/18 10:14 Laboratory Results 11/09/18 06:20 11/09/18 06:20 11/09/18 11/10/18 11/11/18 05:59 05:59 05:59 Intake Total 918 1194 Output Total 2050 1200 Balance -1132 -6 PT 13.9 SEC (12.0-15.0) 10/29/18 15:45 INR 1.05 (0.83-1.16) 10/29/18 15:45 ICD10 Worksheet Patient Problems: Problems Problem Status Onset Fever Acute Bone metastasis Acute Compression fracture Acute Dehydration Acute Renal cell carcinoma Acute Weakness Acute Weakness of right lower extremity Acute
[2018-11-10] MEDS: MIRTAZAPINE 15 MG TAB PO SCH (21:25)
[2018-11-11] MEDS: ACETAMINOPHEN 325 MG TAB PO SCH ×5 (05:13→23:34)
[2018-11-11] MEDS: MEROPENEM 1 GM in NS 100 ML IV SCH ×3 (05:13→23:39)
[2018-11-11 05:38] LABS: PLATELET COUNT 122 10^3/uL (150-400)
[2018-11-11] MEDS: DAPTOmycin 450 MG in NS 100 ML IV SCH (09:15)
[2018-11-11] MEDS: METOPROLOL TARTRATE 25 MG TAB PO SCH ×2 (09:15→23:33)
[2018-11-11] MEDS: methylPREDNISolone SOD SUCC 40 MG/ML VIAL IVP SCH (09:15)
[2018-11-11] MEDS: ENOXAPARIN 40 MG/0.4 ML SYR SC SCH (09:15)
--- NOTE | 2018-11-11 10:28 | SOAPPROG ---
SOAP Progress Note Assessment/Plan: Assessment: 1. Metastatic renal cell carcinoma 2. s/p thoracic tumor resection and radiation in 2015; surgery for recurrent metastasis in 2018 3. infection at operative site - not clearing with antibiotics 4. Delirium due to #3 Difficult situation. Pt has incurable renal cell carcinoma. unclear if he is responding to nivolumab immunotherapy. Now he has a severe hardware infection at the operative site, for which there are apparently no good solutions. He does seem clinically better today since meropenem and solumedrol were restarted. Plan: - agree w/ palliative care consult - appreciate ID input - hold nivolumab for now. - could consider additional imaging (CT c/a/p) to try to determine if his renal cell carcinoma is progressive, in which case the prognosis would be even worse and would lean even more strongly towards hospice. - reasonable to continue current abx and see if patient continues to improve. also very reasonable to shift hospice/comfort care if patient desires. Subjective: pt lucid today. no pain. Objective: exam: chronically ill, somewhat diaphoretic Lungs CTAB CV RRR no mGr Abd: +BS NT ND Ext: no edema Vital Signs Temp Pulse Resp BP Pulse Ox 35.9 C L 88 18 151/85 H 97 11/11/18 09:04 11/11/18 09:04 11/11/18 09:04 11/11/18 09:04 11/11/18 09:04 Laboratory Results 11/11/18 05:10 11/11/18 05:10 11/10/18 11/11/18 11/12/18 05:59 05:59 05:59 Intake Total 1194 1240 Output Total 1200 1225 Balance -6 15 PT 13.9 SEC (12.0-15.0) 10/29/18 15:45 INR 1.05 (0.83-1.16) 10/29/18 15:45 ICD10 Worksheet Patient Problems: Problems Problem Status Onset Fever Acute Bone metastasis Acute Compression fracture Acute Dehydration Acute Renal cell carcinoma Acute Weakness Acute Weakness of right lower extremity Acute
--- NOTE | 2018-11-11 12:01 | PCMIDPN ---
Assessment/Plan: Assessment/Plan: * Postoperative back infection: No further fever after initiation of Solu- Medrol and meropenem. Unclear if meropenem contributing to resolution of fever or if this is primarily driven by Solu-Medrol. Will continue both daptomycin and meropenem. Check CPK on daptomycin therapy. Surgical treatment options a felt to be viable. Infection is not considered a curable process. This has been reviewed with patient today and family previously. Agree with ongoing palliative care discussions as this approach seems best course of action. * Fever: See above discussion. Repeat blood cultures are no growth. * Altered mental status: Significant improvement in mental status today with improved interactivity and orientation. Likely improvement related to addition of Solu-Medrol. 11/11/18 11:58 11/11/18 12:03 11/11/18 12:04 Subjective: Patient significantly more alert today. Patient does not note any respiratory difficulty. Objective: Vital Signs Temp Pulse Resp BP Pulse Ox 35.9 C L 88 18 151/85 H 97 11/11/18 09:04 11/11/18 09:04 11/11/18 09:04 11/11/18 09:04 11/11/18 09:04 Laboratory Results 11/11/18 05:10 11/11/18 05:10 11/10/18 11/11/18 11/12/18 05:59 05:59 05:59 Intake Total 1194 1240 Output Total 1200 1225 Balance -6 15 Daptomycin # 10 Meropenem # 3 Solu-Medrol # 3 Blood cultures x2 11/08/2018 no growth - Physical Exam General Appearance: alert, no apparent distress, non-toxic, other (Chronically ill-appearing) EENT: dry mucous membranes, No scleral icterus, No thrush Respiratory: lungs clear, No respiratory distress Cardiac/Chest: regular rate, rhythm Extremities: No inflammation Abdomen: non-tender, No distended Back: other (Wound beds not examined today; reviewed findings with nursing staff post dressing change) - Line/s RUE PICC Lines: No drainage, No erythema ICD10 Worksheet Patient Problems: Problems Problem Status Onset Fever Acute Bone metastasis Acute Compression fracture Acute Dehydration Acute Renal cell carcinoma Acute Weakness Acute Weakness of right lower extremity Acute
[2018-11-11 12:48] LABS: CREATINE KINASE 50 IU/L (0-224)
[2018-11-11] MEDS: D5W 1/2 NS 1,000 ML IV SCH (15:54)
[2018-11-11] MEDS: LOPERAMIDE HCL 2 MG CAP PO PRN ×2 (16:20→23:39)
--- NOTE | 2018-11-11 16:58 | HOSPPROG ---
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 Transferred out of the ICU on 11/07. This is my first encounter with patient, chart reviewed. 1. Recurrent fevers with post-operative spinal hardware infection: Afebrile over last 48 hours. Not septic. - ID following, continue meropenem and daptomycin. Follow cultures 2. Acute metabolic encephalopathy: Unclear if related to infection vs immunotherapy side effect. - Drastically improved with steroids - Switch IV methylpred to PO prednisone tomorrow 3. Acute on chronic anemia: Had some hematochezia this AM. H/H dropped slightly from 2 days ago. - Type and screen, transfuse if <7 in AM - Not good candidate for colonoscopy/aggressive intervention 4. Acute hypoxemic respiratory failure: Resolved. This was due to pulmonary edema. - Wean O2 as tolerates 5. Diarrhea: Stable. C diff negative. -Loperamide PRN 6. Metatstatic renal cell ca: On nivolumab which is being held. Oncology following. 7. Thrombocytopenia: Worse today. Likely consumptive in setting of some mild bleeding. Monitor tomorrow. 8. Transaminitis: Resolved. 9. Protein Calorie Malnutrition: Minimal PO intake. Goals of Care: Plan to have meeting with patient, son, myself, ID (Dr Kirby), and oncology (Dr Roque) tomorrow morning at 930am to discuss plan of care moving forward. At this point, no great option for spinal hardware infection and is incurable. Query duration of current antibiotics. Also wonder if encephalopathy is purely related to infection or if due to immune therapy given the response to steroids. Ultimately, he has a life-limiting disease process and appears to be hospice appropriate. Palliative care has been involved, case discussed with Dr St. Code: DNR VTE ppx: LMWH Dispo: Remain inpatient Subjective: Sitting up eating lunch. Back pain ok. No fevers. Per son, who flew in from [place], his mentation is much better. Objective: Vital Signs Temp Pulse Resp BP Pulse Ox 36.3 C 130 H 24 H 109/95 H 100 11/11/18 16:18 11/11/18 16:18 11/11/18 16:18 11/11/18 16:18 11/11/18 16:18 Laboratory Results 11/11/18 05:10 11/11/18 05:10 11/10/18 11/11/18 11/12/18 05:59 05:59 05:59 Intake Total 1194 1240 Output Total 1200 1225 Balance -6 15 PT 13.9 SEC (12.0-15.0) 10/29/18 15:45 INR 1.05 (0.83-1.16) 10/29/18 15:45 - Physical Exam Constitutional: no apparent distress, appears nourished, not in pain Eyes: PERRL, anicteric sclera, EOMI Ears, Nose, Mouth, Throat: moist mucous membranes, hearing normal, ears appear normal, no oral mucosal ulcers Cardiovascular: regular rate and rhythym, no murmur, rub, or gallop, No edema Respiratory: no respiratory distress, no rales or rhonchi, clear to auscultation Gastrointestinal: normoactive bowel sounds, soft, non-tender abdomen, no palpable masses Genitourinary: no bladder fullness, no bladder tenderness, no renal bruits Skin: other (2 open wounds on back with protruding hardware) Musculoskeletal: no muscle tenderness Neurologic: AAOx3 Psychiatric: not encephalopathic ICD10 Worksheet Patient Problems: Problems Problem Status Onset Fever Acute Bone metastasis Acute Compression fracture Acute Dehydration Acute Renal cell carcinoma Acute Weakness Acute Weakness of right lower extremity Acute
--- NOTE | 2018-11-11 21:31 | ASMTCMCOM ---
CM Note CM Note Notes: Patient plan of care reviewed in rounds. The patient is very responsive today. History of cancer with mets to the spine. Now with infected, exposed spinal hardware with no treatment options. Family to meet with [facility] today to determine plan of care from here. CM to follow for needs, likely to discharge to [facility] . Plan To [facility] with [facility] support when medically cleared for discharge. Date Signed: 11/11/2018 01:40 PM Electronically Signed By:Salena Delarosa RN
[2018-11-11] MEDS: MIRTAZAPINE 15 MG TAB PO SCH (23:33)
--- NOTE | 2018-11-12 02:27 | GCON ---
PALLIATIVE CARE CONSULT DATE OF CONSULTATION: 11/11/2018 REFERRING PHYSICIAN: Hospitalist Service REASON FOR CONSULTATION: Discussion of goals of care. HISTORY OF PRESENT ILLNESS: The patient was seen today in his hospital room. Present for today's visit was his and their son. The patient is a 68-year- old male with a history of metastatic renal cell carcinoma with known spinal metastasis and history of associated cord compression, which required a thoracic spinal fusion. Surgical history has been complicated by hardware infection and apparent wound healing. He has had removal and replacement of hardware and a latissimus pedicle flap. The patient developed new fever and lethargy and was sent to the hospital for reevaluation on October 29, 2018. He has been followed in-house by Infectious Disease as well as Neurosurgery and Oncology. It was felt at this point that further surgery would not be beneficial at this point in time. The patient is currently on daptomycin and meropenem, as well steroids have been restarted. He has had a waxing and waning course while in the hospital. His son believes that his father has improved every time steroids have been restarted. Per Dr. Kirby's note earlier today, it was felt that there is definitely infection around the patient's hardware and this is not a curable process. Per Dr. Roque's note the patient also has an incurable renal cell carcinoma and is unclear if he is responding to Nivolumab immunotherapy. Dr. Roque notes that the patient does in fact seem better since meropenem and Solu-Medrol have been restarted. The family verbalizes their understanding that the patient has an incurable renal cell carcinoma; however, they continue to have questions regarding the possibility of current presentation being a complication of Nivolumab. The patient's son has read extensively about immunotherapy and questions if the presenting fevers and mental status changes could in fact be a sequela of this treatment noting that his father has seemingly improved every time steroids have been restarted. He stated "we still don't know what exactly is happening, " but feels that the information he has received that there is no new cancer that might be explaining his father's changes. He is also unsure how is father could be infected since he has been on antibiotics since July and cultures were negative. They also note that antibiotics alone do not seem to bring about clinical improvement. The son is also concerned that his father has had severe diarrhea intermittently since starting on p.o. The family states that 10 days ago at [facility] the patient was ambulating with a walker, able to do much of his self care and was there essentially for wound VAC needs. The patient was able to participate in today's conversation as he is much more awake and alert. Of note yesterday when I initially attempted to visit with the patient and the family, he was virtually unresponsive and tremulous, but much more awake and alert today. We discussed how he has tolerated his medical care to date, and when in fact there might be a point where he feels that his care has been "too much." He feels that care is "almost too much now," and that his current quality of life is greatly compromised and he is unsure if the ongoing aggressive measures are something he would want to continue. This being said, if he were able to recover some he would be willing to undergo continued aggressive therapy. I noted that the patient is designated as a do not resuscitate, and exploring this further it would appear that he would not wish to undergo CPR or more aggressive measures if his heart or breathing were to stop. When we discussed the possibility of tube feeding, he stated probably not, although family questioned if he would want these interventions if there was hope that he could improve. The patient remained undecided on this particular topic. The family feels that they would be able to better move forward if they were able to talk to all the involved physicians at once. This would take the form of a care conference involving Dr. Kirby, Dr. Roque and the hospitalist of the day. I reassured family that I would investigate this further for them, and hopefully we can help clarify their questions. The son feels that he understands his father's overall prognosis, but wants to explore all options before making any significant decisions about subsequent care. The patient's expressed that she too feels this would be beneficial and it would be highly appreciated if the involved services could meet at the same time. PAST MEDICAL HISTORY: 1. Metastatic renal cell carcinoma with metastases to spine. 2. 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 The patient previously treated with tedizolid for suppressive therapy after 8 weeks of vancomycin. 3. History of BPH. 4. Long-term pain control with opioid dependence. ALLERGIES: 1. Naproxen. 2. Tree nut allergy. CURRENT MEDICATIONS: 1. Acetaminophen 650 mg [place] q.6 hours p.r.n. pain or fever. 2. Acetaminophen 650 mg p.o. q.6 hour scheduled. 3. DuoNeb p.r.n. shortness of breath q.6 hours. 4. Alteplase 2 mg IVP p.r.n. per PICC line policy. 5. Calcium gluconate as needed for electrolyte protocol. 6. Daptomycin 450 mg daily. 7. D5W 1/2 NS 75 mL/h continuous. 8. Lovenox 40 mg subcu daily scheduled. 9. Hydralazine 25 mg p.o. q.i.d. p.r.n. for systolic blood pressure greater than 180. 10. Imodium 2 mg p.o. q.i.d. p.r.n. diarrheal stools. 11. Lorazepam 0.5 to 1 mg IVP q.4 hours p.r.n. anxiety. 12. Melatonin 3 to 6 mg p.o. q.h.s. p.r.n. sleep and insomnia. 13. Meropenem 120 mL/h IV q.8 hour scheduled. 14. Solu-Medrol 40 mg IVP daily scheduled. 15. Metoprolol 12.5 mg p.o. b.i.d. scheduled. 16. Mirtazapine 15 mg p.o. q.h.s. scheduled. 17. Morphine 2 mg IVP q.4 hours p.r.n. severe pain. 18. Zofran 4 mg IV/p.o. q.4 hours p.r.n. nausea. 19. Potassium phosphate 1 dose IV per electrolyte protocol. 20. Trazodone HCl 50 mg p.o. nightly p.r.n. sleep and insomnia. SOCIAL HISTORY: The patient originally is from [place]. He has been in the [place]. He and his have been for 46 years and they have 1 son, who is present today but lives in [place]. 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 They have no buddhism affiliation and no family in the immediate area. PHYSICAL EXAMINATION: VITAL SIGNS: Most recent vitals show a blood pressure 151/85, heart rate 88, respiratory rate 18, satting 97% on 2 L per nasal cannula. Temp 35.9. GENERAL: The patient looks stated age. Appears acutely and chronically ill, pale, slightly grayish complexion. He is alert, able to track conversation well and participate. Remainder of physical exam deferred in given setting. Of note, however, no respiratory distress noted. No indrawing or accessory muscle use. No outward signs of discomfort. No evidence of facial asymmetry. Moves arms spontaneously. LABORATORY WORK: White blood cell count currently 11.58 down from 15.64 on . Hemoglobin 8.1, hematocrit 26.5, platelets 122. Differential shows 10.89 segs. Most recent chemistries from earlier today show a sodium of 142, potasium 3.9, chloride 106, CO2 28, BUN 37, creatinine 0.6, GFR greater than 60 , glucose 171, calcium 6.4, and phosphorus 2.3. ASSESSMENT/PLAN: This is a 68-year-old male with metastatic renal cell carcinoma, spinal hardware apparent infection in the spine and hardware, currently being treated with daptomycin, meropenem and Solu-Medrol. The issues are as follows: 1. Metastatic renal cell carcinoma. This is an incurable disease and no further lines of therapy are currently being considered per my discussion with Dr. Roque. It is unclear if the Nivolumab has caused all the patient's fever and altered mental status. While Dr. Roque feels this is unlikely, it still is a possibility and he will discuss further with family tomorrow. 2. Fever and hardware infection. Given the patient's reported exposed hardware and review of Infectious Disease notes, it is felt that he is definitely infected and I spoke with Dr. Kirby, who reinforces this and feels that the patient would likely require lifetime antibiotics if patient and family wished to continue. It certainly is possible that this infection is the causes of the presenting symptoms and in fact this seems most likely. The temporal relationship of improved mental status with steroids, however, is of note. 3. The family requests a care conference as they want to speak with Dr. Roque and Dr. Kirby, and both feel that they would be able to meet with the family tomorrow morning. I will communicate this back with family following this dictation. I think it would be extremely helpful for them to have this care conference and allow them better understanding of the patient's condition and them moving forward from this point. 4. Goals of care. The patient and family are somewhat unsure about goals currently based on the discussion above. Hopefully tomorrow's care conference will help them have a better understanding of his medical condition and facilitate their understanding of next steps. The patient has been clear that his current quality of life is unacceptable, and while he did not address this directly he seemed to imply that if he could not have better quality of life that what he is experiencing now he may not wish to continue with more aggressive therapies. Of course, this should be clarified further after tomorrow's care conference. 5. Code status. We briefly discussed the patient's DNR status. He wishes to continue this. We did not explore advance directives further with the exception of a discussion on artificial nutrition to which he responded "probably not," however, would consider at the time. 6. Symptoms report. The patient denied pain at my visit. In fact, his only concern was his waxing and waning mental status and global weakness. No symptom suggestions based on today's limited visit. 7. Palliative followup. The patient is highly appropriate for ongoing followup with Palliative Care. We will be happy to follow along with you and continue care outside of the hospital should he so choose. If his decision would be to focus on comfort and quality of life, he appears very appropriate for hospice services particularly if he would choose to forego further antibiotic therapy. Thank you for this consultation and allowing us to participate in the care of this patient. Time spent was 75 minutes with greater than 50% of this time spent in family counseling and coordination of care. This time includes telephone conversations with Dr. Roque and Dr. Kirby as well as in-person conversation with attending hospitalist. /[id number]/MODL MTDD
[2018-11-12] MEDS: LOPERAMIDE HCL 2 MG CAP PO PRN (05:39)
[2018-11-12] MEDS: MEROPENEM 1 GM in NS 100 ML IV SCH (05:40)
[2018-11-12] MEDS: ACETAMINOPHEN 325 MG TAB PO SCH ×3 (06:06→18:33)
[2018-11-12] MEDS ORDERED: PANTOPRAZOLE SODIUM 40 MG VIAL IVP SCH (09:00)
[2018-11-12] MEDS: predniSONE 20 MG TAB PO SCH ×2 (09:15→10:55)
[2018-11-12] MEDS: METOPROLOL TARTRATE 25 MG TAB PO SCH ×3 (09:15→21:54)
[2018-11-12] MEDS: DAPTOmycin 450 MG in NS 100 ML IV SCH (09:15)
[2018-11-12] MEDS ORDERED: CALCIUM GLUCONATE 50 ML IV ONE (10:13)
--- NOTE | 2018-11-12 10:18 | HOSPPROG ---
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 Transferred out of the ICU on 11/07. 1. Hematochezia: Suspicious for LGIB. Etiology unclear, infectious vs inflammatory colitis (? r/t immune therapy) vs bleeding met vs ulcer. - s/p 1u PRBC overnight - Monitor H/H q6h, transfuse to keep hgb>7 - Start IV PPI - Lengthy discussion with patient and son. Plan to pursue non-invasive diagnostics for now. Will recheck C diff, obtain CT abd with PO contrast, check lactate - Pending results of above and further discussion with patient, may consult gastroenterology for colonoscopy 2. Recurrent fevers with post-operative spinal hardware infection: Afebrile for last 3 days. Cultures negative, not septic. - Discontinue meropenem (had been started empirically), follow fever curve - ID following, continue daotomycin 3. Acute metabolic encephalopathy: Infection vs immune therapy side effect. Much improved/stable with steroids. - Continue IV methylpred 4. Metatstatic renal cell ca: On nivolumab which is being held. Oncology following. - Obtain CT chest/abdomen/pelvis with IV contrast to evaluate for progression of disease 5. Acute hypoxemic respiratory failure: Resolved. This was due to pulmonary edema. - Wean O2 as tolerates 6. Diarrhea: Stable. C diff negative in the past. -Loperamide PRN on hold with recheck of C diff 7. Thrombocytopenia: Stable. Likely consumptive in setting of some bleeding. Monitor. 8. Transaminitis: Resolved. 9. Protein Calorie Malnutrition: Minimal PO intake. Goals of Care: Met with patient, son, Dr Kirby (ID), and Dr Roque (onc) today for about 30 minutes. Essentially, he has 2 incurable processes (renal cell cancer and spinal infection). Patient and son would like to evaluate GI bleeding as above and continue antibiotics. They are not ready to pursue hospice care at this time. Palliative care has been consulted and following. Code: DNR VTE ppx: SCDs Dispo: Remain inpatient Subjective: Had 8-10 bloody bowel movements overnight. Hgb dropped to 6.5 and transfused 1u PRBC with appropriate response. Not hypotensive. Having some mild abdominal pain. No fevers. He is oriented. Objective: Vital Signs Temp Pulse Resp BP Pulse Ox 36.6 C 90 16 115/67 92 11/12/18 08:08 11/12/18 08:08 11/12/18 08:08 11/12/18 08:08 11/12/18 08:08 Laboratory Results 11/12/18 06:00 11/12/18 06:00 11/11/18 11/12/18 11/13/18 05:59 05:59 05:59 Intake Total 1240 1950 Output Total 1225 1425 Balance 15 525 PT 13.9 SEC (12.0-15.0) 10/29/18 15:45 INR 1.05 (0.83-1.16) 10/29/18 15:45 - Physical Exam Constitutional: no apparent distress, appears nourished, not in pain Eyes: PERRL, anicteric sclera, EOMI Ears, Nose, Mouth, Throat: moist mucous membranes, hearing normal, ears appear normal, no oral mucosal ulcers Cardiovascular: regular rate and rhythym, no murmur, rub, or gallop, No edema Respiratory: no respiratory distress, no rales or rhonchi, clear to auscultation Gastrointestinal: normoactive bowel sounds, tenderness Genitourinary: agosto in urethra Skin: other (did not visualize back, prior images reviewed) Musculoskeletal: full muscle strength, no muscle tenderness, normal joint ROM Neurologic: AAOx3, sensation intact bilaterally Psychiatric: interacting appropriately, not anxious, not encephalopathic, thought process linear ICD10 Worksheet Patient Problems: Problems Problem Status Onset Fever Acute Bone metastasis Acute Compression fracture Acute Dehydration Acute Renal cell carcinoma Acute Weakness Acute Weakness of right lower extremity Acute
--- NOTE | 2018-11-12 10:27 | PCMIDPN ---
Assessment/Plan: Assessment/Plan: * Postoperative back infection: No further fever after initiation of Solu- Medrol and meropenem. Unclear if meropenem contributing to resolution of fever or if this is primarily driven by Solu-Medrol. Will continue daptomycin as initial culture showed growth of Corynebacterium striatum. See below discussion regarding additional imaging which may provide repeat assessment of T -spine although in non dedicated fashion. * Fever: Fever has resolved after initiation of Solu-Medrol and meropenem. Repeat blood cultures have not shown growth. * Altered mental status: Continued significant improvement likely related to resumption of Solu-Medrol. * Bloody diarrhea: New onset bloody diarrhea and hematochezia. Will obtain testing for C difficile to ensure not related to C difficile colitis given significant antibiotic exposure. Non infectious considerations also possible. Patient and son favor noninvasive approach with further assessment by CT scan of abdomen and pelvis. Will discontinue meropenem at son's request with continued observation; do not think this is likely etiology for bloody diarrhea other than potential for association with C difficile. If fever were to recur while on Solu-Medrol and off meropenem, would potentially be more implicative of infection as driver/refuse collector of fever. Care conference with patient, son, Dr. Roque, and Dr. Sainz this a.m. to discuss current clinical findings and plan of care. Patient expresses that he desires further investigation but would like to minimize invasive procedures if possible. Consideration for transfer to [facility] also discussed with patient and son. Time spent, 45 min, of which greater than half was spent in education/counseling/coordination of care related to fever, altered mental status, bloody diarrhea, and postoperative back infection. 11/12/18 10:20 11/12/18 10:32 Subjective: Patient with onset of bloody diarrhea overnight and hematochezia. Received packed red blood cells. Palliative consultation completed yesterday with request for care conference including myself, Dr. Roque, and Dr. Sainz this a.m.. Objective: Vital Signs Temp Pulse Resp BP Pulse Ox 36.6 C 90 16 115/67 92 11/12/18 08:08 11/12/18 08:08 11/12/18 08:08 11/12/18 08:08 11/12/18 08:08 Laboratory Results 11/12/18 06:00 11/12/18 06:00 11/11/18 11/12/18 11/13/18 05:59 05:59 05:59 Intake Total 1240 1950 Output Total 4614 1425 Balance 15 525 Daptomycin # 11 Meropenem # 4 Solu-Medrol # 4 Blood cultures 11/08/2018 no growth - Physical Exam General Appearance: alert, no apparent distress, non-toxic ICD10 Worksheet Patient Problems: Problems Problem Status Onset Fever Acute Bone metastasis Acute Compression fracture Acute Dehydration Acute Renal cell carcinoma Acute Weakness Acute Weakness of right lower extremity Acute
[2018-11-12] MEDS: D5W 1/2 NS 1,000 ML IV SCH (10:32)
[2018-11-12] MEDS: methylPREDNISolone SOD SUCC 40 MG/ML VIAL IVP SCH (11:43)
--- NOTE | 2018-11-12 11:48 | SOAPPROG ---
SOAP Progress Note Assessment/Plan: Assessment: 1. Metastatic renal cell carcinoma 2. s/p thoracic tumor resection and radiation in 2015; surgery for recurrent metastasis in 2018 3. infection at operative site - not clearing with antibiotics 4. Delirium due to #3 - resolving 5. hematochezia Family meeting - myself, Dr. Sainz, Dr. Kirby, patient, and son Kahlil. Explained that the infection almost certainly cannot be cleared without aggressive surgery to remove hardware. Cause of hematochezia unexplained. Son suspects that it is due to the nivolumab, though other explanations are possible (tumor deposit, infectious colitis, ischemic colitis.) Discussed goals of care. Pt understands the seriousness of both the cancer and the infection but does not want to shift to hospice yet. Is willing to continue current level of care and consider other interventions (eg colonoscopy) to evaluate bleeding. we decided to start w/ a CT c/a/p to look at the colon and also to get a look at the tumor burden. Will likely require other studies ( colonoscopy, tagged RBC scan, etc) for definitive diagnosis. Plan: - CT c/a/p - transfuse as needed - continue steroids - will stop meropenem per son's request - will send C dif 45 min spent w/ pt and in coordination of care. Subjective: pt had hematochezia last night. reports up to 10 stools/day prior to that. feeling about the same. Objective: exam: unchanged Vital Signs Temp Pulse Resp BP Pulse Ox 36.2 C 90 16 148/93 H 97 11/12/18 10:57 11/12/18 10:57 11/12/18 10:57 11/12/18 10:57 11/12/18 10:57 Laboratory Results 11/12/18 06:00 11/12/18 06:00 11/11/18 11/12/18 11/13/18 05:59 05:59 05:59 Intake Total 1240 1950 Output Total 1225 1425 Balance 15 525 PT 13.9 SEC (12.0-15.0) 10/29/18 15:45 INR 1.05 (0.83-1.16) 10/29/18 15:45 ICD10 Worksheet Patient Problems: Problems Problem Status Onset Fever Acute Bone metastasis Acute Compression fracture Acute Dehydration Acute Renal cell carcinoma Acute Weakness Acute Weakness of right lower extremity Acute
[2018-11-12] MEDS ORDERED: K PHOS 10 MMOL in D5W 250 ML IV ONE (12:00)
[2018-11-12] MEDS ORDERED: IOPAMIDOL (ISOVUE-300) 100 ML BTL ONE (12:28)
[2018-11-12] MEDS: PANTOPRAZOLE SODIUM 40 MG VIAL IVP SCH (21:49)
[2018-11-12] MEDS: MIRTAZAPINE 15 MG TAB PO SCH (21:56)
[2018-11-13] MEDS: ACETAMINOPHEN 325 MG TAB PO SCH ×4 (02:16→16:57)
[2018-11-13] MEDS ORDERED: CALCIUM GLUCONATE 50 ML IV ONE (08:41)
[2018-11-13] MEDS: methylPREDNISolone SOD SUCC 40 MG/ML VIAL IVP SCH (09:27)
[2018-11-13] MEDS: METOPROLOL TARTRATE 25 MG TAB PO SCH ×2 (09:27→20:54)
[2018-11-13] MEDS: PANTOPRAZOLE SODIUM 40 MG VIAL IVP SCH ×2 (09:28→21:01)
[2018-11-13] MEDS: DAPTOmycin 450 MG in NS 100 ML IV SCH (09:28)
--- NOTE | 2018-11-13 09:35 | SOAPPROG ---
SOAP Progress Note Assessment/Plan: Assessment: 1. Metastatic renal cell carcinoma 2. s/p thoracic tumor resection and radiation in 2014; surgery for recurrent metastasis in 2018 3. infection at operative site - not clearing with antibiotics 4. Delirium due to #3 - resolving 5. hematochezia CT shows some modest progression of the renal cell carcinoma since August. He started on nivolumab in June but has only received 5 doses since that time ( last given 10/15). No evidence of colitis. Recs: - GI eval for source of bleed. start w/ EGD - continue daptomycin - continue empiric steroids. - hold further immunotherapy for now d/w dr harris. 30 min spent w/ pt and in coordination of care. Subjective: feels about the same. Objective: exam unchanged Vital Signs Temp Pulse Resp BP Pulse Ox 36.4 C 91 20 142/81 H 93 11/13/18 08:55 11/13/18 08:55 11/13/18 08:55 11/13/18 08:55 11/13/18 08:55 Laboratory Results 11/13/18 06:00 11/13/18 06:00 11/12/18 11/13/18 11/14/18 05:59 05:59 05:59 Intake Total 1950 600 Output Total 1425 1050 Balance 525 -450 PT REJ 11/12/18 22:00 INR REJ 11/12/18 22:00 ICD10 Worksheet Patient Problems: Problems Problem Status Onset Fever Acute Bone metastasis Acute Compression fracture Acute Dehydration Acute Renal cell carcinoma Acute Weakness Acute Weakness of right lower extremity Acute
--- NOTE | 2018-11-13 10:36 | HOSPPROG ---
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 Transferred out of the ICU on 11/07. 1. GI bleed with ABLA: Initially thought lower but now suspicious for upper source. H/H down-trending. CT without colitis, C diff negative. s/ 1u PRBC this admit. - Repeat H/H this afternoon - Continue IV PPI BID - Discussed possibility of EGD. Will call son, Kahlil, to discuss. If amenable plan to consult GI 2. 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 Cultures negative, not septic. - Discontinued meropenem (had been started empirically) 11/12, follow fever curve - ID following, continue daotomycin 3. Acute metabolic encephalopathy: Infection vs immune therapy side effect. Much improved/stable with steroids. - Continue IV methylpred 4. Metatstatic renal cell ca: On nivolumab which is being held. Oncology following. - CT c/a/p with slight progression of disease since 08/2018 5. Acute hypoxemic respiratory failure: Resolved. This was due to pulmonary edema. - Wean O2 as tolerates 6. Diarrhea: Stable. C diff negative x2 -Loperamide PRN 7. Thrombocytopenia: Stable. Likely consumptive in setting of some bleeding. Monitor. 8. Transaminitis: Resolved. 9. Protein Calorie Malnutrition: Minimal PO intake. Goals of Care: He has 2 incurable processes (renal cell cancer and spinal infection). Evaluating GI bleeding as above and continuing other therapies ( antibiotics) for now. They are not ready to pursue hospice care at this time. Palliative care has been consulted and following. Code: DNR VTE ppx: SCDs Dispo: Remain inpatient Subjective: Bowel movements have significantly slowed down but had 1 larger BM last night that was black and sticky per RN. No alina blood. No abdominal pain. No other new complaints. Objective: Vital Signs Temp Pulse Resp BP Pulse Ox 36.4 C 91 20 142/81 H 93 11/13/18 08:55 11/13/18 08:55 11/13/18 08:55 11/13/18 08:55 11/13/18 08:55 Laboratory Results 11/13/18 06:00 11/13/18 06:00 11/12/18 11/13/18 11/14/18 05:59 05:59 05:59 Intake Total 1950 600 Output Total 142 1050 Balance 525 -450 PT REJ 11/12/18 22:00 INR REJ 11/12/18 22:00 - Physical Exam Constitutional: no apparent distress, chronically ill appearing Eyes: PERRL, anicteric sclera, EOMI Ears, Nose, Mouth, Throat: moist mucous membranes, hearing normal, ears appear normal, no oral mucosal ulcers Cardiovascular: regular rate and rhythym, no murmur, rub, or gallop, No edema Respiratory: no respiratory distress, no rales or rhonchi, reduced air movement (bialteral bases) Gastrointestinal: normoactive bowel sounds, soft, non-tender abdomen, no palpable masses Genitourinary: agosto in urethra Skin: other (did not visualize lesions on back) Neurologic: AAOx3, sensation intact bilaterally Psychiatric: interacting appropriately ICD10 Worksheet Patient Problems: Problems Problem Status Onset Fever Acute Bone metastasis Acute Compression fracture Acute Dehydration Acute Renal cell carcinoma Acute Weakness Acute Weakness of right lower extremity Acute
[2018-11-13] MEDS ORDERED: K PHOS 10 MMOL in D5W 250 ML IV ONE (12:00)
--- NOTE | 2018-11-13 12:17 | PCMIDPN ---
Assessment/Plan: # chronic T spine OM, ?abscess with exposed HWR . past cultures showing Corynebacterium currently on Daptomycin. Last fever was Saturday but was started on low dose solumedrol at that time --plan to continue daptomycin, no toxicity. If could overall stabilize consider change to PO abx --reviewed med list with patient's son over the phone # GI Bleed: 11/06 & 11/12 Cdiff neg, unlikely infectious etiology --spoke to son and feels that if HCT stabilizing then would like to hold off on procedures # Metastatic RCC: imaging suggests progression, reviewed w son over phone Meds daptomycin 450g IV daily, #12 Microbiology 10/29 blood cultures (2): Negative 11/08 blood cx (2) :NGTD 11/11 CK normal Subjective: patient not having c/o Objective: Vital Signs Temp Pulse Resp BP Pulse Ox 36.4 C 91 20 142/81 H 93 11/13/18 08:55 11/13/18 08:55 11/13/18 08:55 11/13/18 08:55 11/13/18 08:55 Laboratory Results 11/13/18 06:00 11/13/18 06:00 11/12/18 11/13/18 11/14/18 05:59 05:59 05:59 Intake Total 1950 600 Output Total 1425 1050 Balance 525 -450 General Appearance: cachetic, nontoxic, chr ill appearing Respiratory: No accessory muscle use, No crackles Neck: supple Cardiac/Chest: RRR Extremities: pedal edema Abdomen: non-tender, soft Male Genitalia: agosto, No scrotal edema Skin: pallor, No rash Neuro/Psych: alert, oriented x 3, depressed affect, falls asleep easily, generalized weakness but moving all 4 ext equally RUE PICC c/d/i - Time Spent With Patient Time Spent with Patient: greater than 35 minutes Time Spent with Patient: Greater than 35 minutes spent on this patients care, greater than 50% of time spent counseling, educating, and coordinating care regarding the above mentioned plan. ICD10 Worksheet Patient Problems: Problems Problem Status Onset Fever Acute Bone metastasis Acute Compression fracture Acute Dehydration Acute Renal cell carcinoma Acute Weakness Acute Weakness of right lower extremity Acute
--- NOTE | 2018-11-13 14:07 | ASMTCMCOM ---
CM Note CM Note Notes: Plan of care reviewed in rounds. He continues to have black tarry stools. Considering GI workup. Supportive care for wound and infection. Family aware of gravity of situation but want to pursue treatment options. CM to follow. Plan: Likely to return to [facility] with palliative care when medically cleared for discharge. Date Signed: 11/13/2018 02:06 PM Electronically Signed By:Salena Delarosa RN
[2018-11-14] MEDS: ACETAMINOPHEN 325 MG TAB PO SCH ×5 (01:19→23:30)
[2018-11-14] MEDS: D5W 1/2 NS 1,000 ML IV SCH (05:58)
[2018-11-14] MEDS: methylPREDNISolone SOD SUCC 40 MG/ML VIAL IVP SCH (09:02)
[2018-11-14] MEDS: DAPTOmycin 450 MG in NS 100 ML IV SCH (09:02)
[2018-11-14] MEDS: METOPROLOL TARTRATE 25 MG TAB PO SCH ×2 (09:03→22:14)
[2018-11-14] MEDS: PANTOPRAZOLE SODIUM 40 MG VIAL IVP SCH ×2 (09:03→22:09)
--- NOTE | 2018-11-14 10:37 | PCMIDPN ---
Assessment/Plan: # Chronic T spine OM, ?abscess with exposed HWR . past cultures showing Corynebacterium currently on Daptomycin. No new fever. WBC stable --plan to continue daptomycin, no toxicity. If could overall stabilize consider change to PO abx; 11/11 CK flat # GI Bleed: 11/06 & 11/12 Cdiff neg. Yesterday patient's son expressed desire to avoid procedures if possible (i.e. HCT stabilizes - which seems it has) # Metastatic RCC: imaging suggests gradual progression, reviewed w son over phone Meds daptomycin 450g IV daily, #13 Microbiology 10/29 blood cultures (2): Negative 11/08 blood cx (2) :NGTD Subjective: patient reports less frequent BMs, 3-4 BMs documented no pain denies SOB Objective: Vital Signs Temp Pulse Resp BP Pulse Ox 36.7 C 81 18 145/80 H 100 11/14/18 08:00 11/14/18 08:00 11/14/18 05:49 11/14/18 08:00 11/14/18 08:00 Microbiology 11/08/18 14:15 Blood Culture - Final Blood 11/08/18 14:15 Blood Culture - Final Blood Laboratory Results 11/14/18 05:47 11/14/18 05:47 11/13/18 11/14/18 11/15/18 05:59 05:59 05:59 Intake Total 600 1410 Output Total 1050 1900 Balance -450 -490 - Physical Exam General Appearance: alert, cachetic, non-toxic EENT: pale conjunctiva Respiratory: other (decreased bs bases, shallow inspiration), No accessory muscle use Neck: supple Cardiac/Chest: regular rate, rhythm Extremities: pedal edema Abdomen: non-tender, soft Skin: pallor, No rash Neuro/Psych: alert, oriented x 3, depressed affect, other (moving B LE equally) - Line/s RUE PICC Lines: No drainage, No erythema - Time Spent With Patient Time Spent with Patient: greater than 35 minutes (Care coordinated w hospitalist , oncology and I called son and updated) Time Spent with Patient: Greater than 35 minutes spent on this patients care, greater than 50% of time spent counseling, educating, and coordinating care regarding the above mentioned plan. ICD10 Worksheet Patient Problems: Problems Problem Status Onset Fever Acute Bone metastasis Acute Compression fracture Acute Dehydration Acute Renal cell carcinoma Acute Weakness Acute Weakness of right lower extremity Acute
--- NOTE | 2018-11-14 10:48 | SOAPPROG ---
SOAP Progress Note Assessment/Plan: Assessment: 1. Metastatic renal cell carcinoma 2. s/p thoracic tumor resection and radiation in 2014; surgery for recurrent metastasis in 2018 3. infection at operative site - not clearing with antibiotics 4. Delirium due to #3 - resolving 5. hematochezia CT shows some modest progression of the renal cell carcinoma since August. He started on nivolumab in June but has only received 5 doses since that time ( last given 10/15). No evidence of colitis. Recs: - continue abx per ID - continue empiric steroids. - hold further immunotherapy for now - hold off on transfusion for now - prognosis overall poor, but pt and son would like to to continue to treat the infection., d/w dr harris. 30 min spent w/ pt and in coordination of care. 11/14/18 10:47 Subjective: feels about the same. very tired. unable to sit in chair for more than brief periods of time. diarrhea getting better. Objective: exam unchanged Vital Signs Temp Pulse Resp BP Pulse Ox 36.7 C 81 18 145/80 H 100 11/14/18 08:00 11/14/18 08:00 11/14/18 05:49 11/14/18 08:00 11/14/18 08:00 Microbiology 11/08/18 14:15 Blood Culture - Final Blood 11/08/18 14:15 Blood Culture - Final Blood Laboratory Results 11/14/18 05:47 11/14/18 05:47 11/13/18 11/14/18 11/15/18 05:59 05:59 05:59 Intake Total 600 1410 Output Total 1050 1900 Balance -450 -490 PT REJ 11/12/18 22:00 INR REJ 11/12/18 22:00 ICD10 Worksheet Patient Problems: Problems Problem Status Onset Fever Acute Bone metastasis Acute Compression fracture Acute Dehydration Acute Renal cell carcinoma Acute Weakness Acute Weakness of right lower extremity Acute
[2018-11-14] MEDS ORDERED: K PHOS 10 MMOL in D5W 250 ML IV ONE (12:00)
--- NOTE | 2018-11-14 12:21 | HOSPPROG ---
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 Transferred out of the ICU on 11/07. 1. GI bleed with ABLA: Likely upper. Seems to be resolving. H/H slightly down. - Repeat H/H this PM, if down more will transfuse PRBC - Cont IV PPI BID - Hold on GI consult/endoscopy for now 2. 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 Cultures negative, not septic. - Discontinued meropenem (had been started empirically) 11/12, follow fever curve - ID following, continue IV daptomycin. Pending discussion with pt/family, considering to switch to PO antibiotics for long-term suppression 3. Acute metabolic encephalopathy: Infection vs immune therapy side effect. Much improved/stable with steroids. - Continue IV methylpred 4. Metatstatic renal cell ca: On nivolumab which is being held. Oncology following. - CT c/a/p with slight progression of disease since 08/2018 5. Acute hypoxemic respiratory failure: Resolved. This was due to pulmonary edema. - Monitor resp status if needs transfusion, may need additional diuretic 6. Diarrhea: Stable. C diff negative x2 -Loperamide PRN 7. Thrombocytopenia: Stable. Likely consumptive in setting of some bleeding. Monitor. 8. Transaminitis: Resolved. 9. Protein Calorie Malnutrition: Minimal PO intake. Goals of Care: He has 2 incurable processes (renal cell cancer and spinal infection). Monitoring GI bleeding as above and continuing other therapies ( antibiotics) for now. Once GI bleed stable, reasonable to switch all therapies to PO and if remains stable, discharge back to [facility]. They are not ready to pursue hospice care at this time. Palliative care has been consulted and following. Code: DNR VTE ppx: SCDs Dispo: Remain inpatient Subjective: Ok night. Feeling a little lethargic. Only 2 BMs, unsure if bloody/ melenic. No abdominal pain. No fevers. Objective: Vital Signs Temp Pulse Resp BP Pulse Ox 36.3 C 94 17 134/82 H 98 11/14/18 11:57 11/14/18 11:57 11/14/18 11:57 11/14/18 11:57 11/14/18 11:57 Microbiology 12/08/18 14:15 Blood Culture - Final Blood 11/08/18 14:15 Blood Culture - Final Blood Laboratory Results 11/14/18 05:47 11/14/18 05:47 11/13/18 11/14/18 11/15/18 05:59 05:59 05:59 Intake Total 600 1410 Output Total 1050 1900 Balance -450 -490 PT REJ 11/12/18 22:00 INR REJ 11/12/18 22:00 - Physical Exam Constitutional: no apparent distress, chronically ill appearing Eyes: PERRL, anicteric sclera, EOMI Ears, Nose, Mouth, Throat: moist mucous membranes, hearing normal, ears appear normal, no oral mucosal ulcers Cardiovascular: regular rate and rhythym, no murmur, rub, or gallop Respiratory: no respiratory distress, no rales or rhonchi, clear to auscultation Gastrointestinal: normoactive bowel sounds, soft, non-tender abdomen, no palpable masses Genitourinary: agosto in urethra Skin: no rashes or abrasions, no fluctuance, no induration, other (did not visualize back today) Musculoskeletal: generalized weakness Neurologic: AAOx3, sensation intact bilaterally Psychiatric: interacting appropriately, not anxious, not encephalopathic, thought process linear ICD10 Worksheet Patient Problems: Problems Problem Status Onset Fever Acute Bone metastasis Acute Compression fracture Acute Dehydration Acute Renal cell carcinoma Acute Weakness Acute Weakness of right lower extremity Acute
--- NOTE | 2018-11-14 13:53 | ASMTCMCOM ---
CM Note CM Note Notes: Pt discussed during rounds. Once pt's GI bleed is stable it may be reasonable to switch all therapies to PO and if he remains stable, d/c back to [facility]. Family not ready to pursue hospice care at this time. Palliative care has been consulted. D/C Plan: Anticipate [facility] and palliative care. Date Signed: 11/14/2018 01:52 PM Electronically Signed By:Karen Scott
[2018-11-14] MEDS ORDERED: CALCIUM GLUCONATE 50 ML IV ONE (15:18)
[2018-11-14] MEDS: MIRTAZAPINE 15 MG TAB PO SCH (18:55)
[2018-11-15] MEDS: D5W 1/2 NS 1,000 ML IV SCH (00:23)
[2018-11-15] MEDS: ACETAMINOPHEN 325 MG TAB PO SCH ×4 (06:39→23:57)
[2018-11-15] MEDS ORDERED: CALCIUM GLUCONATE 50 ML IV ONE (07:53)
[2018-11-15] MEDS: methylPREDNISolone SOD SUCC 40 MG/ML VIAL IVP SCH (08:31)
[2018-11-15] MEDS: PANTOPRAZOLE SODIUM 40 MG VIAL IVP SCH ×2 (08:31→20:44)
[2018-11-15] MEDS: DAPTOmycin 450 MG in NS 100 ML IV SCH (08:31)
[2018-11-15] MEDS: METOPROLOL TARTRATE 25 MG TAB PO SCH ×2 (08:32→20:44)
[2018-11-15] MEDS: MIRTAZAPINE 15 MG TAB PO SCH (08:32)
--- NOTE | 2018-11-15 13:37 | SOAPPROG ---
SOAP Progress Note Assessment/Plan: Assessment: This is a 68-year-old male with history of metastatic renal cell carcinoma and history of T-spine osteomyelitis. 1. Metastatic renal cell carcinoma: He previously has received immunotherapy in his disease is slowly progressing. I do think having a goals of care discussion would be reasonable and I think this was done last week. We will continue to follow along. 2. T-spine osteomyelitis: Followed by [facility]. He currently is receiving daptomycin. 3. GI bleed: He will need transfusion today. 11/15/18 13:36 Subjective: He has no complaints today. He has a fairly flat affect in does not engage fully with conversation. He denies any pain, shortness of breath. Ten point review of system was obtained was otherwise negative unless stated above. Objective: Vital Signs Temp Pulse Resp BP Pulse Ox 36.5 C 83 16 127/76 H 1 L 11/15/18 08:15 11/15/18 08:32 11/15/18 08:15 11/15/18 08:32 11/15/18 08:15 Laboratory Results 11/15/18 04:08 11/15/18 04:08 11/14/18 11/15/18 11/16/18 05:59 05:59 05:59 Intake Total 1410 Output Total 1900 1400 Balance -490 -1400 PT REJ 11/12/18 22:00 INR REJ 11/12/18 22:00 General: Ill-appearing male, conversant HEENT: Oropharynx is clear Cardiovascular: Regular rate and rhythm Pulmonary: Clear on auscultation from anterior. Extremities: No cyanosis clubbing or edema Neuro: Moving all extremities Skin: No visible skin lesions Psych: Flat affect Lymph: No lymphadenopathy ICD10 Worksheet Patient Problems: Problems Problem Status Onset Fever Acute Bone metastasis Acute Compression fracture Acute Dehydration Acute Renal cell carcinoma Acute Weakness Acute Weakness of right lower extremity Acute
--- NOTE | 2018-11-15 13:54 | PCMIDPN ---
Assessment/Plan: # Chronic T spine OM, ?abscess with exposed HWR . past cultures showing Corynebacterium currently on Daptomycin. No new fever. WBC stable. Patient remains extremely debilitated --plan to continue daptomycin, no toxicity. If could overall stabilize consider change to PO abx; 11/11 CK flat --suspect his severe debilitation is not reversible and due to chronic incurable infection and RCC # GI Bleed: 11/06 & 11/12 Cdiff neg. HCT crept down to 20, getting blood transfusion # Thrush :nystatin s/s # Metastatic RCC Meds daptomycin 450g IV daily, #14 Microbiology 10/29 blood cultures (2): Negative 11/08 blood cx (2) :Neg Subjective: patient has not pain describes severe pain Objective: Vital Signs Temp Pulse Resp BP Pulse Ox 36.5 C 83 16 127/76 H 1 L 11/15/18 08:15 11/15/18 08:32 11/15/18 08:15 11/15/18 08:32 11/15/18 08:15 Laboratory Results 11/15/18 04:08 11/15/18 04:08 11/14/18 11/15/18 11/16/18 05:59 05:59 05:59 Intake Total 1410 Output Total 1900 1400 Balance -490 -1400 General Appearance: alert, cachetic, non-toxic EENT: pale conjunctiva, thrush Respiratory: decreased bs bases, shallow inspiration, No accessory muscle use Neck: supple Cardiac/Chest: regular rate, rhythm Extremities: pedal edema Abdomen: non-tender, soft Skin: pallor, No rash Neuro/Psych: alert, oriented x 3, depressed affect, moving B LE equally RUE PICC: No drainage, No erythema Time Spent with Patient: greater than 35 minutes (Care coordinated w oncology and I called son and updated) Time Spent with Patient: Greater than 35 minutes spent on this patients care, greater than 50% of time spent counseling, educating, and coordinating care regarding the above mentioned plan. ICD10 Worksheet Patient Problems: Problems Problem Status Onset Fever Acute Bone metastasis Acute Compression fracture Acute Dehydration Acute Renal cell carcinoma Acute Weakness Acute Weakness of right lower extremity Acute
[2018-11-15] MEDS: NYSTATIN SUSP 500000 UNIT/5 ML UD LIQ PO SCH ×2 (16:00→20:45)
--- NOTE | 2018-11-15 16:24 | HOSPPROG ---
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 Transferred out of the ICU on 11/07. 1. GI bleed with ABLA: H/H slightly down but I suspect whatever bled has stopped. Likely upper source. H/H slightly down. - Discussed with patient and son (via telephone), plan to transfuse 1u PRBC today - Patient not interested in endoscopic evaluation at this time, which is very reasonable. He may consider in 1-2 days if still requiring transfusions - Cont IV PPI BID - Hold on GI consult/endoscopy for now 2. 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 Cultures negative, not septic. - Discontinued meropenem (had been started empirically) 11/12, follow fever curve - ID following, continue IV daptomycin. Pending discussion with pt/family, considering to switch to PO antibiotics for long-term suppression 3. Acute metabolic encephalopathy: Infection vs immune therapy side effect. Much improved/stable with steroids. He has decision making capacity. - Continue IV methylpred 4. Metatstatic renal cell ca: On nivolumab which is being held. Oncology following. - CT c/a/p with slight progression of disease since 08/2018 5. Acute hypoxemic respiratory failure: Resolved. This was due to pulmonary edema. - Monitor resp status with transfusion, may need additional diuretic 6. Diarrhea: Stable. C diff negative x2 -Loperamide PRN 7. Thrombocytopenia: Stable. Likely consumptive in setting of some bleeding. Monitor. 8. Transaminitis: Resolved. 9. Protein Calorie Malnutrition: Minimal PO intake. Goals of Care: He has 2 incurable processes (renal cell cancer and spinal infection). Monitoring GI bleeding as above and continuing other therapies ( antibiotics, steroids) for now. Once GI bleed stable, reasonable to switch all therapies to PO and if remains stable, discharge back to [facility]. They are not ready to pursue hospice care at this time. Palliative care has been consulted and following. Probably will need additional goals of care discussion next week. Code: DNR VTE ppx: SCDs Dispo: Remain inpatient Subjective: Sitting up eating breakfast. Having some mouth pain. Denies other new symptoms. No abdominal pain. Doesn't think he's had bowel movement. Objective: Vital Signs Temp Pulse Resp BP Pulse Ox 36.5 C 83 16 127/76 H 1 L 11/15/18 08:15 11/15/18 08:32 11/15/18 08:15 11/15/18 08:32 11/15/18 08:15 Laboratory Results 11/15/18 04:08 11/15/18 04:08 11/14/18 11/15/18 11/16/18 05:59 05:59 05:59 Intake Total 1410 Output Total 1900 1400 Balance -490 -1400 PT REJ 11/12/18 22:00 INR REJ 11/12/18 22:00 ICD10 Worksheet Patient Problems: Problems Problem Status Onset Fever Acute Bone metastasis Acute Compression fracture Acute Dehydration Acute Renal cell carcinoma Acute Weakness Acute Weakness of right lower extremity Acute
[2018-11-16] MEDS: NYSTATIN SUSP 500000 UNIT/5 ML UD LIQ PO SCH ×4 (05:12→21:12)
[2018-11-16] MEDS: ACETAMINOPHEN 325 MG TAB PO SCH ×3 (05:23→18:22)
[2018-11-16 05:44] LABS: CREATINE KINASE 25 IU/L (0-224)
[2018-11-16] MEDS ORDERED: CALCIUM GLUCONATE 50 ML IV ONE (07:40)
[2018-11-16] MEDS: DAPTOmycin 450 MG in NS 100 ML IV SCH (08:37)
[2018-11-16] MEDS: PANTOPRAZOLE SODIUM 40 MG VIAL IVP SCH ×2 (08:38→21:12)
[2018-11-16] MEDS: methylPREDNISolone SOD SUCC 40 MG/ML VIAL IVP SCH (08:40)
[2018-11-16] MEDS: METOPROLOL TARTRATE 25 MG TAB PO SCH ×2 (08:56→21:12)
--- NOTE | 2018-11-16 11:57 | PCMIDPN ---
Assessment/Plan: # Chronic T spine OM, ?abscess with exposed HWR . past cultures showing Corynebacterium currently on Daptomycin. No new fever. WBC stable. Patient remains extremely debilitated. Patient seems a little more interactive today --stopped daptomycin today --re-challenge Sivextro (tedizolid) 200mg daily tomorrow, not clear that cause of fever. Family will bring in Rx. Requested pharmacy to place order for administration at 1700 but can give earlier if family brings before --suspect his severe debilitation is not reversible and due to chronic incurable infection and RCC and specific reviewed this w both patient and son # GI Bleed: HCT stable s/p blood yesterday, HR 80s at time of exam # Thrush :nystatin s/s # Metastatic RCC Meds daptomycin 450g IV daily, #15 Microbiology 10/29 blood cultures (2): Negative 11/08 blood cx (2) :Neg Subjective: Remeron dc'd yesterday no pain encouraged patient to get out of bed Objective: Vital Signs Temp Pulse Resp BP Pulse Ox 36.8 C 93 14 126/79 H 95 11/16/18 08:00 11/16/18 08:56 11/15/18 20:26 11/16/18 08:56 11/16/18 08:00 Laboratory Results 11/16/18 05:20 11/16/18 05:20 11/15/18 11/16/18 11/17/18 05:59 05:59 05:59 Intake Total 100 Output Total 1400 2450 600 Balance -1400 -2350 -600 - Physical Exam General Appearance: alert, cachetic EENT: pale conjunctiva, thrush Respiratory: lungs clear, No accessory muscle use Cardiac/Chest: regular rate, rhythm Extremities: pedal edema Abdomen: non-tender, soft Back: other (open wound on back unchanged) Skin: pallor, No rash Neuro/Psych: alert, oriented x 3, other (more interactive today) - Line/s RUE PICC Lines: No drainage, No erythema ICD10 Worksheet Patient Problems: Problems Problem Status Onset Fever Acute Bone metastasis Acute Compression fracture Acute Dehydration Acute Renal cell carcinoma Acute Weakness Acute Weakness of right lower extremity Acute
--- NOTE | 2018-11-16 14:26 | SOAPPROG ---
SOAP Progress Note Assessment/Plan: Assessment: This is a 68-year-old male with history of metastatic renal cell carcinoma and history of T-spine osteomyelitis. 1. Metastatic renal cell carcinoma: He previously has received immunotherapy with slow progression. He previously has had goals of care discussions and currently is DNR. I discussed within the his performance status is very poor and he seems to verbalizes understanding of this. We will again continue to discuss with him further. 2. T-spine osteomyelitis: Followed by Infectious disease. Switching today tedizolid. 11/16/18 14:24 Subjective: No acute events overnight. Patient has fairly stoic with regards to questions today. He has no active issues. Objective: Vital Signs Temp Pulse Resp BP Pulse Ox 36.8 C 93 14 126/79 H 95 11/16/18 08:00 11/16/18 08:56 11/15/18 20:26 11/16/18 08:56 11/16/18 08:00 Laboratory Results 11/16/18 05:20 11/16/18 05:20 11/15/18 11/16/18 11/17/18 05:59 05:59 05:59 Intake Total 100 Output Total 1400 2450 600 Balance -1400 -2350 -600 PT REJ 11/12/18 22:00 INR REJ 11/12/18 22:00 General: Conversant no acute distress HEENT: Nasal cannula in place oropharynx is clear Psych: Flat affect Cardiovascular: Regular rhythm Pulmonary: Clear on anterior auscultation ICD10 Worksheet Patient Problems: Problems Problem Status Onset Fever Acute Bone metastasis Acute Compression fracture Acute Dehydration Acute Renal cell carcinoma Acute Weakness Acute Weakness of right lower extremity Acute
--- NOTE | 2018-11-16 14:59 | HOSPPROG ---
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 1. GI bleed with ABLA: I suspect whatever bled has stopped. s/p transfusion yesterday - Follow H/H daily. Hopefully stabilized. If not, may need GI intervention; patient not interested in this now - Cont IV PPI BID 2. Chronic T-spine osteomyelitis/spinal hardware infection: Remains afebrile. Cultures negative, not septic. - Switching from IV dapto to PO tinezolid tomorrow for chronic suppression therapy 3. Acute metabolic encephalopathy: Resolved. Infection vs immune therapy side effect. Much improved with steroids. He has decision making capacity. - Continue IV methylpred. Plan to switch to PO and taper in a few days 4. Metatstatic renal cell ca: On nivolumab which is being held. Oncology following. - CT c/a/p with slight progression of disease since 08/2018 5. Acute hypoxemic respiratory failure: Resolved. This was due to pulmonary edema, BNP down. - Wean O2 as able 6. Diarrhea: Stable. C diff negative x2 -Loperamide PRN on hold with bleed 7. Thrombocytopenia: Stable. Likely consumptive in setting of some bleeding. Monitor. 8. Transaminitis: Resolved. 9. Protein Calorie Malnutrition: Minimal PO intake. Goals of Care: He has 2 incurable processes (renal cell cancer and spinal infection). Monitoring GI bleeding as above and continuing other therapies ( antibiotics, steroids) for now. Once GI bleed stable, reasonable to switch all therapies to PO and if remains stable, discharge back to [facility]. They are not ready to pursue hospice care at this time. Palliative care has been consulted and following. Probably will need additional goals of care discussion this upcoming week. Code: DNR VTE ppx: SCDs Dispo: Remain inpatient Subjective: Better today overall. Mouth pain improved. Had 1 BM, reportedly not bloody or black. No abd pain. Sat up on side of bed for a bit, felt tired after. Objective: Vital Signs Temp Pulse Resp BP Pulse Ox 36.8 C 93 14 126/79 H 95 11/16/18 08:00 11/16/18 08:56 11/15/18 20:26 11/16/18 08:56 11/16/18 08:00 Laboratory Results 11/16/18 05:20 11/16/18 05:20 11/15/18 11/16/18 11/17/18 05:59 05:59 05:59 Intake Total 100 Output Total 1400 3194 600 Balance -2397 -8233 -600 PT REJ 11/12/18 22:00 INR REJ 11/12/18 22:00 - Physical Exam Constitutional: no apparent distress, chronically ill appearing Eyes: anicteric sclera Ears, Nose, Mouth, Throat: moist mucous membranes Cardiovascular: regular rate and rhythym, no murmur, rub, or gallop Respiratory: no respiratory distress, no rales or rhonchi, clear to auscultation Gastrointestinal: normoactive bowel sounds, soft, non-tender abdomen Genitourinary: agosto in urethra Skin: no rashes or abrasions, no fluctuance, no induration, other (did not visualize back) Musculoskeletal: generalized weakness Neurologic: AAOx3, sensation intact bilaterally Psychiatric: interacting appropriately, not anxious, not encephalopathic, thought process linear ICD10 Worksheet Patient Problems: Problems Problem Status Onset Fever Acute Bone metastasis Acute Compression fracture Acute Dehydration Acute Renal cell carcinoma Acute Weakness Acute Weakness of right lower extremity Acute
[2018-11-17] MEDS: ACETAMINOPHEN 325 MG TAB PO SCH ×6 (00:31→17:14)
[2018-11-17] MEDS: NYSTATIN SUSP 500000 UNIT/5 ML UD LIQ PO SCH ×5 (05:11→20:06)
[2018-11-17] MEDS: ALTEPLASE 2 MG VIAL IVP PRN (05:18)
--- NOTE | 2018-11-17 09:18 | HOSPPROG ---
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 # GI bleed with ABLA - H/H low but stable s/p 1U PRBC - had previously declined intervention - cont PPI IV BID # chronic T-spine osteomyelitis/spinal hardware infection - dapto stopped yesterday but no other abx started - will d/w ID # metabolic encephalopathy - resolved, has decision making capacity - infection vs immune therapy side effect; much improved with steroids - continue IV methylpred - change to PO soon # metastatic RCC - on nivolumab (holding) # acute resp failure - d/t pulm edema - better # diarrhea - c. dif negative # thrombocytopenia - stable # hypoNa - follow # SPCM # dvt ppx - high risk for DVT, but also high risk for lovenox with GIB; hold today, rechallenge soon with lovenox; SCDs # dispo - poor prognosis (incurable T-spine infection, metastatic RCC), poor performance status; not ready for hospice; pall care involved Subjective: c/o pain in his mouth; Objective: Vital Signs Temp Pulse Resp BP Pulse Ox 36.7 C 88 12 128/77 H 91 L 11/17/18 07:36 11/17/18 07:36 11/17/18 07:36 11/17/18 07:36 11/17/18 07:36 Laboratory Results 11/17/18 07:30 11/17/18 07:30 11/16/18 11/17/18 11/18/18 05:59 05:59 05:59 Intake Total 100 200 Output Total 2450 2350 Balance -2350 -2150 PT REJ 11/12/18 22:00 INR REJ 11/12/18 22:00 chart reviewed imaging reviewed - Physical Exam Constitutional: chronically ill appearing Cardiovascular: regular rate and rhythym, no murmur, rub, or gallop Respiratory: no respiratory distress, no rales or rhonchi, clear to auscultation Gastrointestinal: normoactive bowel sounds, soft, non-tender abdomen, no palpable masses ICD10 Worksheet Patient Problems: Problems Problem Status Onset Compression fracture Acute Renal cell carcinoma Acute Bone metastasis Acute Weakness Acute Dehydration Acute Weakness of right lower extremity Acute Fever Acute
[2018-11-17] MEDS: PANTOPRAZOLE SODIUM 40 MG VIAL IVP SCH ×2 (09:38→20:09)
[2018-11-17] MEDS: methylPREDNISolone SOD SUCC 40 MG/ML VIAL IVP SCH (09:38)
[2018-11-17] MEDS: METOPROLOL TARTRATE 25 MG TAB PO SCH ×2 (09:39→22:02)
--- NOTE | 2018-11-17 13:34 | PDCONSULT ---
Vp & General Counsel Note: S: The patient was seen in follow up. He currently denies any pain, including mouth pain. His diarrhea is semi-formed and improving. He continues to feel very weak. His is at bedside. KIM Kim ([facility]) and Liaison Nadia also present.The patient asked several times what he should be doing now. His feels he is no longer confused. O: VS reviewed. Exam deferred. Goal of visit is symptom management. Patient does appear very pale, weak and chronically ill. A/P: 68 yo man with metastatic RCC. He has had a persistent hardware infection in his spine. His family is aware that he will need to be on lifelong antibiotics. Further complicating his prognosis is a non-healing wound in his spine as well.I discussed with him and his that the only thing he can do at this point is to work with physical therapy and see if he can get stronger. At this point, his cancer and infection, as well as anemia are his greatest barriers to regaining strength and it was difficult to know if these would improve (he is receiving transfusions for his anemia). I said either I or Dr. St would see him at rehab and ensure he had adequate pain control. In addition, should things not go well, we would also be there to help him stay as comfortable as possible. I updated his son by phone as well. I did share with the patient and that by review of his chart, it seemed the doctors felt that his infection and cancer were likely to not get better, only worsen. The patient seemed to understand this was their opinion, but has hope they are incorrect.
--- NOTE | 2018-11-17 14:22 | ASMTCMCOM ---
CM Note CM Note Notes: Chart review: Palliative care following, plan remains discharge to [facility] w/ Palliative Care. Date TBD. CM to follow. Plan: TBD, [facility] with Palliative. Date Signed: 11/16/2018 04:42 PM Electronically Signed By:Leola Jeffers
--- NOTE | 2018-11-17 14:34 | PCMIDPN ---
Assessment/Plan: Assessment/Plan: * Postoperative back infection: Transitioning back to Tedizolid today for ongoing suppressive therapy. Think this is unlikely etiology for patient's initial fever and confusion. Exam today reveals further hardware exposure including ilya as well as 3rd area where hardware is palpable just below surface of skin which is erythematous. * Fever: Resolved. * Altered mental status: Remains markedly improved. Unclear if improvement related to use of corticosteroids. * Bloody diarrhea: Diarrhea now resolved. Prior C difficile toxin negative. 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 Will begin Valacyclovir twice daily. Clinical findings and plan reviewed with patient and at bedside. 11/17/18 14:31 Subjective: Patient complains of not feeling well. Notes he is too weak to get out of bed. Nursing staff notes no further diarrhea. His brought in home supply of Tedizolid which will be resumed today. Objective: Vital Signs Temp Pulse Resp BP Pulse Ox 36.7 C 88 12 128/77 H 91 L 11/17/18 07:36 11/17/18 07:36 11/17/18 07:36 11/17/18 07:36 11/17/18 07:36 Laboratory Results 11/17/18 07:30 11/17/18 07:30 11/16/18 11/17/18 11/18/18 05:59 05:59 05:59 Intake Total 100 200 Output Total 2450 2350 Balance -2350 -2150 Tedizolid to resume today, antibiotics # 16 - Physical Exam General Appearance: alert, no apparent distress, non-toxic EENT: other (Shallow oral ulcerations and scabs over lips), No scleral icterus Respiratory: lungs clear Cardiac/Chest: regular rate, rhythm Abdomen: non-tender, No distended Back: other (Central area of hardware exposure more prominent with now visible ilya as well; yellowish drainage present; 3rd area where hardware just beneath skin with erythematous overlying skin) ICD10 Worksheet Patient Problems: Problems Problem Status Onset Fever Acute Bone metastasis Acute Compression fracture Acute Dehydration Acute Renal cell carcinoma Acute Weakness Acute Weakness of right lower extremity Acute
--- NOTE | 2018-11-17 15:34 | ASMTCMCOM ---
CM Note CM Note Notes: Plan of care reviewed in am rounds. Patient status essentially the same. He remains chronically ill with challlenges of anemia, infection and renal cell carcinoma, Seen again by Hospice/Palliative care physician.CM to follow. Plan: to [facility] when medically ready for discharge with palliative care. Date Signed: 11/17/2018 03:33 PM Electronically Signed By:Salena Delarosa RN
[2018-11-17] MEDS: [UNRECOGNIZED DRUG - OTHER] PO SCH (16:28)
[2018-11-17] MEDS ORDERED: [UNRECOGNIZED DRUG - OTHER] PO SCH (17:00)
[2018-11-17] MEDS ORDERED: CALCIUM GLUCONATE 50 ML IV ONE (17:19)
[2018-11-17] MEDS: valACYclovir 500 MG TAB PO SCH (20:06)
[2018-11-17] MEDS: MBX SOLN 30 ML BOTTLE PO PRN ×2 (20:08→22:15)
[2018-11-18] MEDS: ACETAMINOPHEN 325 MG TAB PO SCH ×4 (05:19→23:21)
[2018-11-18] MEDS: MBX SOLN 30 ML BOTTLE PO PRN ×2 (05:19→08:39)
[2018-11-18] MEDS: NYSTATIN SUSP 500000 UNIT/5 ML UD LIQ PO SCH ×4 (05:19→21:02)
[2018-11-18 07:28] LABS: PLATELET COUNT 161 10^3/uL (150-400)
[2018-11-18] MEDS: methylPREDNISolone SOD SUCC 40 MG/ML VIAL IVP SCH (08:48)
[2018-11-18] MEDS: PANTOPRAZOLE SODIUM 40 MG VIAL IVP SCH (08:48)
[2018-11-18] MEDS: valACYclovir 500 MG TAB PO SCH ×2 (09:02→21:02)
[2018-11-18] MEDS: METOPROLOL TARTRATE 25 MG TAB PO SCH ×2 (09:02→21:02)
--- NOTE | 2018-11-18 12:27 | SOAPPROG ---
SOAP Progress Note Assessment/Plan: Assessment: 68 yo man with metastatic renal cell cancer and a non-healing wound in his spine , with infected hardware. Plan:Discussed with the patient his expectations regarding the future as well as what the expectations of his physicians seemed to be (incurable illness with a limited life expectancy of weeks). He is continuing to focus on what he feels are the differing opinions of his doctors and that there are some doctors who feel he can extend his life with ongoing aggressive treatment. He could not share which doctors he felt were more optimistic. Will continue to have ongoing discussions with the patient and attempt to arrange another family meeting with the son on the phone, either prior to DC or at his rehabilitation facility. 11/18/18 12:27 68 yo Subjective: I asked the patient if he was in pain, he denies any pain. I ask him to tell me what his understanding of his current medical problems are and he asks me to talk the other doctors. I explain that I have spoken with other doctors, but that I want to learn better what he understands. He shares that the doctors say different things. Some have been more optimistic than others. He has been told that with recent changes to his medicines, they will "wait and see what happens ". I shared with him my concern that his doctors were worried the wound was never going to heal and only get worse, as was his cancer. And that, based on this, there was concern that ongoing attempts at rehabilitation and PT on his part would only tire him without providing benefit. He continued to share his opinion that different doctors have different opinions. Objective: Vital Signs Temp Pulse Resp BP Pulse Ox 36.6 C 84 16 139/71 H 94 11/18/18 08:00 11/18/18 08:00 11/18/18 08:00 11/18/18 08:00 11/18/18 08:00 Laboratory Results 11/18/18 06:39 11/18/18 06:10 11/17/18 11/18/18 11/19/18 05:59 05:59 05:59 Intake Total 200 550 Output Total 2350 1550 Balance -2150 -1000 PT REJ 11/12/18 22:00 INR REJ 11/12/18 22:00 General: pale, weak and chronically ill appearing with a soft, hoarse voice. Affect is flat and cautious. - Time Spent With Patient Time Spent With Patient: 15 minutes ICD10 Worksheet Patient Problems: Problems Problem Status Onset Fever Acute Bone metastasis Acute Compression fracture Acute Dehydration Acute Renal cell carcinoma Acute Weakness Acute Weakness of right lower extremity Acute
--- NOTE | 2018-11-18 14:24 | HOSPPROG ---
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 # GI bleed with ABLA - H/H low but stable s/p 1U PRBC - had previously declined intervention - cont PPI BID - change to PO today # chronic T-spine osteomyelitis/spinal hardware infection - dapto stopped, now on tedizolid # metabolic encephalopathy - resolved, has decision making capacity - infection vs immune therapy side effect; much improved with steroids - change steroids IV to PO today and decrease dose from solu-medrol 40 IV daily -> pred 20 daily # metastatic RCC - on nivolumab (holding) # acute resp failure - d/t pulm edema - better # diarrhea - c. dif negative # thrombocytopenia - resolved # hypoNa - follow # SPCM # dvt ppx - will restart lovenox tomorrow am; follow for recurrent GIB # dispo - poor prognosis (incurable T-spine infection, metastatic RCC), poor performance status; not ready for hospice; pall care involved - likely ready for dc later this week; pall care would like another family meeting prior to dc Subjective: still c/o mouth pain Objective: Vital Signs Temp Pulse Resp BP Pulse Ox 36.6 C 84 16 139/71 H 94 11/18/18 08:00 11/18/18 08:00 11/18/18 08:00 11/18/18 08:00 11/18/18 08:00 Laboratory Results 11/18/18 06:39 11/18/18 06:10 11/17/18 11/18/18 11/19/18 05:59 05:59 05:59 Intake Total 200 550 Output Total 2350 1550 Balance -2150 -1000 PT REJ 11/12/18 22:00 INR REJ 11/12/18 22:00 - Physical Exam Constitutional: chronically ill appearing Cardiovascular: regular rate and rhythym, no murmur, rub, or gallop Respiratory: no respiratory distress, no rales or rhonchi Gastrointestinal: soft, non-tender abdomen, no palpable masses, No rebound, No distension ICD10 Worksheet Patient Problems: Problems Problem Status Onset Compression fracture Acute Renal cell carcinoma Acute Bone metastasis Acute Weakness Acute Dehydration Acute Weakness of right lower extremity Acute Fever Acute
[2018-11-18] MEDS: [UNRECOGNIZED DRUG - OTHER] PO SCH (14:37)
--- NOTE | 2018-11-18 14:55 | ASMTCMCOM ---
CM Note CM Note Notes: Plan of care reviewed in rounds. Palliative/hospice Dr. Casanova met with patient yesterday to review his medical status and options. He is still resistant to hospice care at this point. CM to follow. Plan: Remains to [facility] with Palliative care Date Signed: 11/18/2018 02:55 PM Electronically Signed By:Salena Delarosa RN
[2018-11-18] MEDS ORDERED: CALCIUM GLUCONATE 50 ML IV ONE (18:00)
[2018-11-18] MEDS: PANTOPRAZOLE SODIUM 40 MG TAB PO SCH (21:03)
[2018-11-18] MEDS: traZODone 50 MG TAB PO PRN (21:06)
[2018-11-18] MEDS: MELATONIN 3 MG TAB PO PRN (21:06)
[2018-11-19] MEDS: ACETAMINOPHEN 325 MG TAB PO SCH ×3 (06:04→18:43)
[2018-11-19] MEDS: NYSTATIN SUSP 500000 UNIT/5 ML UD LIQ PO SCH ×4 (06:04→22:13)
[2018-11-19 06:29] LABS: PLATELET COUNT 168 10^3/uL (150-400)
[2018-11-19] MEDS: MBX SOLN 30 ML BOTTLE PO PRN ×2 (09:22→18:47)
[2018-11-19] MEDS: METOPROLOL TARTRATE 25 MG TAB PO SCH ×2 (13:17→22:11)
[2018-11-19] MEDS: PANTOPRAZOLE SODIUM 40 MG TAB PO SCH ×2 (13:17→22:11)
[2018-11-19] MEDS: valACYclovir 500 MG TAB PO SCH ×2 (13:17→22:11)
[2018-11-19] MEDS: predniSONE 20 MG TAB PO SCH (13:17)
--- NOTE | 2018-11-19 15:56 | HOSPPROG ---
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 # GI bleed with ABLA - H/H low but stable s/p 1U PRBC - had previously declined intervention - cont PPI BID - currently PO # chronic T-spine osteomyelitis/spinal hardware infection - dapto stopped, now on tedizolid -inoperable # Intermittent metabolic encephalopathy - infection vs immune therapy side effect -had some improvement with steroids which will continue # metastatic RCC - on nivolumab (holding) # acute resp failure - d/t pulm edema - better # diarrhea - c. dif negative # thrombocytopenia - resolved # SiADH/hypoNa - Fluid restrict -monitor closely -if further decreased, consider salt replacement # SPCM #Oral Ulcers: On Valtrex # dvt ppx - Lovenox, follow closely # dispo - poor prognosis (incurable T-spine infection, metastatic RCC), poor performance status; not ready for hospice; pall care involved - likely ready for dc later this week; pall care would like another family meeting prior to dc Subjective: somewhat confused today. no overnight event. no cp or sob. Objective: Vital Signs Temp Pulse Resp BP Pulse Ox 36.6 C 104 H 18 156/93 H 93 11/19/18 08:31 11/19/18 08:31 11/19/18 08:31 11/19/18 08:31 11/19/18 08:31 Laboratory Results 11/19/18 06:10 11/19/18 06:10 11/18/18 11/19/18 11/20/18 05:59 05:59 05:59 Intake Total 550 500 Output Total 1550 1050 550 Balance -1000 -550 -550 PT REJ 11/12/18 22:00 INR REJ 11/12/18 22:00 - Physical Exam Constitutional: no apparent distress Eyes: PERRL, EOMI Ears, Nose, Mouth, Throat: moist mucous membranes, hearing normal Cardiovascular: regular rate and rhythym Respiratory: no respiratory distress, no rales or rhonchi, clear to auscultation Gastrointestinal: normoactive bowel sounds, soft, non-tender abdomen Skin: warm Psychiatric: interacting appropriately Lymph, Heme, Immunologic: No petechiae ICD10 Worksheet Patient Problems: Problems Problem Status Onset Fever Acute Bone metastasis Acute Compression fracture Acute Dehydration Acute Renal cell carcinoma Acute Weakness Acute Weakness of right lower extremity Acute
--- NOTE | 2018-11-19 17:56 | PCMIDPN ---
Assessment/Plan: Assessment/Plan: * Postoperative back infection: Will resume daptomycin as outlined below. Wound exam on Saturday showed worsening exposure of hardware including part of ilya. Overall anticipate that back infection will continue to progress in the setting of extensive exposed hardware. * Fever: Resolved. * Altered mental status: More confused today. Will discontinue tedizolid in event this is contributing although favor progressive infection as most likely etiology. Hospitalist service to increased dose of steroids to see if this also leads to any improvement. 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 Continue Valacyclovir twice daily. 11/19/18 17:53 Subjective: Patient is somnolent this p.m.. Decreased interaction versus previous exam on Saturday. Objective: Vital Signs Temp Pulse Resp BP Pulse Ox 37.6 C 97 18 139/83 H 100 11/19/18 16:19 11/19/18 16:19 11/19/18 16:19 11/19/18 16:19 11/19/18 16:19 Laboratory Results 11/19/18 06:10 11/19/18 06:10 11/18/18 11/19/18 11/20/18 05:59 05:59 05:59 Intake Total 550 500 Output Total 1550 1050 550 Balance -1000 -550 -550 Tedizolid #3 - Physical Exam General Appearance: non-toxic, other (Somnolent) EENT: other (Oral ulcerations largely scabbed), No scleral icterus Cardiac/Chest: regular rate, rhythm Extremities: No inflammation Abdomen: non-tender, No distended Neuro/Psych: confused ICD10 Worksheet Patient Problems: Problems Problem Status Onset Fever Acute Bone metastasis Acute Compression fracture Acute Dehydration Acute Renal cell carcinoma Acute Weakness Acute Weakness of right lower extremity Acute
[2018-11-19] MEDS ORDERED: predniSONE 20 MG TAB PO ONE (18:20)
[2018-11-19] MEDS: [UNRECOGNIZED DRUG - OTHER] PO SCH (18:51)
[2018-11-19] MEDS: traZODone 50 MG TAB PO PRN (22:11)
[2018-11-19] MEDS: MELATONIN 3 MG TAB PO PRN (22:11)
[2018-11-20] MEDS: ACETAMINOPHEN 325 MG TAB PO SCH ×5 (01:59→23:42)
[2018-11-20] MEDS: ALTEPLASE 2 MG VIAL IVP PRN (04:00)
[2018-11-20 04:43] LABS: PLATELET COUNT 149 10^3/uL (150-400)
[2018-11-20] MEDS: NYSTATIN SUSP 500000 UNIT/5 ML UD LIQ PO SCH ×4 (05:11→21:20)
[2018-11-20] MEDS ORDERED: CALCIUM GLUCONATE 50 ML IV ONE (08:25)
[2018-11-20] MEDS ORDERED: predniSONE 20 MG TAB PO SCH ×2 (09:00→14:58)
[2018-11-20] MEDS ORDERED: CALCIUM GLUCONATE 1 GM in D5W 50 ML IV ONE (09:00)
--- NOTE | 2018-11-20 09:27 | ASMTCMCOM ---
CM Note CM Note Notes: Chart reviewed. Altered mental status. Decreasing H&H. More exposed hardware noted. Continued infection and underlying renal cell carcinoma. Palliative care following and likely to discharge to [facility] when medically cleared. CM to follow. Plan: As outlined above. Date Signed: 11/20/2018 09:27 AM Electronically Signed By:Salena Delarosa RN
[2018-11-20] MEDS: DAPTOmycin 480 MG in NS 100 ML IV SCH (10:51)
[2018-11-20] MEDS: valACYclovir 500 MG TAB PO SCH ×2 (10:52→21:24)
[2018-11-20] MEDS: METOPROLOL TARTRATE 25 MG TAB PO SCH ×2 (10:52→21:20)
[2018-11-20] MEDS: PANTOPRAZOLE SODIUM 40 MG TAB PO SCH ×2 (10:53→21:24)
[2018-11-20] MEDS: MBX SOLN 30 ML BOTTLE PO PRN (11:01)
--- NOTE | 2018-11-20 11:01 | SOAPPROG ---
SOAP Progress Note Assessment/Plan: Assessment: This is a 68-year-old male with history of metastatic renal cell carcinoma and history of T-spine osteomyelitis. 1. Metastatic renal cell carcinoma: He previously has received immunotherapy with slow progression. He previously has had goals of care discussions and currently is DNR. I previously discussed with him and his and again I re- emphasized this with them today that given his performance status he is not a candidate for any other cancer directed therapy. We also had an extensive discussion with his son by phone that he continues to have a declining physical status. I expressed my concerns that he might not clinically improve and will continue deteriorate. I did discuss that hospice would be appropriate and this has been emphasized by other physicians as well. 2. T-spine osteomyelitis: Followed by Infectious disease. 3. Acute blood-loss anemia: Their declining any form of endoscopy A total 30 min was spent on direct patient care alongside counseling and recommendations tumor she had and his son. 11/20/18 11:02 Subjective: No acute events overnight. No chest pain or shortness of breath. Objective: Vital Signs Temp Pulse Resp BP Pulse Ox 36.4 C 82 16 112/63 98 11/20/18 08:00 11/20/18 08:25 11/20/18 08:25 11/20/18 08:00 11/20/18 08:25 Laboratory Results 11/20/18 04:35 11/20/18 04:35 11/19/18 11/20/18 11/21/18 05:59 05:59 05:59 Intake Total 500 300 25 Output Total 1050 1350 Balance -550 -1050 25 PT REJ 11/12/18 22:00 INR REJ 11/12/18 22:00 General: Ill-appearing male, conversant Psych: Flat affect HEENT: Dry mucous membranes Cardiovascular: Regular rhythm Pulmonary: Clear on anterior auscultation Abdomen: Soft nontender nondistended bowel sounds are present Extremities: No cyanosis clubbing or edema ICD10 Worksheet Patient Problems: Problems Problem Status Onset Fever Acute Bone metastasis Acute Compression fracture Acute Dehydration Acute Renal cell carcinoma Acute Weakness Acute Weakness of right lower extremity Acute
[2018-11-20] MEDS: predniSONE 20 MG TAB PO SCH (11:05)
--- NOTE | 2018-11-20 13:04 | PCMIDPN ---
Assessment/Plan: # Chronic T spine OM, Continued expansion of exposed HWR and associated wounds. Dramatic tracking of most superior wound at 8cm+. past cultures showing Corynebacterium currently on Daptomycin. No new fever. WBC stable. Patient remains extremely debilitated. 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 Patient examined with jigsaw operator Subjective: denies pain at bedside and was shown wound Objective: Vital Signs Temp Pulse Resp BP Pulse Ox 36.4 C 82 16 112/63 98 11/20/18 08:00 11/20/18 08:25 11/20/18 08:25 11/20/18 08:00 11/20/18 08:25 Laboratory Results 11/20/18 04:35 11/20/18 04:35 11/19/18 11/20/18 11/21/18 05:59 05:59 05:59 Intake Total 500 300 25 Output Total 1050 1350 Balance -550 -1050 25 Wound exam: 2 areas of exposed HWR. Top midline wound: 3.8 x 3.9 x 8 cm deep at 12 oclock undermining 10 oclock to 2 oclock 2-to-1 cm respectively. Distal midline: 1.5 x 1 x 0.1 cm 60% deep tissue injury 40% stage 2. Right lateral incision: 4.9 x 2.4 x 0.5 cm 40% slough, undermining a with 0.5 cm at 6 oclock. - Physical Exam General Appearance: cachetic, No alert EENT: other (lip ulcerations extending up to his nose ), No scleral icterus Respiratory: normal breath sounds Cardiac/Chest: regular rate, rhythm Back: other Skin: pallor Neuro/Psych: alert, other (wispering responses) - Line/s RUE PICC Lines: No drainage, No erythema - Time Spent With Patient Time Spent with Patient: greater than 35 minutes Time Spent with Patient: Greater than 35 minutes spent on this patients care, greater than 50% of time spent counseling, educating, and coordinating care regarding the above mentioned plan. ICD10 Worksheet Patient Problems: Problems Problem Status Onset Fever Acute Bone metastasis Acute Compression fracture Acute Dehydration Acute Renal cell carcinoma Acute Weakness Acute Weakness of right lower extremity Acute
--- NOTE | 2018-11-20 13:41 | WOCRNPDOC ---
KALYANCRLloyd Advanced Assessment Note - Skin Integrity Problem, Advanced Assess Right Upper Distal Back Surgical Wound/Incision Dressing Type: ABD Pad, Gauze Dressing Description: Clean/Dry, Intact Integumentary Issue Intervention: Dressing Changed Wound Bed Constitution: Red/[place] - Non Granular Tissue (40%), Undermining (0.5 at 6 oclock), Adhered Slough (40%) Wound Edges: Attached, Not Attached, Epibole Site Measurement - Head-to-Toe Length X Width X Depth (cm): 4.9x2.4x0.5 Pressure Injury Stage: Stage 4 Pressure Injury Present on Admit: Yes Skin Integrity Problem Comment: Screw exposed. Wound does not currently tunnel. Covered with moist gauze, dry gauze, ABD and then exudry dressing. Medial Proximal Upper Back Surgical Wound/Incision Dressing Type: ABD Pad, Alginate, Gauze Dressing Description: Clean/Dry, Intact Exudate Amount: Minimal Exudate Color: Yellow Exudate Characteristic(s): Cloudy Integumentary Issue Intervention: Dressing Changed Wound Bed Constitution: Tunneling (8 cm toward the midline at 12 oclock), Undermining (9-2 oclock 2 to 1 cm), Adhered Slough (100%) Site Measurement - Head-to-Toe Length X Width X Depth (cm): 3.8x3.9x8 Pressure Injury Stage: Stage 4 Pressure Injury Present on Admit: Yes Skin Integrity Problem Comment: This is the largest of the wounds and there is both an screw and ilya exposed. The wound extends well into the patient's chest cavity to the extent that after 8 cm probing was stopped. The wound should no longer be packed as packing will be lost in the chest cavity. Wound healing improbable to impossible. The wound is so extensive that anything other than a drainage control dressing is no longer warranted. Wound will be covered with gauze and ABD's for moisture control and pressure reduction. Wound care will follow once a week. If the wound stops devolving and/or shows any signs of improvement, then perhaps a different approach may be considered, however this is highly unlikely. Patient rounded on with Dr. Duval. Patient and his are aware of the wound's deterioration. Medial Distal Back Dressing Type: ABD Pad, Gauze Exudate Amount: None Wound Bed Constitution: Red/[place] - Non Granular Tissue Site Measurement - Head-to-Toe Length X Width X Depth (cm): 1.5x1x0.6 Pressure Injury Stage: Deep Tissue Injury (DTI) Skin Integrity Problem Comment: This wound is opening. There is hardware under the skin that is pressing on the tissues. The inferior portion of the wound is open and partial thickness. The superior portion is still evolving deep tissue injury. Patient on Envella mattress.
--- NOTE | 2018-11-20 14:57 | HOSPPROG ---
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 # GI bleed with ABLA -I d/w the pt today 11/20, no w/u is wanted, no colonoscopy/endoscopy -will transfuse 1 unit PRBC -cont PPI BID, currently PO -cont with current diet. Not NPO as no procedure planned # Acute chronic T-spine osteomyelitis/spinal hardware infection, wound -Wound shows progressive erosion -He is not a surgical candidate -He has SPCMN -cont Daptomycin # Intermittent metabolic encephalopathy, resolving -cont Steroids # metastatic RCC - on nivolumab (holding) # acute resp failure - d/t pulm edema - better # diarrhea - c. dif negative # thrombocytopenia - resolved # SiADH/hypoNa - Fluid restrict -monitor closely -if further decreased, consider salt replacement # SPCM #Oral Ulcers: On Valtrex # dvt ppx - Lovenox, follow closely # dispo - poor prognosis (incurable T-spine infection, metastatic RCC), poor performance status; not ready for hospice; pall care involved long meeting with family, pt, son over the phone to discuss prognosis/goals of care. The son is still very hopeful. Subjective: no cp or sob. no n/v Objective: Vital Signs Temp Pulse Resp BP Pulse Ox 36.4 C 82 16 112/63 98 11/20/18 08:00 11/20/18 08:25 11/20/18 08:25 11/20/18 08:00 11/20/18 08:25 Laboratory Results 11/20/18 04:35 11/20/18 04:35 11/19/18 11/20/18 11/21/18 05:59 05:59 05:59 Intake Total 500 300 725 Output Total 1050 1350 Balance -550 -1050 725 PT REJ 11/12/18 22:00 INR REJ 11/12/18 22:00 - Time Spent With Patient Time Spent with Patient: greater than 35 minutes Time Spent with Patient: Greater than 35 minutes spent on this patients care, greater than 50% of time spent counseling, educating, and coordinating care regarding the above mentioned plan. - Physical Exam Constitutional: chronically ill appearing Eyes: PERRL, EOMI Ears, Nose, Mouth, Throat: moist mucous membranes, hearing normal Cardiovascular: regular rate and rhythym, No edema Respiratory: no respiratory distress, no rales or rhonchi Gastrointestinal: normoactive bowel sounds, soft, non-tender abdomen Skin: warm Neurologic: AAOx3 Psychiatric: interacting appropriately, not anxious, not encephalopathic Lymph, Heme, Immunologic: No petechiae ICD10 Worksheet Patient Problems: Problems Problem Status Onset Fever Acute Bone metastasis Acute Compression fracture Acute Dehydration Acute Renal cell carcinoma Acute Weakness Acute Weakness of right lower extremity Acute
[2018-11-20] MEDS: traZODone 50 MG TAB PO PRN (23:43)
[2018-11-21] MEDS: ACETAMINOPHEN 325 MG TAB PO SCH ×3 (06:30→18:03)
[2018-11-21] MEDS: ACETAMINOPHEN 650 MG SUPP PR PRN (06:30)
[2018-11-21] MEDS: NYSTATIN SUSP 500000 UNIT/5 ML UD LIQ PO SCH ×4 (06:31→21:50)
[2018-11-21] MEDS ORDERED: NS 1,000 ML IV ONE (10:01)
--- NOTE | 2018-11-21 10:27 | PCMIDPN ---
Assessment/Plan: Assessment/Plan: * Postoperative back infection: See below discussion. Continue daptomycin with addition of Zosyn and micafungin as outlined below. Wound Care findings reviewed with Wound Care today. Significant tracking of wound with continued worsening including exposure of ilya in addition to screw. * Altered mental status/tachypnea: Patient developed tachypnea and decreased mental status overnight. Concerning for onset of sepsis. Likely etiology would be either related to back with other consideration being PICC associated bacteremia or fungemia. Continue daptomycin with initiation of Zosyn and micafungin for broader gram-negative ilya/anaerobic coverage as well as anti fungal activity. Will repeat blood cultures.Overall prognosis is grave based on his current clinical condition. 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 Continue Valacyclovir twice daily if able to resume p.o. intake. Clinical findings and plan reviewed with Dr. Merritt and patient's son Kahlil. 11/21/18 10:24 11/21/18 10:28 11/21/18 16:06 Subjective: Patient developed tachypnea and depressed mental status overnight. Currently unresponsive with significant increase in respiratory effort. Objective: Vital Signs Temp Pulse Resp BP Pulse Ox 36.1 C 110 H 36 H 144/97 H 99 11/21/18 02:16 11/21/18 08:21 11/21/18 08:21 11/21/18 02:16 11/21/18 08:21 Laboratory Results 11/20/18 04:35 11/20/18 04:35 11/20/18 11/21/18 11/22/18 05:59 05:59 05:59 Intake Total 300 975 Output Total 1350 750 Balance -1050 225 Daptomycin # 3 - Physical Exam General Appearance: apparent distress (Significantly increased respiratory effort and unresponsive to stimulation) EENT: dry mucous membranes, other (Ulcerations over lips crusting), No scleral icterus Respiratory: respiratory distress Cardiac/Chest: tachycardia Extremities: other (Mottling of both knees present) Abdomen: non-tender, No distended Back: other (Images from wound care 11/20/2018 reviewed) Neuro/Psych: other (Unresponsive to stimuli) ICD10 Worksheet Patient Problems: Problems Problem Status Onset Fever Acute Bone metastasis Acute Compression fracture Acute Dehydration Acute Renal cell carcinoma Acute Weakness Acute Weakness of right lower extremity Acute
[2018-11-21] MEDS ORDERED: MICAFUNGIN NA 100 MG in NS 100 ML IV SCH (10:30)
[2018-11-21] MEDS: PIPERACILLIN/TAZO 4.5 GM/DEX 100 ML IV SCH ×3 (10:42→23:12)
[2018-11-21] MEDS ORDERED: methylPREDNISolone SOD SUCC 125 MG/2 ML VIAL IVP ONE (10:44)
[2018-11-21] MEDS: PANTOPRAZOLE SODIUM 40 MG TAB PO SCH (11:00)
[2018-11-21] MEDS: METOPROLOL TARTRATE 25 MG TAB PO SCH (11:00)
[2018-11-21] MEDS: valACYclovir 500 MG TAB PO SCH ×2 (11:01→21:50)
[2018-11-21 11:21] LABS: PLATELET COUNT 126 10^3/uL (150-400)
[2018-11-21] MEDS ORDERED: CALCIUM GLUCONATE 50 ML IV ONE ×2 (11:33→15:23)
[2018-11-21] MEDS: DAPTOmycin 480 MG in NS 100 ML IV SCH (12:40)
--- NOTE | 2018-11-21 13:10 | HOSPPROG ---
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 #Likely Sepsis #Tachypnea # GI bleed with ABLA -I d/w the pt and his family on 11/20, no w/u is wanted, no colonoscopy/ endoscopy -s/p transfusion 1 unit on 11/20 -cont PPI BID, change to IV # Acute chronic T-spine osteomyelitis/spinal hardware infection, wound -Wound shows progressive erosion -He is not a surgical candidate -He has SPCMN # Acute Encephalopathy # metastatic RCC - on nivolumab (holding) # acute resp failure - d/t pulm edema - better # diarrhea - c. dif negative # thrombocytopenia - resolved # SiADH/hypoNa - Fluid restrict -monitor closely -if further decreased, consider salt replacement # SPCM #Oral Ulcers: On Valtrex # dvt ppx - Lovenox, follow closely # dispo - poor prognosis (incurable T-spine infection, metastatic RCC), poor performance status; not ready for hospice; pall care involved Plan: The pt is likely septic. I notified ID and abx have been broadened to include Daptomycin and Zosyn. Antifungal was started as well. I have reviewed the CXR obtained early this morning and this shows improving bilateral effusions He will be provided IVF bolus Obtain stat labs Will follow clinical response I have notified the pt's son. He understands his dad is very ill. He confirms that the pt is a DNR/DNI. However, if pressures are needed, then he would like them given. No need for them at this time Malfunctioning/malpositioned PICC. We will have this replaced if needed. Nursing is coordinating with IR. Per IR, we can use it at this time Holding chemical DVT proph given GIB total critical care time including d/w family, nursing, and ID is 60 minutes Subjective: called urgently to bedside due to encephalopathy and tachypnea Objective: Vital Signs Temp Pulse Resp BP Pulse Ox 36.4 C 112 H 36 H 171/98 H 98 11/21/18 12:43 11/21/18 12:43 11/21/18 12:43 11/21/18 12:43 11/21/18 12:43 Laboratory Results 11/21/18 10:30 11/21/18 10:30 11/20/18 11/21/18 11/22/18 05:59 05:59 05:59 Intake Total 300 975 Output Total 1350 750 Balance -1050 225 PT REJ 11/12/18 22:00 INR REJ 11/12/18 22:00 - Physical Exam Constitutional: chronically ill appearing Eyes: PERRL Ears, Nose, Mouth, Throat: moist mucous membranes Cardiovascular: tachycardia, No edema Respiratory: no respiratory distress, no rales or rhonchi, clear to auscultation Gastrointestinal: normoactive bowel sounds, soft, non-tender abdomen Skin: warm Neurologic: No AAOx3 Psychiatric: encephalopathic Lymph, Heme, Immunologic: No petechiae ICD10 Worksheet Patient Problems: Problems Problem Status Onset Fever Acute Bone metastasis Acute Compression fracture Acute Dehydration Acute Renal cell carcinoma Acute Weakness Acute Weakness of right lower extremity Acute
[2018-11-21] MEDS ORDERED: FUROSEMIDE 20 MG/2 ML VIAL IVP ONE ×2 (13:53→15:20)
[2018-11-21] MEDS: PANTOPRAZOLE SODIUM 40 MG VIAL IVP SCH ×2 (14:03→22:01)
[2018-11-21] MEDS ORDERED: CALCIUM GLUCONATE 1 GM in D5W 50 ML IV ONE (15:30)
[2018-11-21] MEDS: NS 1,000 ML IV SCH (17:57)
[2018-11-22] MEDS: ACETAMINOPHEN 650 MG SUPP PR PRN (00:51)
[2018-11-22] MEDS: ACETAMINOPHEN 325 MG TAB PO SCH (00:52)
--- NOTE | 2018-11-22 02:17 | HOSPPROG ---
Hospitalist Progress Note Assessment/Plan: XC: Patient with acute rise in O2 needs. CXR mostly unchanged from one performed earlier today. Patient otherwise relatively stable with continued encephalopathy, tachypnea, and tachycardia. I asked RT to perform deep suctioning, which provided good results. The patient is now stable on 4-5 L O2, although his outlook remains quite poor. Objective: Vital Signs Temp Pulse Resp BP Pulse Ox 36.6 C 120 H 32 H 96/65 L 96 11/22/18 01:29 11/22/18 01:29 11/22/18 01:29 11/22/18 01:29 11/22/18 01:29 Laboratory Results 11/21/18 10:30 11/21/18 15:45 11/20/18 11/21/18 11/22/18 05:59 05:59 05:59 Intake Total 260 315 4078 Output Total 3789 756 8151 Balance -1050 225 -625 PT REJ 11/12/18 22:00 INR REJ 11/12/18 22:00 ICD10 Worksheet Patient Problems: Problems Problem Status Onset Compression fracture Acute Renal cell carcinoma Acute Bone metastasis Acute Weakness Acute Dehydration Acute Weakness of right lower extremity Acute Fever Acute
[2018-11-22] MEDS: NS 1,000 ML IV SCH (03:31)
[2018-11-22] MEDS ORDERED: NS 500 ML IV ONE (03:42)
[2018-11-22 05:10] VITALS: BP 81/43
[2018-11-22] MEDS ORDERED: NOREPINEPHRINE BITARTRATE 4 MG in NS 500 ML IV SCH (05:30)
--- NOTE | 2018-11-22 15:20 | ASDISCHSUM ---
Discharge Information Plan Status: Medically Cleared to Leave:11/21/2018 Discharge Date:11/22/2018 07:30 AM CM D/C Disposition: ADT D/C Disposition: Projected Discharge Date:11/20/2018 11:00 AM Transportation at D/C: Discharge Delay Reason: Follow-Up Date:11/20/2018 11:00 AM Discharge Slot: Final Diagnosis: Placement Information Referral Type:*Chcf/SNF Referral ID:[id number] Provider Name: Address 1: Phone Number: Address 2: Fax Number: City: Selection Factors: State: Referral Type:Palliative Care Referral ID:[id number] Provider Name: Address 1: Phone Number: Address 2: Fax Number: City: Selection Factors: State: Patient Contact Information Contact Name:TYV Relationship: Address:[address] City:[place] Alternate Phone: State/Zip Code:[place] [address] Email: Financial Information Financial Class:Medicare Primary Plan Desc:MEDICARE INPATIENT Primary Plan Number:[id number] Secondary Plan Desc:FRED Secondary Plan Number:[id number] Assessment Information LACE LACE Acuity / Level of Answers: Yes Care: Did the patient have an inpatient admission? Comorbidities - select Answers: Any tumor (including all that apply lymphoma or leukemia) Opioid dependence / Chronic pain Other Notes: HTN # of Emergency department Answers: 3-4 visits in the last 6 months Social determinants Answers: Mental health diagnosis (anxiety, depression, pers onality disorders, etc.) Score: 16 Date Signed: 10/30/2018 08:36 AM Electronically Signed By:Elif Pérez [facility] CM Progress Note CM Note CM Note Notes: Pt lives with in [place] and was admitted from [facility] where he was residing in short term rehab after discharge from inpatient rehab. Pt has metastatic renal cell carcinoma with spinal mets and on admission had chronically infected and exposed spinal hardware after receiving surgical spinal fusion. Referral sent to [facility]. Therapy evals pending. Pt discharge needs TBD, but likely return to SNF. D/C Plan: TBD likely return to [facility] Date Signed: 10/30/2018 04:32 PM Electronically Signed By:Zohra Sanchez [facility] CM Progress Note CM Note CM Note Notes: visiting patient. She is unsure when the son might be coming to [place]. Palliative mtg w/patient, , Fausto and EVA. Patient and wanted to learn more about dx and px. Dr. Awad asked to meet with couple. Date Signed: 11/03/2018 04:55 PM Electronically Signed By:Nadia Kumari LCSW [facility] CM Progress Note CM Note CM Note Notes: Palliative consult this morning with patient, his son, Kahlil, his , Fausto, palliative care and EVA Martinez, manager social.The family has decided to pursue Palliative care vs. comfort measures, hospice. Spoke with Cynthia with [facility] and she states patient is on co pay days currently and has 43 more days left. The co pay will increase in December. 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 Referral was sent to [facility] and a meeting will be set up for the morning. [facility] will contact Kahlil directly to set up the time. Spoke with Kahlil to go over all the financial questions he had and also to let him know he would receive a call from [facility] today. Referral was made to [facility]. CM will follow. Date Signed: 11/06/2018 03:19 PM Electronically Signed By:Michelle Alston LCSW [facility] EVA Progress Note CM Note CM Note Notes: [facility] met with Kahlil, patient's son this morning who then talked it over with the patient and the family does want Palliative care. Updates were sent to [facility] yesterday but they would like updates every 2 days. Updates should be sent on Saturday if patient is still in the hospital.Kahlil wanted to see if [facility] had any openings as his dad, the patient was wanting to go there if they did. A referral was sent though I did let the family know they do not have openings very often. CM will follow. Date Signed: 11/07/2018 01:55 PM Electronically Signed By:Michelle Alston LCSW [facility] EVA Progress Note CM Note EVA Note Notes: Patient chart reviewed for plan of care. The patient is accepted to [facility] and will be followed by [facility] palliative. No change is plan. Plan: To discharge to [facility] when medically cleared for discharge to home. Date Signed: 11/09/2018 09:01 AM Electronically Signed By:Salena Delarosa RN [facility] CM Progress Note CM Note CM Note Notes: Patient plan of care reviewed in rounds. The patient is very responsive today. History of cancer with mets to the spine. Now with infected, exposed spinal hardware with no treatment options. Family to meet with [facility] today to determine plan of care from here. CM to follow for needs, likely to discharge to [facility] . Plan To [facility] with [facility] support when medically cleared for discharge. Date Signed: 11/11/2018 01:40 PM Electronically Signed By:Salena Delarosa RN [facility] CM Progress Note CM Note CM Note Notes: Plan of care reviewed in rounds. He continues to have black tarry stools. Considering GI workup. Supportive care for wound and infection. Family aware of gravity of situation but want to pursue treatment options. CM to follow. Plan: Likely to return to [facility] with palliative care when medically cleared for discharge. Date Signed: 11/13/2018 02:06 PM Electronically Signed By:Salena Delarosa RN [facility] CM Progress Note CM Note CM Note Notes: Pt discussed during rounds. Once pt's GI bleed is stable it may be reasonable to switch all therapies to PO and if he remains stable, d/c back to [facility]. Family not ready to pursue hospice care at this time. Palliative care has been consulted. D/C [facility] Date Signed: 11/14/2018 01:52 PM Electronically Signed By:Karen Scott [facility] Progress Note CM Note CM Note Notes: Chart review: Palliative care following, plan remains discharge to [facility] w/ Palliative Care. Date TBD. CM to follow. Plan: TBD, [facility] with Palliative. Date Signed: 11/16/2018 04:42 PM Electronically Signed By:Leola Jeffers [facility] Progress Note CM Note CM Note Notes: Plan of care reviewed in am rounds. Patient status essentially the same. He remains chronically ill with challlenges of anemia, infection and renal cell carcinoma, Seen again by Hospice/Palliative care physician.CM to follow. Plan: to [facility] when medically ready for discharge with palliative care. Date Signed: 11/17/2018 03:33 PM Electronically Signed By:Salena Delarosa RN [facility] Progress Note CM Note CM Note Notes: Plan of care reviewed in rounds. Palliative/hospice Dr. Casanova met with patient yesterday to review his medical status and options. He is still resistant to hospice care at this point. CM to follow. Plan: Remains to [facility] with Palliative care Date Signed: 11/18/2018 02:55 PM Electronically Signed By:Salena Delarosa RN [facility] CM Progress Note CM Note CM Note Notes: Chart reviewed. Altered mental status. Decreasing H&H. More exposed hardware noted. Continued infection and underlying renal cell carcinoma. Palliative care following and likely to discharge to [facility] when medically cleared. CM to follow. Plan: As outlined above. Date Signed: 11/20/2018 09:27 AM Electronically Signed By:Salena Delarosa RN Intervention Information
--- NOTE | 2018-12-08 22:07 | PDDCSUM ---
Discharge Summary Discharge Summary: Patient , please see notes from day of for details.
== END 2018-11-22 07:30 | disposition expired | DRG 559 ==
LOC: EDUNIT# → F1N 18:28 → F3N 10-30 14:20 → F2N 10-31 12:00 → F1N 11-07 12:16 → F2N 11-22 03:12
PROVIDERS: ADMIT Internal Medicine; ATTEND Student in an Organized Health Care Education/Training Program
PROC: 02H633Z Insertion of Infusion Device into Right Atrium, Percutaneous Approach (ICD-10-PCS; 2018-11-04)
PROC: 30243N1 Transfusion of Nonautologous Red Blood Cells into Central Vein, Percutaneous Approach (ICD-10-PCS; 2018-11-12)
PROC: 02HV33Z Insertion of Infusion Device into Superior Vena Cava, Percutaneous Approach (ICD-10-PCS; principal; 2018-11-21)
DX: T84.63XA Infection and inflammatory reaction due to internal fixation device of spine, initial encounter (principal); M46.24 Osteomyelitis of vertebra, thoracic region; T81.32XA Disruption of internal operation (surgical) wound, not elsewhere classified, initial encounter; G93.41 Metabolic encephalopathy; J96.00 Acute respiratory failure, unspecified whether with hypoxia or hypercapnia; E43 Unspecified severe protein-calorie malnutrition; C79.51 Secondary malignant neoplasm of bone; C64.1 Malignant neoplasm of right kidney, except renal pelvis; A41.9 Sepsis, unspecified organism; F11.20 Opioid dependence, uncomplicated; J81.1 Chronic pulmonary edema; K52.1 Toxic gastroenteritis and colitis; K92.2 Gastrointestinal hemorrhage, unspecified; E22.2 Syndrome of inappropriate secretion of antidiuretic hormone; B00.2 Herpesviral gingivostomatitis and pharyngotonsillitis; D62 Acute posthemorrhagic anemia; D64.9 Anemia, unspecified; G89.3 Neoplasm related pain (acute) (chronic); N40.0 Benign prostatic hyperplasia without lower urinary tract symptoms; R53.1 Weakness; J98.01 Acute bronchospasm; T36.8X5A Adverse effect of other systemic antibiotics, initial encounter; G47.00 Insomnia, unspecified; R63.0 Anorexia; E87.6 Hypokalemia; D69.6 Thrombocytopenia, unspecified; Z66 Do not resuscitate; Z79.899 Other long term (current) drug therapy; Z91.018 Allergy to other foods; Z90.5 Acquired absence of kidney; Z98.1 Arthrodesis status
CPT/HCPCS: 97162-GP; 97164-GP; 97166-GO; 97530-GO; 97530-GP; 97535-GO; C1751; G8978-GP-CM; G8979-GP-CJ; G8987-GO-CN; G8988-GO-CL; G8988-GO-CM; J0610; J0878; J1170; J1200; J1650; J1940; J1956; J2060; J2185; J2248; J2270; J2543; J2920; J2930; J2997; J3370; J3480; J7512; P9016; P9040; Q9967